=== PATIENT | male | born 1945 | race Asian ===

== ENCOUNTER 2017-09-30 20:46 | Inpatient (IN) | payer MEDICARE, MEDICAID ==
[~2017-09-30] VITALS: Ht 177.8 cm; Wt 86.2 kg
[2017-09-30] MEDS ORDERED: FISH OIL CAP1000 MG ORAL (20:59)
[2017-09-30] MEDS ORDERED: ASPIRIN EC81 MG ORAL (20:59)
[2017-09-30] MEDS ORDERED: DOCUSATE SODIU250 MG ORAL (20:59)
[2017-09-30] MEDS ORDERED: DULCOLAX10 MG RC (20:59)
[2017-09-30] MEDS ORDERED: FLEET ENEMA133 ML RECTAL (20:59)
[2017-09-30 21:03] VITALS: BP 150/94
--- NOTE | 2017-09-30 21:08 | Emergency Room Report ---
History of Present Illness General Chief Complaint: Head, Face, Neck Trauma Source: Patient, EMS Present Illness HPI The patient sustained a fall earlier this afternoon. He says he felt that he was about to pass out when he was starting to stand up. He hit his knee is and also his head. He remembers hitting his head then the pain was severe at that time also in his neck. He complains about headache, knee and neck pain at this time. He took aspirin [place] prior to coming. The pain in his neck is "heavy". There is no weakness. He does have swelling in his ankles. He reports the pain as 10/10, aching, not radiating. The patient has history of UTIs. He is uncertain when his last tetanus shot was. Allergies: Coded Allergies: No Known Allergies (Unverified , 09/30/17) Patient History Past Medical History: see triage record, old chart reviewed Past Surgical History: pacemaker Social History: Denies: smoking, alcohol use, drug use Social History [facility] Review[facility] Nursing Documentation: PMH: Agreed; PSxH: Agreed Nursing Documentation-PMH Hx Hypertension: Yes - atherosclerotic heart disease Hx Pacemaker: Yes Hx Diabetes: Yes Review of Systems All Other Systems: negative except mentioned in HPI Physical Exam Vital Signs Date Time Temp Pulse Resp B/P (MAP) Pulse Ox O2 Delivery O2 Flow Rate FiO2 09/30/17 20:36 97.8 96 18 150/94 98 Room Air 97.9 Sp02 EP Interpretation: reviewed, normal General Appearance: well appearing, no apparent distress, GCS 15 Head: other - Abrasion forehe Eyes: bilateral eye normal inspection, bilateral eye PERRL ENT: moist mucus membranes Neck: full range of motion, supple, no bony tend, tender - bilaterally more at base and into shoulders Respiratory: chest non-tender, lungs clear, normal breath sounds, other - pacemaker Cardiovascular #1: regular rate, rhythm, edema - bilat Cardiovascular #2: 2+ radial (R) Gastrointestinal: normal inspection, normal bowel sounds, non tender, no mass, non-distended Musculoskeletal: back normal, normal range of motion, no calf tenderness, pelvis stable, Aston's Sign negative, swelling - R knee with min effusion, TTP, ligaments stable, tender - knees and R shoulder (PROM of shoulder with minimal tenderness) Neurologic: alert, inspector structural bonding III-XII nml as tested, motor strength/tone normal, DTRs symmetric, sensory intact, cerebellar normal, speech normal, oriented - X2 Psychiatric: mood/affect normal Skin: warm/dry, abrasions - forehead and R knee Medical Decision Making Diagnostic Impression: Primary Impression: Syncope Qualified Codes: R55 - Syncope and collapse Additional Impressions: Blunt head trauma Qualified Codes: S09.8XXA - Other specified injuries of head, initial encounter Fall Qualified Codes: W19.XXXA - Unspecified fall, initial encounter Knee contusion Qualified Codes: S80.01XA - Contusion of right knee, initial encounter Abrasions of multiple sites Pleural effusion Whiplash Qualified Codes: S13.4XXA - Sprain of ligaments of cervical spine, initial encounter Contusion of right shoulder Qualified Codes: S40.011A - Contusion of right shoulder, initial encounter ER Course The patient presents after a fall associated with dizziness with head trauma and knee trauma. Differential includes acute myocardial infarction, arrhythmia , electrolyte imbalance, dehydration amongst others. We need to exclude head bleed and neck fracture although clinically the neck is low suspicion for fracture at this time. We will evaluate with EKG, chest x-ray and labs including urinalysis as he has a history of UTIs. He'll be treated with analgesia. Patient given tetanus. EKG without injury. CXR with L effusion. Labs with normal CBC, slight hyperkalemia, renal insufficiency. Xrays, CTs without fx, bleed. Vasyl applied by tech and good tension and position. Neurovasc checked by me and normal. Improved pain control. Patient admitted telemetry due to syncope. Laboratory Tests Test 09/30/17 21:14 09/30/17 22:00 10/01/17 06:15 White Blood Count 5.5 K/UL (4.8-10.8) 6.6 K/UL (4.8-10.8) Red Blood Count 4.51 M/UL (4.70-6.10) L 4.35 M/UL (4.70-6.10) L Hemoglobin 12.3 G/DL (14.2-18.0) L 12.1 G/DL (14.2-18.0) L Hematocrit 38.4 % (42.0-52.0) L 37.8 % (42.0-52.0) L Mean Corpuscular Volume 85 FL (80-99) 87 FL (80-99) Mean Corpuscular Hemoglobin 27.2 PG (27.0-31.0) 27.8 PG (27.0-31.0) Mean Corpuscular Hemoglobin Concent 32.0 G/DL (32.0-36.0) 32.0 G/DL (32.0-36.0) Red Cell Distribution Width 17.3 % (11.6-14.8) H 17.4 % (11.6-14.8) H Platelet Count 151 K/UL (150-450) 152 K/UL (150-450) Mean Platelet Volume 9.2 FL (6.5-10.1) 9.3 FL (6.5-10.1) Neutrophils (%) (Auto) 55.6 % (45.0-75.0) 47.7 % (45.0-75.0) Lymphocytes (%) (Auto) 31.6 % (20.0-45.0) 38.2 % (20.0-45.0) Monocytes (%) (Auto) 8.8 % (1.0-10.0) 9.9 % (1.0-10.0) Eosinophils (%) (Auto) 3.2 % (0.0-3.0) H 3.5 % (0.0-3.0) H Basophils (%) (Auto) 0.8 % (0.0-2.0) 0.7 % (0.0-2.0) Prothrombin Time 9.5 SEC (9.30-11.50) Prothrombin Time INR 0.9 (0.9-1.1) PTT 26 SEC (23-33) Sodium Level 142 MMOL/L (136-145) 145 MMOL/L (136-145) Potassium Level 5.8 MMOL/L (3.5-5.1) H 5.1 MMOL/L (3.5-5.1) Chloride Level 108 MMOL/L (98-107) H 109 MMOL/L (98-107) H Carbon Dioxide Level 34 MMOL/L (21-32) H 28 MMOL/L (21-32) Anion Gap 0 mmol/L (5-15) L 8 mmol/L (5-15) Blood Urea Nitrogen 28 mg/dL (7-18) H 25 mg/dL (7-18) H Creatinine 2.1 MG/DL (0.55-1.30) H 1.9 MG/DL (0.55-1.30) H Estimate Glomerular Filtration Rate mL/min (>60) mL/min (>60) Glucose Level 148 MG/DL (74-106) H 83 MG/DL (74-106) Calcium Level 8.8 MG/DL (8.5-10.1) 8.5 MG/DL (8.5-10.1) Total Bilirubin 0.4 MG/DL (0.2-1.0) 0.3 MG/DL (0.2-1.0) Aspartate Amino Transferase (AST) 42 U/L (15-37) H 27 U/L (15-37) Alanine Aminotransferase (ALT) 27 U/L (12-78) 23 U/L (12-78) Alkaline Phosphatase 118 U/L (46-116) H 111 U/L (46-116) Troponin I 0.038 ng/mL (0.000-0.056) Total Protein 7.2 G/DL (6.4-8.2) 6.7 G/DL (6.4-8.2) Albumin 2.5 G/DL (3.4-5.0) L 2.4 G/DL (3.4-5.0) L Globulin 4.7 g/dL 4.3 g/dL Albumin/Globulin Ratio 0.5 (1.0-2.7) L 0.6 (1.0-2.7) L Urine Color Pale yellow Urine Appearance Clear Urine pH 5 (4.5-8.0) Urine Specific [place] 1.015 (1.005-1.035) Urine Protein 4+ (NEGATIVE) H Urine Glucose (UA) Negative (NEGATIVE) Urine Ketones Negative (NEGATIVE) Urine Occult Blood 1+ (NEGATIVE) H Urine Nitrite Negative (NEGATIVE) Urine Bilirubin Negative (NEGATIVE) Urine Urobilinogen Normal MG/DL (0.0-1.0) Urine Leukocyte Esterase Negative (NEGATIVE) Urine RBC 2-4 /HPF (0 - 0) H Urine WBC 0-2 /HPF (0 - 0) Urine Squamous Epithelial Cells None /LPF (NONE/OCC) Urine Bacteria Few /HPF (NONE) C-Reactive Protein, Quantitative 2.0 mg/dL (0.00-0.90) H EKG Diagnostic Results Rate: normal Rhythm: other ST Segments: no acute changes Rhythm Strip Diag. Results EP Interpretation: yes Rhythm: no PVC's, no ectopy, other - rate 96 Chest X-Ray Diagnostic Results Chest X-Ray Diagnostic Results : Chest X-Ray Ordered: Yes # of Views/Limited/Complete: 1 View Indication: Other EP Interpretation: Yes Interpretation: no consolidation, other - L pleural effusion Other X-Ray Diagnostic Results Other X-Ray Diagnostic Results #1: X-Ray ordered: R shoulder # of Views/Limited Vs Complete: 3 View Indication: Pain EP Interpretation: Yes Interpretation: no dislocation, no soft tissue swelling, no fractures Impression: Other Electronically Signed by: Anant Rodriguez MD Other X-Ray Diagnostic Results #2: X-Ray ordered: R knee # of Views/Limited Vs Complete: 3 View Indication: Pain EP Interpretation: Yes Interpretation: no dislocation, no soft tissue swelling, no fractures, other - calcified vessels and DJD Impression: Other Electronically Signed by: Anant Rodriguez MD CT/MRI/US Diagnostic Results CT/MRI/US Diagnostic Results #1: Imaging Test Ordered: head Impression no mass, bleed or fx CT/MRI/US Diagnostic Results #2: Imaging Test Ordered: c spine Impression djd no fx, vasc calcifications Status: improved Disposition: ADMITTED INPATIENT Condition: Serious Anant Rodriguez M.D. Sep 30, 2017 21:08
[2017-09-30] MEDS ORDERED: GUAIFENESIN-CO118 M1 ORAL (21:11)
[2017-09-30] MEDS ORDERED: METOPROLOL TART50 MG ORAL (21:11)
[2017-09-30] MEDS ORDERED: PRO-STAT LIQUID30 ML ORAL (21:11)
[2017-09-30] MEDS ORDERED: LIPITOR40 MG ORAL (21:11)
[2017-09-30] MEDS ORDERED: POTASSIUM CHLO20 ME1 ORAL (21:11)
[2017-09-30] MEDS ORDERED: OMEPRAZOLE20 M2 ORAL (21:11)
[2017-09-30] MEDS ORDERED: NORCO 5-325 TA1 EAC1 ORAL (21:11)
[2017-09-30] MEDS ORDERED: LANTUS SOL100 UNIT/1 SUBQ (21:11)
[2017-09-30] MEDS ORDERED: MILK OF MA400 MG/51 ORAL (21:11)
[2017-09-30] MEDS ORDERED: LYRICA75 M1 ORAL (21:11)
[2017-09-30] MEDS ORDERED: ACETAMINOPHEN325 M1 ORAL (21:11)
[2017-09-30] MEDS ORDERED: TYLENOL EXTRA500 MG ORAL (21:11)
[2017-09-30] MEDS ORDERED: MECLIZINE HCL25 MG ORAL (21:11)
[2017-09-30] MEDS ORDERED: Tetanus/Diptheria/Pertussis Vaccine 0.5ml Syr IM ONE (21:15)
[2017-09-30] MEDS ORDERED: Morphine Sulfate 4mg/ml Inj IVP ONE (21:15)
[2017-09-30] MEDS ORDERED: Acetaminophen 500mg (ES) tab PO ONE (21:15)
[2017-09-30] MEDS ORDERED: Neosporin Oint Ud Pkt TOP ONE (21:15)
[2017-09-30 21:31] LABS: BASOPHILS % (AUTO) 0.8 % (0.0-2.0); EOSINOPHILS % (AUTO) 3.2 % (0.0-3.0); HEMATOCRIT 38.4 % (42.0-52.0); HEMOGLOBIN 12.3 G/DL (14.2-18.0); LYMPHOCYTES % (AUTO) 31.6 % (20.0-45.0); MEAN CORPUSCULAR VOLUME 85 FL (80-99); MONOCYTES % (AUTO) 8.8 % (1.0-10.0); NEUTROPHILS % (AUTO) 55.6 % (45.0-75.0); PLATELET COUNT 151 K/UL (150-450); RED BLOOD COUNT 4.51 M/UL (4.70-6.10); RED CELL DISTRIBUTION WIDTH 17.3 % (11.6-14.8); WHITE BLOOD COUNT 5.5 K/UL (4.8-10.8)
[2017-09-30 21:37] LABS: ANION GAP 0 mmol/L (5-15); BLOOD UREA NITROGEN 28 mg/dL (7-18); CALCIUM 8.8 MG/DL (8.5-10.1); CARBON DIOXIDE 34 MMOL/L (21-32); CHLORIDE 108 MMOL/L (98-107); CREATININE 2.1 MG/DL (0.55-1.30); POTASSIUM 5.8 MMOL/L (3.5-5.1); SODIUM 142 MMOL/L (136-145)
[2017-09-30 21:41] LABS: INR 0.9 (0.9-1.1)
[2017-09-30 21:43] LABS: ALANINE AMINOTRANSFERASE 27 U/L (12-78); ALBUMIN 2.5 G/DL (3.4-5.0); ALBUMIN/GLOBULIN RATIO 0.5 (1.0-2.7); ALKALINE PHOSPHATASE 118 U/L (46-116); ASPARTATE AMINO TRANSFERASE 42 U/L (15-37); BILIRUBIN,TOTAL 0.4 MG/DL (0.2-1.0)
[2017-09-30 22:21] LABS: APPEARANCE,URINE CLEAR; BILIRUBIN, URINE NEGATIVE (NEGATIVE); COLOR,URINE PALE YELLOW; GLUCOSE, URINE (UA) NEGATIVE (NEGATIVE); KETONES,URINE NEGATIVE (NEGATIVE); LEUKOCYTE ESTERASE ,URINE NEGATIVE (NEGATIVE); NITRITE,URINE NEGATIVE (NEGATIVE); PH,URINE 5 (4.5-8.0); PROTEIN,URINE 4+ (NEGATIVE); UROBILINOGEN,URINE NORMAL MG/DL (0.0-1.0)
[2017-10-01 00:01] VITALS: BP 127/73
[2017-10-01] MEDS ORDERED: Fleet's Enema 133ml RECTAL PRN (01:30)
[2017-10-01] MEDS ORDERED: guaiFENesin w/Codeine 5ml Liq ud ORAL PRN (01:30)
[2017-10-01] MEDS ORDERED: Acetaminophen 500mg (ES) tab ORAL PRN (01:30)
[2017-10-01] MEDS ORDERED: Milk of Magnesia 30ml Ud ORAL PRN (01:30)
[2017-10-01] MEDS ORDERED: Meclizine 25mg tab ORAL PRN (01:30)
[2017-10-01] MEDS ORDERED: Norco 5mg/325mg tab ORAL PRN ×2 (01:30→08:00)
[2017-10-01 04:00] VITALS: BP 117/90
[2017-10-01] MEDS: NovoLOG Insulin Flexpen SUBQ SCH ×4 (06:30→21:00)
[2017-10-01 08:00] VITALS: BP 116/69
[2017-10-01 08:41] LABS: BASOPHILS % (AUTO) 0.7 % (0.0-2.0); EOSINOPHILS % (AUTO) 3.5 % (0.0-3.0); HEMATOCRIT 37.8 % (42.0-52.0); HEMOGLOBIN 12.1 G/DL (14.2-18.0); LYMPHOCYTES % (AUTO) 38.2 % (20.0-45.0); MEAN CORPUSCULAR VOLUME 87 FL (80-99); MONOCYTES % (AUTO) 9.9 % (1.0-10.0); NEUTROPHILS % (AUTO) 47.7 % (45.0-75.0); PLATELET COUNT 152 K/UL (150-450); RED BLOOD COUNT 4.35 M/UL (4.70-6.10); RED CELL DISTRIBUTION WIDTH 17.4 % (11.6-14.8); WHITE BLOOD COUNT 6.6 K/UL (4.8-10.8)
[2017-10-01] MEDS ORDERED: Meclizine 25mg tab ORAL SCH (09:00)
[2017-10-01] MEDS ORDERED: Levemir Flexpen SUBQ SCH (09:00)
[2017-10-01 09:17] LABS: ALANINE AMINOTRANSFERASE 23 U/L (12-78); ALBUMIN 2.4 G/DL (3.4-5.0); ALBUMIN/GLOBULIN RATIO 0.6 (1.0-2.7); ALKALINE PHOSPHATASE 111 U/L (46-116); ANION GAP 8 mmol/L (5-15); ASPARTATE AMINO TRANSFERASE 27 U/L (15-37); BILIRUBIN,TOTAL 0.3 MG/DL (0.2-1.0); BLOOD UREA NITROGEN 25 mg/dL (7-18); CALCIUM 8.5 MG/DL (8.5-10.1); CARBON DIOXIDE 28 MMOL/L (21-32); CHLORIDE 109 MMOL/L (98-107); CREATININE 1.9 MG/DL (0.55-1.30); POTASSIUM 5.1 MMOL/L (3.5-5.1); SODIUM 145 MMOL/L (136-145)
[2017-10-01] MEDS: Lyrica 50mg cap ORAL SCH ×2 (09:18→17:25)
--- NOTE | 2017-10-01 09:18 | Diagnostic Imaging Report ---
Indications: Trauma Technique: Three views of the right knee Comparison: None Findings: No acute fractures. No dislocations. Joint spaces are preserved. No radiopaque foreign body. Normal mineralization. There are vascular calcifications. There is a small superior pole patellar traction osteophyte Impression: No acute process This agrees with the preliminary interpretation provided by the emergency room physician
[2017-10-01] MEDS: Metoprolol Tartrate 50mg tab ORAL SCH (09:19)
[2017-10-01] MEDS: Docusate 250mg cap ORAL SCH (09:20)
--- NOTE | 2017-10-01 09:31 | Diagnostic Imaging Report ---
Indications: From Technique: Spiral acquisitions obtained through the brain. Angled axial and coronal 5 x 5 mm slices were reconstructed. Total dose length product 1404.24 mGycm. CTDI vol(s) 70.38 mGy. Dose reduction achieved using automated exposure control Comparison: None. Findings: No acute hemorrhage or edema. No mass effect or midline shift. There is age-related enlargement of the ventricles and extra axial CSF spaces. Normal ruiz-white differentiation. There is sphenoid and ethmoid sinus disease as well as minimal medial maxillary mucosal thickening. There is a mild amount of disease in the bilateral mastoids. Small contusions are seen in the supraorbital scalp Impression: Age-related changes Negative for acute intracranial bleed or mass effect Evidence of extracranial scalp soft tissue injury. Sinus disease Mastoid disease This agrees with the preliminary interpretation provided overnight by [facility] service. The CT scanner at [facility] is accredited by the [employer] and the scans are performed using protocols designed to limit radiation exposure to as low as reasonably achievable to attain images of sufficient resolution adequate for diagnostic evaluation.
--- NOTE | 2017-10-01 09:37 | Diagnostic Imaging Report ---
Indication: Trauma, pain Technique: Spiral acquisitions obtained through the cervical spine. No IV contrast utilized. Multiplanar reconstructions were generated. Total dose length product 402.55 mGycm. CTDIvol(s) 17.41 mGy. Dose reduction achieved using automated exposure control. Comparison: none Findings: No acute fractures. No dislocations. Vertebral body heights are observed. There is degenerative narrowing of the anterior axial joint. At C3-4, there is minimal bilateral neural foraminal stenosis. No significant disc bulge or protrusion or spinal stenosis At C4-5, there are multiple osteophytes at the disc level. The disc space is preserved. There is severe right and moderate left neural foraminal stenosis. There is mild broad-based posterior disc protrusion which results in minimal spinal stenosis. There is bilateral facet arthrosis. At C5-6, there is moderate degenerative disc narrowing. Posterior osteophytes result in moderate narrowing of the spinal canal as well as likely impingement on the bilateral lateral recesses. There is severe bilateral neural foraminal stenosis due to uncinate hypertrophy and facet arthrosis. At C6-7, there is severe degenerative disc narrowing. Posterior osteophytes result in mild to moderate spinal stenosis as well as likely impingement on the lateral recesses. There is severe bilateral neural foraminal stenosis. At C7-T1, no significant disc bulge or protrusion, spinal stenosis, or neural foraminal stenosis. There is bilateral facet arthrosis. The included extra spinal soft tissues are unremarkable except for sinus disease. There is asymmetry of the piriform sinuses this appears to be due to asymmetric development of the thyroid cartilage. No mass is visualized. Impression: No acute bony trauma Degenerative changes, as described This agrees with the preliminary interpretation provided overnight by [facility]. The CT scanner at [facility] is accredited by the [employer] and the scans are performed using protocols designed to limit radiation exposure to as low as reasonably achievable to attain images of sufficient resolution adequate for diagnostic evaluation.
--- NOTE | 2017-10-01 09:38 | Diagnostic Imaging Report ---
Indication: Trauma Technique: 3 views of the right shoulder Comparison: none Findings: No acute fractures or dislocations. The joint spaces are preserved. The bones are osteoporotic Impression: No acute process
--- NOTE | 2017-10-01 09:40 | Diagnostic Imaging Report ---
Indication: Trauma Technique: One view of the chest Comparison: none Findings: Left lateral basilar opacity could represent pleural fluid. However, the left hemidiaphragm remains visible so it probably just represents a prominent pericardial fat pad. The remainder the lungs and pleural spaces are clear. There is a left chest bifocal pacemaker. Normal heart size Impression: Left pleural effusion versus prominent pericardial fat pad, favor the latter Pacemaker. This agrees with the preliminary interpretation provided by the emergency room physician
--- NOTE | 2017-10-01 11:07 | Neurology Progress Note ---
Objective Physical Exam Last Vital Signs Date Time Temp Pulse Resp B/P (MAP) Pulse Ox O2 Delivery O2 Flow Rate FiO2 10/01/17 09:19 76 116/69 10/01/17 08:00 97.3 20 96 Nasal Cannula 2.0 97.3 Laboratory Tests Test 09/30/17 21:14 09/30/17 22:00 10/01/17 06:15 White Blood Count 5.5 K/UL (4.8-10.8) 6.6 K/UL (4.8-10.8) Red Blood Count 4.51 M/UL (4.70-6.10) L 4.35 M/UL (4.70-6.10) L Hemoglobin 12.3 G/DL (14.2-18.0) L 12.1 G/DL (14.2-18.0) L Hematocrit 38.4 % (42.0-52.0) L 37.8 % (42.0-52.0) L Mean Corpuscular Volume 85 FL (80-99) 87 FL (80-99) Mean Corpuscular Hemoglobin 27.2 PG (27.0-31.0) 27.8 PG (27.0-31.0) Mean Corpuscular Hemoglobin Concent 32.0 G/DL (32.0-36.0) 32.0 G/DL (32.0-36.0) Red Cell Distribution Width 17.3 % (11.6-14.8) H 17.4 % (11.6-14.8) H Platelet Count 151 K/UL (150-450) 152 K/UL (150-450) Mean Platelet Volume 9.2 FL (6.5-10.1) 9.3 FL (6.5-10.1) Neutrophils (%) (Auto) 55.6 % (45.0-75.0) 47.7 % (45.0-75.0) Lymphocytes (%) (Auto) 31.6 % (20.0-45.0) 38.2 % (20.0-45.0) Monocytes (%) (Auto) 8.8 % (1.0-10.0) 9.9 % (1.0-10.0) Eosinophils (%) (Auto) 3.2 % (0.0-3.0) H 3.5 % (0.0-3.0) H Basophils (%) (Auto) 0.8 % (0.0-2.0) 0.7 % (0.0-2.0) Prothrombin Time 9.5 SEC (9.30-11.50) Prothromb Time International Ratio 0.9 (0.9-1.1) Activated Partial Thromboplast Time 26 SEC (23-33) Sodium Level 142 MMOL/L (136-145) 145 MMOL/L (136-145) Potassium Level 5.8 MMOL/L (3.5-5.1) H 5.1 MMOL/L (3.5-5.1) Chloride Level 108 MMOL/L (98-107) H 109 MMOL/L (98-107) H Carbon Dioxide Level 34 MMOL/L (21-32) H 28 MMOL/L (21-32) Anion Gap 0 mmol/L (5-15) L 8 mmol/L (5-15) Blood Urea Nitrogen 28 mg/dL (7-18) H 25 mg/dL (7-18) H Creatinine 2.1 MG/DL (0.55-1.30) H 1.9 MG/DL (0.55-1.30) H Estimat Glomerular Filtration Rate mL/min (>60) mL/min (>60) Glucose Level 148 MG/DL (74-106) H 83 MG/DL (74-106) Calcium Level 8.8 MG/DL (8.5-10.1) 8.5 MG/DL (8.5-10.1) Total Bilirubin 0.4 MG/DL (0.2-1.0) 0.3 MG/DL (0.2-1.0) Aspartate Amino Transf (AST/SGOT) 42 U/L (15-37) H 27 U/L (15-37) Alanine Aminotransferase (ALT/SGPT) 27 U/L (12-78) 23 U/L (12-78) Alkaline Phosphatase 118 U/L (46-116) H 111 U/L (46-116) Troponin I 0.038 ng/mL (0.000-0.056) Total Protein 7.2 G/DL (6.4-8.2) 6.7 G/DL (6.4-8.2) Albumin 2.5 G/DL (3.4-5.0) L 2.4 G/DL (3.4-5.0) L Globulin 4.7 g/dL 4.3 g/dL Albumin/Globulin Ratio 0.5 (1.0-2.7) L 0.6 (1.0-2.7) L Urine Color Pale yellow Urine Appearance Clear Urine pH 5 (4.5-8.0) Urine Specific [place] 1.015 (1.005-1.035) Urine Protein 4+ (NEGATIVE) H Urine Glucose (UA) Negative (NEGATIVE) Urine Ketones Negative (NEGATIVE) Urine Occult Blood 1+ (NEGATIVE) H Urine Nitrite Negative (NEGATIVE) Urine Bilirubin Negative (NEGATIVE) Urine Urobilinogen Normal MG/DL (0.0-1.0) Urine Leukocyte Esterase Negative (NEGATIVE) Urine RBC 2-4 /HPF (0 - 0) H Urine WBC 0-2 /HPF (0 - 0) Urine Squamous Epithelial Cells None /LPF (NONE/OCC) Urine Bacteria Few /HPF (NONE) Impression/Recommendations Problems: (1) Syncope due to autonomic failure (2) Blunt head trauma (3) Gait apraxia of elderly (4) Cognitive deficit as late effect of cerebrovascular accident (CVA) Recommendations #[id number] SILVIANO NIETO Oct 01, 2017 11:07
[2017-10-01 12:00] VITALS: BP 130/74
--- NOTE | 2017-10-01 15:40 | Consultation ---
Consult Note Consult Note asked to eval for renal failure- The patient sustained a fall earlier this afternoon. He says he felt that he was about to pass out when he was starting to stand up. He hit his knee is and also his head. He remembers hitting his head then the pain was severe at that time also in his neck. He complains about headache and neck pain at this time. He took aspirin [place] prior to coming. The pain in his neck is "heavy". There is no weakness. He does have swelling in his ankles. The patient has history of UTIs. He is uncertain when his last tetanus shot was. Hx Hypertension: Yes - atherosclerotic heart disease Hx Pacemaker: Yes Hx Diabetes: Yes interviewed examined data reviewed Assessment/Plan Renal failure- likely acute on chronic DM + Proteinuria pacer HTN Slow hydrate- avoid nephrotoxics BP and BS in check Monitor renal parameters per orders TALITA DIETZ Oct 01, 2017 15:40
[2017-10-01 16:00] VITALS: BP 144/75
[2017-10-01 20:00] VITALS: BP 157/53
--- NOTE | 2017-10-01 21:01 | Consultation ---
DATE OF CONSULTATION: 10/01/2017 NEUROLOGICAL CONSULTATION CONSULTING PHYSICIAN: Lizandro Aguirre M.D. REQUESTING PHYSICIAN: Laurie Mcmullen M.D. HISTORY OF PRESENT ILLNESS: This is a 72-year-old resident of nursing facility, who was observed falling injuring his head, shoulders, and knees. Paramedics were called to the scene. His vital signs were stable, blood pressure 130/78 but pain level was 10. He was also complaining of generalized weakness. The patient was brought to emergency room where he informed that at noon time, as he was getting up, he felt that he is passing out, he fell down, hit his knees and head, and reported that the pain was quite severe. This included his head and neck. In the field, he was given aspirin and [place] for pain management. His vital signs on admission remained stable. He was afebrile. There is an abrasion on his forehead noted. He was also complaining of dizziness. The patient had multiple imaging including x-ray of the knees and shoulders, no fractures noted. Cervical spine CT scan revealed multilevel degenerative joint disease. No fracture or dislocation. CT scan of the brain without contrast revealed no acute abnormalities. No hemorrhage. No midline shift. There was significant ischemic cerebrovascular disease. No evidence of acute stroke. There was evidence of mastoid disease. Lab work included mild anemia, hemoglobin 12.2, hematocrit 38.4. Normal coagulation panel. Unremarkable urinalysis except 4+ protein. Chemistry panel abnormal with potassium 5.8, chloride 108, carbon dioxide 34, elevated BUN of 28 and creatinine 2.1, blood sugar 148. Albumin down to 2.5. Since admission, the patient remained drowsy and he was confused. PAST MEDICAL HISTORY: History of coronary artery disease, status post coronary artery bypass graft. He has a pacemaker in place, hyperlipidemia, and hypertension. MEDICATIONS: Treatment prior to admission included Lipitor, Dulcolax, [place] p.r.n., , meclizine p.r.n., metoprolol, , pantoprazole, and Lyrica 200 mg b.i.d. ALLERGIES: None reported. SOCIAL HISTORY: The patient is of descent, now resident of nursing facility. Denies alcohol or drug abuse. FAMILY HISTORY: Noncontributory. REVIEW OF SYMPTOMS: Generalized aches and pains. Denies headaches. No chest pain. No palpitations. No respiratory problems. Recalls having small stroke, unable to identify what side. PHYSICAL EXAMINATION: GENERAL: A well-developed, somewhat ill-appearing, but well-nourished man, not in acute distress, found to be asleep, but easily arousable. VITAL SIGNS: Stable. Blood pressure 116/69 and temperature 97.3. HEENT: Head normocephalic. There is a bruise in the right forehead. No otorrhea. No rhinorrhea. NECK: Rigid in all directions. Tender on palpation. EXTREMITIES: Upper and lower extremities, 1+ pitting edema in both ankles. There is arthritic changes in both knees, ankles, and hands. Peripheral pulses 1+ symmetric. MENTAL STATUS: The patient is arousable. He appears somewhat confused. Speech at times difficult to understand, probably due to accent. He was able to follow simple commands. Poor historian. CRANIAL NERVE II: Pupils both responding to light and accommodation. Extraocular movements intact. No nystagmus. CRANIAL NERVE V: Normal corneal responses. CRANIAL NERVE VII: Slight facial droop. CRANIAL NERVE VIII: Slight decrease in hearing. CRANIAL NERVES IX THROUGH XII: Tongue is in midline. MOTOR EXAMINATION: Able to lift arms against the gravity. Slight tremor of left hand: Able to lift both lower extremity, but with poor efforts of strength 5-/5 in both legs. Deep tendon reflexes depressed bilaterally. Plantar responses flexor on the right and mute on the left. SENSORY EXAMINATION: Inconsistent response to pin stimulation GAIT: The patient was able to slowly get up but was quite unstable and was eased back to his bed. IMPRESSION: 1. History of transient loss of consciousness with fall most likely represent a syncopal episode. 2. Syncopal episode, vasovagal in origin. 3. Ischemic cerebrovascular disease, mild vascular dementia. 4. Coronary artery disease, status post coronary artery bypass graft, pacemaker in place. 5. Hypertension. 6. Hyperlipidemia. 7. Degenerative joint disease. 8. Abnormal gait, high risk of fall. 9. Polypharmacy. RECOMMENDATION: The patient received multiple treatments for arthritic pain. This include opiates, which may contribute to his gait abnormality. The patient has multiple stroke risk factors and should continue on statins and Ecotrin. Continue pain management with Lyrica. Recheck orthostatic blood pressure. Get PT and OT mobility protocol, cardiac reassessment to rule out a pacemaker function. Thank you for allowing me to see this interesting patient in neurological consultation. Ilzandro Madhavi Aguirre DR: IVAN JOB#: [id number] CC:
[2017-10-01] MEDS: Atorvastatin 80mg tab ORAL SCH (21:34)
--- NOTE | 2017-10-01 22:01 | Consultation ---
DATE OF CONSULTATION: 10/01/2017 INFECTIOUS DISEASE CONSULTATION CONSULTING PHYSICIAN: Raz Paulson M.D. PRIMARY ATTENDING PHYSICIAN: Laurie Mcmullen M.D. REASON FOR CONSULTATION: UTI. HISTORY OF PRESENT ILLNESS: This is a 72-year-old male admitted [facility] after a syncopal episode. The patient was trying to stand up and fell down and had laceration in forehead and knee. He is very poor historian, seems sedated, and fell asleep frequently. PAST MEDICAL HISTORY: Significant for diabetes mellitus. The patient is status post pacemaker, has history of pneumonia, past history of chronic kidney disease, and has leg edema. MEDICATIONS: Getting atorvastatin, Colace, meclizine, metoprolol, pregabalin, K-Dur, Protonix, Levemir insulin, fish oil, [place], Tylenol, Robitussin With Codeine, milk of magnesia, and sodium phosphate. SOCIAL HISTORY: Yarsani, long term resident. No other history obtainable. PHYSICAL EXAMINATION: VITAL SIGNS: Temperature 97.3 degrees, pulse 76, and blood pressure is 116/69. GENERAL APPEARANCE: No acute distress, seems to be well developed . HEAD AND NECK: A small area of skin laceration in forehead midline. HEART: Regular, has pacemaker, has normal rate. LUNGS: Clear. ABDOMEN: Soft and nontender. EXTREMITIES: He has bilateral leg edema. He has a skin laceration in right knee. LABORATORY AND DIAGNOSTIC DATA: UA showed wbc of 0-2, rbc 2-4, and 4+ protein. Sodium 145, potassium 5.1, potassium was 5.8 at the time of admission, chloride 109, bicarbonate 28, BUN 25, and creatinine 1.9. WBC 6.6, hemoglobin 12.1, hematocrit 37.8, and platelets 152,000. CT scan of the cervical spine showed degenerative change. Right knee x-ray showed no acute process. CT scan of the head showed sinus disease, mostly in sphenoid and ethmoid disease, bilateral disease in mastoid area. Shoulder x-ray was negative. IMPRESSION: Sinus disease and mastoid disease. It is not clear that is old or new. The patient currently has no fever or leukocytosis. He has syncope, diabetes mellitus, status post pacemaker, has acute renal failure with hyperkalemia, and has chronic kidney disease. RECOMMENDATION: We will observe off antibiotic. We will follow up the patient's cultures and clinical course. At the end of my exam, I thank Dr. Mcmullen for involving me in the care of this patient. Raz Paulson M.D. DR: CLEMENTINA JOB#: [id number] CC: MAGED
[2017-10-02] VITALS: BP 147/78
[2017-10-02 04:00] VITALS: BP 141/81
--- NOTE | 2017-10-02 05:16 | History and Physical Report ---
DATE OF ADMISSION: 09/30/2017 HISTORY OF PRESENT ILLNESS: The patient has advanced dementia and poor historian, who is here because of syncopal episode, who was found on the floor. The patient is a poor historian and the patient also complained of headaches and neck pain. The patient also bumped his head when he fell. He is also admitted to basically monitor the patient and make sure that he has not had any intracranial hemorrhage. At this point, it is negative per ER doctor and also per the imaging study is negative for bleed and the patient does not remember the details, but did have some dizziness. PAST MEDICAL HISTORY: Significant for dementia, hyperlipidemia, constipation, NIDDM, history of vertigo, hypertension, GERD, and history of neuropathy. PAST SURGICAL HISTORY: Denies. MEDICATIONS: Lipitor, bisacodyl, Colace, fish oil, insulin, metoprolol, omeprazole, calcium, and Lyrica. ALLERGIES: No known allergies. SOCIAL HISTORY: Denies smoking, alcohol, or drugs. FAMILY HISTORY: Noncontributory. REVIEW OF SYSTEMS: HEENT: Does have headache and dizziness. CHEST: Denies shortness of breath. Denies cough. CARDIOVASCULAR: Denies chest pain. GASTROINTESTINAL: Denies nausea, vomiting, or diarrhea. EXTREMITIES: He does have chronic also complaining of hand pain. CENTRAL NERVOUS SYSTEM: No change in vision or speech pattern. PHYSICAL EXAMINATION: VITAL SIGNS: Temperature 97.9 degrees, pulse is 75, blood pressure . HEENT: PERRLA. NECK: Supple. No lymphadenopathy. CHEST: Clear to auscultation. GASTROINTESTINAL: Soft, nontender, and nondistended. EXTREMITIES: 1+ edema. Reflexes equal on both sides. NEUROLOGIC: Oriented to name. LABORATORY AND DIAGNOSTIC DATA: Head CT does not show any acute events. Laboratory arauz, WBC of 5.5, hemoglobin 12.3, and platelets 151. Sodium 140, potassium 5.8, chloride 108, BUN of 28, creatinine 2.2, and glucose of 148. ASSESSMENT AND PLAN: 1. Hyperkalemia. 2. Acute renal failure. 3. Status post fall, rule out syncope as well as blunt head injury and rule out any infectious etiology. I have asked Dr. Paige to check the patient for any urinary tract infection and infectious disease process as well as Dr. Aguirre and Dr. Ackerman were consulted for possible syncope as well as for treatment of hyperkalemia. Laurie Mcmullen M.D. DR: Trinidad JOB#: [id number] CC:
[2017-10-02] MEDS: NovoLOG Insulin Flexpen SUBQ SCH ×4 (06:17→21:00)
[2017-10-02 08:00] VITALS: BP 127/77
--- NOTE | 2017-10-02 08:38 | Diagnostic Imaging Report ---
Indication: Left hand injury Technique: 3 views left hand Comparison: None Findings: Positioning is somewhat suboptimal. Per technologist, patient had altered mental status and was difficult to position properly. No acute fractures demonstrated. No dislocations. There is degenerative joint space narrowing of the second through fifth distal interphalangeal joints, first interphalangeal joint, and to a lesser extent the second through fifth proximal interphalangeal joints. Bones are osteoporotic. No acute fractures. No dislocations. Impression: Degenerative changes, as described No acute bony trauma
[2017-10-02] MEDS: Docusate 250mg cap ORAL SCH (08:50)
[2017-10-02] MEDS: Metoprolol Tartrate 50mg tab ORAL SCH (08:51)
[2017-10-02] MEDS: Lyrica 50mg cap ORAL SCH ×2 (08:52→17:29)
[2017-10-02 09:53] LABS: BASOPHILS % (AUTO) 0.3 % (0.0-2.0); EOSINOPHILS % (AUTO) 0.9 % (0.0-3.0); HEMATOCRIT 34.5 % (42.0-52.0); LYMPHOCYTES % (AUTO) 21.3 % (20.0-45.0); MEAN CORPUSCULAR VOLUME 87 FL (80-99); MONOCYTES % (AUTO) 6.6 % (1.0-10.0); NEUTROPHILS % (AUTO) 70.8 % (45.0-75.0); PLATELET COUNT 136 K/UL (150-450); RED BLOOD COUNT 3.95 M/UL (4.70-6.10); RED CELL DISTRIBUTION WIDTH 17.5 % (11.6-14.8); WHITE BLOOD COUNT 6.8 K/UL (4.8-10.8)
[2017-10-02 10:55] LABS: ALANINE AMINOTRANSFERASE 22 U/L (12-78); ALBUMIN 2.7 G/DL (3.4-5.0); ALBUMIN/GLOBULIN RATIO 0.7 (1.0-2.7); ALKALINE PHOSPHATASE 95 U/L (46-116); ANION GAP 7 mmol/L (5-15); ASPARTATE AMINO TRANSFERASE 21 U/L (15-37); BILIRUBIN,TOTAL 0.4 MG/DL (0.2-1.0); BLOOD UREA NITROGEN 23 mg/dL (7-18); CALCIUM 8.3 MG/DL (8.5-10.1); CARBON DIOXIDE 32 MMOL/L (21-32); CHLORIDE 105 MMOL/L (98-107); CHOLESTEROL 131 MG/DL (< 200); CREATININE 1.9 MG/DL (0.55-1.30); FERRITIN 34 NG/ML (8-388); GAMMA GLUTAMYL TRANSPEPTIDASE 48 U/L (5-85); HDL CHOLESTEROL 37 MG/DL (40-60); PHOSPHORUS 3.8 MG/DL (2.5-4.9); POTASSIUM 4.3 MMOL/L (3.5-5.1); SODIUM 144 MMOL/L (136-145); TRIGLYCERIDES 124 MG/DL (30-150)
[2017-10-02 11:09] LABS: % IRON SATURATION 16 % (15-50); IRON 41 ug/dL (50-175); TOTAL IRON BINDING CAPACITY 263 ug/dL (250-450)
[2017-10-02 12:00] VITALS: BP 125/60
--- NOTE | 2017-10-02 14:17 | Infectious Diseases Prog Note ---
Assessment/Plan Assessment/Plan A; Sinus & mastoid disease chronic Syncope Acute renal failure Hyperkalemia corrected DM P: observe off antibiotic Subjective ROS Limited/Unobtainable: No Respiratory: Reports: no symptoms Cardiovascular: Reports: no symptoms Gastrointestinal/Abdominal: Reports: no symptoms Genitourinary: Reports: no symptoms Allergies: Coded Allergies: No Known Allergies (Unverified , 09/30/17) Objective Vital Signs Last 24 Hour Vital Signs Date Time Temp Pulse Resp B/P (MAP) Pulse Ox O2 Delivery O2 Flow Rate FiO2 10/02/17 12:00 97.7 18 125/60 97 Nasal Cannula 2.0 28 97.7 10/02/17 12:00 75 10/02/17 08:51 127 77/76 10/02/17 08:00 75 10/02/17 08:00 97.7 76 18 127/77 97 Nasal Cannula 2.0 28 97.7 10/02/17 04:00 95.5 81 19 141/81 97 Nasal Cannula 2.0 95.5 10/02/17 04:00 75 10/02/17 00:57 97 Nasal Cannula 2.0 28 10/02/17 00:57 Nasal Cannula 2.0 28 10/02/17 00:00 98.0 77 20 147/78 97 Nasal Cannula 2.0 98.0 10/02/17 00:00 75 10/01/17 20:00 99.0 84 19 157/53 98 Nasal Cannula 2.0 99.0 10/01/17 20:00 63 10/01/17 16:00 97.9 75 20 144/75 96 Nasal Cannula 2.0 97.9 10/01/17 16:00 75 Height (Feet): 5 Height (Inches): 10.00 Weight (Pounds): 190 General Appearance: no acute distress HEENT: mucous membranes moist Respiratory/Chest: lungs clear Cardiovascular: normal rate Abdomen: soft, non tender Extremities: other - localized edema of left hand previous IV site Laboratory Tests Test 10/02/17 05:00 10/02/17 07:00 Urine Random Sodium 64 mmol/L (20-110) White Blood Count 6.8 K/UL (4.8-10.8) Red Blood Count 3.95 M/UL (4.70-6.10) L Hemoglobin 11.0 G/DL (14.2-18.0) L Hematocrit 34.5 % (42.0-52.0) L Mean Corpuscular Volume 87 FL (80-99) Mean Corpuscular Hemoglobin 27.8 PG (27.0-31.0) Mean Corpuscular Hemoglobin Concent 31.9 G/DL (32.0-36.0) L Red Cell Distribution Width 17.5 % (11.6-14.8) H Platelet Count 136 K/UL (150-450) L Mean Platelet Volume 9.2 FL (6.5-10.1) Neutrophils (%) (Auto) 70.8 % (45.0-75.0) Lymphocytes (%) (Auto) 21.3 % (20.0-45.0) Monocytes (%) (Auto) 6.6 % (1.0-10.0) Eosinophils (%) (Auto) 0.9 % (0.0-3.0) Basophils (%) (Auto) 0.3 % (0.0-2.0) Sodium Level 144 MMOL/L (136-145) Potassium Level 4.3 MMOL/L (3.5-5.1) Chloride Level 105 MMOL/L (98-107) Carbon Dioxide Level 32 MMOL/L (21-32) Anion Gap 7 mmol/L (5-15) Blood Urea Nitrogen 23 mg/dL (7-18) H Creatinine 1.9 MG/DL (0.55-1.30) H Estimat Glomerular Filtration Rate mL/min (>60) Glucose Level 129 MG/DL (74-106) H Hemoglobin A1c 9.4 % (4.3-6.0) H Uric Acid 7.5 MG/DL (2.6-7.2) H Calcium Level 8.3 MG/DL (8.5-10.1) L Phosphorus Level 3.8 MG/DL (2.5-4.9) Magnesium Level 1.6 MG/DL (1.8-2.4) L Iron Level 41 ug/dL (50-175) L Total Iron Binding Capacity 263 ug/dL (250-450) Percent Iron Saturation 16 % (15-50) Unsaturated Iron Binding 222 ug/dL (112-346) Ferritin 34 NG/ML (8-388) Total Bilirubin 0.4 MG/DL (0.2-1.0) Gamma Glutamyl Transpeptidase 48 U/L (5-85) Aspartate Amino Transf (AST/SGOT) 21 U/L (15-37) Alanine Aminotransferase (ALT/SGPT) 22 U/L (12-78) Alkaline Phosphatase 95 U/L (46-116) Troponin I 0.038 ng/mL (0.000-0.056) Pro-B-Type Natriuretic Peptide 3612 pg/mL (0-125) H Total Protein 6.7 G/DL (6.4-8.2) Albumin 2.7 G/DL (3.4-5.0) L Globulin 4.0 g/dL Albumin/Globulin Ratio 0.7 (1.0-2.7) L Triglycerides Level 124 MG/DL (30-150) Cholesterol Level 131 MG/DL (< 200) LDL Cholesterol 83 mg/dL (<100) HDL Cholesterol 37 MG/DL (40-60) L Cholesterol/HDL Ratio 3.5 (3.3-4.4) Vitamin B12 Level 717 PG/ML (193-986) Folate 17.0 NG/ML (8.6-58.9) Thyroid Stimulating Hormone (TSH) 1.987 uiU/mL (0.358-3.740) Current Medications Medications (Trade) Dose Ordered Sig/Olga Lidia Route PRN Reason Start Time Stop Time Status Last Admin Dose Admin Acetaminophen (Tylenol) 650 mg Q4H PRN ORAL Fever/Headache/Mild Pain 10/01/17 01:30 10/31/17 01:29 Acetaminophen (Tylenol) 650 mg Q4H PRN ORAL Pain Scale (6-10) 10/01/17 01:30 10/31/17 01:29 Acetaminophen/ Hydrocodone Bitart ([place] 5/325) 1 tab Q4H PRN ORAL Severe Pain (Pain Scale 7-10) 10/01/17 08:00 10/08/17 07:59 Atorvastatin Calcium (Lipitor) 40 mg BEDTIME ORAL 10/01/17 21:00 10/31/17 20:59 10/01/17 21:34 Bisacodyl (Dulcolax) 10 mg NEEDED PRN RECTAL Constipation 10/01/17 01:30 10/31/17 01:29 Dextrose (Dextrose 50%) STAT PRN IV Hypoglycemia 10/01/17 01:15 10/31/17 01:14 10/02/17 06:26 Docusate Sodium (Colace) 250 mg DAILY ORAL 10/01/17 09:00 10/31/17 08:59 10/02/17 08:50 Fish Oil (Fish Oil) 1,000 mg DAILY ORAL 10/01/17 09:00 10/31/17 08:59 10/02/17 08:51 Guaifenesin/ Codeine Phosphate (Robitussin with codeine) 5 ml Q4H PRN ORAL For Cough 10/01/17 01:30 10/31/17 01:29 Insulin Aspart (NovoLOG) BEFORE MEALS AND HS SUBQ 10/01/17 06:30 10/31/17 06:29 10/01/17 12:03 Insulin Detemir (Levemir) 30 units QHS SUBQ 10/02/17 21:00 11/01/17 20:59 Magnesium Hydroxide (Mom) 30 ml DAILY PRN ORAL Constipation 10/01/17 01:30 10/31/17 01:29 Meclizine HCl (Antivert) 25 mg DAILY PRN ORAL for dizziness 10/01/17 01:30 10/31/17 01:29 Metoprolol Tartrate (Lopressor) 50 mg DAILY ORAL 10/01/17 09:00 10/31/17 08:59 10/02/17 08:51 Pantoprazole (Protonix) 40 mg DAILY ORAL 10/01/17 09:00 10/31/17 08:59 10/02/17 08:50 Pregabalin (Lyrica) 200 mg BID ORAL 10/01/17 09:00 10/31/17 08:59 10/02/17 08:52 Sodium Phosphate (Fleet's Sodium Phosl Enema) 133 ml DAILY PRN RECTAL Constipation 10/01/17 01:30 10/31/17 01:29 MICKEY BIANCHI Oct 02, 2017 14:17
--- NOTE | 2017-10-02 14:43 | Nephrology Progress Note ---
Assessment/Plan Problem List: (1) CKD (chronic kidney disease) (2) Diabetic nephropathy Assessment Renal failure- likely acute on chronic DM + Proteinuria pacer HTN Plan Slow hydrate- avoid nephrotoxics BP and BS in check Monitor renal parameters per orders Subjective ROS Limited/Unobtainable: No Constitutional: Reports: malaise Objective Objective Last 24 Hour Vital Signs Date Time Temp Pulse Resp B/P (MAP) Pulse Ox O2 Delivery O2 Flow Rate FiO2 10/02/17 12:00 97.7 18 125/60 97 Nasal Cannula 2.0 28 97.7 10/02/17 12:00 75 10/02/17 08:51 127 77/76 10/02/17 08:00 75 10/02/17 08:00 97.7 76 18 127/77 97 Nasal Cannula 2.0 28 97.7 10/02/17 04:00 95.5 81 19 141/81 97 Nasal Cannula 2.0 95.5 10/02/17 04:00 75 10/02/17 00:57 97 Nasal Cannula 2.0 28 10/02/17 00:57 Nasal Cannula 2.0 28 10/02/17 00:00 98.0 77 20 147/78 97 Nasal Cannula 2.0 98.0 10/02/17 00:00 75 10/01/17 20:00 99.0 84 19 157/53 98 Nasal Cannula 2.0 99.0 10/01/17 20:00 63 10/01/17 16:00 97.9 75 20 144/75 96 Nasal Cannula 2.0 97.9 10/01/17 16:00 75 Intake and Output 10/01/17 10/02/17 19:00 07:00 Intake Total 120 ml Output Total 845 ml Balance 120 ml -845 ml Intake Oral 120 ml Output Urine Total 845 ml # Voids 6 Laboratory Tests 10/02/17 05:00: Urine Random Sodium 64 10/02/17 07:00: White Blood Count 6.8, Red Blood Count 3.95L, Hemoglobin 11.0L, Hematocrit 34.5L , Mean Corpuscular Volume 87, Mean Corpuscular Hemoglobin 27.8, Mean Corpuscular Hemoglobin Concent 31.9L, Red Cell Distribution Width 17.5H, Platelet Count 136L, Mean Platelet Volume 9.2, Neutrophils (%) (Auto) 70.8, Lymphocytes (%) (Auto) 21.3, Monocytes (%) (Auto) 6.6, Eosinophils (%) (Auto) 0.9, Basophils (%) (Auto) 0.3, Sodium Level 144, Potassium Level 4.3, Chloride Level 105, Carbon Dioxide Level 32, Anion Gap 7, Blood Urea Nitrogen 23H, Creatinine 1.9H, Estimat Glomerular Filtration Rate , Glucose Level 129H, Hemoglobin A1c 9.4H, Uric Acid 7.5H, Calcium Level 8.3L, Phosphorus Level 3.8, Magnesium Level 1.6L, Iron Level 41L, Total Iron Binding Capacity 263, Percent Iron Saturation 16, Unsaturated Iron Binding 222, Ferritin 34, Total Bilirubin 0.4, Gamma Glutamyl Transpeptidase 48, Aspartate Amino Transf (AST/SGOT) 21, Alanine Aminotransferase (ALT/SGPT) 22, Alkaline Phosphatase 95, Troponin I 0.038, Pro-B-Type Natriuretic Peptide 3612H, Total Protein 6.7, Albumin 2.7L, Globulin 4.0, Albumin/Globulin Ratio 0.7L, Triglycerides Level 124, Cholesterol Level 131, LDL Cholesterol 83, HDL Cholesterol 37L, Cholesterol/HDL Ratio 3.5, Vitamin B12 Level 717, Folate 17.0, Thyroid Stimulating Hormone (TSH) 1.987 Height (Feet): 5 Height (Inches): 10.00 Weight (Pounds): 190 General Appearance: no apparent distress Objective no change TALITA DIETZ Oct 02, 2017 14:43
[2017-10-02 16:00] VITALS: BP 144/72
--- NOTE | 2017-10-02 18:20 | General Progress Note ---
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 SNOMED: 66415703 (2) Abrasions of multiple sites ICD Codes: T07.XXXA - Unspecified multiple injuries, initial encounter SNOMED: 502125963, 280302445 (3) Knee contusion ICD Codes: S80.00XA - Contusion of unspecified knee, initial encounter SNOMED: 36401282, 586589526 Qualifiers: Qualified Codes: S80.01XA - Contusion of right knee, initial encounter (4) Fall ICD Codes: W19.XXXA - Unspecified fall, initial encounter SNOMED: 0782159, 573670116 Qualifiers: Qualified Codes: W19.XXXA - Unspecified fall, initial encounter (5) Blunt head trauma ICD Codes: S09.8XXA - Other specified injuries of head, initial encounter SNOMED: 29025668, 669555512 Qualifiers: Qualified Codes: S09.8XXA - Other specified injuries of head, initial encounter (6) CKD (chronic kidney disease) ICD Codes: N18.9 - Chronic kidney disease, unspecified SNOMED: 902963562 (7) Diabetic nephropathy ICD Codes: E11.21 - Type 2 diabetes mellitus with diabetic nephropathy SNOMED: 22345582, 028485541 Status: progressing Assessment/Plan sp fall neurology consulted to r/o acute intracranial pathology s/p blunt head injury after fall dm azotmia Subjective ROS Limited/Unobtainable: Yes Allergies: Coded Allergies: No Known Allergies (Unverified , 09/30/17) Objective Last 24 Hour Vital Signs Date Time Temp Pulse Resp B/P (MAP) Pulse Ox O2 Delivery O2 Flow Rate FiO2 10/02/17 16:00 75 10/02/17 16:00 97.7 60 18 144/72 97 Nasal Cannula 2.0 28 97.7 10/02/17 12:00 97.7 18 125/60 97 Nasal Cannula 2.0 28 97.7 10/02/17 12:00 75 10/02/17 08:51 127 77/76 10/02/17 08:00 75 10/02/17 08:00 97.7 76 18 127/77 97 Nasal Cannula 2.0 28 97.7 10/02/17 04:00 95.5 81 19 141/81 97 Nasal Cannula 2.0 95.5 10/02/17 04:00 75 10/02/17 00:57 97 Nasal Cannula 2.0 28 10/02/17 00:57 Nasal Cannula 2.0 28 10/02/17 00:00 98.0 77 20 147/78 97 Nasal Cannula 2.0 98.0 10/02/17 00:00 75 10/01/17 20:00 99.0 84 19 157/53 98 Nasal Cannula 2.0 99.0 10/01/17 20:00 63 Intake and Output 10/01/17 10/02/17 19:00 07:00 Intake Total 120 ml Output Total 845 ml Balance 120 ml -845 ml Intake Oral 120 ml Output Urine Total 845 ml # Voids 6 Laboratory Tests 10/02/17 05:00: Urine Random Sodium 64 10/02/17 07:00: White Blood Count 6.8, Red Blood Count 3.95L, Hemoglobin 11.0L, Hematocrit 34.5L , Mean Corpuscular Volume 87, Mean Corpuscular Hemoglobin 27.8, Mean Corpuscular Hemoglobin Concent 31.9L, Red Cell Distribution Width 17.5H, Platelet Count 136L, Mean Platelet Volume 9.2, Neutrophils (%) (Auto) 70.8, Lymphocytes (%) (Auto) 21.3, Monocytes (%) (Auto) 6.6, Eosinophils (%) (Auto) 0.9, Basophils (%) (Auto) 0.3, Sodium Level 144, Potassium Level 4.3, Chloride Level 105, Carbon Dioxide Level 32, Anion Gap 7, Blood Urea Nitrogen 23H, Creatinine 1.9H, Estimat Glomerular Filtration Rate , Glucose Level 129H, Hemoglobin A1c 9.4H, Uric Acid 7.5H, Calcium Level 8.3L, Phosphorus Level 3.8, Magnesium Level 1.6L, Iron Level 41L, Total Iron Binding Capacity 263, Percent Iron Saturation 16, Unsaturated Iron Binding 222, Ferritin 34, Total Bilirubin 0.4, Gamma Glutamyl Transpeptidase 48, Aspartate Amino Transf (AST/SGOT) 21, Alanine Aminotransferase (ALT/SGPT) 22, Alkaline Phosphatase 95, Troponin I 0.038, Pro-B-Type Natriuretic Peptide 3612H, Total Protein 6.7, Albumin 2.7L, Globulin 4.0, Albumin/Globulin Ratio 0.7L, Triglycerides Level 124, Cholesterol Level 131, LDL Cholesterol 83, HDL Cholesterol 37L, Cholesterol/HDL Ratio 3.5, Vitamin B12 Level 717, Folate 17.0, Thyroid Stimulating Hormone (TSH) 1.987 Height (Feet): 5 Height (Inches): 10.00 Weight (Pounds): 190 General Appearance: confused Cardiovascular: normal rate Respiratory/Chest: lungs clear Abdomen: soft Laurie Mcmullen MD Oct 02, 2017 18:20
[2017-10-02 20:00] VITALS: BP 133/67
[2017-10-02] MEDS ORDERED: Levemir Flexpen SUBQ SCH ×2 (21:00)
[2017-10-02] MEDS: Atorvastatin 80mg tab ORAL SCH (21:28)
[2017-10-03] VITALS: BP 149/82
[2017-10-03 04:00] VITALS: BP 135/78
[2017-10-03] MEDS: NovoLOG Insulin Flexpen SUBQ SCH ×4 (06:30→20:57)
[2017-10-03 08:00] VITALS: BP 153/77
[2017-10-03] MEDS: Metoprolol Tartrate 50mg tab ORAL SCH (09:00)
[2017-10-03] MEDS: Docusate 250mg cap ORAL SCH (09:00)
[2017-10-03] MEDS: Lyrica 50mg cap ORAL SCH ×2 (10:28→16:37)
[2017-10-03 12:00] VITALS: BP 148/75
--- NOTE | 2017-10-03 12:02 | General Progress Note ---
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 SNOMED: 98679478 (2) Abrasions of multiple sites ICD Codes: T07.XXXA - Unspecified multiple injuries, initial encounter SNOMED: 420888933, 407380996 (3) Knee contusion ICD Codes: S80.00XA - Contusion of unspecified knee, initial encounter SNOMED: 65345787, 460236565 Qualifiers: Qualified Codes: S80.01XA - Contusion of right knee, initial encounter (4) Fall ICD Codes: W19.XXXA - Unspecified fall, initial encounter SNOMED: 0827141, 120629371 Qualifiers: Qualified Codes: W19.XXXA - Unspecified fall, initial encounter (5) Blunt head trauma ICD Codes: S09.8XXA - Other specified injuries of head, initial encounter SNOMED: 44899547, 948946954 Qualifiers: Qualified Codes: S09.8XXA - Other specified injuries of head, initial encounter (6) CKD (chronic kidney disease) ICD Codes: N18.9 - Chronic kidney disease, unspecified SNOMED: 372817421 (7) Diabetic nephropathy ICD Codes: E11.21 - Type 2 diabetes mellitus with diabetic nephropathy SNOMED: 34683254, 717861827 Assessment/Plan confused afebrile no acute events moniter neurological status r/o acute intracranial pathology s/p blunt head injury after fall dm Subjective ROS Limited/Unobtainable: Yes Allergies: Coded Allergies: No Known Allergies (Unverified , 09/30/17) Objective Last 24 Hour Vital Signs Date Time Temp Pulse Resp B/P (MAP) Pulse Ox O2 Delivery O2 Flow Rate FiO2 10/03/17 09:00 75 135/78 10/03/17 08:00 75 10/03/17 08:00 97.7 75 20 153/77 93 Nasal Cannula 2.0 97.7 10/03/17 04:00 75 10/03/17 04:00 97.9 75 18 135/78 97 Room Air 97.9 10/03/17 00:00 98.6 77 19 149/82 97 Nasal Cannula 2.0 98.6 10/03/17 00:00 75 10/02/17 20:00 98.1 85 20 133/67 94 Nasal Cannula 2.0 98.1 10/02/17 20:00 75 10/02/17 19:30 Nasal Cannula 2.0 28 10/02/17 19:30 95 Nasal Cannula 2.0 28 10/02/17 16:00 75 10/02/17 16:00 97.7 60 18 144/72 97 Nasal Cannula 2.0 28 97.7 Intake and Output 10/02/17 10/03/17 19:00 07:00 Intake Total 100 ml Output Total 1050 ml 950 ml Balance -950 ml -950 ml Intake Oral 100 ml Output Urine Total 1050 ml 950 ml Height (Feet): 5 Height (Inches): 10.00 Weight (Pounds): 190 General Appearance: confused Cardiovascular: normal rate Respiratory/Chest: lungs clear Laurie Mcmullen MD Oct 03, 2017 12:02
--- NOTE | 2017-10-03 13:45 | Nephrology Progress Note ---
Assessment/Plan Problem List: (1) CKD (chronic kidney disease) (2) Diabetic nephropathy Assessment Renal failure- likely acute on chronic DM + Proteinuria pacer HTN Plan no labs today- Slow hydrate- avoid nephrotoxics BP and BS in check Monitor renal parameters per orders Subjective ROS Limited/Unobtainable: No Constitutional: Reports: malaise Objective Objective Last 24 Hour Vital Signs Date Time Temp Pulse Resp B/P (MAP) Pulse Ox O2 Delivery O2 Flow Rate FiO2 10/03/17 12:00 97.7 75 18 148/75 95 Nasal Cannula 2.0 97.7 10/03/17 09:00 75 135/78 10/03/17 08:00 75 10/03/17 08:00 97.7 75 20 153/77 93 Nasal Cannula 2.0 97.7 10/03/17 04:00 75 10/03/17 04:00 97.9 75 18 135/78 97 Room Air 97.9 10/03/17 00:00 98.6 77 19 149/82 97 Nasal Cannula 2.0 98.6 10/03/17 00:00 75 10/02/17 20:00 98.1 85 20 133/67 94 Nasal Cannula 2.0 98.1 10/02/17 20:00 75 10/02/17 19:30 Nasal Cannula 2.0 28 10/02/17 19:30 95 Nasal Cannula 2.0 28 10/02/17 16:00 75 10/02/17 16:00 97.7 60 18 144/72 97 Nasal Cannula 2.0 28 97.7 Intake and Output 10/02/17 10/03/17 19:00 07:00 Intake Total 100 ml Output Total 1050 ml 950 ml Balance -950 ml -950 ml Intake Oral 100 ml Output Urine Total 1050 ml 950 ml Height (Feet): 5 Height (Inches): 10.00 Weight (Pounds): 190 General Appearance: no apparent distress Objective no change TALITA DIETZ 24, 2018 13:45
[2017-10-03 16:00] VITALS: BP 133/69
[2017-10-03 20:00] VITALS: BP 172/81
[2017-10-03] MEDS: Atorvastatin 80mg tab ORAL SCH ×2 (20:54→21:00)
[2017-10-03] MEDS ORDERED: Levemir Flexpen SUBQ SCH (21:00)
--- NOTE | 2017-10-04 00:15 | Consultation ---
DATE OF CONSULTATION: 10/03/2017 ENDOCRINOLOGY CONSULTATION CONSULTING PHYSICIAN: Niko Amaya M.D. REFERRING PHYSICIAN: Laurie Mcmullen M.D. REASON FOR CONSULTATION: Diabetes management. HISTORY OF PRESENT ILLNESS: The patient is a 72-year-old male. It is important to note that history is mostly obtained from the review of the chart and medical records. The patient has underlying dementia and he is not a good historian. The patient is admitted to the hospital after a syncopal episode and fall. I was called to manage diabetes. On presentation, he had an abrasion of the forehead. In the emergency room, he had x-rays of the shoulder and knee without any fracture. Cervical spine CT scan revealed DJD. No fracture or dislocation. CT of the brain, no acute abnormalities. No hemorrhage. Admitted to the floor. PAST MEDICAL HISTORY: 1. Diabetes. 2. Pacemaker placement. 3. Pneumonia. 4. Chronic kidney disease. 5. Leg edema. MEDICATIONS: As an outpatient reviewed and reconciled. For diabetes, on insulin. SOCIAL HISTORY: The patient is not . long term resident. No smoking, alcohol, or drug use. REVIEW OF SYSTEMS: Difficult to obtain due to the patient's orientation. PHYSICAL EXAMINATION: VITAL SIGNS: Blood pressure is 135/78, heart rate of 75, temperature of 97.9, and respiratory rate of 18. HEENT: Pupils are equal and reactive to light. Sclerae are anicteric. NECK: No JVD. HEART: Regular. LUNGS: Clear. ABDOMEN: Positive bowel sounds. Soft. EXTREMITIES: Positive for edema. LABORATORY DATA: WBC 6, hemoglobin 11, hematocrit 34, and platelet count of 136. Sodium 144, potassium 4.3, chloride 105, bicarb 32, BUN 23, creatinine 1.9, and glucose of 129. Hemoglobin A1c of 9.4. TSH is 1.9. DIAGNOSES: 1. Syncopal episode. 2. Diabetes, out of control. 3. CKD. PLAN: Reduce Levemir dose to 16 units at bedtime. Continue NovoLog sliding scale. Further adjustments will be done according to blood glucose values. Thank you, Dr. Mcmullen, for the courtesy of this consultation. Niko Nazemi, M.D. DR: KATHY JOB#: [id number] CC: MAGED
[2017-10-04 04:00] VITALS: BP 115/64
[2017-10-04] MEDS: NovoLOG Insulin Flexpen SUBQ SCH ×4 (06:30→21:37)
--- NOTE | 2017-10-04 07:09 | General Progress Note ---
Assessment/Plan Problem List: (1) Diabetes mellitus ICD Codes: E11.9 - Type 2 diabetes mellitus without complications SNOMED: 48976065 (2) Syncope ICD Codes: R55 - Syncope and collapse SNOMED: 968635449 Qualifiers: Qualified Codes: R55 - Syncope and collapse (3) Blunt head trauma ICD Codes: S09.8XXA - Other specified injuries of head, initial encounter SNOMED: 10821416, 531510466 Qualifiers: Qualified Codes: S09.8XXA - Other specified injuries of head, initial encounter (4) CKD (chronic kidney disease) ICD Codes: N18.9 - Chronic kidney disease, unspecified SNOMED: 813713214 (5) Diabetic nephropathy ICD Codes: E11.21 - Type 2 diabetes mellitus with diabetic nephropathy SNOMED: 30040278, 847855334 (6) Fall ICD Codes: W19.XXXA - Unspecified fall, initial encounter SNOMED: 4581695, 397789539 Qualifiers: Qualified Codes: W19.XXXA - Unspecified fall, initial encounter Assessment/Plan continue Levemir 16 units qhs continue NISS Subjective ROS Limited/Unobtainable: Yes Allergies: Coded Allergies: No Known Allergies (Unverified , 09/30/17) Subjective events noted interval notes reviewed Objective Last 24 Hour Vital Signs Date Time Temp Pulse Resp B/P (MAP) Pulse Ox O2 Delivery O2 Flow Rate FiO2 10/04/17 04:00 77 10/04/17 04:00 97.5 79 20 115/64 95 Room Air 97.5 10/04/17 00:00 76 10/03/17 20:00 97.2 75 20 172/81 92 Room Air 97.2 10/03/17 20:00 81 10/03/17 19:30 92 Nasal Cannula 2.0 28 10/03/17 19:30 Nasal Cannula 2.0 28 10/03/17 16:00 97.9 75 16 133/69 97 Nasal Cannula 2.0 97.9 10/03/17 16:00 59 10/03/17 12:00 97.7 75 18 148/75 95 Nasal Cannula 2.0 97.7 10/03/17 12:00 72 10/03/17 09:00 75 135/78 10/03/17 08:00 75 10/03/17 08:00 97.7 75 20 153/77 93 Nasal Cannula 2.0 97.7 Intake and Output 10/03/17 10/04/17 19:00 07:00 Intake Total 800 ml 120 ml Output Total 600 ml Balance 200 ml 120 ml Intake Oral 800 ml 120 ml Output Urine Total 600 ml # Voids 1 1 Laboratory Tests 10/03/17 15:42: C-Reactive Protein, Quantitative 3.8H Height (Feet): 5 Height (Inches): 10.00 Weight (Pounds): 190 General Appearance: no apparent distress Neck: normal alignment Cardiovascular: regular rhythm Respiratory/Chest: lungs clear Abdomen: normal bowel sounds Pelvis: normal external exam Edema: no edema noted Arm (L), no edema noted Arm (R), no edema noted Leg (L), no edema noted Leg (R), no edema noted Pedal (L), no edema noted Pedal (R), no edema noted Generalized Objective Current Medications Medications (Trade) Dose Ordered Sig/Olga Lidia Route PRN Reason Start Time Stop Time Status Last Admin Dose Admin Acetaminophen (Tylenol) 650 mg Q4H PRN ORAL Fever/Headache/Mild Pain 10/01/17 01:30 10/31/17 01:29 Acetaminophen (Tylenol) 650 mg Q4H PRN ORAL Pain Scale (6-10) 10/01/17 01:30 10/31/17 01:29 Acetaminophen/ Hydrocodone Bitart ([place] 5/325) 1 tab Q4H PRN ORAL Severe Pain (Pain Scale 7-10) 10/01/17 08:00 10/08/17 07:59 Atorvastatin Calcium (Lipitor) 40 mg BEDTIME ORAL 10/01/17 21:00 10/31/17 20:59 10/02/17 21:28 Bisacodyl (Dulcolax) 10 mg NEEDED PRN RECTAL Constipation 10/01/17 01:30 10/31/17 01:29 Dextrose (Dextrose 50%) STAT PRN IV Hypoglycemia 10/01/17 01:15 10/31/17 01:14 10/02/17 06:26 Docusate Sodium (Colace) 250 mg DAILY ORAL 10/01/17 09:00 10/31/17 08:59 10/03/17 09:00 Fish Oil (Fish Oil) 1,000 mg DAILY ORAL 10/01/17 09:00 10/31/17 08:59 10/03/17 10:28 Guaifenesin/ Codeine Phosphate (Robitussin with codeine) 5 ml Q4H PRN ORAL For Cough 10/01/17 01:30 10/31/17 01:29 Insulin Aspart (NovoLOG) BEFORE MEALS AND HS SUBQ 10/01/17 06:30 10/31/17 06:29 10/03/17 20:57 Insulin Detemir (Levemir) 16 units QHS SUBQ 10/03/17 21:00 11/01/17 20:59 10/03/17 20:55 Magnesium Hydroxide (Mom) 30 ml DAILY PRN ORAL Constipation 10/01/17 01:30 10/31/17 01:29 Meclizine HCl (Antivert) 25 mg DAILY PRN ORAL for dizziness 10/01/17 01:30 10/31/17 01:29 Metoprolol Tartrate (Lopressor) 50 mg DAILY ORAL 10/01/17 09:00 10/31/17 08:59 10/03/17 09:00 Pantoprazole (Protonix) 40 mg DAILY ORAL 10/01/17 09:00 10/31/17 08:59 10/03/17 10:25 Pregabalin (Lyrica) 200 mg BID ORAL 10/01/17 09:00 10/31/17 08:59 10/03/17 16:37 Sodium Phosphate (Fleet's Sodium Phosl Enema) 133 ml DAILY PRN RECTAL Constipation 10/01/17 01:30 10/31/17 01:29 Item Value Date Time Bedside Blood Glucose 106 mg/dl 10/04/17 0631 Bedside Blood Glucose 224 mg/dl H 10/03/172056 Bedside Blood Glucose 154 mg/dl H 10/03/17 1639 Bedside Blood Glucose 136 mg/dl H 10/03/17 1159 MIKEY SMITH 25, 2018 07:09
[2017-10-04 08:00] VITALS: BP 153/76
--- NOTE | 2017-10-04 08:44 | Infectious Diseases Prog Note ---
Assessment/Plan Assessment/Plan A; Sinus & mastoid disease chronic Syncope Acute renal failure Hyperkalemia corrected DM P: observe off antibiotic Agree with discharge plan Subjective ROS Limited/Unobtainable: Yes Respiratory: Reports: no symptoms Genitourinary: Reports: no symptoms Musculoskeletal: Reports: no symptoms Allergies: Coded Allergies: No Known Allergies (Unverified , 09/30/17) Objective Vital Signs Last 24 Hour Vital Signs Date Time Temp Pulse Resp B/P (MAP) Pulse Ox O2 Delivery O2 Flow Rate FiO2 10/04/17 04:00 77 10/04/17 04:00 97.5 79 20 115/64 95 Room Air 97.5 10/04/17 00:00 76 10/03/17 20:00 97.2 75 20 172/81 92 Room Air 97.2 10/03/17 20:00 81 10/03/17 19:30 92 Nasal Cannula 2.0 28 10/03/17 19:30 Nasal Cannula 2.0 28 10/03/17 16:00 97.9 75 16 133/69 97 Nasal Cannula 2.0 97.9 10/03/17 16:00 59 10/03/17 12:00 97.7 75 18 148/75 95 Nasal Cannula 2.0 97.7 10/03/17 12:00 72 10/03/17 09:00 75 135/78 Height (Feet): 5 Height (Inches): 10.00 Weight (Pounds): 190 General Appearance: no acute distress HEENT: mucous membranes moist Respiratory/Chest: lungs clear Cardiovascular: normal rate Abdomen: soft, non tender Extremities: other - IV site edema of left hand Neurologic/Psychiatric: alert, responsive Laboratory Tests Test 10/03/17 15:42 C-Reactive Protein, Quantitative 3.8 mg/dL (0.00-0.90) H Current Medications Medications (Trade) Dose Ordered Sig/Olga Lidia Route PRN Reason Start Time Stop Time Status Last Admin Dose Admin Acetaminophen (Tylenol) 650 mg Q4H PRN ORAL Fever/Headache/Mild Pain 10/01/17 01:30 10/31/17 01:29 Acetaminophen (Tylenol) 650 mg Q4H PRN ORAL Pain Scale (6-10) 10/01/17 01:30 10/31/17 01:29 Acetaminophen/ Hydrocodone Bitart ([place] 5/325) 1 tab Q4H PRN ORAL Severe Pain (Pain Scale 7-10) 10/01/17 08:00 10/08/17 07:59 Atorvastatin Calcium (Lipitor) 40 mg BEDTIME ORAL 10/01/17 21:00 10/31/17 20:59 10/02/17 21:28 Bisacodyl (Dulcolax) 10 mg NEEDED PRN RECTAL Constipation 10/01/17 01:30 10/31/17 01:29 Dextrose (Dextrose 50%) STAT PRN IV Hypoglycemia 10/01/17 01:15 10/31/17 01:14 10/02/17 06:26 Docusate Sodium (Colace) 250 mg DAILY ORAL 10/01/17 09:00 10/31/17 08:59 10/03/17 09:00 Fish Oil (Fish Oil) 1,000 mg DAILY ORAL 10/01/17 09:00 10/31/17 08:59 10/03/17 10:28 Guaifenesin/ Codeine Phosphate (Robitussin with codeine) 5 ml Q4H PRN ORAL For Cough 10/01/17 01:30 10/31/17 01:29 Insulin Aspart (NovoLOG) BEFORE MEALS AND HS SUBQ 10/01/17 06:30 10/31/17 06:29 10/03/17 20:57 Insulin Detemir (Levemir) 16 units QHS SUBQ 10/03/17 21:00 11/01/17 20:59 10/03/17 20:55 Magnesium Hydroxide (Mom) 30 ml DAILY PRN ORAL Constipation 10/01/17 01:30 10/31/17 01:29 Meclizine HCl (Antivert) 25 mg DAILY PRN ORAL for dizziness 10/01/17 01:30 10/31/17 01:29 Metoprolol Tartrate (Lopressor) 50 mg DAILY ORAL 10/01/17 09:00 10/31/17 08:59 10/03/17 09:00 Pantoprazole (Protonix) 40 mg DAILY ORAL 10/01/17 09:00 10/31/17 08:59 10/03/17 10:25 Pregabalin (Lyrica) 200 mg BID ORAL 10/01/17 09:00 10/31/17 08:59 10/03/17 16:37 Sodium Phosphate (Fleet's Sodium Phosl Enema) 133 ml DAILY PRN RECTAL Constipation 10/01/17 01:30 10/31/17 01:29 MICKEY BIANCHI Oct 04, 2017 08:44
[2017-10-04] MEDS: Metoprolol Tartrate 50mg tab ORAL SCH (08:46)
[2017-10-04] MEDS: Docusate 250mg cap ORAL SCH (08:46)
[2017-10-04] MEDS: Lyrica 50mg cap ORAL SCH ×2 (08:47→18:27)
--- NOTE | 2017-10-04 09:02 | Nephrology Progress Note ---
Assessment/Plan Problem List: (1) CKD (chronic kidney disease) (2) Diabetic nephropathy (3) Pacemaker Assessment Renal failure- likely acute on chronic DM + Proteinuria pacer HTN Plan no labs today- Slow hydrate- avoid nephrotoxics BP and BS in check Monitor renal parameters per orders Subjective ROS Limited/Unobtainable: No Objective Objective Last 24 Hour Vital Signs Date Time Temp Pulse Resp B/P (MAP) Pulse Ox O2 Delivery O2 Flow Rate FiO2 10/04/17 08:46 77 115/64 10/04/17 04:00 77 10/04/17 04:00 97.5 79 20 115/64 95 Room Air 97.5 10/04/17 00:00 76 10/03/17 20:00 97.2 75 20 172/81 92 Room Air 97.2 10/03/17 20:00 81 10/03/17 19:30 92 Nasal Cannula 2.0 28 10/03/17 19:30 Nasal Cannula 2.0 28 10/03/17 16:00 97.9 75 16 133/69 97 Nasal Cannula 2.0 97.9 10/03/17 16:00 59 10/03/17 12:00 97.7 75 18 148/75 95 Nasal Cannula 2.0 97.7 10/03/17 12:00 72 Intake and Output 10/03/17 10/04/17 19:00 07:00 Intake Total 800 ml 120 ml Output Total 600 ml Balance 200 ml 120 ml Intake Oral 800 ml 120 ml Output Urine Total 600 ml # Voids 1 1 Laboratory Tests 10/03/17 15:42: C-Reactive Protein, Quantitative 3.8H Height (Feet): 5 Height (Inches): 10.00 Weight (Pounds): 190 General Appearance: no apparent distress Cardiovascular: regular rhythm Respiratory/Chest: decreased breath sounds Abdomen: soft Objective no change TALITA DIETZ Oct 04, 2017 09:02
[2017-10-04 12:00] VITALS: BP 151/88
[2017-10-04] MEDS ORDERED: Fleet's Enema 133ml RECTAL PRN ×2 (14:00→14:15)
[2017-10-04] MEDS ORDERED: Norco 5mg/325mg tab ORAL PRN (14:00)
[2017-10-04] MEDS ORDERED: Milk of Magnesia 30ml Ud ORAL PRN (14:30)
[2017-10-04] MEDS ORDERED: guaiFENesin w/Codeine 5ml Liq ud ORAL PRN (14:30)
[2017-10-04] MEDS ORDERED: Meclizine 25mg tab ORAL PRN (14:30)
[2017-10-04 16:00] VITALS: BP 143/95
[2017-10-04 20:00] VITALS: BP_SYST 146; BP_SYST 91; BP_DIAS 56; BP_DIAS 78
--- NOTE | 2017-10-04 20:40 | General Progress Note ---
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 SNOMED: 35625056 (2) Abrasions of multiple sites ICD Codes: T07.XXXA - Unspecified multiple injuries, initial encounter SNOMED: 694602994, 856481758 (3) Knee contusion ICD Codes: S80.00XA - Contusion of unspecified knee, initial encounter SNOMED: 19891978, 593331414 Qualifiers: Qualified Codes: S80.01XA - Contusion of right knee, initial encounter (4) Fall ICD Codes: W19.XXXA - Unspecified fall, initial encounter SNOMED: 8238678, 627207932 Qualifiers: Qualified Codes: W19.XXXA - Unspecified fall, initial encounter (5) Blunt head trauma ICD Codes: S09.8XXA - Other specified injuries of head, initial encounter SNOMED: 08168097, 815708664 Qualifiers: Qualified Codes: S09.8XXA - Other specified injuries of head, initial encounter (6) CKD (chronic kidney disease) ICD Codes: N18.9 - Chronic kidney disease, unspecified SNOMED: 921342810 (7) Diabetic nephropathy ICD Codes: E11.21 - Type 2 diabetes mellitus with diabetic nephropathy SNOMED: 10161952, 990280700 Status: progressing Assessment/Plan confused sugar improving no acute events moniter neurological status r/o acute intracranial pathology s/p blunt head injury after fall no bleed dc to snf in am vitals stable Subjective ROS Limited/Unobtainable: Yes Constitutional: Reports: no symptoms Allergies: Coded Allergies: No Known Allergies (Unverified , 09/30/17) Objective Last 24 Hour Vital Signs Date Time Temp Pulse Resp B/P (MAP) Pulse Ox O2 Delivery O2 Flow Rate FiO2 10/04/17 16:00 97.5 77 18 143/95 96 Room Air 97.5 10/04/17 12:00 80 10/04/17 12:00 97.0 81 18 151/88 96 Room Air 97.0 10/04/17 08:46 77 115/64 10/04/17 08:00 96.8 78 20 153/76 92 Room Air 96.8 10/04/17 08:00 75 10/04/17 04:00 77 10/04/17 04:00 97.5 79 20 115/64 95 Room Air 97.5 10/04/17 00:00 76 Intake and Output 10/03/17 10/04/17 19:00 07:00 Intake Total 800 ml 120 ml Output Total 600 ml Balance 200 ml 120 ml Intake Oral 800 ml 120 ml Output Urine Total 600 ml # Voids 1 1 Height (Feet): 5 Height (Inches): 10.00 Weight (Pounds): 190 EENT: PERRL/EOMI Neck: supple Cardiovascular: normal rate Respiratory/Chest: lungs clear Laurie Mcmullen MD Oct 04, 2017 20:40
[2017-10-04] MEDS ORDERED: Atorvastatin 20mg tab ORAL SCH (21:00)
[2017-10-04] MEDS ORDERED: Levemir Flexpen SUBQ SCH (21:00)
[2017-10-05] VITALS: BP 150/86
[2017-10-05 04:00] VITALS: BP 154/94
[2017-10-05] MEDS ORDERED: PRO-STAT AWC LI30 ML PO (05:50)
[2017-10-05] MEDS ORDERED: POTASSIUM CHLO10 ME3 ORAL (06:10)
[2017-10-05] MEDS ORDERED: LYRICA200 MG ORAL (06:13)
[2017-10-05] MEDS: NovoLOG Insulin Flexpen SUBQ SCH ×2 (06:26→12:12)
[2017-10-05 07:12] LABS: BASOPHILS % (AUTO) 0.9 % (0.0-2.0); EOSINOPHILS % (AUTO) 3.4 % (0.0-3.0); HEMATOCRIT 40.6 % (42.0-52.0); HEMOGLOBIN 13.4 G/DL (14.2-18.0); LYMPHOCYTES % (AUTO) 33.6 % (20.0-45.0); MEAN CORPUSCULAR VOLUME 84 FL (80-99); MONOCYTES % (AUTO) 10.5 % (1.0-10.0); NEUTROPHILS % (AUTO) 51.7 % (45.0-75.0); PLATELET COUNT 156 K/UL (150-450); RED BLOOD COUNT 4.82 M/UL (4.70-6.10); RED CELL DISTRIBUTION WIDTH 16.3 % (11.6-14.8); WHITE BLOOD COUNT 5.9 K/UL (4.8-10.8)
[2017-10-05 07:13] LABS: ALANINE AMINOTRANSFERASE 19 U/L (12-78); ALBUMIN 2.7 G/DL (3.4-5.0); ALBUMIN/GLOBULIN RATIO 0.6 (1.0-2.7); ALKALINE PHOSPHATASE 119 U/L (46-116); ANION GAP 3 mmol/L (5-15); ASPARTATE AMINO TRANSFERASE 22 U/L (15-37); BILIRUBIN,TOTAL 0.6 MG/DL (0.2-1.0); BLOOD UREA NITROGEN 28 mg/dL (7-18); CALCIUM 9.3 MG/DL (8.5-10.1); CARBON DIOXIDE 36 MMOL/L (21-32); CHLORIDE 102 MMOL/L (98-107); CREATININE 1.7 MG/DL (0.55-1.30); PHOSPHORUS 3.2 MG/DL (2.5-4.9); POTASSIUM 4.6 MMOL/L (3.5-5.1); SODIUM 141 MMOL/L (136-145)
[2017-10-05 08:00] VITALS: BP_SYST 115; BP_SYST 137; BP_DIAS 54; BP_DIAS 88
[2017-10-05] MEDS ORDERED: Metoprolol 25mg tab ORAL SCH (09:00)
[2017-10-05] MEDS ORDERED: Docusate 250mg cap ORAL SCH (09:00)
[2017-10-05] MEDS: Lyrica 50mg cap ORAL SCH (09:09)
[2017-10-05 12:01] VITALS: BP 126/71
--- NOTE | 2017-10-05 13:09 | Infectious Diseases Prog Note ---
Assessment/Plan Assessment/Plan A; Sinus & mastoid disease chronic Syncope Acute renal failure Hyperkalemia corrected DM P: observe off antibiotic Agree with discharge plan Subjective ROS Limited/Unobtainable: Yes Allergies: Coded Allergies: No Known Allergies (Unverified , 09/30/17) Objective Vital Signs Last 24 Hour Vital Signs Date Time Temp Pulse Resp B/P (MAP) Pulse Ox O2 Delivery O2 Flow Rate FiO2 10/05/17 12:01 97.8 74 18 126/71 96 Room Air 97.8 10/05/17 09:08 77 140/72 10/05/17 08:00 97.7 75 18 115/54 95 Room Air 97.7 10/05/17 04:00 Room Air 10/05/17 04:00 97.5 76 20 154/94 94 Room Air 97.5 10/05/17 00:00 Room Air 10/05/17 00:00 97.9 84 20 150/86 94 Room Air 97.9 10/04/17 20:10 Room Air 10/04/17 20:00 97.7 80 19 146/78 95 Room Air 97.7 10/04/17 16:00 97.5 77 18 143/95 96 Room Air 97.5 Height (Feet): 5 Height (Inches): 10.00 Weight (Pounds): 190 HEENT: mucous membranes moist Respiratory/Chest: lungs clear Cardiovascular: normal rate Abdomen: soft, non tender Extremities: no edema Neurologic/Psychiatric: other - sleeping Laboratory Tests Test 10/05/17 05:10 White Blood Count 5.9 K/UL (4.8-10.8) Red Blood Count 4.82 M/UL (4.70-6.10) Hemoglobin 13.4 G/DL (14.2-18.0) L Hematocrit 40.6 % (42.0-52.0) L Mean Corpuscular Volume 84 FL (80-99) Mean Corpuscular Hemoglobin 27.7 PG (27.0-31.0) Mean Corpuscular Hemoglobin Concent 32.9 G/DL (32.0-36.0) Red Cell Distribution Width 16.3 % (11.6-14.8) H Platelet Count 156 K/UL (150-450) Mean Platelet Volume 10.1 FL (6.5-10.1) Neutrophils (%) (Auto) 51.7 % (45.0-75.0) Lymphocytes (%) (Auto) 33.6 % (20.0-45.0) Monocytes (%) (Auto) 10.5 % (1.0-10.0) H Eosinophils (%) (Auto) 3.4 % (0.0-3.0) H Basophils (%) (Auto) 0.9 % (0.0-2.0) Sodium Level 141 MMOL/L (136-145) Potassium Level 4.6 MMOL/L (3.5-5.1) Chloride Level 102 MMOL/L (98-107) Carbon Dioxide Level 36 MMOL/L (21-32) H Anion Gap 3 mmol/L (5-15) L Blood Urea Nitrogen 28 mg/dL (7-18) H Creatinine 1.7 MG/DL (0.55-1.30) H Estimat Glomerular Filtration Rate mL/min (>60) Glucose Level 219 MG/DL (74-106) H Uric Acid 6.6 MG/DL (2.6-7.2) Calcium Level 9.3 MG/DL (8.5-10.1) Phosphorus Level 3.2 MG/DL (2.5-4.9) Magnesium Level 1.8 MG/DL (1.8-2.4) Total Bilirubin 0.6 MG/DL (0.2-1.0) Aspartate Amino Transf (AST/SGOT) 22 U/L (15-37) Alanine Aminotransferase (ALT/SGPT) 19 U/L (12-78) Alkaline Phosphatase 119 U/L (46-116) H Total Protein 7.4 G/DL (6.4-8.2) Albumin 2.7 G/DL (3.4-5.0) L Globulin 4.7 g/dL Albumin/Globulin Ratio 0.6 (1.0-2.7) L Current Medications Medications (Trade) Dose Ordered Sig/Olga Lidia Route PRN Reason Start Time Stop Time Status Last Admin Dose Admin Acetaminophen (Tylenol) 650 mg Q4H PRN ORAL Moderate Pain (Pain Scale 4-6) 10/04/17 14:30 10/31/17 14:29 Acetaminophen (Tylenol) 650 mg Q4H PRN ORAL T>100.5/Headache/Mild Pain 10/04/17 14:30 10/31/17 14:29 Acetaminophen/ Hydrocodone Bitart ([place] 5/325) 1 tab Q4H PRN ORAL Severe Pain (Pain Scale 7-10) 10/04/17 14:00 10/08/17 13:59 Atorvastatin Calcium (Lipitor) 40 mg BEDTIME ORAL 10/04/17 21:00 10/31/17 20:59 10/04/17 21:02 Bisacodyl (Dulcolax) 10 mg DAILYPRN PRN RECTAL Constipation 10/04/17 14:15 11/03/17 13:59 Dextrose (Dextrose 50%) STAT PRN IV Hypoglycemia 10/04/17 14:00 11/03/17 13:59 Docusate Sodium (Colace) 250 mg DAILY ORAL 10/05/17 09:00 10/31/17 08:59 10/05/17 09:07 Fish Oil (Fish Oil) 1,000 mg DAILY ORAL 10/05/17 09:00 10/31/17 08:59 10/05/17 09:07 Guaifenesin/ Codeine Phosphate (Robitussin with codeine) 5 ml Q4H PRN ORAL For Cough 10/04/17 14:30 10/31/17 14:29 Insulin Aspart (NovoLOG) BEFORE MEALS AND HS SUBQ 10/04/17 16:30 10/31/17 06:29 10/05/17 12:12 Insulin Detemir (Levemir) 16 units QHS SUBQ 10/04/17 21:00 11/01/17 20:59 10/04/17 21:36 Magnesium Hydroxide (Mom) 30 ml DAILYPRN PRN ORAL Constipation 10/04/17 14:30 11/03/17 14:29 Meclizine HCl (Antivert) 25 mg DAILYPRN PRN ORAL for dizziness 10/04/17 14:30 11/03/17 14:29 Metoprolol Tartrate (Lopressor) 25 mg Q12HR ORAL 10/05/17 09:00 11/04/17 08:59 10/05/17 09:08 Pantoprazole (Protonix) 40 mg DAILY ORAL 10/05/17 09:00 10/31/17 08:59 10/05/17 09:07 Pregabalin (Lyrica) 200 mg BID ORAL 10/04/17 18:00 10/31/17 08:59 10/05/17 09:09 Sodium Phosphate (Fleet's Sodium Phosl Enema) 133 ml DAILYPRN PRN RECTAL Constipation 10/04/17 14:15 11/03/17 13:59 MICKEY BIANCHI Oct 05, 2017 13:09
--- NOTE | 2017-10-05 13:17 | General Progress Note ---
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 SNOMED: 48147463 (2) Abrasions of multiple sites ICD Codes: T07.XXXA - Unspecified multiple injuries, initial encounter SNOMED: 955163148, 264561665 (3) Knee contusion ICD Codes: S80.00XA - Contusion of unspecified knee, initial encounter SNOMED: 07878329, 401446005 Qualifiers: Qualified Codes: S80.01XA - Contusion of right knee, initial encounter (4) Fall ICD Codes: W19.XXXA - Unspecified fall, initial encounter SNOMED: 0025238, 261003567 Qualifiers: Qualified Codes: W19.XXXA - Unspecified fall, initial encounter (5) Blunt head trauma ICD Codes: S09.8XXA - Other specified injuries of head, initial encounter SNOMED: 82628584, 940249051 Qualifiers: Qualified Codes: S09.8XXA - Other specified injuries of head, initial encounter (6) CKD (chronic kidney disease) ICD Codes: N18.9 - Chronic kidney disease, unspecified SNOMED: 517958770 (7) Diabetic nephropathy ICD Codes: E11.21 - Type 2 diabetes mellitus with diabetic nephropathy SNOMED: 00670444, 396162057 Status: stable Assessment/Plan back to baseline mentation sugar is improved cleared by apprenticeship consultant for dc dc back to snf Subjective ROS Limited/Unobtainable: Yes Constitutional: Reports: no symptoms Allergies: Coded Allergies: No Known Allergies (Unverified , 09/30/17) Objective Last 24 Hour Vital Signs Date Time Temp Pulse Resp B/P (MAP) Pulse Ox O2 Delivery O2 Flow Rate FiO2 10/05/17 12:01 97.8 74 18 126/71 96 Room Air 97.8 10/05/17 09:08 77 140/72 10/05/17 08:00 97.7 75 18 115/54 95 Room Air 97.7 10/05/17 04:00 Room Air 10/05/17 04:00 97.5 76 20 154/94 94 Room Air 97.5 10/05/17 00:00 Room Air 10/05/17 00:00 97.9 84 20 150/86 94 Room Air 97.9 10/04/17 20:10 Room Air 10/04/17 20:00 97.7 80 19 146/78 95 Room Air 97.7 10/04/17 16:00 97.5 77 18 143/95 96 Room Air 97.5 Intake and Output 10/04/17 10/05/17 19:00 07:00 Intake Total 60 ml Balance 60 ml Intake Oral 60 ml # Voids 1 3 Laboratory Tests 10/05/17 05:10: White Blood Count 5.9, Red Blood Count 4.82, Hemoglobin 13.4L, Hematocrit 40.6L , Mean Corpuscular Volume 84, Mean Corpuscular Hemoglobin 27.7, Mean Corpuscular Hemoglobin Concent 32.9, Red Cell Distribution Width 16.3H, Platelet Count 156, Mean Platelet Volume 10.1, Neutrophils (%) (Auto) 51.7, Lymphocytes (%) (Auto) 33.6, Monocytes (%) (Auto) 10.5H, Eosinophils (%) (Auto) 3.4H, Basophils (%) (Auto) 0.9, Sodium Level 141, Potassium Level 4.6, Chloride Level 102, Carbon Dioxide Level 36H, Anion Gap 3L, Blood Urea Nitrogen 28H, Creatinine 1.7H, Estimat Glomerular Filtration Rate , Glucose Level 219H, Uric Acid 6.6, Calcium Level 9.3, Phosphorus Level 3.2, Magnesium Level 1.8, Total Bilirubin 0.6, Aspartate Amino Transf (AST/SGOT) 22, Alanine Aminotransferase ( ALT/SGPT) 19, Alkaline Phosphatase 119H, Total Protein 7.4, Albumin 2.7L, Globulin 4.7, Albumin/Globulin Ratio 0.6L Height (Feet): 5 Height (Inches): 10.00 Weight (Pounds): 190 Cardiovascular: normal rate Respiratory/Chest: lungs clear Abdomen: soft Laurie Mcmullen MD Oct 05, 2017 13:17
--- NOTE | 2017-10-05 13:29 | General Progress Note ---
Assessment/Plan Problem List: (1) Diabetes mellitus ICD Codes: E11.9 - Type 2 diabetes mellitus without complications SNOMED: 01248187 (2) Syncope ICD Codes: R55 - Syncope and collapse SNOMED: 412963320 Qualifiers: Qualified Codes: R55 - Syncope and collapse (3) Blunt head trauma ICD Codes: S09.8XXA - Other specified injuries of head, initial encounter SNOMED: 68567092, 201659033 Qualifiers: Qualified Codes: S09.8XXA - Other specified injuries of head, initial encounter (4) CKD (chronic kidney disease) ICD Codes: N18.9 - Chronic kidney disease, unspecified SNOMED: 746864543 (5) Diabetic nephropathy ICD Codes: E11.21 - Type 2 diabetes mellitus with diabetic nephropathy SNOMED: 35929074, 281309045 (6) Fall ICD Codes: W19.XXXA - Unspecified fall, initial encounter SNOMED: 5281363, 365980808 Qualifiers: Qualified Codes: W19.XXXA - Unspecified fall, initial encounter Assessment/Plan increase Levemir to 20 units qhs continue NISS Subjective ROS Limited/Unobtainable: Yes Allergies: Coded Allergies: No Known Allergies (Unverified , 09/30/17) Subjective events noted interval notes reviewed Objective Last 24 Hour Vital Signs Date Time Temp Pulse Resp B/P (MAP) Pulse Ox O2 Delivery O2 Flow Rate FiO2 10/05/17 12:01 97.8 74 18 126/71 96 Room Air 97.8 10/05/17 09:08 77 140/72 10/05/17 08:00 97.7 75 18 115/54 95 Room Air 97.7 10/05/17 04:00 Room Air 10/05/17 04:00 97.5 76 20 154/94 94 Room Air 97.5 10/05/17 00:00 Room Air 10/05/17 00:00 97.9 84 20 150/86 94 Room Air 97.9 10/04/17 20:10 Room Air 10/04/17 20:00 97.7 80 19 146/78 95 Room Air 97.7 10/04/17 16:00 97.5 77 18 143/95 96 Room Air 97.5 Intake and Output 10/04/17 10/05/17 19:00 07:00 Intake Total 60 ml Balance 60 ml Intake Oral 60 ml # Voids 1 3 Laboratory Tests 10/05/17 05:10: White Blood Count 5.9, Red Blood Count 4.82, Hemoglobin 13.4L, Hematocrit 40.6L , Mean Corpuscular Volume 84, Mean Corpuscular Hemoglobin 27.7, Mean Corpuscular Hemoglobin Concent 32.9, Red Cell Distribution Width 16.3H, Platelet Count 156, Mean Platelet Volume 10.1, Neutrophils (%) (Auto) 51.7, Lymphocytes (%) (Auto) 33.6, Monocytes (%) (Auto) 10.5H, Eosinophils (%) (Auto) 3.4H, Basophils (%) (Auto) 0.9, Sodium Level 141, Potassium Level 4.6, Chloride Level 102, Carbon Dioxide Level 36H, Anion Gap 3L, Blood Urea Nitrogen 28H, Creatinine 1.7H, Estimat Glomerular Filtration Rate , Glucose Level 219H, Uric Acid 6.6, Calcium Level 9.3, Phosphorus Level 3.2, Magnesium Level 1.8, Total Bilirubin 0.6, Aspartate Amino Transf (AST/SGOT) 22, Alanine Aminotransferase ( ALT/SGPT) 19, Alkaline Phosphatase 119H, Total Protein 7.4, Albumin 2.7L, Globulin 4.7, Albumin/Globulin Ratio 0.6L Height (Feet): 5 Height (Inches): 10.00 Weight (Pounds): 190 General Appearance: no apparent distress Neck: normal alignment Cardiovascular: normal rate Respiratory/Chest: lungs clear Abdomen: normal bowel sounds Pelvis: normal external exam Objective Current Medications Medications (Trade) Dose Ordered Sig/Olga Lidia Route PRN Reason Start Time Stop Time Status Last Admin Dose Admin Acetaminophen (Tylenol) 650 mg Q4H PRN ORAL Moderate Pain (Pain Scale 4-6) 10/04/17 14:30 10/31/17 14:29 Acetaminophen (Tylenol) 650 mg Q4H PRN ORAL T>100.5/Headache/Mild Pain 10/04/17 14:30 10/31/17 14:29 Acetaminophen/ Hydrocodone Bitart ([place] 5/325) 1 tab Q4H PRN ORAL Severe Pain (Pain Scale 7-10) 10/04/17 14:00 10/08/17 13:59 Atorvastatin Calcium (Lipitor) 40 mg BEDTIME ORAL 10/04/17 21:00 10/31/17 20:59 10/04/17 21:02 Bisacodyl (Dulcolax) 10 mg DAILYPRN PRN RECTAL Constipation 10/04/17 14:15 11/03/17 13:59 Dextrose (Dextrose 50%) STAT PRN IV Hypoglycemia 10/04/17 14:00 11/03/17 13:59 Docusate Sodium (Colace) 250 mg DAILY ORAL 10/05/17 09:00 10/31/17 08:59 10/05/17 09:07 Fish Oil (Fish Oil) 1,000 mg DAILY ORAL 10/05/17 09:00 10/31/17 08:59 10/05/17 09:07 Guaifenesin/ Codeine Phosphate (Robitussin with codeine) 5 ml Q4H PRN ORAL For Cough 10/04/17 14:30 10/31/17 14:29 Insulin Aspart (NovoLOG) BEFORE MEALS AND HS SUBQ 10/04/17 16:30 10/31/17 06:29 10/05/17 12:12 Insulin Detemir (Levemir) 16 units QHS SUBQ 10/04/17 21:00 11/01/17 20:59 10/04/17 21:36 Magnesium Hydroxide (Mom) 30 ml DAILYPRN PRN ORAL Constipation 10/04/17 14:30 11/03/17 14:29 Meclizine HCl (Antivert) 25 mg DAILYPRN PRN ORAL for dizziness 10/04/17 14:30 11/03/17 14:29 Metoprolol Tartrate (Lopressor) 25 mg Q12HR ORAL 10/05/17 09:00 11/04/17 08:59 10/05/17 09:08 Pantoprazole (Protonix) 40 mg DAILY ORAL 10/05/17 09:00 10/31/17 08:59 10/05/17 09:07 Pregabalin (Lyrica) 200 mg BID ORAL 10/04/17 18:00 10/31/17 08:59 10/05/17 09:09 Sodium Phosphate (Fleet's Sodium Phosl Enema) 133 ml DAILYPRN PRN RECTAL Constipation 10/04/17 14:15 11/03/17 13:59 Item Value Date Time Bedside Blood Glucose 228 mg/dl H 10/05/17 1212 Bedside Blood Glucose 190 mg/dl H 10/05/17 0626 Bedside Blood Glucose 284 mg/dl H 10/04/17 2137 Bedside Blood Glucose 269 mg/dl H 10/04/17 1714 Bedside Blood Glucose 246 mg/dl H 10/04/17 1141 MIKEY SMITH 26, 2018 13:29
[2017-10-05 16:03] VITALS: BP 140/88
[2017-10-05] MEDS ORDERED: Sterile Water Irrig 1000ml IRRIG ONE (16:04)
--- NOTE | 2017-10-05 16:44 | Nephrology Progress Note ---
Assessment/Plan Problem List: (1) CKD (chronic kidney disease) (2) Diabetic nephropathy (3) Pacemaker Assessment Renal failure- likely acute on chronic DM + Proteinuria pacer HTN Plan Slow hydrate- avoid nephrotoxics BP and BS in check Monitor renal parameters per orders Subjective ROS Limited/Unobtainable: No Objective Objective Last 24 Hour Vital Signs Date Time Temp Pulse Resp B/P (MAP) Pulse Ox O2 Delivery O2 Flow Rate FiO2 10/05/17 16:03 96.4 77 20 140/88 95 Room Air 96.4 10/05/17 12:01 97.8 74 18 126/71 96 Room Air 97.8 10/05/17 09:08 77 140/72 10/05/17 08:00 97.7 75 18 115/54 95 Room Air 97.7 10/05/17 04:00 Room Air 10/05/17 04:00 97.5 76 20 154/94 94 Room Air 97.5 10/05/17 00:00 Room Air 10/05/17 00:00 97.9 84 20 150/86 94 Room Air 97.9 10/04/17 20:10 Room Air 10/04/17 20:00 97.7 80 19 146/78 95 Room Air 97.7 Intake and Output 10/04/17 10/05/17 19:00 07:00 Intake Total 60 ml Balance 60 ml Intake Oral 60 ml # Voids 1 3 Laboratory Tests 10/05/17 05:10: White Blood Count 5.9, Red Blood Count 4.82, Hemoglobin 13.4L, Hematocrit 40.6L , Mean Corpuscular Volume 84, Mean Corpuscular Hemoglobin 27.7, Mean Corpuscular Hemoglobin Concent 32.9, Red Cell Distribution Width 16.3H, Platelet Count 156, Mean Platelet Volume 10.1, Neutrophils (%) (Auto) 51.7, Lymphocytes (%) (Auto) 33.6, Monocytes (%) (Auto) 10.5H, Eosinophils (%) (Auto) 3.4H, Basophils (%) (Auto) 0.9, Sodium Level 141, Potassium Level 4.6, Chloride Level 102, Carbon Dioxide Level 36H, Anion Gap 3L, Blood Urea Nitrogen 28H, Creatinine 1.7H, Estimat Glomerular Filtration Rate , Glucose Level 219H, Uric Acid 6.6, Calcium Level 9.3, Phosphorus Level 3.2, Magnesium Level 1.8, Total Bilirubin 0.6, Aspartate Amino Transf (AST/SGOT) 22, Alanine Aminotransferase ( ALT/SGPT) 19, Alkaline Phosphatase 119H, Total Protein 7.4, Albumin 2.7L, Globulin 4.7, Albumin/Globulin Ratio 0.6L Height (Feet): 5 Height (Inches): 10.00 Weight (Pounds): 190 General Appearance: no apparent distress Respiratory/Chest: decreased breath sounds Abdomen: soft Objective no change TALITA DIETZ 26, 2018 16:44
[2017-10-05] MEDS ORDERED: Levemir Flexpen SUBQ SCH (21:00)
--- NOTE | 2017-10-08 08:29 | Discharge Summary ---
Discharge Summary Hospital Course Date of Admission Sep 30, 2017 at 23:09 Date of Discharge Oct 05, 2017 at 16:05 Admitting Diagnosis syncope DAVION Grant is a 72 year old male who was admitted on Sep 30, 2017 at 23:09 for Syncope Hospital Course dc summary #[id number] Discharge Medications Changed Medications: Acetaminophen* (Tylenol Extra Strength*) 500 Mg Tablet 1000 MG ORAL Q4HR PRN for Mild Pain/Temp > 100.5, TAB 0 Refills (Medication details modified) MODERATE PAIN NTE 3GMS/24 Amino Acids/Protein Hydrolys (Pro-Stat Liquid) 30 Ml Liquid.pkt 30 ML ORAL DAILY, ML (Changed from: TWICE A DAY) SUGAR FREE LIQUID Docusate Sodium* (Docusate Sodium*) 250 Mg Capsule 250 MG ORAL DAILY, CAP (Medication details modified) HOLD FOR LOOSE STOOLS Hydrocodone Bit/Acetaminophen 5-325* (Freedom 5-325 Tablet*) 1 Each Tablet 1 TAB ORAL Q4H PRN for SEVERE PAIN (7-10), TAB (Medication details modified) NTE 3GMS/24 HOURS Insulin Glargine (Lantus) 100 Unit/1 Ml Insuln.pen 56 UNITS SUBQ BEDTIME, EA 0 Refills (Changed from: 0 ; Removed Quantity) Magnesium Hydroxide* (Milk Of Magnesia*) 400 Mg/5 Ml Oral.susp 30 ML ORAL HS PRN for Constipation, ML (Changed from: DAILY) IF ORDERED STOOL SOFTENERS ARE INEFFECTIVE Metoprolol Tartrate* (Metoprolol Tartrate*) 50 Mg Tablet 50 MG ORAL DAILY for HTN WITH MEAL, TAB 0 Refills (Medication details modified) HOLD FOR SBP BELOW 110 OR HR 60 Omeprazole (Omeprazole) 20 Mg Capsule.dr 20 MG ORAL DAILY for GERD, CAP (Medication details modified) BEFORE BREAKFAST Potassium Chloride (Potassium Chloride) 10 Meq Tablet.er 10 MEQ ORAL DAILY, #30 TAB 0 Refills (Medication details modified) POTASSIUM CHLORIDE ER TABLE EXTENDED RELEASE ADMINISTER WITH ONE FULL CUP OF WATER Continued Medications: Acetaminophen* (Acetaminophen 325MG Tablet*) 325 Mg Tablet 650 MG ORAL Q4H PRN for Fever/Headache/Mild Pain, TAB (This prescription has been renewed) Aspirin Ec* (Aspirin Ec*) 81 Mg Tablet.dr 81 MG ORAL DAILY, TAB (This prescription has been renewed) Atorvastatin Calcium* (Lipitor*) 40 Mg Tablet 40 MG ORAL BEDTIME, TAB 0 Refills Bisacodyl (Dulcolax) 10 Mg Supp.rect 10 MG RC PRN for Constipation, SUPP (This prescription has been renewed) Fish Oil (Fish Oil 1,000 mg Capsule) 1 Each Capsule 500 MG ORAL DAILY, CAP (This prescription has been renewed) Guaifenesin/Codeine Phos* (Robitussin Ac*) 118 Ml Liquid 1 TSP ORAL Q4H PRN for For Cough, ML 0 Refills Meclizine Hcl* (Meclizine*) 25 Mg Tablet 25 MG ORAL DAILY for VERTIGO, TAB Na Phos,M-B/Na Phos,Di-Ba* (Fleet Enema*) 133 Ml Enema 133 ML RECTAL DAILY PRN for Constipation, ML 0 Refills (This prescription has been renewed) Pregabalin (Lyrica) 200 Mg Capsule 200 MG ORAL TWICE A DAY for NEUROPATHY, CAP 0 Refills Discontinued Medications: Acetaminophen* (Acetaminophen 325MG Tablet*) 325 Mg Tablet 650 MG ORAL Q4H PRN for Pain Scale (6-10), TAB Potassium Chloride* (K-Dur*) 20 Meq Tab.er.prt 10 MEQ ORAL DAILY, #7 TAB 0 Refills Pregabalin* (Lyrica*) 75 Mg Capsule 200 MG ORAL BID, CAP Discharge Discharge Disposition Patient was discharged to SNF/Subacute Facility(03) Discharge Instructions Discharge Instructions Special Instructions I have been assigned to complete a D/C Summary on this account. I was not involved in the patient management Steff Beavers NP ([place]) Oct 08, 2017 08:29
--- NOTE | 2017-10-08 20:45 | Discharge Summary 2 SIG ---
DATE OF ADMISSION: 09/30/2017 DATE OF DISCHARGE: 10/05/2017 REASON FOR ADMISSION: 72-year-old male with past medical history of coronary artery disease, hyperlipidemia, hypertension, pacemaker, and BPH, presented to emergency department after a fall. The patient was sent from [facility] for evaluation. Fall was associated with dizziness, and right knee and right shoulder pain. Upon evaluation in the emergency department, pulse oximetry was stable on room air. No fever. CT of the head revealed no acute intracranial pathology. Laboratory workup revealed hyperkalemia with potassium 5.8 and renal failure with BUN of 28 and creatinine 2.1. The patient also reported neck pain. CT of the C-spine revealed degenerative joint disease, but no acute pathology. X-ray of both right shoulder and right knee revealed no acute process. The patient was admitted with diagnoses of status post fall, syncopal episode, acute renal failure, and hyperkalemia. CONSULTANTS: 1. Niko Amaya M.D., Salon Shampoo Assistant. 2. Lizandro Aguirre M.D., Neurologist. 3. Bonifacio Ackerman M.D., Bogger Operator. 4. Raz Paulson M.D., Infectious Disease Specialist. HOSPITAL COURSE: The patient was admitted. The patient was slowly hydrated. Renal parameters and electrolytes were closely monitored. Hyperkalemia was treated. Patient was slowly hydrated. Potassium down to 4.6 prior to discharge and creatinine down to 1.7. According to chair mechanic, the patient had renal failure, likely acute on chronic, possibly precipitated by dehydration. The patient had proteinuria. Salon Shampoo Assistant followed. Blood sugar was managed with Levemir and sliding scale of insulin. Hemoglobin A1c -9.4, not at goal. The patient needs further optimization of anti-glycemic regimen as outpatient. The patient had a recent history of urinary tract infection. Urinalysis at the emergency room did not show any evidence of urinary tract infection. Nevertheless, ID doctor was contacted since the CT of the head revealed evidence of sinus disease and mastoid disease. Per ID evaluation, it was not clear if the sinus disease and mastoid disease old or new. However, the patient clinically had no fever and no leukocytosis. ID recommended to keep the patient off antibiotics. The patient was afebrile and showed no leukocytosis during the stay in the hospital. Neurologist closely followed the patient. Neurologist personally reviewed all the imaging, including CT of the head and CT of the C-spine and stated that the patient had an ischemic cerebrovascular disease with mild vascular dementia. He stated that the patient had multiple stroke risks factors and should be continued on statin and aspirin. Pain management was provided with Lyrica. The patient had abnormal gait with high risk for falls. The patient was working with physical and occupational therapist. Neurologist also recommended outpatient pacemaker interrogation. DVT and GI prophylaxis provided. According to neurologist, the patient likely had syncope of vasovagal origin. Blood pressure was stable throughout the stay in the hospital from admission. The patient was continued on home antihypertensive regimen including beta-cinthia. Statin, and fish oil were continued. Bowel regimen was instituted. The patient was stable for discharge back to [facility]. FINAL DIAGNOSES: 1. Status post fall. 2. Syncopal episode, probably vasovagal. 3. Renal failure, likely acute on chronic 4. Diabetic nephropathy 5. Hyperkalemia. 6. Diabetes mellitus, out of control. 7. Hypertension status post pacemaker. 8. Ischemic cardiovascular disease. 9. Mild vascular dementia. 10. Coronary artery disease with history of coronary artery bypass graft. 11. Hypertension. 12. Hyperlipidemia. 13. Degenerative joint disease. 14. Abnormal gait with high risk for falls. DISCHARGE MEDICATIONS: See medication reconciliation list. DISCHARGE INSTRUCTIONS: The patient was discharged to [facility]. FOLLOWUP: Follow up with medical doctor at the facility. Laurie Mcmullen M.D. I have been assigned to dictate discharge summary on this account and I was not involved in the patient's management. Steff Coronelcary N.P. DR: KATHIA JOB#: [id number] CC: MAGED
--- NOTE | 2017-10-10 18:20 | Cardiology Report ---
APPROVED REPORT EKG Measurement Heart [id number] OH [id number] AV sequential pacemaker Abnormal ECG
== END 2017-10-05 16:05 | DRG 683 ==
LOC: EDBD 20:46 → EMR 23:03 → 2E 23:09 → EDBEDREQ 23:32 → 2E 10-03 20:42 → 4W 10-04 13:30
DX: N17.9 Acute kidney failure, unspecified (principal); N39.0 Urinary tract infection, site not specified; S09.8XXA Other specified injuries of head, initial encounter; E11.21 Type 2 diabetes mellitus with diabetic nephropathy; E11.65 Type 2 diabetes mellitus with hyperglycemia; I12.9 Hypertensive chronic kidney disease with stage 1 through stage 4 chronic kidney disease, or unspecified chronic kidney disease; S00.83XA Contusion of other part of head, initial encounter; E87.5 Hyperkalemia; R55 Syncope and collapse; N18.9 Chronic kidney disease, unspecified; Z95.0 Presence of cardiac pacemaker; S80.01XA Contusion of right knee, initial encounter; S40.011A Contusion of right shoulder, initial encounter; T14.8XXA Other injury of unspecified body region, initial encounter; W18.30XA Fall on same level, unspecified, initial encounter; E78.5 Hyperlipidemia, unspecified; R42 Dizziness and giddiness; I25.10 Atherosclerotic heart disease of native coronary artery without angina pectoris; M47.892 Other spondylosis, cervical region; Z95.1 Presence of aortocoronary bypass graft; W19.XXXA Unspecified fall, initial encounter; F01.50 Vascular dementia, unspecified severity, without behavioral disturbance, psychotic disturbance, mood disturbance, and anxiety; R26.9 Unspecified abnormalities of gait and mobility; J32.9 Chronic sinusitis, unspecified; H74.90 Unspecified disorder of middle ear and mastoid, unspecified ear; Z79.4 Long term (current) use of insulin
CPT/HCPCS: 36415; 70450; 71045; 72125; 80053; 80061; 81001; 82607; 82728; 82746; 82962; 82977; 83036; 83540; 83550; 83735; 83880; 84100; 84300; 84443; 84484; 84550; 85025; 85610; 85730; 86140; 90471; 90715; 93005; 94760; 99285; J1815; J2405; S5561

== ENCOUNTER 2018-01-07 10:34 | Inpatient (IN) | payer MEDICARE, MEDICAID ==
[~2018-01-07] VITALS: Ht 177.8 cm; Wt 88.5 kg
[~2018-01-07 10:34] MED LIST: ACETAMINOPHEN325 M1 ORAL; ASPIRIN EC81 MG ORAL; DOCUSATE SODIU250 MG ORAL; DULCOLAX10 MG RC; FISH OIL CAP1000 MG ORAL; FLEET ENEMA133 ML RECTAL; GUAIFENESIN-CO118 M1 ORAL; LANTUS SOL100 UNIT/1 SUBQ; LIPITOR40 MG ORAL; LYRICA200 MG ORAL; LYRICA75 M1 ORAL; MECLIZINE HCL25 MG ORAL; METOPROLOL TART50 MG ORAL; MILK OF MA400 MG/51 ORAL; NORCO 5-325 TA1 EAC1 ORAL; OMEPRAZOLE20 M2 ORAL; POTASSIUM CHLO10 ME3 ORAL; POTASSIUM CHLO20 ME1 ORAL; PRO-STAT AWC LI30 ML PO; PRO-STAT LIQUID30 ML ORAL; TYLENOL EXTRA500 MG ORAL
[2018-01-07 10:59] LABS: BASOPHILS % (AUTO) 0.4 % (0.0-2.0); EOSINOPHILS % (AUTO) 0.1 % (0.0-3.0); HEMATOCRIT 39.1 % (42.0-52.0); HEMOGLOBIN 12.5 G/DL (14.2-18.0); LYMPHOCYTES % (AUTO) 14.2 % (20.0-45.0); MEAN CORPUSCULAR VOLUME 86 FL (80-99); NEUTROPHILS % (AUTO) 78.2 % (45.0-75.0); PLATELET COUNT 140 K/UL (150-450); RED BLOOD COUNT 4.55 M/UL (4.70-6.10); RED CELL DISTRIBUTION WIDTH 13.9 % (11.6-14.8); WHITE BLOOD COUNT 10.4 K/UL (4.8-10.8)
[2018-01-07] MEDS ORDERED: PRO-STAT LIQUID30 ML ORAL (11:49)
[2018-01-07 11:53] LABS: ALANINE AMINOTRANSFERASE 19 U/L (12-78); ALBUMIN 2.3 G/DL (3.4-5.0); ALBUMIN/GLOBULIN RATIO 0.5 (1.0-2.7); ALKALINE PHOSPHATASE 113 U/L (46-116); ASPARTATE AMINO TRANSFERASE 19 U/L (15-37); BILIRUBIN,TOTAL 0.4 MG/DL (0.2-1.0); BLOOD UREA NITROGEN 34 mg/dL (7-18); CALCIUM 8.4 MG/DL (8.5-10.1); CARBON DIOXIDE 29 MMOL/L (21-32); CKMB 1.7 NG/ML (0.0-3.6); CREATINE KINASE 164 U/L (26-308); CREATININE 2.7 MG/DL (0.55-1.30)
[2018-01-07 11:57] LABS: POTASSIUM 4.6 MMOL/L (3.5-5.1); SODIUM 137 MMOL/L (136-145)
[2018-01-07 11:58] LABS: CHLORIDE 101 MMOL/L (98-107)
[2018-01-07 12:03] LABS: ANION GAP 9 mmol/L (5-15)
--- NOTE | 2018-01-07 12:24 | Diagnostic Imaging Report ---
Indication: Dyspnea Comparison: 320 one A single view chest radiograph was obtained. Findings: Pacemaker and sternotomy again noted. Left basilar density may be a pleural thickening. This is unchanged. No compelling evidence for pneumonia or other acute process. IMPRESSION: No acute disease
[2018-01-07 12:29] LABS: APPEARANCE,URINE TURBID; BILIRUBIN, URINE NEGATIVE (NEGATIVE); COLOR,URINE PALE YELLOW; GLUCOSE, URINE (UA) 3+ (NEGATIVE); KETONES,URINE NEGATIVE (NEGATIVE); LEUKOCYTE ESTERASE ,URINE NEGATIVE (NEGATIVE); NITRITE,URINE NEGATIVE (NEGATIVE); PH,URINE 6 (4.5-8.0); PROTEIN,URINE 4+ (NEGATIVE); UROBILINOGEN,URINE NORMAL MG/DL (0.0-1.0)
[2018-01-07 12:43] VITALS: BP 151/64
--- NOTE | 2018-01-07 14:23 | Emergency Room Report ---
History of Present Illness General Chief Complaint: Fever Source: Medical Record, EMS Present Illness HPI 72-year-old male presents ED for evaluation. [facility]. Patient has history of CVA and is nonverbal at baseline. Afebrile in triage. On arrival patient showing no signs of distress. Not able to provide any additional history at this time. No other aggravating relieving factors. No other associated symptoms Allergies: Coded Allergies: No Known Allergies (Unverified , 09/30/17) Patient History Past Medical History: DM, CVA/TIA Past Surgical History: pacemaker Pertinent Family History: none Social History: Denies: smoking, alcohol use, drug use Immunizations: UTD Reviewed Nursing Documentation: PMH: Agreed; PSxH: Agreed Nursing Documentation-PMH Hx Hypertension: Yes Hx Pacemaker: Yes Hx Diabetes: Yes Hx Cerebrovascular Accident: Yes - Dysphagia Review of Systems All Other Systems: limited Physical Exam Vital Signs Date Time Temp Pulse Resp B/P (MAP) Pulse Ox O2 Delivery O2 Flow Rate FiO2 01/07/18 10:18 98.2 96 18 118/66 92 Room Air 98.2 Sp02 EP Interpretation: reviewed, normal General Appearance: no apparent distress, other - nonverbal Head: normocephalic Eyes: bilateral eye normal inspection, bilateral eye PERRL ENT: normal ENT inspection Neck: normal inspection Respiratory: chest non-tender, lungs clear, normal breath sounds, speaking full sentences Cardiovascular #1: regular rate, rhythm, no edema Gastrointestinal: normal bowel sounds, non tender, soft, non-distended, no guarding, no rebound Rectal: deferred Genitourinary: no CVA tenderness Musculoskeletal: normal inspection Neurologic: other - nonverbal Psychiatric: other - nonverbal Skin: normal inspection Lymphatic: normal inspection Medical Decision Making Diagnostic Impression: Primary Impression: CKD (chronic kidney disease) Qualified Codes: N18.9 - Chronic kidney disease, unspecified Additional Impressions: Elevated troponin CHF (congestive heart failure) Qualified Codes: I50.9 - Heart failure, unspecified ER Course Hospital Course 72-year-old female [facility] Differential diagnoses include: Pneumonia, UTI, sepsis, dehydration, MA/ unstable angina Clinical course Patient placed on stretcher. On chemical reclamation equipment operator with stable vitals are ED course. After initial history and physical, I ordered labs, IV fluids, EKG, chest x-ray, blood cultures, UA. Labs - BUN/Cr elevated, no leukocytosis, troponins 0.204, BNP > 3000, UA negative EKG - NSR, repolarization abnormality CXR - no acute process, pacemaker, sternotomy wires Patient is nonverbal but no evidence of dyspnea or diaphoresis suggesting chest pain Abx given. ASA given Case discussed with Dr Mcmullen and they agreed to admit patient to their service for further care and support I feel this is a highly complex case requiring extensive working including EKG/ Rhythm strip, Xray/CT/US, Blood/urine lab work, repeat exams while in ED, and administration of strong opiates/narcotics for pain control, admission to hospital or close patient follow up. Diagnosis - CKD, elevated troponin, CHF Patient admitted to telemetry in serious condition Labs Test 01/07/18 10:42 01/07/18 12:16 White Blood Count 10.4 K/UL (4.8-10.8) Red Blood Count 4.55 M/UL (4.70-6.10) Hemoglobin 12.5 G/DL (14.2-18.0) Hematocrit 39.1 % (42.0-52.0) Mean Corpuscular Volume 86 FL (80-99) Mean Corpuscular Hemoglobin 27.6 PG (27.0-31.0) Mean Corpuscular Hemoglobin Concent 32.1 G/DL (32.0-36.0) Red Cell Distribution Width 13.9 % (11.6-14.8) Platelet Count 140 K/UL (150-450) Mean Platelet Volume 9.1 FL (6.5-10.1) Neutrophils (%) (Auto) 78.2 % (45.0-75.0) Lymphocytes (%) (Auto) 14.2 % (20.0-45.0) Monocytes (%) (Auto) 7.0 % (1.0-10.0) Eosinophils (%) (Auto) 0.1 % (0.0-3.0) Basophils (%) (Auto) 0.4 % (0.0-2.0) Sodium Level 137 MMOL/L (136-145) Potassium Level 4.6 MMOL/L (3.5-5.1) Chloride Level 101 MMOL/L (98-107) Carbon Dioxide Level 29 MMOL/L (21-32) Anion Gap 9 mmol/L (5-15) Blood Urea Nitrogen 34 mg/dL (7-18) Creatinine 2.7 MG/DL (0.55-1.30) Estimat Glomerular Filtration Rate mL/min (>60) Glucose Level 374 MG/DL (74-106) Lactic Acid Level 1.50 mmol/L (0.4-2.0) Calcium Level 8.4 MG/DL (8.5-10.1) Total Bilirubin 0.4 MG/DL (0.2-1.0) Aspartate Amino Transf (AST/SGOT) 19 U/L (15-37) Alanine Aminotransferase (ALT/SGPT) 19 U/L (12-78) Alkaline Phosphatase 113 U/L (46-116) Total Creatine Kinase 164 U/L (26-308) Creatine Kinase MB 1.7 NG/ML (0.0-3.6) Creatine Kinase MB Relative Index 1.0 Troponin I 0.204 ng/mL (0.000-0.056) Pro-B-Type Natriuretic Peptide 3552 pg/mL (0-125) Total Protein 6.8 G/DL (6.4-8.2) Albumin 2.3 G/DL (3.4-5.0) Globulin 4.5 g/dL Albumin/Globulin Ratio 0.5 (1.0-2.7) Urine Color Pale yellow Urine Appearance Turbid Urine pH 6 (4.5-8.0) Urine Specific [place] 1.010 (1.005-1.035) Urine Protein 4+ (NEGATIVE) Urine Glucose (UA) 3+ (NEGATIVE) Urine Ketones Negative (NEGATIVE) Urine Occult Blood 2+ (NEGATIVE) Urine Nitrite Negative (NEGATIVE) Urine Bilirubin Negative (NEGATIVE) Urine Urobilinogen Normal MG/DL (0.0-1.0) Urine Leukocyte Esterase Negative (NEGATIVE) Urine RBC 2-4 /HPF (0 - 0) Urine WBC 2-4 /HPF (0 - 0) Urine Squamous Epithelial Cells Occasional /LPF Urine Amorphous Sediment Many /LPF (NONE) Urine Bacteria Few /HPF (NONE) EKG Diagnostic Results Rate: normal Rhythm: NSR ST Segments: other - repolarization abnormality ASA given to the pt in ED: Yes Rhythm Strip Diag. Results EP Interpretation: yes Rhythm: NSR, no PVC's, no ectopy Chest X-Ray Diagnostic Results Chest X-Ray Diagnostic Results : Chest X-Ray Ordered: Yes # of Views/Limited/Complete: 1 View Indication: Chest Pain EP Interpretation: Yes Interpretation: no consolidation, no effusion, no pneumothorax, no acute cardiopulmonary disease, other - pacemaker, sternotomy wires Impression: No acute disease Electronically Signed by: Electronically signed by Omer Butts MD Last Vital Signs Date Time Temp Pulse Resp B/P (MAP) Pulse Ox O2 Delivery O2 Flow Rate FiO2 01/07/18 12:43 99.2 75 15 151/64 99 Room Air 99.2 Status: improved Disposition: ADMITTED INPATIENT Condition: Serious Referrals: Laurie Mcmullen MD (PCP) Omer Butts MD Jan 07, 2018 14:23
[2018-01-07 14:39] VITALS: BP 154/82
--- NOTE | 2018-01-07 15:50 | Consultation ---
Consult Note Consult Note asked to eval for renal failure- 72-year-old male presents ED for evaluation. Patient presenting from [facility] with fever times one day. Patient has history of CVA and is nonverbal at baseline. Afebrile in triage. On arrival patient showing no signs of distress. Not able to provide any additional history at this time. No other aggravating relieving factors. No other associated symptoms Allergies: Past Medical History: DM, CVA/TIA Past Surgical History: pacemaker Hx Hypertension: Yes Hx Pacemaker: Yes Hx Diabetes: Yes Hx Cerebrovascular Accident: Yes - Dysphagia interviewed- examined- data reviewed discussed with firearms model maker/Plan Renal failure likely chronic due to diabetic nephropathy HTN elevated troponin Pacer Proteinuria, Hypoalbuminemia rule out NS Plan: Beta blockers ASA Nitrate BS and BP control 2D echo Kidney MARY Flomax per orders TALITA DIETZ Jan 07, 2018 15:50
[2018-01-07 16:00] VITALS: BP 127/88
--- NOTE | 2018-01-07 16:45 | Diagnostic Imaging Report ---
Indication:Elevated Bun and Creatinine. Technique: Grayscale and duplex Doppler imaging of the kidneys performed. Comparison: None Findings: The size, contour, and echogenicity of both kidneys are within normal limits. Right kidney is 10.4 cm. Left kidney is 10.8 cm in length. There is a prominent right parapelvic cyst measuring 4.5 x 2.7 cm. There is a small cortical cyst in the left kidney measuring 1.3 cm. There is no hydronephrosis. The IVC and urinary bladder are unremarkable. IMPRESSION: Bilateral renal cysts. No evidence of obstructive nephropathy.
--- NOTE | 2018-01-07 16:56 | Cardiac Electrophysiology PN ---
Subjective Subjective [id number] Objective Last 24 Hour Vital Signs Date Time Temp Pulse Resp B/P (MAP) Pulse Ox O2 Delivery O2 Flow Rate FiO2 01/07/18 14:50 98.4 75 15 154/82 100 Room Air 98.4 01/07/18 14:39 98.4 75 15 154/82 100 Room Air 98.4 01/07/18 12:43 99.2 75 15 151/64 99 Room Air 99.2 01/07/18 10:18 98.2 96 18 118/66 92 Room Air 98.2 Laboratory Tests Test 01/07/18 10:42 01/07/18 12:16 White Blood Count 10.4 K/UL (4.8-10.8) Red Blood Count 4.55 M/UL (4.70-6.10) L Hemoglobin 12.5 G/DL (14.2-18.0) L Hematocrit 39.1 % (42.0-52.0) L Mean Corpuscular Volume 86 FL (80-99) Mean Corpuscular Hemoglobin 27.6 PG (27.0-31.0) Mean Corpuscular Hemoglobin Concent 32.1 G/DL (32.0-36.0) Red Cell Distribution Width 13.9 % (11.6-14.8) Platelet Count 140 K/UL (150-450) L Mean Platelet Volume 9.1 FL (6.5-10.1) Neutrophils (%) (Auto) 78.2 % (45.0-75.0) H Lymphocytes (%) (Auto) 14.2 % (20.0-45.0) L Monocytes (%) (Auto) 7.0 % (1.0-10.0) Eosinophils (%) (Auto) 0.1 % (0.0-3.0) Basophils (%) (Auto) 0.4 % (0.0-2.0) Sodium Level 137 MMOL/L (136-145) Potassium Level 4.6 MMOL/L (3.5-5.1) Chloride Level 101 MMOL/L (98-107) Carbon Dioxide Level 29 MMOL/L (21-32) Anion Gap 9 mmol/L (5-15) Blood Urea Nitrogen 34 mg/dL (7-18) H Creatinine 2.7 MG/DL (0.55-1.30) H Estimat Glomerular Filtration Rate mL/min (>60) Glucose Level 374 MG/DL (74-106) H Lactic Acid Level 1.50 mmol/L (0.4-2.0) Calcium Level 8.4 MG/DL (8.5-10.1) L Total Bilirubin 0.4 MG/DL (0.2-1.0) Aspartate Amino Transf (AST/SGOT) 19 U/L (15-37) Alanine Aminotransferase (ALT/SGPT) 19 U/L (12-78) Alkaline Phosphatase 113 U/L (46-116) Total Creatine Kinase 164 U/L (26-308) Creatine Kinase MB 1.7 NG/ML (0.0-3.6) Creatine Kinase MB Relative Index 1.0 Troponin I 0.204 ng/mL (0.000-0.056) C-Reactive Protein, Quantitative 7.5 mg/dL (0.00-0.90) H Pro-B-Type Natriuretic Peptide 3552 pg/mL (0-125) H Total Protein 6.8 G/DL (6.4-8.2) Albumin 2.3 G/DL (3.4-5.0) L Globulin 4.5 g/dL Albumin/Globulin Ratio 0.5 (1.0-2.7) L Urine Color Pale yellow Urine Appearance Turbid Urine pH 6 (4.5-8.0) Urine Specific [place] 1.010 (1.005-1.035) Urine Protein 4+ (NEGATIVE) H Urine Glucose (UA) 3+ (NEGATIVE) H Urine Ketones Negative (NEGATIVE) Urine Occult Blood 2+ (NEGATIVE) H Urine Nitrite Negative (NEGATIVE) Urine Bilirubin Negative (NEGATIVE) Urine Urobilinogen Normal MG/DL (0.0-1.0) Urine Leukocyte Esterase Negative (NEGATIVE) Urine RBC 2-4 /HPF (0 - 0) H Urine WBC 2-4 /HPF (0 - 0) Urine Squamous Epithelial Cells Occasional /LPF Urine Amorphous Sediment Many /LPF (NONE) H Urine Bacteria Few /HPF (NONE) Eric Dee MD Jan 07, 2018 16:56
[2018-01-07] MEDS: Tamsulosin 0.4mg cap ORAL SCH (17:58)
[2018-01-07] MEDS: Nitroglycerin Patch 0.4mg TDERMAL SCH (17:58)
[2018-01-07] MEDS: Docusate 100mg cap ORAL SCH (17:58)
[2018-01-07 20:00] VITALS: BP 138/74
[2018-01-07] MEDS ORDERED: Heparin 5000 units/ml inj SUBQ SCH (21:00)
[2018-01-07] MEDS: Metoprolol 25mg tab ORAL SCH (22:22)
[2018-01-07] MEDS: NovoLOG Insulin Flexpen SUBQ SCH (22:23)
[2018-01-08] VITALS (7 sets, daily range): BP systolic 108–146; BP diastolic 58–75
--- NOTE | 2018-01-08 00:46 | Consultation ---
DATE OF CONSULTATION: 01/07/2018 CARDIOLOGY CONSULTATION CONSULTING PHYSICIAN: Eric Dee M.D. REFERRING PHYSICIAN: Laurie Mcmullen M.D. REASON FOR CONSULTATION: Management of hypertension and evaluation of the patient's pacemaker. HISTORY OF PRESENT ILLNESS: The patient is a 72-year-old gentleman with history of hypertension, diabetes, pacemaker, history of CVA, and dysphagia, who was brought from residential for fever of one day duration. The patient was afebrile in the triage, distress. The patient was noted to also have elevated troponin and a Cardiology consultation was obtained for further evaluation and management. FAMILY HISTORY: Noncontributory. SOCIAL HISTORY: He lives in residential. Does not smoke or drink alcohol. REVIEW OF SYSTEMS: Review of systems was negative other than what was mentioned in the history of present illness, even though the patient is not communicating very well. PHYSICAL EXAMINATION: VITAL SIGNS: Blood pressure is 154/82, pulse 75, respirations 18, and temperature 98.4 degrees. HEAD AND NECK: No JVD. LUNGS: Clear. CARDIOVASCULAR: Regular S1 and S2 with no gallop or murmur. ABDOMEN: Soft. EXTREMITIES: A 1+ pitting edema. in the left subclavian. LABORATORY AND DIAGNOSTIC DATA: His EKG showed atrially paced rhythm in the range of 75. His labs show white count of 10.4, hemoglobin 12.5, hematocrit 39.1, and platelet count of 140. Sodium 137, potassium 4.6, BUN of 34, creatinine 2.7, and glucose of 374. Troponin is elevated at 0.204. ASSESSMENT AND PLAN: 1. Troponin elevation. The patient does not have any chest pain, however, it could be due to renal failure. The EKG shows atrially paced and nonspecific T-wave abnormalities. It could be secondary to intermittent ventricular pacing due to repolarization. We will completely rule out myocardial infarction protocol. We will get an echocardiogram to evaluate for ejection fraction and wall motion abnormality. In the meantime, continue the patient on aspirin and metoprolol. 2. Status post pacemaker. We will try to interrogate after we find the brand of the pacemaker. 3. Hypertension. Continue metoprolol 25 mg b.i.d. 4. Diabetes. 5. Renal failure, creatinine of 2.7. Further evaluation by Dr. Ackerman. Thank you very much, Dr. Mcmullen, for allowing me to participate in the care of this patient. Please do not hesitate to contact me for any questions regarding my evaluation. Eric Dee M.D. DR: JUNIOR JOB#: [id number] CC:
--- NOTE | 2018-01-08 03:01 | History and Physical Report ---
DATE OF ADMISSION: 01/07/2018 NOTE: POOR AUDIO HISTORY OF PRESENT ILLNESS: The patient is admitted for fever and sepsis. The patient had fever of 102 degrees at the [facility] and got Tylenol. He is also admitted for renal insufficiency, elevated troponin. He has history of elevated blood sugar, diabetes, and admitted for fever and sepsis. The patient is a poor historian. Cannot get reliable history from the patient. PAST MEDICAL HISTORY: Significant for , constipation, NIDDM, history of vertigo, hypertension, electrolyte imbalance, hyperlipidemia, history of head trauma, diabetic neuropathy, CHF and arrhythmia, and chronic renal insufficiency. PAST SURGICAL HISTORY: Pacemaker. ALLERGIES: No known allergies. MEDICATIONS: Basically aspirin, Lipitor, bisacodyl, Colace, insulin, Lantus, metoprolol, and Lyrica. FAMILY HISTORY: Unable to obtain. SOCIAL HISTORY: Unable to obtain. Poor historian. REVIEW OF SYSTEMS: Unable to obtain. Very poor historian. PHYSICAL EXAMINATION: VITAL SIGNS: Temperature 98.2 degrees, pulse is 92, blood pressure . NECK: Supple. No lymphadenopathy. CHEST: Clear to auscultation. CARDIOVASCULAR: Irregularly irregular. ABDOMEN: Soft. No organomegaly. EXTREMITIES: A 1+ edema. NEUROLOGIC: Reflexes equal on both sides. Oriented to name only. Poor historian. LABORATORY AND DIAGNOSTIC DATA: WBC of 10.4, hemoglobin 12.5, and platelets 140,000. Sodium 137, potassium 4.6, BUN of 34, creatinine 2.7, and glucose of 374. Troponin of . ASSESSMENT AND PLAN: 1. . 2. The patient has fever and sepsis. Dr. Raz Paulson is consulted for that. 3. Elevated blood sugar, Dr. Amaya has been consulted. 4. Acute renal failure, Dr. Ackerman has been consulted. Elevated troponin Dr. Dee, who has been consulted for Cardiology. Laurie Mcmullen M.D. DR: RADHA JOB#: [id number] CC:
[2018-01-08] MEDS: NovoLOG Insulin Flexpen SUBQ SCH ×5 (07:13→22:06)
--- NOTE | 2018-01-08 07:22 | General Progress Note ---
Assessment/Plan Problem List: (1) Diabetic nephropathy ICD Codes: E11.21 - Type 2 diabetes mellitus with diabetic nephropathy SNOMED: 52095741, 261532400 (2) Diabetes mellitus ICD Codes: E11.9 - Type 2 diabetes mellitus without complications SNOMED: 48386183 (3) Fever ICD Codes: R50.9 - Fever, unspecified SNOMED: 594665380 (4) Sepsis ICD Codes: A41.9 - Sepsis, unspecified organism SNOMED: 53590814 (5) CHF (congestive heart failure) ICD Codes: I50.9 - Heart failure, unspecified SNOMED: 26501075 Qualifiers: Qualified Codes: I50.9 - Heart failure, unspecified (6) CKD (chronic kidney disease) ICD Codes: N18.9 - Chronic kidney disease, unspecified SNOMED: 035256480 Qualifiers: Qualified Codes: N18.9 - Chronic kidney disease, unspecified Status: progressing Assessment/Plan fever at snf sepsis abx per id elevated/labile sugar diabetes obs reviewed chart and labs Subjective ROS Limited/Unobtainable: Yes Allergies: Coded Allergies: No Known Allergies (Unverified , 09/30/17) Objective Last 24 Hour Vital Signs Date Time Temp Pulse Resp B/P (MAP) Pulse Ox O2 Delivery O2 Flow Rate FiO2 01/08/18 04:00 75 01/08/18 04:00 98.2 75 18 118/58 97 Nasal Cannula 2.0 98.2 01/08/18 01:04 97.7 76 18 131/64 97 Nasal Cannula 2.0 97.7 01/08/18 00:00 97.7 76 18 131/64 97 Nasal Cannula 2.0 97.7 01/08/18 00:00 75 01/08/18 00:00 75 01/07/18 22:22 75 138/74 01/07/18 20:00 75 01/07/18 20:00 75 138/74 97 Nasal Cannula 2.0 01/07/18 20:00 75 01/07/18 17:58 127/88 01/07/18 16:00 78 01/07/18 16:00 97.4 76 18 127/88 100 Nasal Cannula 2.0 97.4 01/07/18 14:50 98.4 75 15 154/82 100 Room Air 98.4 01/07/18 14:39 98.4 75 15 154/82 100 Room Air 98.4 01/07/18 12:43 99.2 75 15 151/64 99 Room Air 99.2 01/07/18 10:18 98.2 96 18 118/66 92 Room Air 98.2 Intake and Output 01/07/18 01/08/18 19:00 07:00 Intake Total 450 ml 0 ml Output Total 550 ml 0 ml Balance -100 ml 0 ml Intake Oral 0 ml 0 ml Other 450 ml Output Urine Total 550 ml 0 ml Laboratory Tests 01/07/18 10:42: White Blood Count 10.4, Red Blood Count 4.55L, Hemoglobin 12.5L, Hematocrit 39.1L, Mean Corpuscular Volume 86, Mean Corpuscular Hemoglobin 27.6, Mean Corpuscular Hemoglobin Concent 32.1, Red Cell Distribution Width 13.9, Platelet Count 140L, Mean Platelet Volume 9.1, Neutrophils (%) (Auto) 78.2H, Lymphocytes (%) (Auto) 14.2L, Monocytes (%) (Auto) 7.0, Eosinophils (%) (Auto) 0.1, Basophils (%) (Auto) 0.4, Sodium Level 137, Potassium Level 4.6, Chloride Level 101, Carbon Dioxide Level 29, Anion Gap 9, Blood Urea Nitrogen 34H, Creatinine 2.7H, Estimat Glomerular Filtration Rate , Glucose Level 374H, Lactic Acid Level 1.50, Calcium Level 8.4L, Total Bilirubin 0.4, Aspartate Amino Transf (AST /SGOT) 19, Alanine Aminotransferase (ALT/SGPT) 19, Alkaline Phosphatase 113, Total Creatine Kinase 164, Creatine Kinase MB 1.7, Creatine Kinase MB Relative Index 1.0, Troponin I 0.204H, C-Reactive Protein, Quantitative 7.5H, Pro-B-Type Natriuretic Peptide 3552H, Total Protein 6.8, Albumin 2.3L, Globulin 4.5, Albumin/Globulin Ratio 0.5L 01/07/18 12:16: Urine Color Pale yellow, Urine Appearance Turbid, Urine pH 6, Urine Specific [place] 1.010, Urine Protein 4+H, Urine Glucose (UA) 3+H, Urine Ketones Negative , Urine Occult Blood 2+H, Urine Nitrite Negative, Urine Bilirubin Negative, Urine Urobilinogen Normal, Urine Leukocyte Esterase Negative, Urine RBC 2-4H, Urine WBC 2-4, Urine Squamous Epithelial Cells Occasional, Urine Amorphous Sediment ManyH, Urine Bacteria Few 01/08/18 06:20: White Blood Count [Pending], Red Blood Count [Pending], Hemoglobin [Pending], Hematocrit [Pending], Mean Corpuscular Volume [Pending], Mean Corpuscular Hemoglobin [Pending], Mean Corpuscular Hemoglobin Concent [Pending], Red Cell Distribution Width [Pending], Platelet Count [Pending], Mean Platelet Volume [ Pending], Neutrophils (%) (Auto) [Pending], Lymphocytes (%) (Auto) [Pending], Monocytes (%) (Auto) [Pending], Eosinophils (%) (Auto) [Pending], Basophils (%) (Auto) [Pending], Sodium Level [Pending], Potassium Level [Pending], Chloride Level [Pending], Carbon Dioxide Level [Pending], Blood Urea Nitrogen [Pending], Creatinine [Pending], Estimat Glomerular Filtration Rate [Pending], Glucose Level [Pending], Calcium Level [Pending], Total Bilirubin [Pending], Aspartate Amino Transf (AST/SGOT) [Pending], Alanine Aminotransferase (ALT/SGPT) [Pending] , Alkaline Phosphatase [Pending], Troponin I [Pending], Pro-B-Type Natriuretic Peptide [Pending], Total Protein [Pending], Albumin [Pending], Globulin [Pending ], Hemoglobin A1c [Pending], Uric Acid [Pending], Phosphorus Level [Pending], Magnesium Level [Pending], Iron Level [Pending], Unsaturated Iron Binding [ Pending], Ferritin [Pending], Gamma Glutamyl Transpeptidase [Pending], Triglycerides Level [Pending], Cholesterol Level [Pending], LDL Cholesterol [ Pending], HDL Cholesterol [Pending], Cholesterol/HDL Ratio [Pending], Vitamin B12 Level [Pending], Thyroid Stimulating Hormone (TSH) [Pending] Height (Feet): 5 Height (Inches): 10.00 Weight (Pounds): 88 General Appearance: confused Cardiovascular: normal rate Respiratory/Chest: lungs clear Abdomen: soft Laurie Mcmullen MD Jan 08, 2018 07:22
[2018-01-08 07:42] LABS: BASOPHILS % (AUTO) 0.4 % (0.0-2.0); EOSINOPHILS % (AUTO) 1.4 % (0.0-3.0); HEMATOCRIT 34.5 % (42.0-52.0); HEMOGLOBIN 11.1 G/DL (14.2-18.0); LYMPHOCYTES % (AUTO) 29.4 % (20.0-45.0); MEAN CORPUSCULAR VOLUME 86 FL (80-99); NEUTROPHILS % (AUTO) 60.9 % (45.0-75.0); PLATELET COUNT 117 K/UL (150-450); RED BLOOD COUNT 4.01 M/UL (4.70-6.10); RED CELL DISTRIBUTION WIDTH 13.7 % (11.6-14.8); WHITE BLOOD COUNT 6.8 K/UL (4.8-10.8)
[2018-01-08] MEDS: Aspirin EC 325mg tab ORAL SCH (08:12)
[2018-01-08] MEDS: Docusate 100mg cap ORAL SCH ×3 (08:12→17:04)
[2018-01-08] MEDS: Tamsulosin 0.4mg cap ORAL SCH (08:13)
[2018-01-08] MEDS: Metoprolol 25mg tab ORAL SCH ×2 (08:13→22:04)
[2018-01-08 08:20] LABS: % IRON SATURATION 12 % (15-50); IRON 24 ug/dL (50-175); TOTAL IRON BINDING CAPACITY 203 ug/dL (250-450)
[2018-01-08] MEDS ORDERED: Aspirin EC 81mg tab ORAL SCH (09:00)
[2018-01-08] MEDS: Heparin 5000 units/ml inj SUBQ SCH ×2 (09:05→21:00)
[2018-01-08 09:11] LABS: ANION GAP 11 mmol/L (5-15); BLOOD UREA NITROGEN 37 mg/dL (7-18); CARBON DIOXIDE 29 MMOL/L (21-32); CHLORIDE 106 MMOL/L (98-107); POTASSIUM 4.5 MMOL/L (3.5-5.1); SODIUM 143 MMOL/L (136-145)
[2018-01-08 09:12] LABS: CREATININE 2.7 MG/DL (0.55-1.30); GAMMA GLUTAMYL TRANSPEPTIDASE 60 U/L (5-85)
[2018-01-08 09:27] LABS: ALANINE AMINOTRANSFERASE 19 U/L (12-78); ASPARTATE AMINO TRANSFERASE 22 U/L (15-37); BILIRUBIN,TOTAL 0.3 MG/DL (0.2-1.0); CALCIUM 8.3 MG/DL (8.5-10.1); FERRITIN 90 NG/ML (8-388); PHOSPHORUS 4.1 MG/DL (2.5-4.9); TRIGLYCERIDES 160 MG/DL (30-150)
[2018-01-08 09:28] LABS: ALKALINE PHOSPHATASE 94 U/L (46-116); CHOLESTEROL 169 MG/DL (< 200); HDL CHOLESTEROL 47 MG/DL (40-60)
[2018-01-08 09:29] LABS: ALBUMIN/GLOBULIN RATIO 0.6 (1.0-2.7)
[2018-01-08] MEDS: cefTRIAXone 1 GM in D5W 110 ML IVPB SCH (12:14)
--- NOTE | 2018-01-08 13:12 | Cardiology Report ---
APPROVED REPORT EKG Measurement Heart [id number] AR 320P80 [id number] Atrial pacing Inferior infarct, age undetermined Cannot rule out Anteroseptal infarct, age undetermined Abnormal ECG
--- NOTE | 2018-01-08 13:25 | Nephrology Progress Note ---
Assessment/Plan Problem List: (1) Diabetic nephropathy (2) CKD (chronic kidney disease) (3) Pacemaker (4) Hypertension (5) Hypoalbuminemia Assessment: r/o NS Assessment Renal failure likely chronic due to diabetic nephropathy HTN elevated troponin Pacer Proteinuria, Hypoalbuminemia rule out NS Plan Beta blockers ASA Nitrate BS and BP control 2D echo pending Kidney MARY Bilateral renal cysts. No evidence of obstructive nephropathy. Flomax one dose venofer per orders Subjective ROS Limited/Unobtainable: No Constitutional: Reports: malaise Objective Objective Last 24 Hour Vital Signs Date Time Temp Pulse Resp B/P (MAP) Pulse Ox O2 Delivery O2 Flow Rate FiO2 01/08/18 11:40 97.8 77 18 131/70 97 Nasal Cannula 2.0 97.8 01/08/18 09:13 97 Nasal Cannula 2.0 28 01/08/18 09:13 Nasal Cannula 2.0 28 01/08/18 08:13 80 109/64 01/08/18 07:53 75 01/08/18 07:52 98.2 80 18 109/64 97 Nasal Cannula 2.0 98.2 01/08/18 04:00 75 01/08/18 04:00 98.2 75 18 118/58 97 Nasal Cannula 2.0 98.2 01/08/18 01:04 97.7 76 18 131/64 97 Nasal Cannula 2.0 97.7 01/08/18 00:00 97.7 76 18 131/64 97 Nasal Cannula 2.0 97.7 01/08/18 00:00 75 01/08/18 00:00 75 01/07/18 22:22 75 138/74 01/07/18 20:00 75 01/07/18 20:00 75 138/74 97 Nasal Cannula 2.0 01/07/18 20:00 75 01/07/18 17:58 127/88 01/07/18 16:00 78 01/07/18 16:00 97.4 76 18 127/88 100 Nasal Cannula 2.0 97.4 01/07/18 14:50 98.4 75 15 154/82 100 Room Air 98.4 01/07/18 14:39 98.4 75 15 154/82 100 Room Air 98.4 Intake and Output 01/07/18 01/08/18 19:00 07:00 Intake Total 450 ml 0 ml Output Total 550 ml 0 ml Balance -100 ml 0 ml Intake Oral 0 ml 0 ml Other 450 ml Output Urine Total 550 ml 0 ml Laboratory Tests 01/08/18 06:20: White Blood Count 6.8, Red Blood Count 4.01L, Hemoglobin 11.1L, Hematocrit 34.5L , Mean Corpuscular Volume 86, Mean Corpuscular Hemoglobin 27.6, Mean Corpuscular Hemoglobin Concent 32.0, Red Cell Distribution Width 13.7, Platelet Count 117L, Mean Platelet Volume 9.6, Neutrophils (%) (Auto) 60.9, Lymphocytes ( %) (Auto) 29.4, Monocytes (%) (Auto) 8.0, Eosinophils (%) (Auto) 1.4, Basophils (%) (Auto) 0.4, Sodium Level 143, Potassium Level 4.5, Chloride Level 106, Carbon Dioxide Level 29, Anion Gap 11, Blood Urea Nitrogen 37H, Creatinine 2.7H , Estimat Glomerular Filtration Rate , Glucose Level 185#H, Hemoglobin A1c 9.4H , Uric Acid 7.8H, Calcium Level 8.3L, Phosphorus Level 4.1, Magnesium Level 1.9 , Iron Level 24L, Total Iron Binding Capacity 203L, Percent Iron Saturation 12L , Unsaturated Iron Binding 179, Ferritin 90, Total Bilirubin 0.3, Gamma Glutamyl Transpeptidase 60, Aspartate Amino Transf (AST/SGOT) 22, Alanine Aminotransferase (ALT/SGPT) 19, Alkaline Phosphatase 94, Troponin I 0.085H, Pro- B-Type Natriuretic Peptide 3119H, Total Protein 6.2L, Albumin 2.0L, Globulin 4.2 , Albumin/Globulin Ratio 0.6L, Triglycerides Level 160H, Cholesterol Level 169, LDL Cholesterol 101H, HDL Cholesterol 47, Cholesterol/HDL Ratio 3.6, Vitamin B12 Level 465, Thyroid Stimulating Hormone (TSH) 0.881 Height (Feet): 5 Height (Inches): 10.00 Weight (Pounds): 88 General Appearance: no apparent distress Cardiovascular: normal rate, pacemaker/AICD Respiratory/Chest: decreased breath sounds Abdomen: distended Objective no other changes TALITA DIETZ Jan 08, 2018 13:25
--- NOTE | 2018-01-08 15:08 | Cardiac Electrophysiology PN ---
Assessment/Plan Assessment/Plan 1. Troponin elevation.Levels are flat and going down. 0.2 to 0.08 The patient does not have any chest pain and it could be due to renal failure. The EKG shows atrially paced and nonspecific T-wave abnormalities. It could be secondary to intermittent ventricular pacing due to repolarization. EchocardiogramEF 55%. Continue aspirin and metoprolol. 2. Status post pacemaker. We will try to interrogate after we find the brand of the pacemaker. 3. Hypertension. Continue metoprolol 25 mg b.i.d. 4. Diabetes. 5. Renal failure, creatinine of 2.7. Further evaluation by Dr. Ackerman. TORI RN Subjective Subjective Comfortable in NAD. Still awaiting pacer brand from [facility] to interrogated. A pacing Objective Last 24 Hour Vital Signs Date Time Temp Pulse Resp B/P (MAP) Pulse Ox O2 Delivery O2 Flow Rate FiO2 01/08/18 11:55 75 01/08/18 11:40 97.8 77 18 131/70 97 Nasal Cannula 2.0 97.8 01/08/18 09:13 97 Nasal Cannula 2.0 28 01/08/18 09:13 Nasal Cannula 2.0 28 01/08/18 08:13 80 109/64 01/08/18 07:53 75 01/08/18 07:52 98.2 80 18 109/64 97 Nasal Cannula 2.0 98.2 01/08/18 04:00 75 01/08/18 04:00 98.2 75 18 118/58 97 Nasal Cannula 2.0 98.2 01/08/18 01:04 97.7 76 18 131/64 97 Nasal Cannula 2.0 97.7 01/08/18 00:00 97.7 76 18 131/64 97 Nasal Cannula 2.0 97.7 01/08/18 00:00 75 01/08/18 00:00 75 01/07/18 22:22 75 138/74 01/07/18 20:00 75 01/07/18 20:00 75 138/74 97 Nasal Cannula 2.0 01/07/18 20:00 75 01/07/18 17:58 127/88 01/07/18 16:00 78 01/07/18 16:00 97.4 76 18 127/88 100 Nasal Cannula 2.0 97.4 Intake and Output 01/07/18 01/08/18 19:00 07:00 Intake Total 450 ml 0 ml Output Total 550 ml 0 ml Balance -100 ml 0 ml Intake Oral 0 ml 0 ml Other 450 ml Output Urine Total 550 ml 0 ml Laboratory Tests Test 01/08/18 06:20 White Blood Count 6.8 K/UL (4.8-10.8) Red Blood Count 4.01 M/UL (4.70-6.10) L Hemoglobin 11.1 G/DL (14.2-18.0) L Hematocrit 34.5 % (42.0-52.0) L Mean Corpuscular Volume 86 FL (80-99) Mean Corpuscular Hemoglobin 27.6 PG (27.0-31.0) Mean Corpuscular Hemoglobin Concent 32.0 G/DL (32.0-36.0) Red Cell Distribution Width 13.7 % (11.6-14.8) Platelet Count 117 K/UL (150-450) L Mean Platelet Volume 9.6 FL (6.5-10.1) Neutrophils (%) (Auto) 60.9 % (45.0-75.0) Lymphocytes (%) (Auto) 29.4 % (20.0-45.0) Monocytes (%) (Auto) 8.0 % (1.0-10.0) Eosinophils (%) (Auto) 1.4 % (0.0-3.0) Basophils (%) (Auto) 0.4 % (0.0-2.0) Sodium Level 143 MMOL/L (136-145) Potassium Level 4.5 MMOL/L (3.5-5.1) Chloride Level 106 MMOL/L (98-107) Carbon Dioxide Level 29 MMOL/L (21-32) Anion Gap 11 mmol/L (5-15) Blood Urea Nitrogen 37 mg/dL (7-18) H Creatinine 2.7 MG/DL (0.55-1.30) H Estimat Glomerular Filtration Rate mL/min (>60) Glucose Level 185 MG/DL (74-106) #H Hemoglobin A1c 9.4 % (4.3-6.0) H Uric Acid 7.8 MG/DL (2.6-7.2) H Calcium Level 8.3 MG/DL (8.5-10.1) L Phosphorus Level 4.1 MG/DL (2.5-4.9) Magnesium Level 1.9 MG/DL (1.5-2.4) Iron Level 24 ug/dL (50-175) L Total Iron Binding Capacity 203 ug/dL (250-450) L Percent Iron Saturation 12 % (15-50) L Unsaturated Iron Binding 179 ug/dL (112-346) Ferritin 90 NG/ML (8-388) Total Bilirubin 0.3 MG/DL (0.2-1.0) Gamma Glutamyl Transpeptidase 60 U/L (5-85) Aspartate Amino Transf (AST/SGOT) 22 U/L (15-37) Alanine Aminotransferase (ALT/SGPT) 19 U/L (12-78) Alkaline Phosphatase 94 U/L (46-116) Troponin I 0.085 ng/mL (0.000-0.056) Pro-B-Type Natriuretic Peptide 3119 pg/mL (0-125) H Total Protein 6.2 G/DL (6.4-8.2) L Albumin 2.0 G/DL (3.4-5.0) L Globulin 4.2 g/dL Albumin/Globulin Ratio 0.6 (1.0-2.7) L Triglycerides Level 160 MG/DL (30-150) H Cholesterol Level 169 MG/DL (< 200) LDL Cholesterol 101 mg/dL (<100) H HDL Cholesterol 47 MG/DL (40-60) Cholesterol/HDL Ratio 3.6 (3.3-4.4) Vitamin B12 Level 465 PG/ML (193-986) Thyroid Stimulating Hormone (TSH) 0.881 uiU/mL (0.358-3.740) Objective HEAD AND NECK: No JVD. LUNGS: Clear. CARDIOVASCULAR: Regular S1 and S2 with no gallop or murmur. ABDOMEN: Soft. EXTREMITIES: A 1+ pitting edema. Pace in the left subclavian. rEic Dee MD Jan 08, 2018 15:08
[2018-01-08] MEDS: Nitroglycerin Patch 0.4mg TDERMAL SCH (16:07)
--- NOTE | 2018-01-08 17:28 | General Progress Note ---
Assessment/Plan Problem List: (1) Diabetic nephropathy ICD Codes: E11.21 - Type 2 diabetes mellitus with diabetic nephropathy SNOMED: 53317958, 944108821 (2) Hypertension ICD Codes: I10 - Essential (primary) hypertension SNOMED: 42028051 (3) Pacemaker ICD Codes: Z95.0 - Presence of cardiac pacemaker SNOMED: 188063657 (4) Diabetes mellitus ICD Codes: E11.9 - Type 2 diabetes mellitus without complications SNOMED: 25490561 Assessment/Plan add Levemir 12 units qhs add Novolog 8 units ac tid + NISS Subjective Allergies: Coded Allergies: No Known Allergies (Unverified , 09/30/17) All Systems: reviewed and negative except above Subjective events noted - BG values are elevated Objective Last 24 Hour Vital Signs Date Time Temp Pulse Resp B/P (MAP) Pulse Ox O2 Delivery O2 Flow Rate FiO2 01/08/18 16:07 108/64 01/08/18 16:03 97.5 84 18 108/64 97 Nasal Cannula 2.0 97.5 01/08/18 15:26 81 01/08/18 11:55 75 01/08/18 11:40 97.8 77 18 131/70 97 Nasal Cannula 2.0 97.8 01/08/18 09:13 97 Nasal Cannula 2.0 28 01/08/18 09:13 Nasal Cannula 2.0 28 01/08/18 08:13 80 109/64 01/08/18 07:53 75 01/08/18 07:52 98.2 80 18 109/64 97 Nasal Cannula 2.0 98.2 01/08/18 04:00 75 01/08/18 04:00 98.2 75 18 118/58 97 Nasal Cannula 2.0 98.2 01/08/18 01:04 97.7 76 18 131/64 97 Nasal Cannula 2.0 97.7 01/08/18 00:00 97.7 76 18 131/64 97 Nasal Cannula 2.0 97.7 01/08/18 00:00 75 01/08/18 00:00 75 01/07/18 22:22 75 138/74 01/07/18 20:00 75 01/07/18 20:00 75 138/74 97 Nasal Cannula 2.0 01/07/18 20:00 75 01/07/18 17:58 127/88 Intake and Output 01/07/18 01/08/18 19:00 07:00 Intake Total 450 ml 0 ml Output Total 550 ml 0 ml Balance -100 ml 0 ml Intake Oral 0 ml 0 ml Other 450 ml Output Urine Total 550 ml 0 ml Laboratory Tests 01/08/18 06:20: White Blood Count 6.8, Red Blood Count 4.01L, Hemoglobin 11.1L, Hematocrit 34.5L , Mean Corpuscular Volume 86, Mean Corpuscular Hemoglobin 27.6, Mean Corpuscular Hemoglobin Concent 32.0, Red Cell Distribution Width 13.7, Platelet Count 117L, Mean Platelet Volume 9.6, Neutrophils (%) (Auto) 60.9, Lymphocytes ( %) (Auto) 29.4, Monocytes (%) (Auto) 8.0, Eosinophils (%) (Auto) 1.4, Basophils (%) (Auto) 0.4, Sodium Level 143, Potassium Level 4.5, Chloride Level 106, Carbon Dioxide Level 29, Anion Gap 11, Blood Urea Nitrogen 37H, Creatinine 2.7H , Estimat Glomerular Filtration Rate , Glucose Level 185#H, Hemoglobin A1c 9.4H , Uric Acid 7.8H, Calcium Level 8.3L, Phosphorus Level 4.1, Magnesium Level 1.9 , Iron Level 24L, Total Iron Binding Capacity 203L, Percent Iron Saturation 12L , Unsaturated Iron Binding 179, Ferritin 90, Total Bilirubin 0.3, Gamma Glutamyl Transpeptidase 60, Aspartate Amino Transf (AST/SGOT) 22, Alanine Aminotransferase (ALT/SGPT) 19, Alkaline Phosphatase 94, Troponin I 0.085H, Pro- B-Type Natriuretic Peptide 3119H, Total Protein 6.2L, Albumin 2.0L, Globulin 4.2 , Albumin/Globulin Ratio 0.6L, Triglycerides Level 160H, Cholesterol Level 169, LDL Cholesterol 101H, HDL Cholesterol 47, Cholesterol/HDL Ratio 3.6, Vitamin B12 Level 465, Thyroid Stimulating Hormone (TSH) 0.881 Height (Feet): 5 Height (Inches): 10.00 Weight (Pounds): 88 General Appearance: no apparent distress Neck: normal alignment Cardiovascular: normal rate Respiratory/Chest: lungs clear Abdomen: normal bowel sounds Pelvis: normal external exam Edema: no edema noted Arm (L), no edema noted Arm (R), no edema noted Leg (L), no edema noted Leg (R), no edema noted Pedal (L), no edema noted Pedal (R), no edema noted Generalized Objective Current Medications Medications (Trade) Dose Ordered Sig/Olga Lidia Route PRN Reason Start Time Stop Time Status Last Admin Dose Admin Acetaminophen (Tylenol) 650 mg Q4H PRN ORAL Fever/Headache/Mild Pain 01/07/18 15:45 02/06/18 15:44 Aspirin (Ecotrin) 325 mg DAILY ORAL 01/08/18 09:00 02/07/18 08:59 01/08/18 08:12 Bisacodyl (Dulcolax) 10 mg HSPRN PRN RECTAL Constipation 01/07/18 15:45 02/06/18 15:44 Ceftriaxone Sodium 1 gm/ Dextrose 110 ml @ 220 mls/hr Q24H IVPB 01/08/18 12:30 01/15/18 12:29 01/08/18 12:14 Dextrose (Dextrose 50%) 25 ml STAT PRN IV Hypoglycemia 01/07/18 18:00 02/06/18 17:59 Dextrose (Dextrose 50%) 50 ml STAT PRN IV Hypoglycemia 01/07/18 18:00 02/06/18 17:59 Docusate Sodium (Colace) 100 mg THREE TIMES A DAY ORAL 01/07/18 18:00 02/06/18 17:59 01/08/18 17:04 Fish Oil (Fish Oil) 1,000 mg BID ORAL 01/07/18 18:00 02/06/18 17:59 01/08/18 17:04 Heparin Sodium (Porcine) (Heparin 5000 units/ml) 5,000 units EVERY 12 HOURS SUBQ 01/08/18 09:00 02/06/18 20:59 01/08/18 09:05 Insulin Aspart (NovoLOG) BEFORE MEALS AND HS SUBQ 01/07/18 21:00 02/06/18 20:59 01/08/18 16:09 Iron Sucrose 200 mg/Sodium Chloride 120 ml @ 240 mls/hr ONCE IV 01/08/18 21:00 02/07/18 22:00 Lansoprazole (Prevacid) 30 mg DAILY ORAL 01/08/18 09:00 02/07/18 08:59 01/08/18 08:12 Metoprolol Tartrate (Lopressor) 25 mg Q12HR ORAL 01/07/18 21:00 02/06/18 20:59 01/07/18 22:22 Nitroglycerin (Ntg) 1 patch Q24H TDERMAL 01/07/18 16:00 02/06/18 15:59 01/08/18 16:07 Tamsulosin HCl (Flomax) 0.4 mg QHS ORAL 01/09/18 21:00 02/06/18 17:59 Item Value Date Time Bedside Blood Glucose 271 mg/dl H 01/08/18 1609 Bedside Blood Glucose 256 mg/dl H 01/08/18 1137 Bedside Blood Glucose 198 mg/dl H 01/08/18 0713 Bedside Blood Glucose 198 mg/dl H 01/08/18 0630 Niko Amaya MD Jan 08, 2018 17:28
--- NOTE | 2018-01-08 20:16 | Consultation ---
DATE OF CONSULTATION: 01/08/2018 INFECTIOUS DISEASE CONSULTATION CONSULTING PHYSICIAN: Raz Paulson M.D. PRIMARY ATTENDING PHYSICIAN: Laurie Mcmullen M.D. REASON FOR CONSULT: Fever. HISTORY OF PRESENT ILLNESS: This is a 72-year-old male admitted yesterday from nursing facility because of fever, had temperature of 102 degrees. He has some difficulty in urination. PAST MEDICAL HISTORY: Significant for history of CVA, some weakness in the left arm, diabetes mellitus, status post pacemaker, hypertension, chronic kidney disease, and old [place]. ALLERGIES: No known drug allergy. MEDICATIONS: Iron, Prevacid, heparin, metoprolol, got a dose of Levaquin in the ER, insulin, Colace, Flomax, fish oil, nitroglycerin, Tylenol, and bisacodyl. SOCIAL HISTORY: Originally from [place], skilled nursing resident. No history of alcohol, drug abuse, or smoking. 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 . 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 REVIEW OF SYSTEMS: No sore throat. No runny nose. No coughing. No nausea. No vomiting. No diarrhea. He has to press hard to pass urine. PHYSICAL EXAMINATION: VITAL SIGNS: Temperature 98.2 degrees, he was afebrile in this hospitalization, pulse 80, and blood pressure 109/64. GENERAL APPEARANCE: No acute distress. HEAD AND NECK: [place] conjunctivae. HEART: Regular. LUNGS: Clear. ABDOMEN: Soft and nontender. Bowel sounds present. EXTREMITIES: Mild edema of the legs. LABORATORY AND DIAGNOSTIC DATA: WBC 6.8, hemoglobin 12.1, hematocrit 34.5, and platelets 117,000. Sodium 143, potassium 4.5, chloride 106, bicarbonate 29, BUN 37, creatinine 2.7, and glucose 185. BNP was elevated at 3119. Troponin is elevated at 0.085. IMPRESSION: Fever. The patient does not look septic, has no leukocytosis, with problem passing likely secondary to prostatic enlargement, diabetes mellitus, chronic kidney disease, hypertension, and has history of CVA. RECOMMENDATION: We will start the patient on ceftriaxone. We will check for abdominal and renal ultrasound if it is not done in the recent past. At the end of my exam, I thank Dr. Mcmullen for involving me in the care of this patient. Raz Paulson M.D. DR: CLEMENTINA JOB#: [id number] CC: MAGED
[2018-01-08] MEDS: Levemir Flexpen SUBQ SCH (22:06)
[2018-01-08] MEDS: Iron Sucrose 200 MG in NS 110 ML IV SCH (22:13)
[2018-01-09] VITALS: BP 149/84
[2018-01-09 04:00] VITALS: BP 147/71
[2018-01-09 05:49] LABS: BASOPHILS % (AUTO) 0.7 % (0.0-2.0); EOSINOPHILS % (AUTO) 2.9 % (0.0-3.0); HEMATOCRIT 36.7 % (42.0-52.0); HEMOGLOBIN 12.2 G/DL (14.2-18.0); LYMPHOCYTES % (AUTO) 33.1 % (20.0-45.0); MEAN CORPUSCULAR VOLUME 86 FL (80-99); MONOCYTES % (AUTO) 8.5 % (1.0-10.0); NEUTROPHILS % (AUTO) 54.8 % (45.0-75.0); PLATELET COUNT 130 K/UL (150-450); RED BLOOD COUNT 4.28 M/UL (4.70-6.10); RED CELL DISTRIBUTION WIDTH 13.6 % (11.6-14.8); WHITE BLOOD COUNT 6.5 K/UL (4.8-10.8)
[2018-01-09 06:13] LABS: ALANINE AMINOTRANSFERASE 20 U/L (12-78); ALBUMIN 2.3 G/DL (3.4-5.0); ALBUMIN/GLOBULIN RATIO 0.6 (1.0-2.7); ALKALINE PHOSPHATASE 104 U/L (46-116); ANION GAP 3 mmol/L (5-15); ASPARTATE AMINO TRANSFERASE 21 U/L (15-37); BILIRUBIN,TOTAL 0.3 MG/DL (0.2-1.0); BLOOD UREA NITROGEN 39 mg/dL (7-18); CALCIUM 8.6 MG/DL (8.5-10.1); CARBON DIOXIDE 29 MMOL/L (21-32); CHLORIDE 106 MMOL/L (98-107); CREATININE 2.6 MG/DL (0.55-1.30); PHOSPHORUS 4.2 MG/DL (2.5-4.9); POTASSIUM 4.5 MMOL/L (3.5-5.1); SODIUM 138 MMOL/L (136-145)
[2018-01-09] MEDS: NovoLOG Insulin Flexpen SUBQ SCH ×7 (06:14→20:57)
[2018-01-09 08:00] VITALS: BP 118/76
[2018-01-09] MEDS: Heparin 5000 units/ml inj SUBQ SCH ×2 (09:00→20:58)
[2018-01-09] MEDS: Docusate 100mg cap ORAL SCH ×3 (09:06→17:29)
[2018-01-09] MEDS: Aspirin EC 325mg tab ORAL SCH (09:06)
[2018-01-09] MEDS: Metoprolol 25mg tab ORAL SCH ×2 (09:07→21:00)
--- NOTE | 2018-01-09 09:36 | Physician Query ---
--------- THIS DOCUMENT IS A PERMANENT PART OF THE MEDICAL RECORD --------- PLEASE COMPLETE DOCUMENT BEFORE SIGNING Dear Dr. Ackerman Date: 01/09/2018 Instructor Product Inspection/CDS Name: Jolene Beltran Instructor Product Inspection/CDS Phone No.: [phone] Exercise your independent professional judgment when responding to the query. Questions asked do not imply a particular answer is desired or expected. We greatly appreciate your clarification on this issue. CLINICAL DOCUMENTATION STATES: Patient comes from intermediate admitted with sepsis. CLINICAL FINDINGS SHOW: BMI: 12.6, Albumin: 2.0-2.3 Please select the most appropriate option: [] Mild [] Moderate [] Protein/Calorie Malnutrition [] Protein Malnutrition >Serum albumin 2.8 to 3.4 g/dL or Pre-albumin 5 to 7 mg/dl (3) >Inadequate nutritional intake (1, 2, 3, 4) >NPO > 5 days >Weight loss: 5% in 1 month or 7.5% in 3 months or 10% in 6 months (1,3,4) >BMI 16 to 18.4 or Weight <90 of ideal body weight (1,2,3,4) [] Severe Malnutrition (Protein/Calorie) [] Severe Protein Malnutrition >Serum Albumin < 2.8 g/dL (1,2) >Lymphocytes < 1500/uL (2) >Inadequate nutritional intake3 , high stress e.g. major trauma, sepsis, pancreatitis, rao etc. >Decubitus ulcers (1,2) , skin breakdown(2), easy hair pluckability >Weight <80% standard for height (2) >Triceps skin fold <3 mm2 >Mid-arm muscle circumference <25 cm2 >Creatinine-height index <60% standard (2) _ [] Hypoalbuminemia [] Emancipated w/ Malnutrition [] [place] (rare in [place]) [] [place]asm[place] [] Other [] Unable to determine [] Not Applicable Condition Present on Admission: [] Yes [] No [ ] Unable to determine Please also document in your Progress Notes and/or Discharge Summary and indicate if the condition was present on admission. Madhavi LYNNE
--- NOTE | 2018-01-09 10:52 | Nephrology Progress Note ---
Assessment/Plan Problem List: (1) Diabetic nephropathy Assessment: Nephrotic range proteinuria of 4.8 gr/ in 24 h (2) CKD (chronic kidney disease) (3) Pacemaker (4) Hypertension (5) Hypoalbuminemia Assessment: r/o NS Assessment Renal failure likely chronic due to diabetic nephropathy HTN elevated troponin Pacer Proteinuria, Hypoalbuminemia Nephrotic range proteinuria NS Plan Beta blockers- ASA- Nitrate- BS and BP control- 2D echo 55% EjFx Kidney MARY Bilateral renal cysts. No evidence of obstructive nephropathy. Flomax one dose venofer per orders Subjective ROS Limited/Unobtainable: No Constitutional: Reports: malaise Objective Objective Last 24 Hour Vital Signs Date Time Temp Pulse Resp B/P (MAP) Pulse Ox O2 Delivery O2 Flow Rate FiO2 01/09/18 09:07 75 118/76 01/09/18 08:00 97.6 75 21 118/76 99 Nasal Cannula 2.0 97.6 01/09/18 04:00 97.2 61 20 147/71 96 Nasal Cannula 2.0 97.2 01/09/18 04:00 75 01/09/18 00:00 97.9 89 16 149/84 98 Nasal Cannula 2.0 97.9 01/09/18 00:00 75 01/08/18 22:04 76 146/75 01/08/18 20:00 97.7 76 16 146/75 98 Nasal Cannula 2.0 97.7 01/08/18 20:00 76 01/08/18 20:00 94 Nasal Cannula 2.0 28 01/08/18 20:00 Nasal Cannula 2.0 28 01/08/18 16:07 108/64 01/08/18 16:03 97.5 84 18 108/64 97 Nasal Cannula 2.0 97.5 01/08/18 15:26 81 01/08/18 11:55 75 01/08/18 11:40 97.8 77 18 131/70 97 Nasal Cannula 2.0 97.8 Intake and Output 01/08/18 01/09/18 19:00 07:00 Intake Total 840 ml 340 ml Output Total 850 ml 450 ml Balance -10 ml -110 ml Intake Oral 840 ml 100 ml IV Total 240 ml Output Urine Total 850 ml 450 ml # Voids 3 Laboratory Tests 01/08/18 23:32: Urine Collection Time 24, Urine Total Volume 1250, Urine Total Protein mg/dL 390 , Urine Total Protein 24 Hour 4875.0H 01/09/18 05:30: White Blood Count 6.5, Red Blood Count 4.28L, Hemoglobin 12.2L, Hematocrit 36.7L , Mean Corpuscular Volume 86, Mean Corpuscular Hemoglobin 28.4, Mean Corpuscular Hemoglobin Concent 33.1, Red Cell Distribution Width 13.6, Platelet Count 130L, Mean Platelet Volume 9.1, Neutrophils (%) (Auto) 54.8, Lymphocytes ( %) (Auto) 33.1, Monocytes (%) (Auto) 8.5, Eosinophils (%) (Auto) 2.9, Basophils (%) (Auto) 0.7, Sodium Level 138, Potassium Level 4.5, Chloride Level 106, Carbon Dioxide Level 29, Anion Gap 3L, Blood Urea Nitrogen 39H, Creatinine 2.6H , Estimat Glomerular Filtration Rate , Glucose Level 151H, Calcium Level 8.6, Phosphorus Level 4.2, Magnesium Level 2.0, Total Bilirubin 0.3, Aspartate Amino Transf (AST/SGOT) 21, Alanine Aminotransferase (ALT/SGPT) 20, Alkaline Phosphatase 104, Troponin I 0.049, C-Reactive Protein, Quantitative 11.8H, Pro-B -Type Natriuretic Peptide 1526H, Total Protein 6.2L, Albumin 2.3L, Globulin 3.9 , Albumin/Globulin Ratio 0.6L Height (Feet): 5 Height (Inches): 10.00 Weight (Pounds): 88 General Appearance: no apparent distress Objective no other changes TALITA DIETZ Jan 09, 2018 10:52
--- NOTE | 2018-01-09 11:20 | Infectious Diseases Prog Note ---
Assessment/Plan Assessment/Plan antibiotics : ceftriaxone A 1. ? UTI 2. fever improving 3. diabetes mellitus 4. hypertension 5. CVA P 1. continue ceftriaxone 2. will follow up cultures Subjective ROS Limited/Unobtainable: Yes Allergies: Coded Allergies: No Known Allergies (Unverified , 09/30/17) Objective Vital Signs Last 24 Hour Vital Signs Date Time Temp Pulse Resp B/P (MAP) Pulse Ox O2 Delivery O2 Flow Rate FiO2 01/09/18 09:07 75 118/76 01/09/18 08:00 97.6 75 21 118/76 99 Nasal Cannula 2.0 97.6 01/09/18 04:00 97.2 61 20 147/71 96 Nasal Cannula 2.0 97.2 01/09/18 04:00 75 01/09/18 00:00 97.9 89 16 149/84 98 Nasal Cannula 2.0 97.9 01/09/18 00:00 75 01/08/18 22:04 76 146/75 01/08/18 20:00 97.7 76 16 146/75 98 Nasal Cannula 2.0 97.7 01/08/18 20:00 76 01/08/18 20:00 94 Nasal Cannula 2.0 28 01/08/18 20:00 Nasal Cannula 2.0 28 01/08/18 16:07 108/64 01/08/18 16:03 97.5 84 18 108/64 97 Nasal Cannula 2.0 97.5 01/08/18 15:26 81 01/08/18 11:55 75 01/08/18 11:40 97.8 77 18 131/70 97 Nasal Cannula 2.0 97.8 Height (Feet): 5 Height (Inches): 10.00 Weight (Pounds): 88 Respiratory/Chest: lungs clear Cardiovascular: normal rate, regular rhythm, no gallop/murmur Abdomen: soft, non tender Extremities: other - + edema Microbiology Date/Time Source Procedure Growth Status 01/07/18 10:50 Blood Blood Culture - Preliminary NO GROWTH AFTER 24 HOURS Resulted 01/07/18 10:35 Blood Blood Culture - Preliminary NO GROWTH AFTER 24 HOURS Resulted 01/07/18 14:35 Nasal Nares MRSA Culture - Final Staphylococcus Aureus - Mrsa Complete 01/07/18 14:35 Rectum - Final NO CARBAPENEM-RESISTANT ENTEROBACTERI... Complete 01/07/18 14:35 Rectum VRE Culture - Final NO VANCOMYCIN RESISTANT ENTEROCOCCUS ... Complete Laboratory Tests Test 01/08/18 23:32 01/09/18 05:30 Urine Collection Time 24 HRS Urine Total Volume 1250 ML Urine Total Protein mg/dL 390 mg/dL Urine Total Protein 24 Hour 4875.0 mg/24hr (< 150) H White Blood Count 6.5 K/UL (4.8-10.8) Red Blood Count 4.28 M/UL (4.70-6.10) L Hemoglobin 12.2 G/DL (14.2-18.0) L Hematocrit 36.7 % (42.0-52.0) L Mean Corpuscular Volume 86 FL (80-99) Mean Corpuscular Hemoglobin 28.4 PG (27.0-31.0) Mean Corpuscular Hemoglobin Concent 33.1 G/DL (32.0-36.0) Red Cell Distribution Width 13.6 % (11.6-14.8) Platelet Count 130 K/UL (150-450) L Mean Platelet Volume 9.1 FL (6.5-10.1) Neutrophils (%) (Auto) 54.8 % (45.0-75.0) Lymphocytes (%) (Auto) 33.1 % (20.0-45.0) Monocytes (%) (Auto) 8.5 % (1.0-10.0) Eosinophils (%) (Auto) 2.9 % (0.0-3.0) Basophils (%) (Auto) 0.7 % (0.0-2.0) Sodium Level 138 MMOL/L (136-145) Potassium Level 4.5 MMOL/L (3.5-5.1) Chloride Level 106 MMOL/L (98-107) Carbon Dioxide Level 29 MMOL/L (21-32) Anion Gap 3 mmol/L (5-15) L Blood Urea Nitrogen 39 mg/dL (7-18) H Creatinine 2.6 MG/DL (0.55-1.30) H Estimat Glomerular Filtration Rate mL/min (>60) Glucose Level 151 MG/DL (74-106) H Calcium Level 8.6 MG/DL (8.5-10.1) Phosphorus Level 4.2 MG/DL (2.5-4.9) Magnesium Level 2.0 MG/DL (1.8-2.4) Total Bilirubin 0.3 MG/DL (0.2-1.0) Aspartate Amino Transf (AST/SGOT) 21 U/L (15-37) Alanine Aminotransferase (ALT/SGPT) 20 U/L (12-78) Alkaline Phosphatase 104 U/L (46-116) Troponin I 0.049 ng/mL (0.000-0.056) C-Reactive Protein, Quantitative 11.8 mg/dL (0.00-0.90) H Pro-B-Type Natriuretic Peptide 1526 pg/mL (0-125) H Total Protein 6.2 G/DL (6.4-8.2) L Albumin 2.3 G/DL (3.4-5.0) L Globulin 3.9 g/dL Albumin/Globulin Ratio 0.6 (1.0-2.7) L Current Medications Medications (Trade) Dose Ordered Sig/Olga Lidia Route PRN Reason Start Time Stop Time Status Last Admin Dose Admin Acetaminophen (Tylenol) 650 mg Q4H PRN ORAL Fever/Headache/Mild Pain 01/07/18 15:45 02/06/18 15:44 Aspirin (Ecotrin) 325 mg DAILY ORAL 01/08/18 09:00 02/07/18 08:59 01/09/18 09:06 Bisacodyl (Dulcolax) 10 mg HSPRN PRN RECTAL Constipation 01/07/18 15:45 02/06/18 15:44 01/08/18 22:04 Ceftriaxone Sodium 1 gm/ Dextrose 110 ml @ 220 mls/hr Q24H IVPB 01/08/18 12:30 01/15/18 12:29 01/08/18 12:14 Dextrose (Dextrose 50%) 25 ml STAT PRN IV Hypoglycemia 01/07/18 18:00 02/06/18 17:59 Dextrose (Dextrose 50%) 25 ml STAT PRN IV Hypoglycemia 01/08/18 17:30 02/07/18 17:29 Docusate Sodium (Colace) 100 mg THREE TIMES A DAY ORAL 01/07/18 18:00 02/06/18 17:59 01/09/18 09:06 Fish Oil (Fish Oil) 1,000 mg BID ORAL 01/07/18 18:00 02/06/18 17:59 01/09/18 09:06 Heparin Sodium (Porcine) (Heparin 5000 units/ml) 5,000 units EVERY 12 HOURS SUBQ 01/08/18 09:00 02/06/18 20:59 01/08/18 09:05 Insulin Aspart (NovoLOG) BEFORE MEALS AND HS SUBQ 01/07/18 21:00 02/06/18 20:59 01/09/18 11:11 Insulin Aspart (NovoLOG) 8 units NOVOTIAC SUBQ 01/08/18 17:30 02/07/18 17:29 01/08/18 17:40 Insulin Detemir (Levemir) 12 units BEDTIME SUBQ 01/08/18 21:00 02/07/18 20:59 01/08/18 22:06 Iron Sucrose 200 mg/Sodium Chloride 120 ml @ 240 mls/hr ONCE IV 01/08/18 21:00 02/07/18 22:00 01/08/18 22:13 Lansoprazole (Prevacid) 30 mg DAILY ORAL 01/08/18 09:00 02/07/18 08:59 01/09/18 09:06 Metoprolol Tartrate (Lopressor) 25 mg Q12HR ORAL 01/07/18 21:00 02/06/18 20:59 01/09/18 09:07 Nitroglycerin (Ntg) 1 patch Q24H TDERMAL 01/07/18 16:00 02/06/18 15:59 01/08/18 16:07 Tamsulosin HCl (Flomax) 0.4 mg QHS ORAL 01/09/18 21:00 02/06/18 17:59 MIGUEL KEMP Jan 09, 2018 11:20
[2018-01-09 12:00] VITALS: BP 130/79
[2018-01-09] MEDS: cefTRIAXone 1 GM in D5W 110 ML IVPB SCH (12:04)
--- NOTE | 2018-01-09 13:25 | General Progress Note ---
Assessment/Plan Problem List: (1) Diabetic nephropathy ICD Codes: E11.21 - Type 2 diabetes mellitus with diabetic nephropathy SNOMED: 33312778, 332561981 (2) Hypertension ICD Codes: I10 - Essential (primary) hypertension SNOMED: 03879714 (3) Pacemaker ICD Codes: Z95.0 - Presence of cardiac pacemaker SNOMED: 872006031 (4) Diabetes mellitus ICD Codes: E11.9 - Type 2 diabetes mellitus without complications SNOMED: 50123170 Assessment/Plan increase Levemir to 14 units qhs continue Novolog 8 units ac tid - hold for NPO status continue NISS Subjective Allergies: Coded Allergies: No Known Allergies (Unverified , 09/30/17) All Systems: reviewed and negative except above Subjective events noted Objective Last 24 Hour Vital Signs Date Time Temp Pulse Resp B/P (MAP) Pulse Ox O2 Delivery O2 Flow Rate FiO2 01/09/18 12:00 97.2 79 21 130/79 99 Nasal Cannula 2.0 97.2 01/09/18 09:07 75 118/76 01/09/18 08:00 97.6 75 21 118/76 99 Nasal Cannula 2.0 97.6 01/09/18 08:00 79 01/09/18 04:00 97.2 61 20 147/71 96 Nasal Cannula 2.0 97.2 01/09/18 04:00 75 01/09/18 00:00 97.9 89 16 149/84 98 Nasal Cannula 2.0 97.9 01/09/18 00:00 75 01/08/18 22:04 76 146/75 01/08/18 20:00 97.7 76 16 146/75 98 Nasal Cannula 2.0 97.7 01/08/18 20:00 76 01/08/18 20:00 94 Nasal Cannula 2.0 28 01/08/18 20:00 Nasal Cannula 2.0 28 01/08/18 16:07 108/64 01/08/18 16:03 97.5 84 18 108/64 97 Nasal Cannula 2.0 97.5 01/08/18 15:26 81 Intake and Output 01/08/18 01/09/18 19:00 07:00 Intake Total 840 ml 340 ml Output Total 850 ml 450 ml Balance -10 ml -110 ml Intake Oral 840 ml 100 ml IV Total 240 ml Output Urine Total 850 ml 450 ml # Voids 3 Laboratory Tests 01/08/18 23:32: Urine Collection Time 24, Urine Total Volume 1250, Urine Total Protein mg/dL 390 , Urine Total Protein 24 Hour 4875.0H 01/09/18 05:30: White Blood Count 6.5, Red Blood Count 4.28L, Hemoglobin 12.2L, Hematocrit 36.7L , Mean Corpuscular Volume 86, Mean Corpuscular Hemoglobin 28.4, Mean Corpuscular Hemoglobin Concent 33.1, Red Cell Distribution Width 13.6, Platelet Count 130L, Mean Platelet Volume 9.1, Neutrophils (%) (Auto) 54.8, Lymphocytes ( %) (Auto) 33.1, Monocytes (%) (Auto) 8.5, Eosinophils (%) (Auto) 2.9, Basophils (%) (Auto) 0.7, Sodium Level 138, Potassium Level 4.5, Chloride Level 106, Carbon Dioxide Level 29, Anion Gap 3L, Blood Urea Nitrogen 39H, Creatinine 2.6H , Estimat Glomerular Filtration Rate , Glucose Level 151H, Calcium Level 8.6, Phosphorus Level 4.2, Magnesium Level 2.0, Total Bilirubin 0.3, Aspartate Amino Transf (AST/SGOT) 21, Alanine Aminotransferase (ALT/SGPT) 20, Alkaline Phosphatase 104, Troponin I 0.049, C-Reactive Protein, Quantitative 11.8H, Pro-B -Type Natriuretic Peptide 1526H, Total Protein 6.2L, Albumin 2.3L, Globulin 3.9 , Albumin/Globulin Ratio 0.6L Height (Feet): 5 Height (Inches): 10.00 Weight (Pounds): 88 General Appearance: no apparent distress Neck: normal alignment Cardiovascular: normal rate Respiratory/Chest: lungs clear Abdomen: normal bowel sounds Objective Current Medications Medications (Trade) Dose Ordered Sig/Olga Lidia Route PRN Reason Start Time Stop Time Status Last Admin Dose Admin Acetaminophen (Tylenol) 650 mg Q4H PRN ORAL Fever/Headache/Mild Pain 01/07/18 15:45 02/06/18 15:44 Aspirin (Ecotrin) 325 mg DAILY ORAL 01/08/18 09:00 02/07/18 08:59 01/09/18 09:06 Bisacodyl (Dulcolax) 10 mg HSPRN PRN RECTAL Constipation 01/07/18 15:45 02/06/18 15:44 01/08/18 22:04 Ceftriaxone Sodium 1 gm/ Dextrose 110 ml @ 220 mls/hr Q24H IVPB 01/08/18 12:30 01/15/18 12:29 01/09/18 12:04 Dextrose (Dextrose 50%) 25 ml STAT PRN IV Hypoglycemia 01/07/18 18:00 02/06/18 17:59 Dextrose (Dextrose 50%) 25 ml STAT PRN IV Hypoglycemia 01/08/18 17:30 02/07/18 17:29 Docusate Sodium (Colace) 100 mg THREE TIMES A DAY ORAL 01/07/18 18:00 02/06/18 17:59 01/09/18 12:04 Fish Oil (Fish Oil) 1,000 mg BID ORAL 01/07/18 18:00 02/06/18 17:59 01/09/18 09:06 Heparin Sodium (Porcine) (Heparin 5000 units/ml) 5,000 units EVERY 12 HOURS SUBQ 01/08/18 09:00 02/06/18 20:59 01/08/18 09:05 Insulin Aspart (NovoLOG) BEFORE MEALS AND HS SUBQ 01/07/18 21:00 02/06/18 20:59 01/09/18 11:11 Insulin Aspart (NovoLOG) 8 units NOVOTIAC SUBQ 01/08/18 17:30 02/07/18 17:29 01/08/18 17:40 Insulin Detemir (Levemir) 12 units BEDTIME SUBQ 01/08/18 21:00 02/07/18 20:59 01/08/18 22:06 Iron Sucrose 200 mg/Sodium Chloride 120 ml @ 240 mls/hr ONCE IV 01/08/18 21:00 02/07/18 22:00 01/08/18 22:13 Lansoprazole (Prevacid) 30 mg DAILY ORAL 01/08/18 09:00 02/07/18 08:59 01/09/18 09:06 Metoprolol Tartrate (Lopressor) 25 mg Q12HR ORAL 01/07/18 21:00 02/06/18 20:59 01/09/18 09:07 Nitroglycerin (Ntg) 1 patch Q24H TDERMAL 01/07/18 16:00 02/06/18 15:59 01/08/18 16:07 Tamsulosin HCl (Flomax) 0.4 mg QHS ORAL 01/09/18 21:00 02/06/18 17:59 Item Value Date Time Bedside Blood Glucose 222 mg/dl H 01/09/18 1130 Bedside Blood Glucose 151 mg/dl H 01/09/18 0615 Bedside Blood Glucose 284 mg/dl H 01/08/18 2206 Bedside Blood Glucose 271 mg/dl H 01/08/18 1740 Niko Amaya MD Jan 09, 2018 13:25
[2018-01-09] MEDS: Nitroglycerin Patch 0.4mg TDERMAL SCH (15:48)
[2018-01-09 16:00] VITALS: BP 138/79
--- NOTE | 2018-01-09 16:23 | Diagnostic Imaging Report ---
EXAM: US Abdomen Complete CLINICAL HISTORY: RENAL-C TECHNIQUE: Real-time ultrasound of the abdomen (complete) with image documentation. COMPARISON: No relevant prior studies available. FINDINGS: Liver: Echogenic liver suggesting fatty infiltration or hepatocellular disease. Gallbladder: Cholelithiasis without inflammatory or obstructive changes. Negative sonographic Castillo's sign Common bile duct: Unremarkable as visualized. Pancreas: Limited visualization of pancreas. Kidneys: Right renal cyst measuring 2.8 x 4.4 cm. Hypoechoic foci in the left kidney. No hydronephrosis. Spleen: No splenomegaly. Aorta: Aorta is obscured. Inferior vena cava: Not visualized IMPRESSION: Cholelithiasis without inflammatory or obstructive changes.
[2018-01-09] MEDS ORDERED: Tubing IV Secondary IV ONE (17:31)
[2018-01-09] MEDS ORDERED: NS 500ML ONE (17:31)
--- NOTE | 2018-01-09 19:20 | Cardiac Electrophysiology PN ---
Assessment/Plan Assessment/Plan 1. Troponin elevation.Levels are flat and low at 0.2 to 0.08 Denies any chest pain and it could be due to renal failure. The EKG shows atrially paced and nonspecific T-wave abnormalities. It could be secondary to intermittent ventricular pacing due to repolarization. EchocardiogramEF 55%. Continue aspirin and metoprolol. 2. Status post [employer] pacemaker. We will interrogate 3. Hypertension. Continue metoprolol 25 mg b.i.d. 4. Diabetes. 5. Renal failure, creatinine of 2.7. Further evaluation by Dr. Ackerman. TORI RN Subjective Subjective Comfortable in NAD. A pacing Objective Last 24 Hour Vital Signs Date Time Temp Pulse Resp B/P (MAP) Pulse Ox O2 Delivery O2 Flow Rate FiO2 01/09/18 16:00 97.9 79 22 138/79 97 Room Air 97.9 01/09/18 16:00 75 01/09/18 15:48 130/79 01/09/18 12:00 97.2 79 21 130/79 99 Nasal Cannula 2.0 97.2 01/09/18 12:00 82 01/09/18 09:07 75 118/76 01/09/18 08:00 97.6 75 21 118/76 99 Nasal Cannula 2.0 97.6 01/09/18 08:00 79 01/09/18 04:00 97.2 61 20 147/71 96 Nasal Cannula 2.0 97.2 01/09/18 04:00 75 01/09/18 00:00 97.9 89 16 149/84 98 Nasal Cannula 2.0 97.9 01/09/18 00:00 75 01/08/18 22:04 76 146/75 01/08/18 20:00 97.7 76 16 146/75 98 Nasal Cannula 2.0 97.7 01/08/18 20:00 76 01/08/18 20:00 94 Nasal Cannula 2.0 28 01/08/18 20:00 Nasal Cannula 2.0 28 Intake and Output 01/08/18 01/09/18 19:00 07:00 Intake Total 840 ml 340 ml Output Total 850 ml 450 ml Balance -10 ml -110 ml Intake Oral 840 ml 100 ml IV Total 240 ml Output Urine Total 850 ml 450 ml # Voids 3 Laboratory Tests Test 01/08/18 23:32 01/09/18 05:30 Urine Collection Time 24 HRS Urine Total Volume 1250 ML Urine Total Protein mg/dL 390 mg/dL Urine Total Protein 24 Hour 4875.0 mg/24hr (< 150) H White Blood Count 6.5 K/UL (4.8-10.8) Red Blood Count 4.28 M/UL (4.70-6.10) L Hemoglobin 12.2 G/DL (14.2-18.0) L Hematocrit 36.7 % (42.0-52.0) L Mean Corpuscular Volume 86 FL (80-99) Mean Corpuscular Hemoglobin 28.4 PG (27.0-31.0) Mean Corpuscular Hemoglobin Concent 33.1 G/DL (32.0-36.0) Red Cell Distribution Width 13.6 % (11.6-14.8) Platelet Count 130 K/UL (150-450) L Mean Platelet Volume 9.1 FL (6.5-10.1) Neutrophils (%) (Auto) 54.8 % (45.0-75.0) Lymphocytes (%) (Auto) 33.1 % (20.0-45.0) Monocytes (%) (Auto) 8.5 % (1.0-10.0) Eosinophils (%) (Auto) 2.9 % (0.0-3.0) Basophils (%) (Auto) 0.7 % (0.0-2.0) Sodium Level 138 MMOL/L (136-145) Potassium Level 4.5 MMOL/L (3.5-5.1) Chloride Level 106 MMOL/L (98-107) Carbon Dioxide Level 29 MMOL/L (21-32) Anion Gap 3 mmol/L (5-15) L Blood Urea Nitrogen 39 mg/dL (7-18) H Creatinine 2.6 MG/DL (0.55-1.30) H Estimat Glomerular Filtration Rate mL/min (>60) Glucose Level 151 MG/DL (74-106) H Calcium Level 8.6 MG/DL (8.5-10.1) Phosphorus Level 4.2 MG/DL (2.5-4.9) Magnesium Level 2.0 MG/DL (1.8-2.4) Total Bilirubin 0.3 MG/DL (0.2-1.0) Aspartate Amino Transf (AST/SGOT) 21 U/L (15-37) Alanine Aminotransferase (ALT/SGPT) 20 U/L (12-78) Alkaline Phosphatase 104 U/L (46-116) Troponin I 0.049 ng/mL (0.000-0.056) C-Reactive Protein, Quantitative 11.8 mg/dL (0.00-0.90) H Pro-B-Type Natriuretic Peptide 1526 pg/mL (0-125) H Total Protein 6.2 G/DL (6.4-8.2) L Albumin 2.3 G/DL (3.4-5.0) L Globulin 3.9 g/dL Albumin/Globulin Ratio 0.6 (1.0-2.7) L Microbiology Date/Time Source Procedure Growth Status 01/07/18 10:50 Blood Blood Culture - Preliminary NO GROWTH AFTER 24 HOURS Resulted 01/07/18 10:35 Blood Blood Culture - Preliminary NO GROWTH AFTER 24 HOURS Resulted 01/07/18 14:35 Nasal Nares MRSA Culture - Final Staphylococcus Aureus - Mrsa Complete 01/07/18 14:35 Rectum - Final NO CARBAPENEM-RESISTANT ENTEROBACTERI... Complete 01/07/18 14:35 Rectum VRE Culture - Final NO VANCOMYCIN RESISTANT ENTEROCOCCUS ... Complete Objective HEAD AND NECK: No JVD. LUNGS: Clear. CARDIOVASCULAR: Regular S1 and S2 with no gallop or murmur. ABDOMEN: Soft. EXTREMITIES: 1+ pitting edema. Pace in the left subclavian. Eric Dee MD Jan 09, 2018 19:20
[2018-01-09 20:00] VITALS: BP 127/63
[2018-01-09] MEDS: Iron Sucrose 200 MG in NS 110 ML IV SCH (20:55)
[2018-01-09] MEDS: Tamsulosin 0.4mg cap ORAL SCH (20:55)
[2018-01-09] MEDS: Levemir Flexpen SUBQ SCH (20:56)
--- NOTE | 2018-01-09 21:01 | General Progress Note ---
Assessment/Plan Problem List: (1) Diabetic nephropathy ICD Codes: E11.21 - Type 2 diabetes mellitus with diabetic nephropathy SNOMED: 28639825, 436987994 (2) Diabetes mellitus ICD Codes: E11.9 - Type 2 diabetes mellitus without complications SNOMED: 08118049 (3) Fever ICD Codes: R50.9 - Fever, unspecified SNOMED: 574562665 (4) Sepsis ICD Codes: A41.9 - Sepsis, unspecified organism SNOMED: 82138909 (5) CHF (congestive heart failure) ICD Codes: I50.9 - Heart failure, unspecified SNOMED: 06841706 Qualifiers: Qualified Codes: I50.9 - Heart failure, unspecified (6) CKD (chronic kidney disease) ICD Codes: N18.9 - Chronic kidney disease, unspecified SNOMED: 157044023 Qualifiers: Qualified Codes: N18.9 - Chronic kidney disease, unspecified Status: progressing Assessment/Plan afebrile no acute events sepsis abx per id elevated/labile sugar diabetes is improving Subjective ROS Limited/Unobtainable: Yes Constitutional: Reports: no symptoms Allergies: Coded Allergies: No Known Allergies (Unverified , 09/30/17) Objective Last 24 Hour Vital Signs Date Time Temp Pulse Resp B/P (MAP) Pulse Ox O2 Delivery O2 Flow Rate FiO2 01/09/18 20:32 96 Nasal Cannula 2.0 28 01/09/18 20:32 Nasal Cannula 2.0 28 01/09/18 16:00 97.9 79 22 138/79 97 Room Air 97.9 01/09/18 16:00 75 01/09/18 15:48 130/79 01/09/18 12:00 97.2 79 21 130/79 99 Nasal Cannula 2.0 97.2 01/09/18 12:00 82 01/09/18 09:07 75 118/76 01/09/18 08:00 97.6 75 21 118/76 99 Nasal Cannula 2.0 97.6 01/09/18 08:00 79 01/09/18 04:00 97.2 61 20 147/71 96 Nasal Cannula 2.0 97.2 01/09/18 04:00 75 01/09/18 00:00 97.9 89 16 149/84 98 Nasal Cannula 2.0 97.9 6/30/18 00:00 75 01/08/18 22:04 76 146/75 Intake and Output 01/08/18 01/09/18 19:00 07:00 Intake Total 840 ml 340 ml Output Total 850 ml 450 ml Balance -10 ml -110 ml Intake Oral 840 ml 100 ml IV Total 240 ml Output Urine Total 850 ml 450 ml # Voids 3 Laboratory Tests 01/08/18 23:32: Urine Collection Time 24, Urine Total Volume 1250, Urine Total Protein mg/dL 390 , Urine Total Protein 24 Hour 4875.0H 01/09/18 05:30: White Blood Count 6.5, Red Blood Count 4.28L, Hemoglobin 12.2L, Hematocrit 36.7L , Mean Corpuscular Volume 86, Mean Corpuscular Hemoglobin 28.4, Mean Corpuscular Hemoglobin Concent 33.1, Red Cell Distribution Width 13.6, Platelet Count 130L, Mean Platelet Volume 9.1, Neutrophils (%) (Auto) 54.8, Lymphocytes ( %) (Auto) 33.1, Monocytes (%) (Auto) 8.5, Eosinophils (%) (Auto) 2.9, Basophils (%) (Auto) 0.7, Sodium Level 138, Potassium Level 4.5, Chloride Level 106, Carbon Dioxide Level 29, Anion Gap 3L, Blood Urea Nitrogen 39H, Creatinine 2.6H , Estimat Glomerular Filtration Rate , Glucose Level 151H, Calcium Level 8.6, Phosphorus Level 4.2, Magnesium Level 2.0, Total Bilirubin 0.3, Aspartate Amino Transf (AST/SGOT) 21, Alanine Aminotransferase (ALT/SGPT) 20, Alkaline Phosphatase 104, Troponin I 0.049, C-Reactive Protein, Quantitative 11.8H, Pro-B -Type Natriuretic Peptide 1526H, Total Protein 6.2L, Albumin 2.3L, Globulin 3.9 , Albumin/Globulin Ratio 0.6L Height (Feet): 5 Height (Inches): 10.00 Weight (Pounds): 195 Cardiovascular: normal rate Respiratory/Chest: chest wall non-tender, lungs clear Abdomen: non tender Laurie Mcmullen MD Jan 09, 2018 21:01
[2018-01-10] VITALS: BP 153/87
[2018-01-10 04:00] VITALS: BP 147/79
[2018-01-10] MEDS: NovoLOG Insulin Flexpen SUBQ SCH ×7 (06:17→20:53)
[2018-01-10 08:00] VITALS: BP 136/78
[2018-01-10] MEDS: Metoprolol 25mg tab ORAL SCH ×2 (08:39→20:45)
[2018-01-10] MEDS: Aspirin EC 325mg tab ORAL SCH (08:39)
[2018-01-10] MEDS: Heparin 5000 units/ml inj SUBQ SCH ×2 (08:39→20:50)
[2018-01-10] MEDS: Docusate 100mg cap ORAL SCH ×3 (08:39→17:09)
--- NOTE | 2018-01-10 10:49 | General Progress Note ---
Assessment/Plan Problem List: (1) Diabetic nephropathy ICD Codes: E11.21 - Type 2 diabetes mellitus with diabetic nephropathy SNOMED: 72744266, 928438511 (2) Hypertension ICD Codes: I10 - Essential (primary) hypertension SNOMED: 57660365 (3) Pacemaker ICD Codes: Z95.0 - Presence of cardiac pacemaker SNOMED: 175326219 (4) Diabetes mellitus ICD Codes: E11.9 - Type 2 diabetes mellitus without complications SNOMED: 91357940 Assessment/Plan increase Levemir to 14 units qhs continue increase Novolog to 10 units ac tid continue NISS Subjective Allergies: Coded Allergies: No Known Allergies (Unverified , 09/30/17) All Systems: reviewed and negative except above Subjective events noted Objective Last 24 Hour Vital Signs Date Time Temp Pulse Resp B/P (MAP) Pulse Ox O2 Delivery O2 Flow Rate FiO2 01/10/18 08:39 84 136/78 01/10/18 08:00 97.3 84 18 136/78 96 Room Air 97.3 01/10/18 04:00 98.1 80 20 147/79 94 Room Air 98.1 01/10/18 03:47 75 01/10/18 00:00 97.8 81 20 153/87 95 Room Air 97.8 01/09/18 23:39 75 01/09/18 21:00 75 127/63 01/09/18 20:32 96 Nasal Cannula 2.0 28 01/09/18 20:32 Nasal Cannula 2.0 28 01/09/18 20:00 97.5 75 20 127/63 95 Room Air 97.5 01/09/18 19:50 79 01/09/18 16:00 97.9 79 22 138/79 97 Room Air 97.9 01/09/18 16:00 75 01/09/18 15:48 130/79 01/09/18 12:00 97.2 79 21 130/79 99 Nasal Cannula 2.0 97.2 01/09/18 12:00 82 Intake and Output 01/09/18 01/10/18 19:00 07:00 Intake Total 240 ml 200 ml Balance 240 ml 200 ml Intake Oral 240 ml 200 ml Height (Feet): 5 Height (Inches): 10.00 Weight (Pounds): 195 General Appearance: no apparent distress Neck: normal alignment Cardiovascular: normal peripheral pulses Respiratory/Chest: lungs clear Abdomen: normal bowel sounds Edema: 1+ Arm (L), 1+ Arm (R), 1+ Leg (L), 1+ Leg (R), 1+ Pedal (L), 1+ Pedal ( R), 1+ Generalized Objective Current Medications Medications (Trade) Dose Ordered Sig/Olga Lidia Route PRN Reason Start Time Stop Time Status Last Admin Dose Admin Acetaminophen (Tylenol) 650 mg Q4H PRN ORAL Fever/Headache/Mild Pain 01/07/18 15:45 02/06/18 15:44 Aspirin (Ecotrin) 325 mg DAILY ORAL 01/08/18 09:00 02/07/18 08:59 01/10/18 08:39 Bisacodyl (Dulcolax) 10 mg HSPRN PRN RECTAL Constipation 01/07/18 15:45 02/06/18 15:44 01/08/18 22:04 Ceftriaxone Sodium 1 gm/ Dextrose 110 ml @ 220 mls/hr Q24H IVPB 01/08/18 12:30 01/15/18 12:29 01/09/18 12:04 Dextrose (Dextrose 50%) 25 ml STAT PRN IV Hypoglycemia 01/07/18 18:00 02/06/18 17:59 Dextrose (Dextrose 50%) 25 ml STAT PRN IV Hypoglycemia 01/08/18 17:30 02/07/18 17:29 Docusate Sodium (Colace) 100 mg THREE TIMES A DAY ORAL 01/07/18 18:00 02/06/18 17:59 01/10/18 08:39 Fish Oil (Fish Oil) 1,000 mg BID ORAL 01/07/18 18:00 02/06/18 17:59 01/10/18 08:39 Heparin Sodium (Porcine) (Heparin 5000 units/ml) 5,000 units EVERY 12 HOURS SUBQ 01/08/18 09:00 02/06/18 20:59 01/08/18 09:05 Insulin Aspart (NovoLOG) BEFORE MEALS AND HS SUBQ 01/07/18 21:00 02/06/18 20:59 01/10/18 06:17 Insulin Aspart (NovoLOG) 8 units NOVOTIAC SUBQ 01/08/18 17:30 02/07/18 17:29 01/10/18 06:17 Insulin Detemir (Levemir) 12 units BEDTIME SUBQ 01/08/18 21:00 02/07/18 20:59 01/09/18 20:56 Iron Sucrose 200 mg/Sodium Chloride 120 ml @ 240 mls/hr ONCE IV 01/08/18 21:00 02/07/18 22:00 01/09/18 20:55 Lansoprazole (Prevacid) 30 mg DAILY ORAL 01/08/18 09:00 02/07/18 08:59 01/10/18 08:39 Metoprolol Tartrate (Lopressor) 25 mg Q12HR ORAL 01/07/18 21:00 02/06/18 20:59 01/10/18 08:39 Nitroglycerin (Ntg) 1 patch Q24H TDERMAL 01/07/18 16:00 02/06/18 15:59 01/09/18 15:48 Tamsulosin HCl (Flomax) 0.4 mg QHS ORAL 01/09/18 21:00 02/06/18 17:59 01/09/18 20:55 Item Value Date Time Bedside Blood Glucose 150 mg/dl H 01/10/18 0630 Bedside Blood Glucose 254 mg/dl H 01/09/18 2100 Bedside Blood Glucose 237 mg/dl H 01/09/18 1630 Bedside Blood Glucose 222 mg/dl H 01/09/18 1130 Niko Amaya MD Jan 10, 2018 10:49
--- NOTE | 2018-01-10 10:58 | Infectious Diseases Prog Note ---
Assessment/Plan Assessment/Plan A 1. Cholelithiasis 2. fever resolved 3. diabetes mellitus 4. hypertension 5. CVA 6. MRSA colonization P 1. discontinue ceftriaxone 2. will follow up culture Subjective ROS Limited/Unobtainable: No Constitutional: Reports: no symptoms Respiratory: Reports: no symptoms Cardiovascular: Reports: no symptoms Gastrointestinal/Abdominal: Reports: no symptoms Genitourinary: Reports: no symptoms Allergies: Coded Allergies: No Known Allergies (Unverified , 09/30/17) Objective Vital Signs Last 24 Hour Vital Signs Date Time Temp Pulse Resp B/P (MAP) Pulse Ox O2 Delivery O2 Flow Rate FiO2 01/10/18 08:39 84 136/78 01/10/18 08:00 97.3 84 18 136/78 96 Room Air 97.3 01/10/18 04:00 98.1 80 20 147/79 94 Room Air 98.1 01/10/18 03:47 75 01/10/18 00:00 97.8 81 20 153/87 95 Room Air 97.8 01/09/18 23:39 75 01/09/18 21:00 75 127/63 01/09/18 20:32 96 Nasal Cannula 2.0 28 01/09/18 20:32 Nasal Cannula 2.0 28 01/09/18 20:00 97.5 75 20 127/63 95 Room Air 97.5 01/09/18 19:50 79 01/09/18 16:00 97.9 79 22 138/79 97 Room Air 97.9 01/09/18 16:00 75 01/09/18 15:48 130/79 01/09/18 12:00 97.2 79 21 130/79 99 Nasal Cannula 2.0 97.2 01/09/18 12:00 82 Height (Feet): 5 Height (Inches): 10.00 Weight (Pounds): 195 General Appearance: no acute distress HEENT: mucous membranes moist Respiratory/Chest: lungs clear Cardiovascular: normal rate Abdomen: soft, non tender Extremities: no edema Neurologic/Psychiatric: alert, oriented x 3, responsive Microbiology Date/Time Source Procedure Growth Status 01/07/18 14:35 Nasal Nares MRSA Culture - Final Staphylococcus Aureus - Mrsa Complete 01/07/18 14:35 Rectum - Final NO CARBAPENEM-RESISTANT ENTEROBACTERI... Complete 01/07/18 14:35 Rectum VRE Culture - Final NO VANCOMYCIN RESISTANT ENTEROCOCCUS ... Complete Current Medications Medications (Trade) Dose Ordered Sig/Olga Lidia Route PRN Reason Start Time Stop Time Status Last Admin Dose Admin Acetaminophen (Tylenol) 650 mg Q4H PRN ORAL Fever/Headache/Mild Pain 01/07/18 15:45 02/06/18 15:44 Aspirin (Ecotrin) 325 mg DAILY ORAL 01/08/18 09:00 02/07/18 08:59 01/10/18 08:39 Bisacodyl (Dulcolax) 10 mg HSPRN PRN RECTAL Constipation 01/07/18 15:45 02/06/18 15:44 01/08/18 22:04 Ceftriaxone Sodium 1 gm/ Dextrose 110 ml @ 220 mls/hr Q24H IVPB 01/08/18 12:30 01/15/18 12:29 01/09/18 12:04 Dextrose (Dextrose 50%) 25 ml STAT PRN IV Hypoglycemia 01/07/18 18:00 02/06/18 17:59 Dextrose (Dextrose 50%) 25 ml STAT PRN IV Hypoglycemia 01/08/18 17:30 02/07/18 17:29 Docusate Sodium (Colace) 100 mg THREE TIMES A DAY ORAL 01/07/18 18:00 02/06/18 17:59 01/10/18 08:39 Fish Oil (Fish Oil) 1,000 mg BID ORAL 01/07/18 18:00 02/06/18 17:59 01/10/18 08:39 Heparin Sodium (Porcine) (Heparin 5000 units/ml) 5,000 units EVERY 12 HOURS SUBQ 01/08/18 09:00 02/06/18 20:59 01/08/18 09:05 Insulin Aspart (NovoLOG) BEFORE MEALS AND HS SUBQ 01/07/18 21:00 02/06/18 20:59 01/10/18 06:17 Insulin Aspart (NovoLOG) 10 units NOVOTIAC SUBQ 01/10/18 11:50 02/07/18 17:29 UNV Insulin Detemir (Levemir) 14 units BEDTIME SUBQ 01/10/18 21:00 02/07/18 20:59 UNV Iron Sucrose 200 mg/Sodium Chloride 120 ml @ 240 mls/hr ONCE IV 01/08/18 21:00 02/07/18 22:00 01/09/18 20:55 Lansoprazole (Prevacid) 30 mg DAILY ORAL 01/08/18 09:00 02/07/18 08:59 01/10/18 08:39 Metoprolol Tartrate (Lopressor) 25 mg Q12HR ORAL 01/07/18 21:00 02/06/18 20:59 01/10/18 08:39 Nitroglycerin (Ntg) 1 patch Q24H TDERMAL 01/07/18 16:00 02/06/18 15:59 01/09/18 15:48 Tamsulosin HCl (Flomax) 0.4 mg QHS ORAL 01/09/18 21:00 02/06/18 17:59 01/09/18 20:55 Raz Paulson MD Jan 10, 2018 10:58
--- NOTE | 2018-01-10 11:58 | Nephrology Progress Note ---
Assessment/Plan Problem List: (1) Diabetic nephropathy Assessment: Nephrotic range proteinuria of 4.8 gr/ in 24 h (2) CKD (chronic kidney disease) (3) Pacemaker (4) Hypertension (5) Hypoalbuminemia Assessment: NS Assessment Renal failure likely chronic due to diabetic nephropathy HTN elevated troponin Pacer Proteinuria, Hypoalbuminemia Nephrotic range proteinuria NS Plan Beta blockers- ASA- Nitrate- BS and BP control- 2D echo 55% EjFx Kidney MARY Bilateral renal cysts. No evidence of obstructive nephropathy. Flomax one dose venofer per orders Subjective ROS Limited/Unobtainable: No Constitutional: Reports: malaise Objective Objective Last 24 Hour Vital Signs Date Time Temp Pulse Resp B/P (MAP) Pulse Ox O2 Delivery O2 Flow Rate FiO2 01/10/18 08:39 84 136/78 01/10/18 08:00 97.3 84 18 136/78 96 Room Air 97.3 01/10/18 04:00 98.1 80 20 147/79 94 Room Air 98.1 01/10/18 03:47 75 01/10/18 00:00 97.8 81 20 153/87 95 Room Air 97.8 01/09/18 23:39 75 01/09/18 21:00 75 127/63 01/09/18 20:32 96 Nasal Cannula 2.0 28 01/09/18 20:32 Nasal Cannula 2.0 28 01/09/18 20:00 97.5 75 20 127/63 95 Room Air 97.5 01/09/18 19:50 79 01/09/18 16:00 97.9 79 22 138/79 97 Room Air 97.9 01/09/18 16:00 75 01/09/18 15:48 130/79 01/09/18 12:00 97.2 79 21 130/79 99 Nasal Cannula 2.0 97.2 01/09/18 12:00 82 Intake and Output 01/09/18 01/10/18 19:00 07:00 Intake Total 350 ml 200 ml Balance 350 ml 200 ml Intake Oral 240 ml 200 ml IV Total 110 ml Height (Feet): 5 Height (Inches): 10.00 Weight (Pounds): 195 General Appearance: no apparent distress Objective no other changes TALITA DIETZ Jan 10, 2018 11:58
[2018-01-10 12:00] VITALS: BP 149/87
--- NOTE | 2018-01-10 14:21 | Cardiac Electrophysiology PN ---
Assessment/Plan Assessment/Plan 1. Troponin elevation.Levels are flat and low at 0.2 to 0.08 Denies any chest pain and it could be due to renal failure. The EKG shows atrially paced and nonspecific T-wave abnormalities. Due to intermittent ventricular pacing due to repolarization. Echocardiogram EF 55%. Continue aspirin and metoprolol. 2. Status post Medtronic pacemaker. We will interrogate 3. Hypertension. Continue metoprolol 25 mg b.i.d. 4. Diabetes. 5. Renal failure, creatinine of 2.7. FU by Dr. Ackerman. TORI RN Subjective Subjective Comfortable in NAD. Still pacing Objective Last 24 Hour Vital Signs Date Time Temp Pulse Resp B/P (MAP) Pulse Ox O2 Delivery O2 Flow Rate FiO2 01/10/18 12:00 75 01/10/18 12:00 97.3 83 20 149/87 98 Room Air 97.3 01/10/18 08:39 84 136/78 01/10/18 08:00 97.3 84 18 136/78 96 Room Air 97.3 01/10/18 08:00 76 01/10/18 04:00 98.1 80 20 147/79 94 Room Air 98.1 01/10/18 03:47 75 01/10/18 00:00 97.8 81 20 153/87 95 Room Air 97.8 01/09/18 23:39 75 01/09/18 21:00 75 127/63 01/09/18 20:32 96 Nasal Cannula 2.0 28 01/09/18 20:32 Nasal Cannula 2.0 28 01/09/18 20:00 97.5 75 20 127/63 95 Room Air 97.5 01/09/18 19:50 79 01/09/18 16:00 97.9 79 22 138/79 97 Room Air 97.9 01/09/18 16:00 75 01/09/18 15:48 130/79 Intake and Output 01/09/18 01/10/18 19:00 07:00 Intake Total 350 ml 200 ml Balance 350 ml 200 ml Intake Oral 240 ml 200 ml IV Total 110 ml Microbiology Date/Time Source Procedure Growth Status 01/07/18 14:35 Nasal Nares MRSA Culture - Final Staphylococcus Aureus - Mrsa Complete 01/07/18 14:35 Rectum - Final NO CARBAPENEM-RESISTANT ENTEROBACTERI... Complete 01/07/18 14:35 Rectum VRE Culture - Final NO VANCOMYCIN RESISTANT ENTEROCOCCUS ... Complete Objective HEAD AND NECK: No JVD. LUNGS: Clear. CARDIOVASCULAR: Regular S1 and S2 with no gallop or murmur. ABDOMEN: Soft. EXTREMITIES: 1+ pitting edema. Pace in the left subclavian. Eric Dee MD Jan 10, 2018 14:21
[2018-01-10] MEDS: Nitroglycerin Patch 0.4mg TDERMAL SCH (15:18)
[2018-01-10 16:00] VITALS: BP 151/76
[2018-01-10 20:00] VITALS: BP 141/68
[2018-01-10] MEDS: Tamsulosin 0.4mg cap ORAL SCH (20:44)
[2018-01-10] MEDS: Iron Sucrose 200 MG in NS 110 ML IV SCH (20:45)
[2018-01-10] MEDS: Levemir Flexpen SUBQ SCH (20:52)
[2018-01-11] VITALS: BP 141/77
[2018-01-11 04:00] VITALS: BP 140/77
[2018-01-11] MEDS: NovoLOG Insulin Flexpen SUBQ SCH ×7 (06:20→21:13)
[2018-01-11 08:00] VITALS: BP 140/73
[2018-01-11] MEDS: Aspirin EC 325mg tab ORAL SCH (08:46)
[2018-01-11] MEDS: Docusate 100mg cap ORAL SCH ×3 (08:46→17:48)
[2018-01-11] MEDS: Metoprolol 25mg tab ORAL SCH ×2 (08:47→21:10)
[2018-01-11] MEDS: Heparin 5000 units/ml inj SUBQ SCH ×2 (08:49→21:11)
[2018-01-11 12:00] VITALS: BP 148/82
--- NOTE | 2018-01-11 13:07 | Cardiology Report ---
APPROVED REPORT EXAM: Two-dimensional and M-mode echocardiogram with Doppler and color Doppler. INDICATION TACHYCARDIA M-Mode DIMENSIONS IVSd1.4 (0.7-1.1cm)Left Atrium (MM)4.0 (1.6-4.0cm) LVDd6.2 (3.5-5.6cm)Aortic Root3.8 (2.0-3.7cm) PWd1.5 (0.7-1.1cm)Aortic Cusp Exc.1.6 (1.5-2.0cm) IVSs1.6 cm LVDs4.2 (2.5-4.0cm) PWs1.8 cm Normal left ventricular chamber size, systolic function and wall motion as well visualized Left ventricular ejection fraction estimated to be 55-60 %. No evidence of left ventricular hypertrophy . Trace posterior pericardial effusion. Mild left atrial enlargements . Right cardiac chamber sizes are within normal limits. Focal aortic valve sclerosis with adequate cusp excursion. Thickened mitral valve leaflets with normal excursion. Mitral annulus and aortic root calcification. pulmonic valve not well visualized . Normal tricuspid valve structure. IVC at normal size with physiologic collapse, A color flow and spectral Doppler study was performed and revealed: No aortic regurgitation.. Mild mitral regurgitation. Mitral diastolic velocities suggest reduced left ventricular relaxation c/w mild LV diastolic dysfunction (Grade I ). Mild tricuspid regurgitation. Tricuspid systolic velocities suggests peak right ventricular systolic pressure of 21 mmHg, No Pulmonic regurgitation present.
--- NOTE | 2018-01-11 13:22 | Nephrology Progress Note ---
Assessment/Plan Problem List: (1) Diabetic nephropathy Assessment: Nephrotic range proteinuria of 4.8 gr/ in 24 h (2) CKD (chronic kidney disease) (3) Pacemaker (4) Hypertension (5) Hypoalbuminemia Assessment: NS Assessment Renal failure likely chronic due to diabetic nephropathy HTN elevated troponin Pacer Proteinuria, Hypoalbuminemia Nephrotic range proteinuria NS Plan no labs today Beta blockers- ASA- Nitrate- BS and BP control- 2D echo 55% EjFx Kidney MARY Bilateral renal cysts. No evidence of obstructive nephropathy. Flomax one dose venofer per orders Subjective ROS Limited/Unobtainable: No Constitutional: Reports: malaise Objective Objective Last 24 Hour Vital Signs Date Time Temp Pulse Resp B/P (MAP) Pulse Ox O2 Delivery O2 Flow Rate FiO2 01/11/18 08:47 75 140/73 01/11/18 08:00 98.1 75 18 140/73 96 Room Air 98.1 01/11/18 04:00 65 01/11/18 04:00 97.9 75 20 140/77 99 Room Air 97.9 01/11/18 00:00 75 01/11/18 00:00 98.1 61 18 141/77 97 Room Air 98.1 01/10/18 20:45 75 137/84 01/10/18 20:00 98.1 59 18 141/68 94 Room Air 98.1 01/10/18 20:00 76 01/10/18 16:00 97.9 75 18 151/76 98 Room Air 97.9 01/10/18 16:00 75 01/10/18 15:18 149/87 Intake and Output 01/10/18 01/11/18 19:00 07:00 Intake Total 360 ml 420 ml Output Total 700 ml 675 ml Balance -340 ml -255 ml Intake Oral 360 ml 300 ml IV Total 120 ml Output Urine Total 700 ml 675 ml Current Medications Medications (Trade) Dose Ordered Sig/Olga Lidia Route PRN Reason Start Time Stop Time Status Last Admin Dose Admin Acetaminophen (Tylenol) 650 mg Q4H PRN ORAL Fever/Headache/Mild Pain 01/07/18 15:45 02/06/18 15:44 Aspirin (Ecotrin) 325 mg DAILY ORAL 01/08/18 09:00 02/07/18 08:59 01/11/18 08:46 Bisacodyl (Dulcolax) 10 mg HSPRN PRN RECTAL Constipation 01/07/18 15:45 02/06/18 15:44 01/08/18 22:04 Dextrose (Dextrose 50%) 25 ml STAT PRN IV Hypoglycemia 01/07/18 18:00 02/06/18 17:59 Dextrose (Dextrose 50%) 25 ml STAT PRN IV Hypoglycemia 01/08/18 17:30 02/07/18 17:29 Docusate Sodium (Colace) 100 mg THREE TIMES A DAY ORAL 01/07/18 18:00 02/06/18 17:59 01/11/18 12:04 Fish Oil (Fish Oil) 1,000 mg BID ORAL 01/07/18 18:00 02/06/18 17:59 01/11/18 08:47 Heparin Sodium (Porcine) (Heparin 5000 units/ml) 5,000 units EVERY 12 HOURS SUBQ 01/08/18 09:00 02/06/18 20:59 01/11/18 08:49 Insulin Aspart (NovoLOG) BEFORE MEALS AND HS SUBQ 01/07/18 21:00 02/06/18 20:59 01/11/18 11:14 Insulin Aspart (NovoLOG) 10 units NOVOTIAC SUBQ 01/10/18 11:50 02/07/18 17:29 01/10/18 16:44 Insulin Detemir (Levemir) 14 units BEDTIME SUBQ 01/10/18 21:00 02/07/18 20:59 01/10/18 20:52 Lansoprazole (Prevacid) 30 mg DAILY ORAL 01/08/18 09:00 02/07/18 08:59 01/11/18 08:47 Metoprolol Tartrate (Lopressor) 25 mg Q12HR ORAL 01/07/18 21:00 02/06/18 20:59 01/11/18 08:47 Nitroglycerin (Ntg) 1 patch Q24H TDERMAL 01/07/18 16:00 02/06/18 15:59 01/10/18 15:18 Tamsulosin HCl (Flomax) 0.4 mg QHS ORAL 01/09/18 21:00 02/06/18 17:59 01/10/18 20:44 Height (Feet): 5 Height (Inches): 10.00 Weight (Pounds): 195 General Appearance: no apparent distress Respiratory/Chest: decreased breath sounds Abdomen: soft Objective no other changes TALITA DIETZ Jan 11, 2018 13:22
--- NOTE | 2018-01-11 14:03 | General Progress Note ---
Assessment/Plan Problem List: (1) Diabetic nephropathy ICD Codes: E11.21 - Type 2 diabetes mellitus with diabetic nephropathy SNOMED: 99283152, 970748310 (2) Diabetes mellitus ICD Codes: E11.9 - Type 2 diabetes mellitus without complications SNOMED: 48690596 (3) Fever ICD Codes: R50.9 - Fever, unspecified SNOMED: 868613205 (4) Sepsis ICD Codes: A41.9 - Sepsis, unspecified organism SNOMED: 18744299 (5) CHF (congestive heart failure) ICD Codes: I50.9 - Heart failure, unspecified SNOMED: 71615437 Qualifiers: Qualified Codes: I50.9 - Heart failure, unspecified (6) CKD (chronic kidney disease) ICD Codes: N18.9 - Chronic kidney disease, unspecified SNOMED: 363081098 Qualifiers: Qualified Codes: N18.9 - Chronic kidney disease, unspecified Status: progressing Assessment/Plan still confused at times will discuss w id re dc back to snf reviewed chart an d labs dc tomorrow not ready for dc today sepsis abx per id elevated/labile sugar diabetes is improving Subjective ROS Limited/Unobtainable: Yes Allergies: Coded Allergies: No Known Allergies (Unverified , 09/30/17) Objective Last 24 Hour Vital Signs Date Time Temp Pulse Resp B/P (MAP) Pulse Ox O2 Delivery O2 Flow Rate FiO2 01/11/18 12:00 75 01/11/18 08:47 75 140/73 01/11/18 08:00 98.1 75 18 140/73 96 Room Air 98.1 01/11/18 08:00 77 01/11/18 04:00 65 01/11/18 04:00 97.9 75 20 140/77 99 Room Air 97.9 01/11/18 00:00 75 01/11/18 00:00 98.1 61 18 141/77 97 Room Air 98.1 01/10/18 20:45 75 137/84 01/10/18 20:00 98.1 59 18 141/68 94 Room Air 98.1 01/10/18 20:00 76 01/10/18 16:00 97.9 75 18 151/76 98 Room Air 97.9 01/10/18 16:00 75 01/10/18 15:18 149/87 Intake and Output 01/10/18 01/11/18 19:00 07:00 Intake Total 360 ml 420 ml Output Total 700 ml 675 ml Balance -340 ml -255 ml Intake Oral 360 ml 300 ml IV Total 120 ml Output Urine Total 700 ml 675 ml Height (Feet): 5 Height (Inches): 10.00 Weight (Pounds): 195 Neck: supple Cardiovascular: normal rate Respiratory/Chest: lungs clear Abdomen: soft Laurie Mcmullen MD Jan 11, 2018 14:03
--- NOTE | 2018-01-11 14:05 | Infectious Diseases Prog Note ---
Assessment/Plan Assessment/Plan A 1. Cholelithiasis 2. fever resolved 3. diabetes mellitus 4. hypertension 5. CVA 6. MRSA colonization P 1. observe off antibiotic 2. will follow up culture Subjective ROS Limited/Unobtainable: No Constitutional: Reports: other - feels cold Respiratory: Reports: no symptoms Gastrointestinal/Abdominal: Reports: no symptoms Genitourinary: Reports: no symptoms Allergies: Coded Allergies: No Known Allergies (Unverified , 09/30/17) Objective Vital Signs Last 24 Hour Vital Signs Date Time Temp Pulse Resp B/P (MAP) Pulse Ox O2 Delivery O2 Flow Rate FiO2 01/11/18 12:00 75 01/11/18 08:47 75 140/73 01/11/18 08:00 98.1 75 18 140/73 96 Room Air 98.1 01/11/18 08:00 77 01/11/18 04:00 65 01/11/18 04:00 97.9 75 20 140/77 99 Room Air 97.9 01/11/18 00:00 75 01/11/18 00:00 98.1 61 18 141/77 97 Room Air 98.1 01/10/18 20:45 75 137/84 01/10/18 20:00 98.1 59 18 141/68 94 Room Air 98.1 01/10/18 20:00 76 01/10/18 16:00 97.9 75 18 151/76 98 Room Air 97.9 01/10/18 16:00 75 01/10/18 15:18 149/87 Height (Feet): 5 Height (Inches): 10.00 Weight (Pounds): 195 General Appearance: no acute distress HEENT: mucous membranes moist Respiratory/Chest: lungs clear Cardiovascular: normal rate Abdomen: soft, non tender Extremities: no edema Neurologic/Psychiatric: alert, responsive Current Medications Medications (Trade) Dose Ordered Sig/Olga Lidia Route PRN Reason Start Time Stop Time Status Last Admin Dose Admin Acetaminophen (Tylenol) 650 mg Q4H PRN ORAL Fever/Headache/Mild Pain 01/07/18 15:45 02/06/18 15:44 Aspirin (Ecotrin) 325 mg DAILY ORAL 01/08/18 09:00 02/07/18 08:59 01/11/18 08:46 Bisacodyl (Dulcolax) 10 mg HSPRN PRN RECTAL Constipation 01/07/18 15:45 02/06/18 15:44 01/08/18 22:04 Dextrose (Dextrose 50%) 25 ml STAT PRN IV Hypoglycemia 01/07/18 18:00 02/06/18 17:59 Dextrose (Dextrose 50%) 25 ml STAT PRN IV Hypoglycemia 01/08/18 17:30 02/07/18 17:29 Docusate Sodium (Colace) 100 mg THREE TIMES A DAY ORAL 01/07/18 18:00 02/06/18 17:59 01/11/18 12:04 Fish Oil (Fish Oil) 1,000 mg BID ORAL 01/07/18 18:00 02/06/18 17:59 01/11/18 08:47 Heparin Sodium (Porcine) (Heparin 5000 units/ml) 5,000 units EVERY 12 HOURS SUBQ 01/08/18 09:00 02/06/18 20:59 01/11/18 08:49 Insulin Aspart (NovoLOG) BEFORE MEALS AND HS SUBQ 01/07/18 21:00 02/06/18 20:59 01/11/18 11:14 Insulin Aspart (NovoLOG) 10 units NOVOTIAC SUBQ 01/10/18 11:50 02/07/18 17:29 01/10/18 16:44 Insulin Detemir (Levemir) 14 units BEDTIME SUBQ 01/10/18 21:00 02/07/18 20:59 01/10/18 20:52 Lansoprazole (Prevacid) 30 mg DAILY ORAL 01/08/18 09:00 02/07/18 08:59 01/11/18 08:47 Metoprolol Tartrate (Lopressor) 25 mg Q12HR ORAL 01/07/18 21:00 02/06/18 20:59 01/11/18 08:47 Nitroglycerin (Ntg) 1 patch Q24H TDERMAL 01/07/18 16:00 02/06/18 15:59 01/10/18 15:18 Tamsulosin HCl (Flomax) 0.4 mg QHS ORAL 01/09/18 21:00 02/06/18 17:59 01/10/18 20:44 Raz Paulson MD Jan 11, 2018 14:05
--- NOTE | 2018-01-11 15:18 | Cardiac Electrophysiology PN ---
Assessment/Plan Assessment/Plan 1. Troponin elevation.Levels are flat and low at 0.2 to 0.08 Denies any chest pain and it could be due to renal failure. The EKG shows atrially paced and nonspecific T-wave abnormalities. Due to intermittent ventricular pacing due to repolarization. Echocardiogram EF 55%. Continue aspirin and metoprolol. 2. Status post Medtronic pacemaker with Nl Fx by tele 3. Hypertension. Continue metoprolol 25 mg b.i.d. 4. Diabetes. 5. Renal failure, creatinine of 2.7. FU by Dr. Ackerman. TORI RN Subjective Subjective Comfortable in NAD. Still pacing. DC planning tomorrow to SNIF Objective Last 24 Hour Vital Signs Date Time Temp Pulse Resp B/P (MAP) Pulse Ox O2 Delivery O2 Flow Rate FiO2 01/11/18 12:00 75 01/11/18 08:47 75 140/73 01/11/18 08:00 98.1 75 18 140/73 96 Room Air 98.1 01/11/18 08:00 77 01/11/18 04:00 65 01/11/18 04:00 97.9 75 20 140/77 99 Room Air 97.9 01/11/18 00:00 75 01/11/18 00:00 98.1 61 18 141/77 97 Room Air 98.1 01/10/18 20:45 75 137/84 01/10/18 20:00 98.1 59 18 141/68 94 Room Air 98.1 01/10/18 20:00 76 01/10/18 16:00 97.9 75 18 151/76 98 Room Air 97.9 01/10/18 16:00 75 01/10/18 15:18 149/87 Intake and Output 01/10/18 01/11/18 19:00 07:00 Intake Total 360 ml 420 ml Output Total 700 ml 675 ml Balance -340 ml -255 ml Intake Oral 360 ml 300 ml IV Total 120 ml Output Urine Total 700 ml 675 ml Objective HEAD AND NECK: No JVD. LUNGS: Clear. CARDIOVASCULAR: Regular S1 and S2 with no gallop or murmur. ABDOMEN: Soft. EXTREMITIES: 1+ pitting edema. Pace in the left subclavian. Eric Dee MD Jan 11, 2018 15:18
[2018-01-11] MEDS: Nitroglycerin Patch 0.4mg TDERMAL SCH (15:57)
[2018-01-11 16:00] VITALS: BP 152/91
--- NOTE | 2018-01-11 17:51 | Consultation ---
History of Present Illness General Chief Complaint: Fever Present Illness Allergies: Coded Allergies: No Known Allergies (Unverified , 09/30/17) Medication History Scheduled Amino Acids/Protein Hydrolys (Pro-Stat Liquid), 30 ML ORAL DAILY, (Reported) Amino Acids/Protein Hydrolys (Pro-Stat Liquid), 30 ML ORAL TWICE A DAY, ( Reported) Aspirin Ec* (Aspirin Ec*), 81 MG ORAL DAILY, (Reported) Atorvastatin Calcium* (Lipitor*), 40 MG ORAL BEDTIME, (Reported) Docusate Sodium* (Docusate Sodium*), 100 MG ORAL DAILY, (Reported) Fish Oil (Fish Oil 1,000 mg Capsule), 1,000 MG ORAL DAILY, (Reported) Insulin Glargine (Lantus), 56 UNITS SUBQ BEDTIME, (Reported) Meclizine Hcl* (Meclizine*), 25 MG ORAL DAILY, (Reported) Metoprolol Tartrate* (Metoprolol Tartrate*), 50 MG ORAL DAILY, (Reported) Omeprazole (Omeprazole), 20 MG ORAL DAILY, (Reported) Potassium Chloride (Potassium Chloride), 10 MEQ ORAL DAILY, (Reported) Pregabalin (Lyrica), 200 MG ORAL TWICE A DAY, (Reported) Scheduled PRN Acetaminophen* (Tylenol Extra Strength*), 1,000 MG ORAL Q4HR PRN for Mild Pain/ Temp > 100.5, (Reported) Acetaminophen* (Acetaminophen 325MG Tablet*), 650 MG ORAL Q4H PRN for Fever/ Headache/Mild Pain, (Reported) Bisacodyl (Dulcolax), 10 MG RC for Constipation, (Reported) Guaifenesin/Codeine Phos* (Robitussin Ac*), 1 TSP ORAL Q4H PRN for For Cough, ( Reported) Hydrocodone Bit/Acetaminophen 5-325* ([place] 5-325 Tablet*), 1 TAB ORAL Q4H PRN for SEVERE PAIN (7-10), (Reported) Magnesium Hydroxide* (Milk Of Magnesia*), 30 ML ORAL HS PRN for Constipation, ( Reported) Na Phos,M-B/Na Phos,Di-Ba* (Fleet Enema*), 133 ML RECTAL DAILY PRN for Constipation, (Reported) Patient History Healthcare decision maker Resuscitation status Full Code Advanced Directive on File No Physical Exam Last 24 Hour Vital Signs Date Time Temp Pulse Resp B/P (MAP) Pulse Ox O2 Delivery O2 Flow Rate FiO2 01/11/18 16:00 97.7 75 20 152/91 97 Room Air 97.7 01/11/18 15:57 140/73 01/11/18 12:00 75 01/11/18 12:00 97.3 81 20 148/82 95 Room Air 97.3 01/11/18 08:47 75 140/73 01/11/18 08:00 98.1 75 18 140/73 96 Room Air 98.1 01/11/18 08:00 77 01/11/18 04:00 65 01/11/18 04:00 97.9 75 20 140/77 99 Room Air 97.9 01/11/18 00:00 75 01/11/18 00:00 98.1 61 18 141/77 97 Room Air 98.1 01/10/18 20:45 75 137/84 01/10/18 20:00 98.1 59 18 141/68 94 Room Air 98.1 01/10/18 20:00 76 Intake and Output 01/10/18 01/11/18 19:00 07:00 Intake Total 360 ml 420 ml Output Total 700 ml 675 ml Balance -340 ml -255 ml Intake Oral 360 ml 300 ml IV Total 120 ml Output Urine Total 700 ml 675 ml Height (Feet): 5 Height (Inches): 10.00 Weight (Pounds): 195 Medications Current Medications Medications (Trade) Dose Ordered Sig/Olga Lidia Route PRN Reason Start Time Stop Time Status Last Admin Dose Admin Acetaminophen (Tylenol) 650 mg Q4H PRN ORAL Fever/Headache/Mild Pain 01/07/18 15:45 02/06/18 15:44 Aspirin (Ecotrin) 325 mg DAILY ORAL 01/08/18 09:00 02/07/18 08:59 01/11/18 08:46 Bisacodyl (Dulcolax) 10 mg HSPRN PRN RECTAL Constipation 01/07/18 15:45 02/06/18 15:44 01/08/18 22:04 Dextrose (Dextrose 50%) 25 ml STAT PRN IV Hypoglycemia 01/07/18 18:00 02/06/18 17:59 Dextrose (Dextrose 50%) 25 ml STAT PRN IV Hypoglycemia 01/08/18 17:30 02/07/18 17:29 Docusate Sodium (Colace) 100 mg THREE TIMES A DAY ORAL 01/07/18 18:00 02/06/18 17:59 01/11/18 17:48 Fish Oil (Fish Oil) 1,000 mg BID ORAL 01/07/18 18:00 02/06/18 17:59 01/11/18 17:48 Heparin Sodium (Porcine) (Heparin 5000 units/ml) 5,000 units EVERY 12 HOURS SUBQ 01/08/18 09:00 02/06/18 20:59 01/11/18 08:49 Insulin Aspart (NovoLOG) BEFORE MEALS AND HS SUBQ 01/07/18 21:00 02/06/18 20:59 01/11/18 16:48 Insulin Aspart (NovoLOG) 10 units NOVOTIAC SUBQ 01/10/18 11:50 02/07/18 17:29 01/11/18 16:49 Insulin Detemir (Levemir) 14 units BEDTIME SUBQ 01/10/18 21:00 02/07/18 20:59 01/10/18 20:52 Lansoprazole (Prevacid) 30 mg DAILY ORAL 01/08/18 09:00 02/07/18 08:59 01/11/18 08:47 Metoprolol Tartrate (Lopressor) 25 mg Q12HR ORAL 01/07/18 21:00 02/06/18 20:59 01/11/18 08:47 Nitroglycerin (Ntg) 1 patch Q24H TDERMAL 01/07/18 16:00 02/06/18 15:59 01/11/18 15:57 Tamsulosin HCl (Flomax) 0.4 mg QHS ORAL 01/09/18 21:00 02/06/18 17:59 01/10/18 20:44 Diana Manzo MD Jan 11, 2018 17:51
--- NOTE | 2018-01-11 18:09 | General Progress Note ---
Assessment/Plan Problem List: (1) Diabetic nephropathy ICD Codes: E11.21 - Type 2 diabetes mellitus with diabetic nephropathy SNOMED: 74008403, 430067971 (2) Hypertension ICD Codes: I10 - Essential (primary) hypertension SNOMED: 95621834 (3) Pacemaker ICD Codes: Z95.0 - Presence of cardiac pacemaker SNOMED: 709425421 (4) Diabetes mellitus ICD Codes: E11.9 - Type 2 diabetes mellitus without complications SNOMED: 69869445 Assessment/Plan continue Levemir 14 units qhs continue reduce Novolog to 7 units ac tid continue NISS Subjective Allergies: Coded Allergies: No Known Allergies (Unverified , 09/30/17) All Systems: reviewed and negative except above Subjective events noted Objective Last 24 Hour Vital Signs Date Time Temp Pulse Resp B/P (MAP) Pulse Ox O2 Delivery O2 Flow Rate FiO2 01/11/18 16:00 97.7 75 20 152/91 97 Room Air 97.7 01/11/18 15:57 140/73 01/11/18 12:00 75 01/11/18 12:00 97.3 81 20 148/82 95 Room Air 97.3 01/11/18 08:47 75 140/73 01/11/18 08:00 98.1 75 18 140/73 96 Room Air 98.1 01/11/18 08:00 77 01/11/18 04:00 65 01/11/18 04:00 97.9 75 20 140/77 99 Room Air 97.9 01/11/18 00:00 75 01/11/18 00:00 98.1 61 18 141/77 97 Room Air 98.1 01/10/18 20:45 75 137/84 01/10/18 20:00 98.1 59 18 141/68 94 Room Air 98.1 01/10/18 20:00 76 Intake and Output 01/10/18 01/11/18 19:00 07:00 Intake Total 360 ml 420 ml Output Total 700 ml 675 ml Balance -340 ml -255 ml Intake Oral 360 ml 300 ml IV Total 120 ml Output Urine Total 700 ml 675 ml Height (Feet): 5 Height (Inches): 10.00 Weight (Pounds): 195 General Appearance: no apparent distress Neck: normal alignment Cardiovascular: normal rate Respiratory/Chest: lungs clear Abdomen: normal bowel sounds Objective Current Medications Medications (Trade) Dose Ordered Sig/Olga Lidia Route PRN Reason Start Time Stop Time Status Last Admin Dose Admin Acetaminophen (Tylenol) 650 mg Q4H PRN ORAL Fever/Headache/Mild Pain 01/07/18 15:45 02/06/18 15:44 Aspirin (Ecotrin) 325 mg DAILY ORAL 01/08/18 09:00 02/07/18 08:59 01/11/18 08:46 Bisacodyl (Dulcolax) 10 mg HSPRN PRN RECTAL Constipation 01/07/18 15:45 02/06/18 15:44 01/08/18 22:04 Dextrose (Dextrose 50%) 25 ml STAT PRN IV Hypoglycemia 01/07/18 18:00 02/06/18 17:59 Dextrose (Dextrose 50%) 25 ml STAT PRN IV Hypoglycemia 01/08/18 17:30 02/07/18 17:29 Docusate Sodium (Colace) 100 mg THREE TIMES A DAY ORAL 01/07/18 18:00 02/06/18 17:59 01/11/18 17:48 Fish Oil (Fish Oil) 1,000 mg BID ORAL 01/07/18 18:00 02/06/18 17:59 01/11/18 17:48 Heparin Sodium (Porcine) (Heparin 5000 units/ml) 5,000 units EVERY 12 HOURS SUBQ 01/08/18 09:00 02/06/18 20:59 01/11/18 08:49 Insulin Aspart (NovoLOG) BEFORE MEALS AND HS SUBQ 01/07/18 21:00 02/06/18 20:59 01/11/18 16:48 Insulin Aspart (NovoLOG) 10 units NOVOTIAC SUBQ 01/10/18 11:50 02/07/18 17:29 01/11/18 16:49 Insulin Detemir (Levemir) 14 units BEDTIME SUBQ 01/10/18 21:00 02/07/18 20:59 01/10/18 20:52 Lansoprazole (Prevacid) 30 mg DAILY ORAL 01/08/18 09:00 02/07/18 08:59 01/11/18 08:47 Metoprolol Tartrate (Lopressor) 25 mg Q12HR ORAL 01/07/18 21:00 02/06/18 20:59 01/11/18 08:47 Nitroglycerin (Ntg) 1 patch Q24H TDERMAL 01/07/18 16:00 02/06/18 15:59 01/11/18 15:57 Tamsulosin HCl (Flomax) 0.4 mg QHS ORAL 01/09/18 21:00 02/06/18 17:59 01/10/18 20:44 Item Value Date Time Bedside Blood Glucose 230 mg/dl H 01/11/18 1649 Bedside Blood Glucose 94 mg/dl 01/11/18 0620 Bedside Blood Glucose 150 mg/dl H 01/10/18 2100 Bedside Blood Glucose 170 mg/dl H 01/10/18 1644 Bedside Blood Glucose 104 mg/dl 01/10/18 1130 Niko Amaya MD Jan 11, 2018 18:09
[2018-01-11 20:00] VITALS: BP 138/74
[2018-01-11] MEDS: Tamsulosin 0.4mg cap ORAL SCH (21:09)
[2018-01-11] MEDS: Levemir Flexpen SUBQ SCH (21:12)
[2018-01-12] VITALS: BP 137/80
[2018-01-12 04:00] VITALS: BP 156/89
[2018-01-12] MEDS: NovoLOG Insulin Flexpen SUBQ SCH ×4 (06:11→12:14)
--- NOTE | 2018-01-12 07:01 | General Progress Note ---
Assessment/Plan Problem List: (1) Diabetic nephropathy ICD Codes: E11.21 - Type 2 diabetes mellitus with diabetic nephropathy SNOMED: 40195253, 312583667 (2) Hypertension ICD Codes: I10 - Essential (primary) hypertension SNOMED: 06552432 (3) Pacemaker ICD Codes: Z95.0 - Presence of cardiac pacemaker SNOMED: 716506141 (4) Diabetes mellitus ICD Codes: E11.9 - Type 2 diabetes mellitus without complications SNOMED: 94829445 Assessment/Plan continue Levemir 14 units qhs continue continue Novolog 7 units ac tid continue NISS Subjective Allergies: Coded Allergies: No Known Allergies (Unverified , 09/30/17) All Systems: reviewed and negative except above Subjective events noted Objective Last 24 Hour Vital Signs Date Time Temp Pulse Resp B/P (MAP) Pulse Ox O2 Delivery O2 Flow Rate FiO2 01/12/18 04:00 71 01/12/18 04:00 97.5 82 20 156/89 97 Room Air 97.5 01/12/18 00:00 75 01/12/18 00:00 97.4 78 20 137/80 94 Room Air 97.4 01/11/18 21:10 80 152/78 01/11/18 20:00 97.7 73 20 138/74 94 Room Air 97.7 01/11/18 20:00 77 01/11/18 16:00 97.7 75 20 152/91 97 Room Air 97.7 01/11/18 16:00 75 01/11/18 15:57 140/73 01/11/18 12:00 75 01/11/18 12:00 97.3 81 20 148/82 95 Room Air 97.3 01/11/18 08:47 75 140/73 01/11/18 08:00 98.1 75 18 140/73 96 Room Air 98.1 01/11/18 08:00 77 Intake and Output 01/11/18 01/12/18 19:00 07:00 Intake Total 620 ml 100 ml Output Total 900 ml Balance -280 ml 100 ml Intake Oral 620 ml 100 ml Output Urine Total 900 ml Height (Feet): 5 Height (Inches): 10.00 Weight (Pounds): 195 General Appearance: no apparent distress Neck: normal alignment Cardiovascular: normal rate Respiratory/Chest: lungs clear Abdomen: normal bowel sounds Objective Current Medications Medications (Trade) Dose Ordered Sig/Olga Lidia Route PRN Reason Start Time Stop Time Status Last Admin Dose Admin Acetaminophen (Tylenol) 650 mg Q4H PRN ORAL Fever/Headache/Mild Pain 01/07/18 15:45 02/06/18 15:44 Aspirin (Ecotrin) 325 mg DAILY ORAL 01/08/18 09:00 02/07/18 08:59 01/11/18 08:46 Bisacodyl (Dulcolax) 10 mg HSPRN PRN RECTAL Constipation 01/07/18 15:45 02/06/18 15:44 01/08/18 22:04 Dextrose (Dextrose 50%) 25 ml STAT PRN IV Hypoglycemia 01/07/18 18:00 02/06/18 17:59 Dextrose (Dextrose 50%) 25 ml STAT PRN IV Hypoglycemia 01/08/18 17:30 02/07/18 17:29 Docusate Sodium (Colace) 100 mg THREE TIMES A DAY ORAL 01/07/18 18:00 02/06/18 17:59 01/11/18 17:48 Fish Oil (Fish Oil) 1,000 mg BID ORAL 01/07/18 18:00 02/06/18 17:59 01/11/18 17:48 Heparin Sodium (Porcine) (Heparin 5000 units/ml) 5,000 units EVERY 12 HOURS SUBQ 01/08/18 09:00 02/06/18 20:59 01/11/18 21:11 Insulin Aspart (NovoLOG) BEFORE MEALS AND HS SUBQ 01/07/18 21:00 02/06/18 20:59 01/11/18 21:13 Insulin Aspart (NovoLOG) 7 units NOVOTIAC SUBQ 01/12/18 06:30 02/07/18 17:29 Insulin Detemir (Levemir) 14 units BEDTIME SUBQ 01/10/18 21:00 02/07/18 20:59 01/11/18 21:12 Lansoprazole (Prevacid) 30 mg DAILY ORAL 01/08/18 09:00 02/07/18 08:59 01/11/18 08:47 Metoprolol Tartrate (Lopressor) 25 mg Q12HR ORAL 01/07/18 21:00 02/06/18 20:59 01/11/18 21:10 Nitroglycerin (Ntg) 1 patch Q24H TDERMAL 01/07/18 16:00 02/06/18 15:59 01/11/18 15:57 Tamsulosin HCl (Flomax) 0.4 mg QHS ORAL 01/09/18 21:00 02/06/18 17:59 01/11/18 21:09 Item Value Date Time Bedside Blood Glucose 102 mg/dl 01/12/18 0611 Bedside Blood Glucose 215 mg/dl H 01/11/18 2113 Bedside Blood Glucose 230 mg/dl H 01/11/18 1649 Bedside Blood Glucose 180 mg/dl H 01/11/18 1130 Niko Amaya MD Jan 12, 2018 07:01
[2018-01-12 08:00] VITALS: BP 121/68
[2018-01-12] MEDS: Metoprolol 25mg tab ORAL SCH (08:30)
[2018-01-12] MEDS: Docusate 100mg cap ORAL SCH ×2 (08:30→12:14)
[2018-01-12] MEDS: Aspirin EC 325mg tab ORAL SCH (08:30)
[2018-01-12] MEDS: Heparin 5000 units/ml inj SUBQ SCH (08:31)
[2018-01-12 08:33] LABS: BASOPHILS % (AUTO) 0.6 % (0.0-2.0); EOSINOPHILS % (AUTO) 2.2 % (0.0-3.0); HEMATOCRIT 38.2 % (42.0-52.0); HEMOGLOBIN 12.6 G/DL (14.2-18.0); LYMPHOCYTES % (AUTO) 33.3 % (20.0-45.0); MEAN CORPUSCULAR VOLUME 85 FL (80-99); MONOCYTES % (AUTO) 6.7 % (1.0-10.0); NEUTROPHILS % (AUTO) 57.1 % (45.0-75.0); PLATELET COUNT 164 K/UL (150-450); RED BLOOD COUNT 4.48 M/UL (4.70-6.10); RED CELL DISTRIBUTION WIDTH 13.5 % (11.6-14.8)
[2018-01-12 08:51] LABS: ANION GAP 5 mmol/L (5-15); BLOOD UREA NITROGEN 34 mg/dL (7-18); CALCIUM 9.1 MG/DL (8.5-10.1); CARBON DIOXIDE 31 MMOL/L (21-32); CHLORIDE 104 MMOL/L (98-107); CREATININE 2.5 MG/DL (0.55-1.30); POTASSIUM 4.1 MMOL/L (3.5-5.1); SODIUM 140 MMOL/L (136-145)
[2018-01-12 08:55] LABS: ALANINE AMINOTRANSFERASE 24 U/L (12-78); ALBUMIN 2.4 G/DL (3.4-5.0); ALBUMIN/GLOBULIN RATIO 0.5 (1.0-2.7); ALKALINE PHOSPHATASE 110 U/L (46-116); ASPARTATE AMINO TRANSFERASE 25 U/L (15-37); BILIRUBIN,TOTAL 0.4 MG/DL (0.2-1.0)
--- NOTE | 2018-01-12 10:52 | Nephrology Progress Note ---
Assessment/Plan Problem List: (1) Diabetic nephropathy Assessment: Nephrotic range proteinuria of 4.8 gr/ in 24 h (2) CKD (chronic kidney disease) (3) Pacemaker (4) Hypertension (5) Hypoalbuminemia Assessment: NS Assessment Renal failure likely chronic due to diabetic nephropathy Cr stable HTN elevated troponin Pacer Proteinuria, Hypoalbuminemia Nephrotic range proteinuria NS Plan Beta blockers- ASA- Nitrate- BS and BP control- 2D echo 55% EjFx Kidney MARY Bilateral renal cysts. No evidence of obstructive nephropathy. Flomax one dose venofer per orders ? DC Subjective ROS Limited/Unobtainable: No Constitutional: Reports: malaise Objective Objective Last 24 Hour Vital Signs Date Time Temp Pulse Resp B/P (MAP) Pulse Ox O2 Delivery O2 Flow Rate FiO2 01/12/18 08:30 76 121/68 01/12/18 08:00 96.6 76 21 121/68 95 Room Air 96.6 01/12/18 08:00 79 01/12/18 04:00 71 01/12/18 04:00 97.5 82 20 156/89 97 Room Air 97.5 01/12/18 00:00 75 01/12/18 00:00 97.4 78 20 137/80 94 Room Air 97.4 01/11/18 21:10 80 152/78 01/11/18 20:00 97.7 73 20 138/74 94 Room Air 97.7 01/11/18 20:00 77 01/11/18 16:00 97.7 75 20 152/91 97 Room Air 97.7 01/11/18 16:00 75 01/11/18 15:57 140/73 01/11/18 12:00 75 01/11/18 12:00 97.3 81 20 148/82 95 Room Air 97.3 Intake and Output 01/11/18 01/12/18 19:00 07:00 Intake Total 620 ml 100 ml Output Total 900 ml Balance -280 ml 100 ml Intake Oral 620 ml 100 ml Output Urine Total 900 ml Laboratory Tests 01/12/18 08:25: White Blood Count 7.0, Red Blood Count 4.48L, Hemoglobin 12.6L, Hematocrit 38.2L , Mean Corpuscular Volume 85, Mean Corpuscular Hemoglobin 28.0, Mean Corpuscular Hemoglobin Concent 32.9, Red Cell Distribution Width 13.5, Platelet Count 164, Mean Platelet Volume 8.6, Neutrophils (%) (Auto) 57.1, Lymphocytes (% ) (Auto) 33.3, Monocytes (%) (Auto) 6.7, Eosinophils (%) (Auto) 2.2, Basophils ( %) (Auto) 0.6, Sodium Level 140, Potassium Level 4.1, Chloride Level 104, Carbon Dioxide Level 31, Anion Gap 5, Blood Urea Nitrogen 34H, Creatinine 2.5H, Estimat Glomerular Filtration Rate , Glucose Level 106, Calcium Level 9.1, Total Bilirubin 0.4, Aspartate Amino Transf (AST/SGOT) 25, Alanine Aminotransferase (ALT/SGPT) 24, Alkaline Phosphatase 110, Total Protein 7.0, Albumin 2.4L, Globulin 4.6, Albumin/Globulin Ratio 0.5L Height (Feet): 5 Height (Inches): 10.00 Weight (Pounds): 195 General Appearance: no apparent distress Objective no other changes TALITA DIETZ Jan 12, 2018 10:52
--- NOTE | 2018-01-12 11:43 | Infectious Diseases Prog Note ---
Assessment/Plan Assessment/Plan A 1. Cholelithiasis 2. fever resolved 3. diabetes mellitus 4. hypertension 5. CVA 6. MRSA colonization P 1. observe off antibiotic 2. will follow up culture Subjective ROS Limited/Unobtainable: No Respiratory: Reports: no symptoms Cardiovascular: Reports: no symptoms Gastrointestinal/Abdominal: Reports: no symptoms Genitourinary: Reports: no symptoms Allergies: Coded Allergies: No Known Allergies (Unverified , 09/30/17) Objective Vital Signs Last 24 Hour Vital Signs Date Time Temp Pulse Resp B/P (MAP) Pulse Ox O2 Delivery O2 Flow Rate FiO2 01/12/18 08:30 76 121/68 01/12/18 08:00 96.6 76 21 121/68 95 Room Air 96.6 01/12/18 08:00 79 01/12/18 04:00 71 01/12/18 04:00 97.5 82 20 156/89 97 Room Air 97.5 01/12/18 00:00 75 01/12/18 00:00 97.4 78 20 137/80 94 Room Air 97.4 01/11/18 21:10 80 152/78 01/11/18 20:00 97.7 73 20 138/74 94 Room Air 97.7 01/11/18 20:00 77 01/11/18 16:00 97.7 75 20 152/91 97 Room Air 97.7 01/11/18 16:00 75 01/11/18 15:57 140/73 01/11/18 12:00 75 01/11/18 12:00 97.3 81 20 148/82 95 Room Air 97.3 Height (Feet): 5 Height (Inches): 10.00 Weight (Pounds): 195 General Appearance: no acute distress HEENT: mucous membranes moist Respiratory/Chest: chest wall non-tender Cardiovascular: normal rate Abdomen: soft, non tender Extremities: no edema Neurologic/Psychiatric: alert, responsive Laboratory Tests Test 01/12/18 08:25 White Blood Count 7.0 K/UL (4.8-10.8) Red Blood Count 4.48 M/UL (4.70-6.10) L Hemoglobin 12.6 G/DL (14.2-18.0) L Hematocrit 38.2 % (42.0-52.0) L Mean Corpuscular Volume 85 FL (80-99) Mean Corpuscular Hemoglobin 28.0 PG (27.0-31.0) Mean Corpuscular Hemoglobin Concent 32.9 G/DL (32.0-36.0) Red Cell Distribution Width 13.5 % (11.6-14.8) Platelet Count 164 K/UL (150-450) Mean Platelet Volume 8.6 FL (6.5-10.1) Neutrophils (%) (Auto) 57.1 % (45.0-75.0) Lymphocytes (%) (Auto) 33.3 % (20.0-45.0) Monocytes (%) (Auto) 6.7 % (1.0-10.0) Eosinophils (%) (Auto) 2.2 % (0.0-3.0) Basophils (%) (Auto) 0.6 % (0.0-2.0) Sodium Level 140 MMOL/L (136-145) Potassium Level 4.1 MMOL/L (3.5-5.1) Chloride Level 104 MMOL/L (98-107) Carbon Dioxide Level 31 MMOL/L (21-32) Anion Gap 5 mmol/L (5-15) Blood Urea Nitrogen 34 mg/dL (7-18) H Creatinine 2.5 MG/DL (0.55-1.30) H Estimat Glomerular Filtration Rate mL/min (>60) Glucose Level 106 MG/DL (74-106) Calcium Level 9.1 MG/DL (8.5-10.1) Total Bilirubin 0.4 MG/DL (0.2-1.0) Aspartate Amino Transf (AST/SGOT) 25 U/L (15-37) Alanine Aminotransferase (ALT/SGPT) 24 U/L (12-78) Alkaline Phosphatase 110 U/L (46-116) Total Protein 7.0 G/DL (6.4-8.2) Albumin 2.4 G/DL (3.4-5.0) L Globulin 4.6 g/dL Albumin/Globulin Ratio 0.5 (1.0-2.7) L Current Medications Medications (Trade) Dose Ordered Sig/Olga Lidia Route PRN Reason Start Time Stop Time Status Last Admin Dose Admin Acetaminophen (Tylenol) 650 mg Q4H PRN ORAL Fever/Headache/Mild Pain 01/07/18 15:45 02/06/18 15:44 Aspirin (Ecotrin) 325 mg DAILY ORAL 01/08/18 09:00 02/07/18 08:59 01/12/18 08:30 Bisacodyl (Dulcolax) 10 mg HSPRN PRN RECTAL Constipation 01/07/18 15:45 02/06/18 15:44 01/08/18 22:04 Dextrose (Dextrose 50%) 25 ml STAT PRN IV Hypoglycemia 01/07/18 18:00 02/06/18 17:59 Dextrose (Dextrose 50%) 25 ml STAT PRN IV Hypoglycemia 01/08/18 17:30 02/07/18 17:29 Docusate Sodium (Colace) 100 mg THREE TIMES A DAY ORAL 01/07/18 18:00 02/06/18 17:59 01/12/18 08:30 Fish Oil (Fish Oil) 1,000 mg BID ORAL 01/07/18 18:00 02/06/18 17:59 01/12/18 08:30 Heparin Sodium (Porcine) (Heparin 5000 units/ml) 5,000 units EVERY 12 HOURS SUBQ 01/08/18 09:00 02/06/18 20:59 01/12/18 08:31 Insulin Aspart (NovoLOG) BEFORE MEALS AND HS SUBQ 01/07/18 21:00 02/06/18 20:59 01/11/18 21:13 Insulin Aspart (NovoLOG) 7 units NOVOTIAC SUBQ 01/12/18 06:30 02/07/18 17:29 Insulin Detemir (Levemir) 14 units BEDTIME SUBQ 01/10/18 21:00 02/07/18 20:59 01/11/18 21:12 Lansoprazole (Prevacid) 30 mg DAILY ORAL 01/08/18 09:00 02/07/18 08:59 01/12/18 08:30 Metoprolol Tartrate (Lopressor) 25 mg Q12HR ORAL 01/07/18 21:00 02/06/18 20:59 01/12/18 08:30 Nitroglycerin (Ntg) 1 patch Q24H TDERMAL 01/07/18 16:00 02/06/18 15:59 01/11/18 15:57 Tamsulosin HCl (Flomax) 0.4 mg QHS ORAL 01/09/18 21:00 02/06/18 17:59 01/11/18 21:09 Raz Paulson MD Jan 12, 2018 11:43
[2018-01-12 12:00] VITALS: BP 124/87
[2018-01-12] MEDS ORDERED: Sterile Water Irrig 1000ml IRRIG ONE ×2 (13:44)
--- NOTE | 2018-01-14 13:42 | Discharge Summary ---
Discharge Summary Discharge Summary _ DATE OF ADMISSION: 01/07/2018 DATE OF DISCHARGE: 01/12/2018 REASON FOR ADMISSION: 72 years old male, resident of [facility] facility ,with past medical history of CVA, diabetes mellitus, dysphagia, hypertension, pacemaker, was sent from the [facility] facility for evaluation for fever for one day. Upon evaluation in emergency department patient was afebrile, vital signs were stable. No leukocytosis. Elevated troponin 0.204. Pro BNP 3552. Urinalysis negative for evidence of UTI. EKG revealed atrial pacing Elevated BUN 34 and creatinine 2.7. Chest x-ray revealed no acute process but showed evidence of pacemaker and sternotomy wires. Patient was admitted with diagnoses of elevated troponin, chronic kidney disease , congestive heart failure. CONSULTANTS: tunnel elastic operator lockstitch Dr. Dee ID specialist Dr. Nuñez salt machine operator Dr. Ackerman psychiatrist sand slinger operator Dr. Amaya [facility] COURSE: Patient admitted to telemetry floor. Fuel Technician closely followed. Second troponin trending down and the last troponin was negative. According to tunnel elastic operator lockstitch , levels were flat and low , probably secondary to renal failure. Echocardiogram revealed preserved ejection fraction of 55%. EKG revealed atrial pacing, and telemetry showed normal functioning of the pacemaker. Patient was on aspirin ,beta cinthia and nitrates as needed. Blood pressure was managed with beta cinthia and remained stable. Lipid panel revealed borderline LDL and triglycerides-160. Patient was on fish oil supplements. Recommended to recheck lipid panel in 3 months and consider adding statin if no improvement lieu of history fo CVA. Infectious disease specialist closely followed. Blood culture were negative, no fever , no leukocytosis . Infectious disease specialist recommended to observe patient off antibiotics. Blood sugar was managed as per sand slinger operator recommendations. Hemoglobin A1c - 9.4, clearly not to goal. Blood sugar was managed with long-acting Levemir, short-acting pre-meal NovoLog and sliding scale of insulin as needed. Patient needs further titration of anti-glycemic regimen as outpatient. Chronic kidney disease, according to on salt machine operator, was likely secondary to diabetic nephropathy. Patient noted to have + 4 protein in urinalysis. 24 hours protein in the urine revealed nephrotic range proteinuria over 4 grams. Renal parameters and electrolytes were closely monitored . Electrolytes were corrected as needed , nephrotoxins were avoided. Creatinine remained stable -2.5. Renal ultrasound revealed no evidence of obstructive nephropathy. Abdominal ultrasound revealed cholelithiasis but no evidence of inflammatory or obstructive changes. Flomax was continued. DVT and GI prophylaxis provided. Supportive care provided Bowel regimen instituted Pain management was addressed Patient clinically improved and was stable for transfer back to [facility] for continuation of care FINAL DIAGNOSES: Elevated troponin ( likely due to renal disease) Chronic kidney disease, secondary to diabetic nephropathy Diabetic nephropathy Proteinuria ( with nephrotic range) Diabetes mellitus out of control Status post [employer] pacer ( normal functioning on telemetry) Hypertension History of CVA Cholelithiasis DISCHARGE MEDICATIONS: See Medication Reconciliation list. DISCHARGE INSTRUCTIONS: Patient discharged to [facility] facility. Follow up with medical doctor at the facility I have been assigned to dictate discharge summary for this account. I was not involved in the patient's management. Steff Beavers NP Jan 14, 2018 13:42
== END 2018-01-12 13:45 | DRG 293 ==
LOC: EDBD 10:34 → EDBEDREQ 11:42 → EDBEDREQSVC 11:42 → EMR 11:55 → 2E 12:41 → EDBEDREQ 12:50
DX: I13.0 Hypertensive heart and chronic kidney disease with heart failure and stage 1 through stage 4 chronic kidney disease, or unspecified chronic kidney disease (principal); E11.21 Type 2 diabetes mellitus with diabetic nephropathy; N18.9 Chronic kidney disease, unspecified; Z95.0 Presence of cardiac pacemaker; E11.22 Type 2 diabetes mellitus with diabetic chronic kidney disease; K80.20 Calculus of gallbladder without cholecystitis without obstruction; E78.5 Hyperlipidemia, unspecified; Z79.4 Long term (current) use of insulin; I69.391 Dysphagia following cerebral infarction; R13.10 Dysphagia, unspecified; I25.2 Old myocardial infarction; E88.09 Other disorders of plasma-protein metabolism, not elsewhere classified; Z22.322 Carrier or suspected carrier of Methicillin resistant Staphylococcus aureus; R79.89 Other specified abnormal findings of blood chemistry
CPT/HCPCS: 36415; 71045; 76700; 76770; 80053; 80061; 81003; 81050; 82550; 82553; 82607; 82728; 82962; 82977; 83036; 83540; 83550; 83605; 83735; 83880; 84100; 84156; 84443; 84484; 84550; 85025; 86140; 87040; 87081; 93005; 93306; 94760; 99285; J1815

== ENCOUNTER 2018-10-27 10:17 | Inpatient (IN) | payer MEDICARE, MEDICAID ==
[~2018-10-27] VITALS: Ht 185.4 cm; Wt 77.2 kg
[2018-10-27] MEDS ORDERED: Sodium Chloride 2,200 ML IVLG ONE (10:30)
[2018-10-27 10:32] VITALS: BP 151/68
[2018-10-27] MEDS ORDERED: CRANBERRY450 M4 PO (10:33)
[2018-10-27] MEDS ORDERED: FERROUS SULFAT325 MG ORAL (10:33)
[2018-10-27] MEDS ORDERED: VITAMIN D-40400 UNIT ORAL (10:33)
[2018-10-27] MEDS ORDERED: COLACE100 MG ORAL (10:33)
[2018-10-27 10:54] LABS: APPEARANCE,URINE CLEAR; BILIRUBIN, URINE NEGATIVE (NEGATIVE); COLOR,URINE PALE YELLOW; GLUCOSE, URINE (UA) 2+ (NEGATIVE); KETONES,URINE NEGATIVE (NEGATIVE); LEUKOCYTE ESTERASE ,URINE NEGATIVE (NEGATIVE); NITRITE,URINE NEGATIVE (NEGATIVE); PH,URINE 5 (4.5-8.0); PROTEIN,URINE 3+ (NEGATIVE); UROBILINOGEN,URINE NORMAL MG/DL (0.0-1.0)
[2018-10-27 10:54] LABS: BASOPHILS % (AUTO) 0.8 % (0.0-2.0); HEMATOCRIT 30.4 % (42.0-52.0); HEMOGLOBIN 9.8 G/DL (14.2-18.0); LYMPHOCYTES % (AUTO) 25.7 % (20.0-45.0); MEAN CORPUSCULAR VOLUME 87 FL (80-99); MONOCYTES % (AUTO) 7.4 % (1.0-10.0); NEUTROPHILS % (AUTO) 64.1 % (45.0-75.0); PLATELET COUNT 149 K/UL (150-450); RED BLOOD COUNT 3.51 M/UL (4.70-6.10); RED CELL DISTRIBUTION WIDTH 16.4 % (11.6-14.8); WHITE BLOOD COUNT 8.3 K/UL (4.8-10.8)
[2018-10-27 11:13] LABS: ANION GAP 6 mmol/L (5-15); BLOOD UREA NITROGEN 27 mg/dL (7-18); CALCIUM 8.8 MG/DL (8.5-10.1); CARBON DIOXIDE 31 MMOL/L (21-32); CHLORIDE 103 MMOL/L (98-107); CREATININE 1.9 MG/DL (0.55-1.30); POTASSIUM 4.8 MMOL/L (3.5-5.1); SODIUM 140 MMOL/L (136-145)
[2018-10-27 11:16] VITALS: BP 157/66
--- NOTE | 2018-10-27 11:19 | Diagnostic Imaging Report ---
Indication: Shortness of breath Technique: XRAY Chest 1v Comparison: 01/07/2018 Findings: Heart size and mediastinal contours are stable. Again noted is evidence of prior cardiac surgery with median sternotomy. A biventricular pacer is noted. There are atherosclerotic vascular calcifications. There is mild pulmonary vascular congestion without evidence of alveolar edema. Some unchanged linear scarring is noted in the lingula. No pleural effusion or pneumothorax. No radiographic appreciable acute osseous normality. Impression: Cardiomegaly and evidence of prior cardiac surgery Prominence of the central pulmonary vasculature and very mild haziness of the pulmonary vascularity suggest mild congestive changes/CHF.
[2018-10-27 11:28] LABS: ALANINE AMINOTRANSFERASE 25 U/L (12-78); ALBUMIN 2.9 G/DL (3.4-5.0); ALBUMIN/GLOBULIN RATIO 0.6 (1.0-2.7); ALKALINE PHOSPHATASE 166 U/L (46-116); ASPARTATE AMINO TRANSFERASE 18 U/L (15-37); BILIRUBIN,TOTAL 0.5 MG/DL (0.2-1.0); CKMB 2.2 NG/ML (0.0-3.6); CREATINE KINASE 77 U/L (26-308); PHOSPHORUS 2.9 MG/DL (2.5-4.9)
--- NOTE | 2018-10-27 12:05 | Emergency Room Report ---
History of Present Illness General Chief Complaint: General Complaint Source: Medical Record Present Illness HPI This patient presents from a assisted facility. The patient is here because the staff at the assisted facility state that the blood sugar was elevated on the morning labs. The blood sugar was over 400. Patient himself has no specific complaints. Although, he states he does intermittently have chest pain. There is no recent illness. There is no report of fever or chills. There has been no nausea or vomiting. There are no other complaints. Allergies: Coded Allergies: No Known Allergies (Unverified , 09/30/17) Patient History Past Medical History: see triage record, old chart reviewed, DM, HTN, MT, CAD, CHF, CVA/TIA, dementia, psych hx, renal disease Past Surgical History: pacemaker Social History: Denies: smoking, alcohol use, drug use Reviewed Nursing Documentation: PMH: Agreed; PSxH: Agreed Nursing Documentation-PMH Hx Hypertension: Yes Hx Pacemaker: Yes Hx Diabetes: Yes Hx Cerebrovascular Accident: Yes Hx Dysphasia: Yes Review of Systems All Other Systems: negative except mentioned in HPI Physical Exam Vital Signs Date Time Temp Pulse Resp B/P (MAP) Pulse Ox O2 Delivery O2 Flow Rate FiO2 10/27/18 10:18 97.9 78 16 137/68 94 Room Air 10/27/18 10:32 21 Sp02 EP Interpretation: reviewed, normal General Appearance: no apparent distress, alert, GCS 15, non-toxic Head: normocephalic, atraumatic ENT: hearing grossly normal, normal pharynx, no angioedema, normal voice Neck: full range of motion, supple/symm/no masses Respiratory: chest non-tender, lungs clear, normal breath sounds, no respiratory distress, no retraction, no accessory muscle use, speaking full sentences Cardiovascular #1: regular rate, rhythm, no edema, systolic murmur Gastrointestinal: normal bowel sounds, non tender, soft, non-distended, no guarding, no rebound Rectal: deferred Musculoskeletal: back normal, normal range of motion, non-tender Neurologic: alert, oriented x3, responsive, sensory intact, speech normal, grossly normal Psychiatric: judgement/insight normal, mood/affect normal Skin: normal color, no rash, warm/dry, well hydrated Medical Decision Making Diagnostic Impression: Primary Impression: Uncontrolled diabetes mellitus Additional Impressions: Lactic acid acidosis Anemia ER Course This patient presents with hyperglycemia and uncontrolled diabetes. He also has a lactic acidosis which may be secondary to dehydration. He has anemia baseline but this is slightly lower than usual for him. The patient is admitted for dehydration and for better control of his diabetes and hyperglycemia. He also complains of chest pain and will need evaluation by cardiology. Initial cardiac workup was unremarkable. Laboratory Tests Test 10/27/18 10:30 10/27/18 10:40 10/27/18 11:51 White Blood Count 8.3 K/UL (4.8-10.8) Red Blood Count 3.51 M/UL (4.70-6.10) L Hemoglobin 9.8 G/DL (14.2-18.0) L Hematocrit 30.4 % (42.0-52.0) L Mean Corpuscular Volume 87 FL (80-99) Mean Corpuscular Hemoglobin 28.0 PG (27.0-31.0) Mean Corpuscular Hemoglobin Concent 32.3 G/DL (32.0-36.0) Red Cell Distribution Width 16.4 % (11.6-14.8) H Platelet Count 149 K/UL (150-450) L Mean Platelet Volume 8.8 FL (6.5-10.1) Neutrophils (%) (Auto) 64.1 % (45.0-75.0) Lymphocytes (%) (Auto) 25.7 % (20.0-45.0) Monocytes (%) (Auto) 7.4 % (1.0-10.0) Eosinophils (%) (Auto) 2.0 % (0.0-3.0) Basophils (%) (Auto) 0.8 % (0.0-2.0) Sodium Level 140 MMOL/L (136-145) Potassium Level 4.8 MMOL/L (3.5-5.1) Chloride Level 103 MMOL/L (98-107) Carbon Dioxide Level 31 MMOL/L (21-32) Anion Gap 6 mmol/L (5-15) Blood Urea Nitrogen 27 mg/dL (7-18) H Creatinine 1.9 MG/DL (0.55-1.30) H Estimate Glomerular Filtration Rate mL/min (>60) Glucose Level 315 MG/DL (74-106) H Lactic Acid Level 2.20 mmol/L (0.4-2.0) H Pending Calcium Level 8.8 MG/DL (8.5-10.1) Phosphorus Level 2.9 MG/DL (2.5-4.9) Magnesium Level 1.6 MG/DL (1.8-2.4) L Total Bilirubin 0.5 MG/DL (0.2-1.0) Aspartate Amino Transferase (AST) 18 U/L (15-37) Alanine Aminotransferase (ALT) 25 U/L (12-78) Alkaline Phosphatase 166 U/L (46-116) H Total Creatine Kinase 77 U/L (26-308) Creatine Kinase MB 2.2 NG/ML (0.0-3.6) Creatine Kinase MB Relative Index 2.8 Troponin I 0.050 ng/mL (0.000-0.056) Total Protein 7.6 G/DL (6.4-8.2) Albumin 2.9 G/DL (3.4-5.0) L Globulin 4.7 g/dL Albumin/Globulin Ratio 0.6 (1.0-2.7) L Urine Color Pale yellow Urine Appearance Clear Urine pH 5 (4.5-8.0) Urine Specific [place] 1.010 (1.005-1.035) Urine Protein 3+ (NEGATIVE) H Urine Glucose (UA) 2+ (NEGATIVE) H Urine Ketones Negative (NEGATIVE) Urine Blood 1+ (NEGATIVE) H Urine Nitrite Negative (NEGATIVE) Urine Bilirubin Negative (NEGATIVE) Urine Urobilinogen Normal MG/DL (0.0-1.0) Urine Leukocyte Esterase Negative (NEGATIVE) Urine RBC 0-2 /HPF (0 - 0) H Urine WBC 0-2 /HPF (0 - 0) Urine Squamous Epithelial Cells Occasional /LPF Urine Bacteria Occasional /HPF (NONE) EKG Diagnostic Results Rate: normal Rhythm: other - Paced ST Segments: no acute changes Rhythm Strip Diag. Results EP Interpretation: yes Rate: 70's Rhythm: no PVC's, no ectopy, other - Paced Chest X-Ray Diagnostic Results Chest X-Ray Diagnostic Results : Chest X-Ray Ordered: Yes # of Views/Limited/Complete: 1 View Indication: Chest Pain EP Interpretation: Yes Interpretation: other - cardiomegaly Impression: No acute disease Electronically Signed by: Alejandrina Taylor DO Last Vital Signs Date Time Temp Pulse Resp B/P (MAP) Pulse Ox O2 Delivery O2 Flow Rate FiO2 10/27/18 11:16 97.9 75 17 157/66 100 Room Air 21 Disposition: ADMITTED INPATIENT Condition: Serious Alejandrina Taylor DO Oct 27, 2018 12:05
[2018-10-27 12:47] VITALS: BP 151/64
[2018-10-27 13:33] VITALS: BP 151/64
[2018-10-27] MEDS ORDERED: Nitroglycerin 2% oint pkt TOPIC ONE ×2 (13:58→14:00)
[2018-10-27] MEDS ORDERED: Albuterol ud Inhalation HHN ONE (14:30)
--- NOTE | 2018-10-27 14:48 | Diagnostic Imaging Report ---
Indication: Shortness of breath Technique: XRAY Chest 1v Comparison: 10/27/2018 Findings: Heart size and mediastinal contours are stable. Again noted is evidence of prior cardiac surgery with median sternotomy. A pacer is in noted. There are atherosclerotic vascular calcifications. There is mild pulmonary vascular congestion without evidence of alveolar edema. This. Mildly increased compared to exam earlier today. Some unchanged linear scarring is noted in the lingula. No pleural effusion or pneumothorax. No radiographic appreciable acute osseous normality. Impression: Cardiomegaly and evidence of prior cardiac surgery Prominence of the central pulmonary vasculature and very mild haziness of the pulmonary vascularity suggest mild CHF. Findings may be slightly increased compared to exam 4 hours today. Correlation with clinical findings is recommended.
[2018-10-27 16:00] VITALS: BP 153/78
[2018-10-27] MEDS: NovoLOG Insulin Flexpen SUBQ SCH ×3 (17:25→21:00)
[2018-10-27 20:00] VITALS: BP 90/55
[2018-10-27] MEDS: Atorvastatin 20mg tab ORAL SCH (20:27)
[2018-10-27] MEDS: Heparin 5000 units/ml inj SUBQ SCH (20:28)
--- NOTE | 2018-10-27 20:45 | Cardiology Progress Note ---
Assessment/Plan Assessment/Plan The patient is seen and examined, full consult note is dictated. Objective Last 24 Hour Vital Signs Date Time Temp Pulse Resp B/P (MAP) Pulse Ox O2 Delivery O2 Flow Rate FiO2 10/27/18 20:00 Bi-pap 10/27/18 20:00 40 10/27/18 20:00 98.1 75 21 90/55 (67) 100 10/27/18 19:24 75 10/27/18 17:47 91 19 96 Facial 40 10/27/18 16:26 88 15 97 Facial 40 10/27/18 16:00 Bi-pap 10.0 10/27/18 16:00 97.5 75 153/78 (103) 10/27/18 16:00 40 10/27/18 16:00 Bi-pap 10.0 10/27/18 16:00 75 10/27/18 15:25 97.9 75 16 151/64 100 Bi-pap 2.0 40 10/27/18 14:52 75 100 Bi-pap 40 10/27/18 14:47 77 16 Bi-pap 40 10/27/18 14:46 79 14 100 Bi-pap 40 10/27/18 14:46 40 10/27/18 14:05 75 19 98 Facial 40 10/27/18 13:59 151/64 10/27/18 13:33 97.9 75 20 151/64 97 Nasal Cannula 2.0 10/27/18 12:47 97.9 75 17 151/64 94 Room Air 21 10/27/18 11:16 97.9 75 17 157/66 100 Room Air 21 10/27/18 10:34 77 17 Room Air 21 10/27/18 10:32 97.9 77 17 151/68 98 Room Air 21 10/27/18 10:18 97.9 78 16 137/68 94 Room Air Laboratory Tests Test 10/27/18 10:30 10/27/18 10:40 10/27/18 11:51 10/27/18 17:25 White Blood Count 8.3 K/UL (4.8-10.8) Red Blood Count 3.51 M/UL (4.70-6.10) L Hemoglobin 9.8 G/DL (14.2-18.0) L Hematocrit 30.4 % (42.0-52.0) L Mean Corpuscular Volume 87 FL (80-99) Mean Corpuscular Hemoglobin 28.0 PG (27.0-31.0) Mean Corpuscular Hemoglobin Concent 32.3 G/DL (32.0-36.0) Red Cell Distribution Width 16.4 % (11.6-14.8) H Platelet Count 149 K/UL (150-450) L Mean Platelet Volume 8.8 FL (6.5-10.1) Neutrophils (%) (Auto) 64.1 % (45.0-75.0) Lymphocytes (%) (Auto) 25.7 % (20.0-45.0) Monocytes (%) (Auto) 7.4 % (1.0-10.0) Eosinophils (%) (Auto) 2.0 % (0.0-3.0) Basophils (%) (Auto) 0.8 % (0.0-2.0) Sodium Level 140 MMOL/L (136-145) Potassium Level 4.8 MMOL/L (3.5-5.1) Chloride Level 103 MMOL/L (98-107) Carbon Dioxide Level 31 MMOL/L (21-32) Anion Gap 6 mmol/L (5-15) Blood Urea Nitrogen 27 mg/dL (7-18) H Creatinine 1.9 MG/DL (0.55-1.30) H Estimat Glomerular Filtration Rate mL/min (>60) Glucose Level 315 MG/DL (74-106) H Hemoglobin A1c 8.8 % (4.3-6.0) H Lactic Acid Level 2.20 mmol/L (0.4-2.0) H 1.60 mmol/L (0.66-2.22) Calcium Level 8.8 MG/DL (8.5-10.1) Phosphorus Level 2.9 MG/DL (2.5-4.9) Magnesium Level 1.6 MG/DL (1.8-2.4) L Total Bilirubin 0.5 MG/DL (0.2-1.0) Aspartate Amino Transf (AST/SGOT) 18 U/L (15-37) Alanine Aminotransferase (ALT/SGPT) 25 U/L (12-78) Alkaline Phosphatase 166 U/L (46-116) H Total Creatine Kinase 77 U/L (26-308) Creatine Kinase MB 2.2 NG/ML (0.0-3.6) Creatine Kinase MB Relative Index 2.8 Troponin I 0.050 ng/mL (0.000-0.056) Total Protein 7.6 G/DL (6.4-8.2) Albumin 2.9 G/DL (3.4-5.0) L Globulin 4.7 g/dL Albumin/Globulin Ratio 0.6 (1.0-2.7) L Urine Color Pale yellow Urine Appearance Clear Urine pH 5 (4.5-8.0) Urine Specific [place] 1.010 (1.005-1.035) Urine Protein 3+ (NEGATIVE) H Urine Glucose (UA) 2+ (NEGATIVE) H Urine Ketones Negative (NEGATIVE) Urine Blood 1+ (NEGATIVE) H Urine Nitrite Negative (NEGATIVE) Urine Bilirubin Negative (NEGATIVE) Urine Urobilinogen Normal MG/DL (0.0-1.0) Urine Leukocyte Esterase Negative (NEGATIVE) Urine RBC 0-2 /HPF (0 - 0) H Urine WBC 0-2 /HPF (0 - 0) Urine Squamous Epithelial Cells Occasional /LPF Urine Bacteria Occasional /HPF (NONE) Arterial Blood pH 7.311 (7.350-7.450) Arterial Blood Partial Pressure CO2 55.5 mmHg (35.0-45.0) *H Arterial Blood Partial Pressure O2 73.9 mmHg (75.0-100.0) L Arterial Blood HCO3 27.4 mmol/L (22.0-26.0) H Arterial Blood Oxygen Saturation 92.6 % (95-100) L Arterial Blood Base Excess 0.5 (-2-2) Jeancarlos Test Positive Microbiology Date/Time Source Procedure Growth Status 10/27/18 10:55 Rectum Received Eric Wilde MD Oct 27, 2018 20:45
[2018-10-27] MEDS: Albuterol/Ipratropium 3ml neb HHN SCH (20:46)
[2018-10-27] MEDS: Levemir Flexpen SUBQ SCH (21:00)
[2018-10-28] VITALS: BP 116/71
[2018-10-28] MEDS: Albuterol/Ipratropium 3ml neb HHN SCH ×4 (01:44→19:20)
[2018-10-28 04:00] VITALS: BP 130/59
--- NOTE | 2018-10-28 05:12 | Pulmonology Progress Note ---
Assessment/Plan Assessment/Plan Pulmonary Consultation Date of Consultation: 10/27/18 17:00 HPI Patient admitted from a [facility] facility with elevated blood sugar, no specific complaints. The patient was had intermittent have chest pain in the past. There is no recent illness. There is no report of fever or chills. There has been no nausea or vomiting. There are no other complaints. Allergies: No Known Allergies Past Medical History: Diabetes, Hypertension, CAD with previous IN, CHF, CVA/ TIA, Dementia, Psych hx, Renal disease Past Surgical History: Pacemaker All Other Systems: negative except mentioned in HPI Physical Exam Vital Signs Noted, on BiPAP Date Time Temp Pulse Resp B/P (MAP) Pulse Ox O2 Delivery O2 Flow Rate FiO2 10/27/18 10:18 97.9 78 16 137/68 94 Room Air 10/27/18 10:32 21 General Appearance: no apparent distress, somnolent, non-toxic Head: normocephalic, atraumatic ENT: hearing grossly normal, normal pharynx, no angioedema, normal voice Neck: full range of motion, supple/symm/no masses Respiratory: chest non-tender, lungs clear, normal breath sounds, no respiratory distress, no retraction, no accessory muscle use, speaking full sentences Cardiovascular: HS1, HS2, normal, regular rate, rhythm, no edema, systolic murmur Gastrointestinal: normal bowel sounds, non tender, soft, non-distended, no guarding, no rebound Rectal: deferred Musculoskeletal: back normal, normal range of motion, non-tender Neurologic: drowsy, responsive, sensory intact, speech normal, grossly normal Psychiatric: judgement/insight normal, mood/affect normal Skin: normal color, no rash, warm/dry, well hydrated Impression: Primary Impression: Uncontrolled diabetes mellitus: Lactic acid acidosis Anemia History of Hypertension CAD with previous IN Congestive Heart Failure Previous CVA/TIA Dementia Psych history Renal disease Pacemaker Plan Insulin SS Diuresis PRN per Cardoliogy Continue current BiPAP with repeat ABG HHN O2 PRN O2 sats 90-94% 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 DW RN at bedside Laboratory Tests Test 10/27/18 10:30 10/27/18 10:40 10/27/18 11:51 White Blood Count 8.3 K/UL (4.8-10.8) Red Blood Count 3.51 M/UL (4.70-6.10) L Hemoglobin 9.8 G/DL (14.2-18.0) L Hematocrit 30.4 % (42.0-52.0) L Mean Corpuscular Volume 87 FL (80-99) Mean Corpuscular Hemoglobin 28.0 PG (27.0-31.0) Mean Corpuscular Hemoglobin Concent 32.3 G/DL (32.0-36.0) Red Cell Distribution Width 16.4 % (11.6-14.8) H Platelet Count 149 K/UL (150-450) L Mean Platelet Volume 8.8 FL (6.5-10.1) Neutrophils (%) (Auto) 64.1 % (45.0-75.0) Lymphocytes (%) (Auto) 25.7 % (20.0-45.0) Monocytes (%) (Auto) 7.4 % (1.0-10.0) Eosinophils (%) (Auto) 2.0 % (0.0-3.0) Basophils (%) (Auto) 0.8 % (0.0-2.0) Sodium Level 140 MMOL/L (136-145) Potassium Level 4.8 MMOL/L (3.5-5.1) Chloride Level 103 MMOL/L (98-107) Carbon Dioxide Level 31 MMOL/L (21-32) Anion Gap 6 mmol/L (5-15) Blood Urea Nitrogen 27 mg/dL (7-18) H Creatinine 1.9 MG/DL (0.55-1.30) H Estimate Glomerular Filtration Rate mL/min (>60) Glucose Level 315 MG/DL (74-106) H Lactic Acid Level 2.20 mmol/L (0.4-2.0) H Pending Calcium Level 8.8 MG/DL (8.5-10.1) Phosphorus Level 2.9 MG/DL (2.5-4.9) Magnesium Level 1.6 MG/DL (1.8-2.4) L Total Bilirubin 0.5 MG/DL (0.2-1.0) Aspartate Amino Transferase (AST) 18 U/L (15-37) Alanine Aminotransferase (ALT) 25 U/L (12-78) Alkaline Phosphatase 166 U/L (46-116) H Total Creatine Kinase 77 U/L (26-308) Creatine Kinase MB 2.2 NG/ML (0.0-3.6) Creatine Kinase MB Relative Index 2.8 Troponin I 0.050 ng/mL (0.000-0.056) Total Protein 7.6 G/DL (6.4-8.2) Albumin 2.9 G/DL (3.4-5.0) L Globulin 4.7 g/dL Albumin/Globulin Ratio 0.6 (1.0-2.7) L Urine Color Pale yellow Urine Appearance Clear Urine pH 5 (4.5-8.0) Urine Specific [place] 1.010 (1.005-1.035) Urine Protein 3+ (NEGATIVE) H Urine Glucose (UA) 2+ (NEGATIVE) H Urine Ketones Negative (NEGATIVE) Urine Blood 1+ (NEGATIVE) H Urine Nitrite Negative (NEGATIVE) Urine Bilirubin Negative (NEGATIVE) Urine Urobilinogen Normal MG/DL (0.0-1.0) Urine Leukocyte Esterase Negative (NEGATIVE) Urine RBC 0-2 /HPF (0 - 0) H Urine WBC 0-2 /HPF (0 - 0) Urine Squamous Epithelial Cells Occasional /LPF Urine Bacteria Occasional /HPF (NONE) EKG: Rate: normal Rhythm: other - Paced ST Segments: no acute changes Chest X-Ray: other - cardiomegaly, congestion Subjective ROS Limited/Unobtainable: No Allergies: Coded Allergies: No Known Allergies (Unverified , 09/30/17) Objective Last 24 Hour Vital Signs Date Time Temp Pulse Resp B/P (MAP) Pulse Ox O2 Delivery O2 Flow Rate FiO2 10/28/18 04:00 Bi-pap 10/28/18 04:00 40 10/28/18 03:41 79 10/28/18 03:23 75 18 100 10/28/18 02:00 75 18 100 Venturi Mask 40 10/28/18 01:45 74 18 100 10/28/18 01:44 40 10/28/18 01:44 75 20 100 Bi-pap 40 10/28/18 00:00 Bi-pap 10/28/18 00:00 98.2 75 21 116/71 (86) 100 10/27/18 23:47 75 14 100 Facial 40 10/27/18 23:24 75 10/27/18 20:46 75 20 100 Bi-pap 40 10/27/18 20:46 40 10/27/18 20:44 75 20 100 Facial 40 10/27/18 20:00 Bi-pap 10/27/18 20:00 40 10/27/18 20:00 98.1 75 21 90/55 (67) 100 10/27/18 19:24 75 10/27/18 17:47 91 19 96 Facial 40 10/27/18 16:26 88 15 97 Facial 40 10/27/18 16:00 Bi-pap 10.0 10/27/18 16:00 97.5 75 153/78 (103) 10/27/18 16:00 40 10/27/18 16:00 Bi-pap 10.0 10/27/18 16:00 75 10/27/18 15:25 97.9 75 16 151/64 100 Bi-pap 2.0 40 10/27/18 14:52 75 100 Bi-pap 40 10/27/18 14:47 77 16 Bi-pap 40 10/27/18 14:46 79 14 100 Bi-pap 40 10/27/18 14:46 40 10/27/18 14:05 75 19 98 Facial 40 10/27/18 13:59 151/64 10/27/18 13:33 97.9 75 20 151/64 97 Nasal Cannula 2.0 10/27/18 12:47 97.9 75 17 151/64 94 Room Air 21 10/27/18 11:16 97.9 75 17 157/66 100 Room Air 21 10/27/18 10:34 77 17 Room Air 21 10/27/18 10:32 97.9 77 17 151/68 98 Room Air 21 10/27/18 10:18 97.9 78 16 137/68 94 Room Air Intake and Output 10/27/18 10/28/18 19:00 07:00 Intake Total 0 ml 250 ml Output Total 2 ml Balance -2 ml 250 ml Intake Oral 0 ml IV Total 250 ml Output Urine Total 2 ml Microbiology Date/Time Source Procedure Growth Status 10/27/18 10:55 Rectum Received Laboratory Tests 10/27/18 10:30: White Blood Count 8.3, Red Blood Count 3.51L, Hemoglobin 9.8L, Hematocrit 30.4L , Mean Corpuscular Volume 87, Mean Corpuscular Hemoglobin 28.0, Mean Corpuscular Hemoglobin Concent 32.3, Red Cell Distribution Width 16.4H, Platelet Count 149L, Mean Platelet Volume 8.8, Neutrophils (%) (Auto) 64.1, Lymphocytes (%) (Auto) 25.7, Monocytes (%) (Auto) 7.4, Eosinophils (%) (Auto) 2.0, Basophils (%) (Auto) 0.8, Sodium Level 140, Potassium Level 4.8, Chloride Level 103, Carbon Dioxide Level 31, Anion Gap 6, Blood Urea Nitrogen 27H, Creatinine 1.9H, Estimat Glomerular Filtration Rate , Glucose Level 315H, Hemoglobin A1c 8.8H, Lactic Acid Level 2.20H, Calcium Level 8.8, Phosphorus Level 2.9, Magnesium Level 1.6L, Total Bilirubin 0.5, Aspartate Amino Transf ( AST/SGOT) 18, Alanine Aminotransferase (ALT/SGPT) 25, Alkaline Phosphatase 166H , Total Creatine Kinase 77, Creatine Kinase MB 2.2, Creatine Kinase MB Relative Index 2.8, Troponin I 0.050, Total Protein 7.6, Albumin 2.9L, Globulin 4.7, Albumin/Globulin Ratio 0.6L 10/27/18 10:40: Urine Color Pale yellow, Urine Appearance Clear, Urine pH 5, Urine Specific [place] 1.010, Urine Protein 3+H, Urine Glucose (UA) 2+H, Urine Ketones Negative , Urine Blood 1+H, Urine Nitrite Negative, Urine Bilirubin Negative, Urine Urobilinogen Normal, Urine Leukocyte Esterase Negative, Urine RBC 0-2H, Urine WBC 0-2, Urine Squamous Epithelial Cells Occasional, Urine Bacteria Occasional 10/27/18 11:51: Lactic Acid Level 1.60 10/27/18 17:25: Arterial Blood pH 7.311L, Arterial Blood Partial Pressure CO2 55.5*H, Arterial Blood Partial Pressure O2 73.9L, Arterial Blood HCO3 27.4H, Arterial Blood Oxygen Saturation 92.6L, Arterial Blood Base Excess 0.5, Jeancarlos Test Positive Current Medications Medications (Trade) Dose Ordered Sig/Olga Lidia Route PRN Reason Start Time Stop Time Status Last Admin Dose Admin Albuterol/ Ipratropium (Albuterol/ Ipratropium) 3 ml Q6HRT HHN 10/27/18 19:00 11/01/18 18:59 10/28/18 01:44 Aspirin (ASA) 81 mg DAILY ORAL 10/28/18 09:00 11/27/18 08:59 Atorvastatin Calcium (Lipitor) 40 mg BEDTIME ORAL 10/27/18 21:00 11/26/18 20:59 10/27/18 20:27 Dextrose (Dextrose 50%) 25 ml Q30M PRN IV Hypoglycemia 10/27/18 15:00 11/26/18 14:59 Dextrose (Dextrose 50%) 50 ml Q30M PRN IV Hypoglycemia 10/27/18 15:00 11/26/18 14:59 Heparin Sodium (Porcine) (Heparin 5000 units/ml) 5,000 units EVERY 12 HOURS SUBQ 10/27/18 21:00 11/26/18 20:59 10/27/18 20:28 Insulin Aspart (NovoLOG) BEFORE MEALS AND HS SUBQ 10/27/18 16:30 11/26/18 16:29 10/27/18 17:26 Insulin Aspart (NovoLOG) 10 units NOVOTIAC SUBQ 10/27/18 16:50 11/26/18 16:49 10/27/18 17:25 Insulin Detemir (Levemir) 40 units BEDTIME SUBQ 10/27/18 21:00 11/26/18 20:59 Pantoprazole (Protonix) 40 mg DAILY IVP 10/28/18 09:00 11/27/18 08:59 Anant Maloney MD Oct 28, 2018 05:12
[2018-10-28] MEDS: NovoLOG Insulin Flexpen SUBQ SCH ×8 (05:48→20:37)
--- NOTE | 2018-10-28 06:30 | History and Physical Report ---
DATE OF ADMISSION: 10/27/2018 HISTORY OF PRESENT ILLNESS: The patient is a very poor historian, cannot provide any history. The patient was admitted with chest pain and uncontrolled diabetes mellitus. The patient had elevated sugars of greater than 200 at the intermediate, also complained of shortness of breath, dyspnea, and chest pain. The patient came to the ER, was put on . The patient has a history of CHF and COPD as well. The patient is a very poor historian, cannot rely on his history. PAST MEDICAL HISTORY: Significant for CHF, COPD, hyperlipidemia, constipation, iron-deficiency anemia, NIDDM, hypertension, GERD. PAST SURGICAL HISTORY: Denies. ALLERGIES: No known allergies. MEDICATIONS: Aspirin, Lipitor, bisacodyl, vitamin D, Colace, fish oil, Lantus, metoprolol, omeprazole, potassium, Lyrica. FAMILY HISTORY: Noncontributory. SOCIAL HISTORY: Unable to obtain. Comes from a intermediate. REVIEW OF SYSTEMS: Very poor historian, currently unable to obtain. PHYSICAL EXAMINATION: VITAL SIGNS: Temperature 97.1, pulse 75, blood pressure 90/55. HEENT: PERRLA. NECK: Supple. CHEST: Bibasilar wheezing. CARDIOVASCULAR: Regular rate and rhythm. ABDOMEN: Soft. Positive bowel sounds. No organomegaly. EXTREMITIES: 1+ edema. Reflexes on both sides. EXTREMITIES: Does have edema in the lower extremities. LABORATORY DATA: WBC of 8.3, hemoglobin 9.8, and platelets of 149. Sodium 140, potassium 4.8, BUN of 27, creatinine 1.9, glucose of . ASSESSMENT: 1. Uncontrolled diabetes mellitus. 2. Chest pain. 3. Acute renal failure. I have asked Dr. Wilde, Dr. Ackerman, Dr. Amaya, and Dr. Maloney to see the patient for the above-mentioned diagnoses and treatment. Laurie Mcmullen M.D. DR: Don JOB#: [id number] CC:
[2018-10-28 08:00] VITALS: BP 121/51
--- NOTE | 2018-10-28 08:30 | Consultation ---
DATE OF CONSULTATION: 10/28/2018 ENDOCRINOLOGY CONSULTATION CONSULTING PHYSICIAN: Niko Amaya M.D. REFERRING PHYSICIAN: Laurie Mcmullen M.D. REASON FOR CONSULTATION: Diabetes management. HISTORY OF PRESENT ILLNESS: The patient is a very poor historian and cannot provide any history, admitted for chest pain and uncontrolled diabetes, glucose over of 200 to 300 at long-term, on insulin. I was called to manage diabetes. PAST MEDICAL HISTORY: 1. CHF. 2. COPD. 3. Dyslipidemia. 4. Iron deficiency anemia. 5. Diabetes. 6. Hypertension. 7. GERD. PAST SURGICAL HISTORY: None. ALLERGIES TO MEDICATIONS: None. MEDICATIONS: As an outpatient, 1. Aspirin. 2. Lipitor. 3. Lantus. 4. Metoprolol. 5. Omeprazole. 6. Potassium. 7. Lyrica. FAMILY HISTORY: Noncontributory. SOCIAL HISTORY: [facility], no smoking, alcohol, or drug use. REVIEW OF SYSTEMS: Difficult to obtain. PHYSICAL EXAMINATION: VITAL SIGNS: Blood pressure is 90/55, pulse 75, temperature 97.1, and respiratory rate of 14. HEENT: Pupils are equal and reactive to light and accommodation. NECK: No JVD. HEART: Regular. LUNGS: Clear. ABDOMEN: Positive bowel sounds. EXTREMITIES: Trace edema. LABORATORY DATA: WBC 8, hemoglobin 9, hematocrit 30, and platelet count of 149,000. Sodium 140, potassium 4.8, chloride 102, bicarbonate 31, BUN 27, creatinine 1.9, and glucose 317. Hemoglobin A1c of 8.8. Lactic acid of 2.2. DIAGNOSES: 1. Lactic acidosis. 2. Acute kidney injury. PLAN: 1. Start Levemir 40 units at bedtime. 2. NovoLog 30 units before each meal with sliding scale. 3. Further adjustment according to blood glucose values. I will follow the patient during hospital stay. Thank you, Dr. Mcmullen, for the courtesy of this consultation. Niko Amaya M.D. DR: MANDI JOB#: [id number] CC: MAGED
[2018-10-28] MEDS: Pantoprazole Inj IVP SCH (08:50)
[2018-10-28] MEDS: Aspirin Baby 81mg ORAL SCH (08:50)
[2018-10-28] MEDS: Heparin 5000 units/ml inj SUBQ SCH ×2 (08:51→20:03)
[2018-10-28 12:00] VITALS: BP 135/58
[2018-10-28 16:00] VITALS: BP 135/54
[2018-10-28] MEDS ORDERED: D5 1/2NS 1,000 ML IV SCH (16:00)
--- NOTE | 2018-10-28 16:42 | Consultation ---
Consult Note Consult Note asked to eval patient for elevated Cr HPI This patient presents from a care home facility. The patient is here because the staff at the care home facility state that the blood sugar was elevated on the morning labs. The blood sugar was over 400. Patient himself has no specific complaints. Although, he states he does intermittently have chest pain. There is no recent illness. There is no report of fever or chills. There has been no nausea or vomiting. There are no other complaints. No Known Allergies (Unverified , 09/30/17) Hx Hypertension: Yes Hx Pacemaker: Yes Hx Diabetes: Yes Hx Cerebrovascular Accident: Yes Hx Dysphasia: Yes examined data reviewed on BIPAP . Assessment/Plan Renal failure ? Acute on Chronic Respiratory failure anemia DM OOC High lactic level HypoAlbuminemia and Proteinuria s/p Cardiac surgery - Pace maker optimize cardiac and pulmonary status urine studies kidney MARY 2D echo Bonifacio Ackerman MD Oct 28, 2018 16:42
--- NOTE | 2018-10-28 17:38 | Consultation ---
History of Present Illness General Chief Complaint: General Complaint Present Illness Allergies: Coded Allergies: No Known Allergies (Unverified , 09/30/17) Medication History Scheduled Amino Acids/Protein Hydrolys (Pro-Stat Liquid), 30 ML ORAL DAILY, (Reported) Amino Acids/Protein Hydrolys (Pro-Stat Liquid), 30 ML ORAL TWICE A DAY, ( Reported) Aspirin Ec* (Aspirin Ec*), 81 MG ORAL DAILY, (Reported) Atorvastatin Calcium* (Lipitor*), 40 MG ORAL BEDTIME, (Reported) Cholecalciferol (Vitamin D3) (Vitamin D-400*), 400 UNITS ORAL DAILY, (Reported) Docusate Sodium* (Docusate Sodium*), 100 MG ORAL DAILY, (Reported) Docusate Sodium* (Colace*), 100 MG ORAL DAILY, (Reported) Ferrous Sulfate* (Ferrous Sulfate*), 325 MG ORAL DAILY, (Reported) Fish Oil (Fish Oil 1,000 mg Capsule), 1,000 MG ORAL DAILY, (Reported) Insulin Glargine (Lantus), 56 UNITS SUBQ BEDTIME, (Reported) Meclizine Hcl* (Meclizine*), 25 MG ORAL DAILY, (Reported) Metoprolol Tartrate* (Metoprolol Tartrate*), 50 MG ORAL DAILY, (Reported) Omeprazole (Omeprazole), 20 MG ORAL DAILY, (Reported) Potassium Chloride (Potassium Chloride), 10 MEQ ORAL DAILY, (Reported) Pregabalin (Lyrica), 200 MG ORAL TWICE A DAY, (Reported) Scheduled PRN Acetaminophen* (Tylenol Extra Strength*), 1,000 MG ORAL Q4HR PRN for Mild Pain/ Temp > 100.5, (Reported) Acetaminophen* (Acetaminophen 325MG Tablet*), 650 MG ORAL Q4H PRN for Fever/ Headache/Mild Pain, (Reported) Bisacodyl (Dulcolax), 10 MG RC for Constipation, (Reported) Guaifenesin/Codeine Phos* (Robitussin Ac*), 1 TSP ORAL Q4H PRN for For Cough, ( Reported) Hydrocodone Bit/Acetaminophen 5-325* (Ira 5-325 Tablet*), 1 TAB ORAL Q4H PRN for SEVERE PAIN (7-10), (Reported) Magnesium Hydroxide* (Milk Of Magnesia*), 30 ML ORAL HS PRN for Constipation, ( Reported) Na Phos,M-B/Na Phos,Di-Ba* (Fleet Enema*), 133 ML RECTAL DAILY PRN for Constipation, (Reported) Miscellaneous Medications Cranberry Fruit Concentrate (Cranberry), 450 MG PO, (Reported) Patient History Healthcare decision maker uRdy Turner-son Resuscitation status Full Code Advanced Directive on File No Physical Exam Last 24 Hour Vital Signs Date Time Temp Pulse Resp B/P (MAP) Pulse Ox O2 Delivery O2 Flow Rate FiO2 10/28/18 17:28 75 16 100 Facial 28 10/28/18 16:00 28 10/28/18 16:00 Bi-pap 10/28/18 16:00 97.7 75 14 135/54 (81) 99 10/28/18 16:00 75 10/28/18 14:37 75 16 100 Facial 28 10/28/18 12:54 77 18 100 Bi-pap 28 10/28/18 12:47 75 14 100 Bi-pap 28 10/28/18 12:46 75 14 100 Facial 28 10/28/18 12:00 Bi-pap 10/28/18 12:00 78 10/28/18 12:00 98.4 77 15 135/58 (83) 100 10/28/18 12:00 40 10/28/18 11:18 75 14 100 Facial 40 10/28/18 08:35 75 18 100 Facial 40 10/28/18 08:00 98.8 75 19 121/51 (74) 100 10/28/18 08:00 79 10/28/18 08:00 Bi-pap 10/28/18 07:13 75 18 100 Venturi Mask 40 10/28/18 06:58 40 10/28/18 06:58 75 18 100 Venturi Mask 8.0 40 10/28/18 06:50 75 18 100 10/28/18 06:00 40 10/28/18 05:00 75 18 100 10/28/18 04:00 Bi-pap 10/28/18 04:00 40 10/28/18 04:00 97.8 75 24 130/59 (82) 100 10/28/18 03:41 79 10/28/18 03:23 75 18 100 10/28/18 02:00 75 18 100 Venturi Mask 40 4/18/19 01:45 74 18 100 10/28/18 01:44 40 10/28/18 01:44 75 20 100 Bi-pap 40 10/28/18 00:00 Bi-pap 10/28/18 00:00 98.2 75 21 116/71 (86) 100 10/27/18 23:47 75 14 100 Facial 40 10/27/18 23:24 75 10/27/18 20:46 75 20 100 Bi-pap 40 10/27/18 20:46 40 10/27/18 20:44 75 20 100 Facial 40 10/27/18 20:00 Bi-pap 10/27/18 20:00 40 10/27/18 20:00 98.1 75 21 90/55 (67) 100 10/27/18 19:24 75 10/27/18 17:47 91 19 96 Facial 40 Intake and Output 10/27/18 10/28/18 19:00 07:00 Intake Total 0 ml 250 ml Output Total 2 ml 1000 ml Balance -2 ml -750 ml Intake Oral 0 ml IV Total 250 ml Output Urine Total 2 ml 1000 ml Laboratory Tests Test 10/28/18 06:55 10/28/18 09:40 Arterial Blood pH 7.360 (7.350-7.450) 7.340 (7.350-7.450) Arterial Blood Partial Pressure CO2 53.3 mmHg (35.0-45.0) H 50.4 mmHg (35.0-45.0) H Arterial Blood Partial Pressure O2 143.4 mmHg (75.0-100.0) H 113.5 mmHg (75.0-100.0) H Arterial Blood HCO3 29.5 mmol/L (22.0-26.0) H 27.0 mmol/L (22.0-26.0) H Arterial Blood Oxygen Saturation 98.2 % (95-100) 97.5 % (95-100) Arterial Blood Base Excess 3.4 (-2-2) H 1.0 (-2-2) Jeancarlos Test Positive Positive Height (Feet): 6 Height (Inches): 1.00 Weight (Pounds): 170 Medications Current Medications Medications (Trade) Dose Ordered Sig/Olga Lidia Route PRN Reason Start Time Stop Time Status Last Admin Dose Admin Albuterol/ Ipratropium (Albuterol/ Ipratropium) 3 ml Q6HRT HHN 10/27/18 19:00 11/01/18 18:59 10/28/18 12:46 Aspirin (ASA) 81 mg DAILY ORAL 10/28/18 09:00 11/27/18 08:59 10/28/18 08:50 Atorvastatin Calcium (Lipitor) 40 mg BEDTIME ORAL 10/27/18 21:00 11/26/18 20:59 10/27/18 20:27 Dextrose (Dextrose 50%) 25 ml Q30M PRN IV Hypoglycemia 10/27/18 15:00 11/26/18 14:59 Dextrose (Dextrose 50%) 50 ml Q30M PRN IV Hypoglycemia 10/27/18 15:00 11/26/18 14:59 Dextrose/Sodium Chloride 1,000 ml @ 40 mls/hr Q24H IV 10/28/18 16:00 10/29/18 04:00 10/28/18 16:10 Fish Oil (Fish Oil) 1,000 mg DAILY ORAL 10/29/18 09:00 11/28/18 08:59 Heparin Sodium (Porcine) (Heparin 5000 units/ml) 5,000 units EVERY 12 HOURS SUBQ 10/27/18 21:00 11/26/18 20:59 10/28/18 08:51 Insulin Aspart (NovoLOG) BEFORE MEALS AND HS SUBQ 10/27/18 16:30 11/26/18 16:29 10/28/18 17:17 Insulin Aspart (NovoLOG) 10 units NOVOTIAC SUBQ 10/27/18 16:50 11/26/18 16:49 10/27/18 17:25 Insulin Detemir (Levemir) 40 units BEDTIME SUBQ 10/27/18 21:00 11/26/18 20:59 Pantoprazole (Protonix) 40 mg DAILY IVP 10/28/18 09:00 11/27/18 08:59 10/28/18 08:50 Assessment/Plan Assessment: Hematology Consultation Chief Complaint: General Complaint REQ : Laurie Mcmullen Source: Medical Record RFC: Anemia evaluation, thrombocytopenia DOS: 10/28/18 HPI 73y old male I have seen before on most recent admission, presents from a long term facility. The patient is here because the staff at the long term facility state that the blood sugar was elevated on the morning labs. The blood sugar was over 400. Patient himself has no specific complaints. Although, he states he does intermittently have chest pain. There is no recent illness. There is no report of fever or chills. There has been no nausea or vomiting. There are no other complaints. Heme consulted for evaluation. Allergies: No Known Allergies (Unverified , 09/30/17) Patient History Past Medical History: see triage record, old chart reviewed, DM, HTN, SC, CAD, CHF, CVA/TIA, dementia, psych hx, renal disease Past Surgical History: pacemaker Social History: Denies: smoking, alcohol use, drug use Reviewed Nursing Documentation: PMH: Agreed; PSxH: Agreed Nursing Documentation-PMH Hx Hypertension: Yes Hx Pacemaker: Yes Hx Diabetes: Yes Hx Cerebrovascular Accident: Yes Hx Dysphasia: Yes Review of systems: negative except mentioned in HPI Vital Signs Date Time Temp Pulse Resp B/P (MAP) Pulse Ox O2 Delivery O2 Flow Rate FiO2 10/27/18 10:18 97.9 78 16 137/68 94 Room Air 10/27/18 10:32 21 PE Gen: no apparent distress, alert, GCS 15, non-toxic Head: normocephalic, atraumatic ENT: hearing grossly normal, normal pharynx, no angioedema, normal voice Neck: full range of motion, supple/symm/no masses Respiratory: chest non-tender, lungs clear, normal breath sounds, no respiratory distress, no retraction, no accessory muscle use, speaking full sentences CV: rrr, no edema, systolic murmur GI: normal bowel sounds, non tender, soft, nD MSK: back normal, normal range of motion, non-tender Neurologic: alert, oriented x3, responsive, sensory intact Psych: judgement/insight normal, mood/affect normal Skin: normal color, no rash, warm/dry, well hydrated Laboratory Tests Test 10/28/18 06:55 10/28/18 09:40 Arterial Blood pH 7.360 (7.350-7.450) 7.340 (7.350-7.450) Arterial Blood Partial Pressure CO2 53.3 mmHg (35.0-45.0) H 50.4 mmHg (35.0-45.0) H Arterial Blood Partial Pressure O2 143.4 mmHg (75.0-100.0) H 113.5 mmHg (75.0-100.0) H Arterial Blood HCO3 29.5 mmol/L (22.0-26.0) H 27.0 mmol/L (22.0-26.0) H Arterial Blood Oxygen Saturation 98.2 % (95-100) 97.5 % (95-100) Arterial Blood Base Excess 3.4 (-2-2) H 1.0 (-2-2) Jeancarlos Test Positive Positive Assessment and Recs: # Anemia of chronic disease (or of iron deficiency) due to underlying chronic medical issues, multifactorial --> Anemia workup has been ordered, rule out gi bleed --> No evidence of hemolysis is noted, peripheral smear has been reviewed. --> Hgb goal >7. Transfuse prn. --> Epogen or iron at this time is not particularly indicated --> Medications have been reviewed --> evaluate with Gi team prn --> transfuse if hgb is < 7 (will trend CBC daily) --> low threshold for gi evaluation in case has occult + # Thrombocytopenia - potential causes multifactorial, evaluate liver and viral etiologies to begin, also could be related to underlying medications patient has received. --> Hep panel and HIV ordered --> US abd to evaluate for cirrhosis and hsm ordered --> Peripheral smear ordered to evaluate for blasts /schistocytes --> abx and other meds have been reviewed --> ok for ppx if plt >50k w/ either heparin or lovenox --> Transfuse if Plt < 20k and fever, or if Plt < 10k without fever # Uncontrolled diabetes mellitus --> insulin ss, and accuchecks qac and qhs # Lactic acid acidosis --> on abx, on iVF as needed # Dehydration on IVF The timing of this note does not necessarily reflect the time of the patient was seen. Greatly appreciate consultation! Tahir Tony MD Oct 28, 2018 17:38
[2018-10-28 20:00] VITALS: BP 138/82
[2018-10-28] MEDS: Atorvastatin 20mg tab ORAL SCH (20:02)
[2018-10-28] MEDS: Levemir Flexpen SUBQ SCH (20:37)
--- NOTE | 2018-10-28 21:23 | Pulmonology Progress Note ---
Assessment/Plan Assessment/Plan Pulmonary Progress Note HPI Patient admitted from a halfway facility with elevated blood sugar, no specific complaints. The patient was had intermittent have chest pain in the past. There is no recent illness. There is no report of fever or chills. There has been no nausea or vomiting. There are no other complaints. On PRN BiPAP Allergies: No Known Allergies Past Medical History: Diabetes, Hypertension, CAD with previous MT, CHF, CVA/ TIA, Dementia, Psych hx, Renal disease Past Surgical History: Pacemaker All Other Systems: negative except mentioned in HPI Physical Exam Vital Signs Noted, on BiPAP General Appearance: no apparent distress, non-toxic Head: normocephalic, atraumatic ENT: hearing grossly normal, normal pharynx, no angioedema, normal voice Neck: full range of motion, supple/symm/no masses Respiratory: chest non-tender, lungs clear, normal breath sounds, no respiratory distress, no retraction, no accessory muscle use, speaking full sentences Cardiovascular: HS1, HS2, normal, regular rate, rhythm, no edema, systolic murmur Gastrointestinal: normal bowel sounds, non tender, soft, non-distended, no guarding, no rebound Rectal: deferred Musculoskeletal: back normal, normal range of motion, non-tender Neurologic: awake, responsive, sensory intact, speech normal, grossly normal Psychiatric: judgement/insight normal, mood/affect normal Skin: normal color, no rash, warm/dry, well hydrated Impression: Primary Impression: Uncontrolled diabetes mellitus: Lactic acid acidosis Anemia History of Hypertension CAD with previous MT Congestive Heart Failure Previous CVA/TIA Dementia Psych history Renal disease Pacemaker Plan Insulin SS Diuresis PRN per Cardoliogy Continue current BiPAP with repeat ABG HHN O2 PRN O2 sats 90-94% PPX ORDER TAKER Medications DW RN at bedside Laboratory Tests Test 10/27/18 10:30 10/27/18 10:40 10/27/18 11:51 White Blood Count 8.3 K/UL (4.8-10.8) Red Blood Count 3.51 M/UL (4.70-6.10) L Hemoglobin 9.8 G/DL (14.2-18.0) L Hematocrit 30.4 % (42.0-52.0) L Mean Corpuscular Volume 87 FL (80-99) Mean Corpuscular Hemoglobin 28.0 PG (27.0-31.0) Mean Corpuscular Hemoglobin Concent 32.3 G/DL (32.0-36.0) Red Cell Distribution Width 16.4 % (11.6-14.8) H Platelet Count 149 K/UL (150-450) L Mean Platelet Volume 8.8 FL (6.5-10.1) Neutrophils (%) (Auto) 64.1 % (45.0-75.0) Lymphocytes (%) (Auto) 25.7 % (20.0-45.0) Monocytes (%) (Auto) 7.4 % (1.0-10.0) Eosinophils (%) (Auto) 2.0 % (0.0-3.0) Basophils (%) (Auto) 0.8 % (0.0-2.0) Sodium Level 140 MMOL/L (136-145) Potassium Level 4.8 MMOL/L (3.5-5.1) Chloride Level 103 MMOL/L (98-107) Carbon Dioxide Level 31 MMOL/L (21-32) Anion Gap 6 mmol/L (5-15) Blood Urea Nitrogen 27 mg/dL (7-18) H Creatinine 1.9 MG/DL (0.55-1.30) H Estimate Glomerular Filtration Rate mL/min (>60) Glucose Level 315 MG/DL (74-106) H Lactic Acid Level 2.20 mmol/L (0.4-2.0) H Pending Calcium Level 8.8 MG/DL (8.5-10.1) Phosphorus Level 2.9 MG/DL (2.5-4.9) Magnesium Level 1.6 MG/DL (1.8-2.4) L Total Bilirubin 0.5 MG/DL (0.2-1.0) Aspartate Amino Transferase (AST) 18 U/L (15-37) Alanine Aminotransferase (ALT) 25 U/L (12-78) Alkaline Phosphatase 166 U/L (46-116) H Total Creatine Kinase 77 U/L (26-308) Creatine Kinase MB 2.2 NG/ML (0.0-3.6) Creatine Kinase MB Relative Index 2.8 Troponin I 0.050 ng/mL (0.000-0.056) Total Protein 7.6 G/DL (6.4-8.2) Albumin 2.9 G/DL (3.4-5.0) L Globulin 4.7 g/dL Albumin/Globulin Ratio 0.6 (1.0-2.7) L Urine Color Pale yellow Urine Appearance Clear Urine pH 5 (4.5-8.0) Urine Specific [place] 1.010 (1.005-1.035) Urine Protein 3+ (NEGATIVE) H Urine Glucose (UA) 2+ (NEGATIVE) H Urine Ketones Negative (NEGATIVE) Urine Blood 1+ (NEGATIVE) H Urine Nitrite Negative (NEGATIVE) Urine Bilirubin Negative (NEGATIVE) Urine Urobilinogen Normal MG/DL (0.0-1.0) Urine Leukocyte Esterase Negative (NEGATIVE) Urine RBC 0-2 /HPF (0 - 0) H Urine WBC 0-2 /HPF (0 - 0) Urine Squamous Epithelial Cells Occasional /LPF Urine Bacteria Occasional /HPF (NONE) EKG: Rate: normal Rhythm: other - Paced ST Segments: no acute changes Chest X-Ray: Cardiomegaly and evidence of prior cardiac surgery Prominence of the central pulmonary vasculature and very mild haziness of the pulmonary vascularity suggest mild CHF. Findings may be slightly increased compared to exam 4 hours today. Correlation with clinical findings is recommended. Subjective ROS Limited/Unobtainable: No Allergies: Coded Allergies: No Known Allergies (Unverified , 09/30/17) Objective Last 24 Hour Vital Signs Date Time Temp Pulse Resp B/P (MAP) Pulse Ox O2 Delivery O2 Flow Rate FiO2 10/28/18 20:58 75 19 100 Facial 28 10/28/18 20:00 98.0 75 15 138/82 (100) 100 10/28/18 20:00 28 10/28/18 20:00 Bi-pap 10/28/18 19:33 76 16 100 Bi-pap 28 10/28/18 19:21 75 16 100 Bi-pap 28 10/28/18 19:20 75 16 100 Facial 28 10/28/18 19:09 75 10/28/18 17:28 75 16 100 Facial 28 10/28/18 16:00 28 10/28/18 16:00 Bi-pap 10/28/18 16:00 97.7 75 14 135/54 (81) 99 10/28/18 16:00 75 10/28/18 14:37 75 16 100 Facial 28 10/28/18 12:54 77 18 100 Bi-pap 28 10/28/18 12:47 75 14 100 Bi-pap 28 10/28/18 12:46 75 14 100 Facial 28 10/28/18 12:00 Bi-pap 10/28/18 12:00 78 10/28/18 12:00 98.4 77 15 135/58 (83) 100 10/28/18 12:00 40 10/28/18 11:18 75 14 100 Facial 40 10/28/18 08:35 75 18 100 Facial 40 10/28/18 08:00 98.8 75 19 121/51 (74) 100 10/28/18 08:00 79 10/28/18 08:00 Bi-pap 10/28/18 07:13 75 18 100 Venturi Mask 40 10/28/18 06:58 40 10/28/18 06:58 75 18 100 Venturi Mask 8.0 40 10/28/18 06:50 75 18 100 10/28/18 06:00 40 10/28/18 05:00 75 18 100 10/28/18 04:00 Bi-pap 10/28/18 04:00 40 10/28/18 04:00 97.8 75 24 130/59 (82) 100 10/28/18 03:41 79 10/28/18 03:23 75 18 100 10/28/18 02:00 75 18 100 Venturi Mask 40 10/28/18 01:45 74 18 100 10/28/18 01:44 40 10/28/18 01:44 75 20 100 Bi-pap 40 10/28/18 00:00 Bi-pap 10/28/18 00:00 98.2 75 21 116/71 (86) 100 10/27/18 23:47 75 14 100 Facial 40 10/27/18 23:24 75 Intake and Output 10/27/18 10/28/18 19:00 07:00 Intake Total 0 ml 250 ml Output Total 2 ml 1000 ml Balance -2 ml -750 ml Intake Oral 0 ml IV Total 250 ml Output Urine Total 2 ml 1000 ml Microbiology Date/Time Source Procedure Growth Status 10/27/18 10:55 Rectum Received Laboratory Tests 10/28/18 06:55: Arterial Blood pH 7.360, Arterial Blood Partial Pressure CO2 53.3H, Arterial Blood Partial Pressure O2 143.4H, Arterial Blood HCO3 29.5H, Arterial Blood Oxygen Saturation 98.2, Arterial Blood Base Excess 3.4H, Jeancarlos Test Positive 10/28/18 09:40: Arterial Blood pH 7.340L, Arterial Blood Partial Pressure CO2 50.4H, Arterial Blood Partial Pressure O2 113.5H, Arterial Blood HCO3 27.0H, Arterial Blood Oxygen Saturation 97.5, Arterial Blood Base Excess 1.0, Jeancarlos Test Positive 10/28/18 20:00: Hepatitis A IgM Antibody [Pending], Hepatitis B Surface Antigen [Pending], Hepatitis B Core IgM Antibody [Pending], Hepatitis C Antibody [Pending], HIV (1& 2) Antibody Rapid Negative Current Medications Medications (Trade) Dose Ordered Sig/Olga Lidia Route PRN Reason Start Time Stop Time Status Last Admin Dose Admin Albuterol/ Ipratropium (Albuterol/ Ipratropium) 3 ml Q6HRT HHN 10/27/18 19:00 11/01/18 18:59 10/28/18 19:20 Aspirin (ASA) 81 mg DAILY ORAL 10/28/18 09:00 11/27/18 08:59 10/28/18 08:50 Atorvastatin Calcium (Lipitor) 40 mg BEDTIME ORAL 10/27/18 21:00 11/26/18 20:59 10/28/18 20:02 Dextrose (Dextrose 50%) 25 ml Q30M PRN IV Hypoglycemia 10/27/18 15:00 11/26/18 14:59 Dextrose (Dextrose 50%) 50 ml Q30M PRN IV Hypoglycemia 10/27/18 15:00 11/26/18 14:59 Dextrose/Sodium Chloride 1,000 ml @ 40 mls/hr Q24H IV 10/28/18 16:00 10/29/18 04:00 10/28/18 16:10 Fish Oil (Fish Oil) 1,000 mg DAILY ORAL 10/29/18 09:00 11/28/18 08:59 Heparin Sodium (Porcine) (Heparin 5000 units/ml) 5,000 units EVERY 12 HOURS SUBQ 10/27/18 21:00 11/26/18 20:59 10/28/18 20:03 Insulin Aspart (NovoLOG) BEFORE MEALS AND HS SUBQ 10/27/18 16:30 11/26/18 16:29 10/28/18 17:17 Insulin Aspart (NovoLOG) 10 units NOVOTIAC SUBQ 10/27/18 16:50 11/26/18 16:49 10/27/18 17:25 Insulin Detemir (Levemir) 40 units BEDTIME SUBQ 10/27/18 21:00 11/26/18 20:59 Pantoprazole (Protonix) 40 mg DAILY IVP 10/28/18 09:00 11/27/18 08:59 10/28/18 08:50 Anant Maloney MD Oct 28, 2018 21:23
--- NOTE | 2018-10-28 21:57 | General Progress Note ---
Assessment/Plan Problem List: (1) Hyperlipidemia ICD Codes: E78.5 - Hyperlipidemia, unspecified SNOMED: 46951774 (2) Diabetes mellitus ICD Codes: E11.9 - Type 2 diabetes mellitus without complications SNOMED: 83515031 (3) Diabetic nephropathy ICD Codes: E11.21 - Type 2 diabetes mellitus with diabetic nephropathy SNOMED: 38659739, 459099942 (4) Pacemaker ICD Codes: Z95.0 - Presence of cardiac pacemaker SNOMED: 323096594 (5) Hypertension ICD Codes: I10 - Essential (primary) hypertension SNOMED: 65019093 (6) Anemia ICD Codes: D64.9 - Anemia, unspecified SNOMED: 607812983 (7) Chest pain ICD Codes: R07.9 - Chest pain, unspecified SNOMED: 57614397 (8) Uncontrolled diabetes mellitus ICD Codes: E11.65 - Type 2 diabetes mellitus with hyperglycemia SNOMED: 80539752, 447056175 Status: progressing Assessment: sugar is improving no cp afebrile nidds dementia reviwed chart and labs and meds Subjective ROS Limited/Unobtainable: Yes Allergies: Coded Allergies: No Known Allergies (Unverified , 09/30/17) Objective Last 24 Hour Vital Signs Date Time Temp Pulse Resp B/P (MAP) Pulse Ox O2 Delivery O2 Flow Rate FiO2 10/28/18 20:58 75 19 100 Facial 28 10/28/18 20:00 98.0 75 15 138/82 (100) 100 10/28/18 20:00 28 10/28/18 20:00 Bi-pap 10/28/18 19:33 76 16 100 Bi-pap 28 10/28/18 19:21 75 16 100 Bi-pap 28 10/28/18 19:20 75 16 100 Facial 28 10/28/18 19:09 75 10/28/18 17:28 75 16 100 Facial 28 10/28/18 16:00 28 10/28/18 16:00 Bi-pap 10/28/18 16:00 97.7 75 14 135/54 (81) 99 10/28/18 16:00 75 10/28/18 14:37 75 16 100 Facial 28 10/28/18 12:54 77 18 100 Bi-pap 28 10/28/18 12:47 75 14 100 Bi-pap 28 10/28/18 12:46 75 14 100 Facial 28 10/28/18 12:00 Bi-pap 10/28/18 12:00 78 10/28/18 12:00 98.4 77 15 135/58 (83) 100 10/28/18 12:00 40 10/28/18 11:18 75 14 100 Facial 40 10/28/18 08:35 75 18 100 Facial 40 10/28/18 08:00 98.8 75 19 121/51 (74) 100 10/28/18 08:00 79 10/28/18 08:00 Bi-pap 10/28/18 07:13 75 18 100 Venturi Mask 40 10/28/18 06:58 40 10/28/18 06:58 75 18 100 Venturi Mask 8.0 40 10/28/18 06:50 75 18 100 10/28/18 06:00 40 10/28/18 05:00 75 18 100 10/28/18 04:00 Bi-pap 10/28/18 04:00 40 10/28/18 04:00 97.8 75 24 130/59 (82) 100 10/28/18 03:41 79 10/28/18 03:23 75 18 100 10/28/18 02:00 75 18 100 Venturi Mask 40 10/28/18 01:45 74 18 100 10/28/18 01:44 40 10/28/18 01:44 75 20 100 Bi-pap 40 10/28/18 00:00 Bi-pap 10/28/18 00:00 98.2 75 21 116/71 (86) 100 10/27/18 23:47 75 14 100 Facial 40 10/27/18 23:24 75 Intake and Output 10/27/18 10/28/18 19:00 07:00 Intake Total 0 ml 250 ml Output Total 2 ml 1000 ml Balance -2 ml -750 ml Intake Oral 0 ml IV Total 250 ml Output Urine Total 2 ml 1000 ml Laboratory Tests 10/28/18 06:55: Arterial Blood pH 7.360, Arterial Blood Partial Pressure CO2 53.3H, Arterial Blood Partial Pressure O2 143.4H, Arterial Blood HCO3 29.5H, Arterial Blood Oxygen Saturation 98.2, Arterial Blood Base Excess 3.4H, Jeancarlos Test Positive 10/28/18 09:40: Arterial Blood pH 7.340L, Arterial Blood Partial Pressure CO2 50.4H, Arterial Blood Partial Pressure O2 113.5H, Arterial Blood HCO3 27.0H, Arterial Blood Oxygen Saturation 97.5, Arterial Blood Base Excess 1.0, Jeancarlos Test Positive 10/28/18 20:00: Hepatitis A IgM Antibody [Pending], Hepatitis B Surface Antigen [Pending], Hepatitis B Core IgM Antibody [Pending], Hepatitis C Antibody [Pending], HIV (1& 2) Antibody Rapid Negative Height (Feet): 6 Height (Inches): 1.00 Weight (Pounds): 170 General Appearance: confused Cardiovascular: normal rate Respiratory/Chest: lungs clear aLurie Mcmullen MD Oct 28, 2018 21:57
[2018-10-29] VITALS (7 sets, daily range): BP systolic 94–152; BP diastolic 53–83
[2018-10-29] MEDS: Albuterol/Ipratropium 3ml neb HHN SCH ×4 (00:49→19:09)
[2018-10-29 05:42] LABS: BASOPHILS % (AUTO) 0.4 % (0.0-2.0); EOSINOPHILS % (AUTO) 1.5 % (0.0-3.0); HEMATOCRIT 27.5 % (42.0-52.0); HEMOGLOBIN 8.7 G/DL (14.2-18.0); LYMPHOCYTES % (AUTO) 34.9 % (20.0-45.0); MEAN CORPUSCULAR VOLUME 87 FL (80-99); MONOCYTES % (AUTO) 6.6 % (1.0-10.0); NEUTROPHILS % (AUTO) 56.6 % (45.0-75.0); PLATELET COUNT 117 K/UL (150-450); RED BLOOD COUNT 3.15 M/UL (4.70-6.10); RED CELL DISTRIBUTION WIDTH 16.5 % (11.6-14.8); WHITE BLOOD COUNT 5.1 K/UL (4.8-10.8)
[2018-10-29 06:18] LABS: ALANINE AMINOTRANSFERASE 21 U/L (12-78); ALBUMIN 2.4 G/DL (3.4-5.0); ALBUMIN/GLOBULIN RATIO 0.6 (1.0-2.7); ALKALINE PHOSPHATASE 118 U/L (46-116); ANION GAP 5 mmol/L (5-15); ASPARTATE AMINO TRANSFERASE 18 U/L (15-37); BILIRUBIN,TOTAL 0.6 MG/DL (0.2-1.0); BLOOD UREA NITROGEN 20 mg/dL (7-18); CALCIUM 8.7 MG/DL (8.5-10.1); CARBON DIOXIDE 32 MMOL/L (21-32); CHLORIDE 108 MMOL/L (98-107); CHOLESTEROL 161 MG/DL (< 200); CREATININE 1.9 MG/DL (0.55-1.30); FERRITIN 119 NG/ML (8-388); GAMMA GLUTAMYL TRANSPEPTIDASE 69 U/L (5-85); HDL CHOLESTEROL 42 MG/DL (40-60); PHOSPHORUS 2.8 MG/DL (2.5-4.9); POTASSIUM 3.9 MMOL/L (3.5-5.1); SODIUM 145 MMOL/L (136-145); TRIGLYCERIDES 125 MG/DL (30-150)
[2018-10-29] MEDS: NovoLOG Insulin Flexpen SUBQ SCH ×7 (06:30→22:07)
[2018-10-29 06:52] LABS: % IRON SATURATION 15 % (15-50); IRON 30 ug/dL (50-175); TOTAL IRON BINDING CAPACITY 206 ug/dL (250-450)
[2018-10-29] MEDS ORDERED: Allopurinol 100mg Tab ORAL SCH (09:00)
[2018-10-29] MEDS: Pantoprazole Inj IVP SCH (09:29)
[2018-10-29] MEDS: Aspirin Baby 81mg ORAL SCH (09:30)
[2018-10-29] MEDS: Heparin 5000 units/ml inj SUBQ SCH ×2 (09:33→21:00)
[2018-10-29] MEDS ORDERED: Iron Sucrose 200 MG in NS 110 ML IV SCH (11:00)
--- NOTE | 2018-10-29 12:13 | Diagnostic Imaging Report ---
Indication: Abnormal renal function. Diabetes, hypertension Technique: A plantar grayscale and duplex Doppler evaluation of the kidneys Comparison: 01/07/2018 Findings: Bladder is unremarkable in appearance. Right kidney measures 10.3 cm in length. Left kidney measures 10.6 cm in length. Renal echogenicity grossly within normal limits. No definite evidence of hydronephrosis. Some parapelvic cysts are noted on the right. Largest measures approximately 3.7 cm. These are similar compared to the prior exam. A small cortical cyst is again noted on the left. Imaged portions of the liver and IVC unremarkable. Impression: * No hydronephrosis or sonographically appreciable renal stone. * Renal echogenicity appears within normal limits. * Bilateral renal cysts.
--- NOTE | 2018-10-29 13:04 | Cardiology Report ---
APPROVED REPORT EXAM: Two-dimensional and M-mode echocardiogram with Doppler and color Doppler. INDICATION Congestive Heart Failure M-Mode DIMENSIONS IVSd1.0 (0.7-1.1cm)Left Atrium (MM)4.7 (1.6-4.0cm) LVDd6.1 (3.5-5.6cm)Aortic Root3.1 (2.0-3.7cm) PWd1.0 (0.7-1.1cm)Aortic Cusp Exc.1.6 (1.5-2.0cm) IVSs1.4 cm LVDs4.3 (2.5-4.0cm) PWs1.4 cm Other Information Technically limited study due to poor acoustical windows . Global left ventricular hypokinesis with distal anterior wall and apical akinesis. Mild left ventricular enlargement . Left ventricular ejection fraction estimated to be 30-35%. No evidence of left ventricular hypertrophy . Anterior Echo-free space, may be due to pericardial fat or effusion. All other cardiac chamber sizes are within normal limits. Aortic valve calcification with normal cusp excursion . Mildly thickened mitral valve leaflets with normal excursion. Mild mitral annulus and aortic root calcification. Pulmonic valve not well visualized. IVC at normal size with physiologic collapse . A color flow and spectral Doppler study was performed and revealed: No aortic insufficiency . Mitral diastolic velocities suggest reduced left ventricular relaxation c/w mild LV diastolic dysfunction (Grade I ) Mild to moderate mitral regurgitation. Mild tricuspid regurgitation. Tricuspid systolic velocities suggests peak right ventricular systolic pressure of 43 mmHg,consistent with mild pulmonary hypertension .
--- NOTE | 2018-10-29 13:58 | Nephrology Progress Note ---
Assessment/Plan Problem List: (1) Diabetic nephropathy (2) CKD (chronic kidney disease) (3) Pacemaker (4) Hyperlipidemia (5) Cardiomyopathy Assessment Renal failure ? Acute on Chronic Respiratory failure anemia DM OOC High lactic level HypoAlbuminemia and Proteinuria s/p Cardiac surgery - Pace maker Cardiomyopathy Plan optimize cardiac and pulmonary status hydralazine- Isordil urine studies kidney MARY * No hydronephrosis or sonographically appreciable renal stone. * Renal echogenicity appears within normal limits. * Bilateral renal cysts. 2D echo Global left ventricular hypokinesis with distal anterior wall and apical akinesis. Mild left ventricular enlargement . Left ventricular ejection fraction estimated to be 30-35%. Subjective ROS Limited/Unobtainable: No Constitutional: Reports: malaise Objective Objective Last 24 Hour Vital Signs Date Time Temp Pulse Resp B/P (MAP) Pulse Ox O2 Delivery O2 Flow Rate FiO2 10/29/18 13:22 75 20 95 Room Air 21 10/29/18 13:07 75 20 92 Room Air 21 10/29/18 12:00 97.2 75 18 145/68 (93) 96 10/29/18 12:00 75 10/29/18 12:00 Venturi Mask 10/29/18 12:00 2.0 10/29/18 08:00 2.0 10/29/18 08:00 98.6 80 16 143/78 (99) 96 10/29/18 08:00 Venturi Mask 10/29/18 07:40 75 10/29/18 06:53 77 16 94 Room Air 21 10/29/18 06:42 82 17 94 Room Air 21 10/29/18 04:00 98.4 74 14 140/83 (102) 99 10/29/18 04:00 28 10/29/18 04:00 Bi-pap 10/29/18 03:47 74 10/29/18 03:30 73 14 100 Facial 28 10/29/18 00:59 75 16 100 Bi-pap 28 10/29/18 00:48 76 16 99 Facial 28 10/29/18 00:48 76 16 99 Bi-pap 28 10/29/18 00:21 98.7 76 14 152/64 (93) 100 10/29/18 00:00 28 10/29/18 00:00 Bi-pap 10/28/18 23:38 77 10/28/18 22:50 75 19 100 Facial 28 10/28/18 20:58 75 19 100 Facial 28 10/28/18 20:00 98.0 75 15 138/82 (100) 100 10/28/18 20:00 28 10/28/18 20:00 Bi-pap 10/28/18 19:33 76 16 100 Bi-pap 28 10/28/18 19:21 75 16 100 Bi-pap 28 10/28/18 19:20 75 16 100 Facial 28 10/28/18 19:09 75 10/28/18 17:28 75 16 100 Facial 28 10/28/18 16:00 28 10/28/18 16:00 Bi-pap 10/28/18 16:00 97.7 75 14 135/54 (81) 99 10/28/18 16:00 75 10/28/18 14:37 75 16 100 Facial 28 Intake and Output 10/28/18 10/29/18 19:00 07:00 Intake Total 120 ml 360 ml Output Total 450 ml 700 ml Balance -330 ml -340 ml IV Total 120 ml 360 ml Output Urine Total 450 ml 700 ml Laboratory Tests 10/28/18 20:00: Hepatitis A IgM Antibody [Pending], Hepatitis B Surface Antigen [Pending], Hepatitis B Core IgM Antibody [Pending], Hepatitis C Antibody [Pending], HIV (1& 2) Antibody Rapid Negative 10/29/18 03:20: White Blood Count 5.1, Red Blood Count 3.15L, Hemoglobin 8.7L, Hematocrit 27.5L , Mean Corpuscular Volume 87, Mean Corpuscular Hemoglobin 27.6, Mean Corpuscular Hemoglobin Concent 31.6L, Red Cell Distribution Width 16.5H, Platelet Count 117L, Mean Platelet Volume 10.1, Neutrophils (%) (Auto) 56.6, Lymphocytes (%) (Auto) 34.9, Monocytes (%) (Auto) 6.6, Eosinophils (%) (Auto) 1.5, Basophils (%) (Auto) 0.4, Sodium Level 145, Potassium Level 3.9, Chloride Level 108H, Carbon Dioxide Level 32, Anion Gap 5, Blood Urea Nitrogen 20H, Creatinine 1.9H, Estimat Glomerular Filtration Rate , Glucose Level 162H, Hemoglobin A1c 9.2H, Uric Acid 7.5H, Calcium Level 8.7, Phosphorus Level 2.8, Magnesium Level 1.5L, Iron Level 30L, Total Iron Binding Capacity 206L, Percent Iron Saturation 15, Unsaturated Iron Binding 176, Ferritin 119, Total Bilirubin 0.6, Gamma Glutamyl Transpeptidase 69, Aspartate Amino Transf (AST/SGOT) 18, Alanine Aminotransferase (ALT/SGPT) 21, Alkaline Phosphatase 118H, Troponin I 0.063H, C-Reactive Protein, Quantitative 6.0H, Pro-B-Type Natriuretic Peptide 5343H, Total Protein 6.6, Albumin 2.4L, Globulin 4.2, Albumin/Globulin Ratio 0.6L, Triglycerides Level 125, Cholesterol Level 161, LDL Cholesterol 99, HDL Cholesterol 42, Cholesterol/HDL Ratio 3.8, Vitamin B12 Level 468, Folate 14.0, Thyroid Stimulating Hormone (TSH) 2.170 Height (Feet): 6 Height (Inches): 1.00 Weight (Pounds): 170 General Appearance: no apparent distress, lethargic Cardiovascular: normal rate Respiratory/Chest: decreased breath sounds Abdomen: distended Bonifacio Ackerman MD Oct 29, 2018 13:58
[2018-10-29] MEDS ORDERED: HydrALAZINE 25mg tab ORAL SCH (14:15)
[2018-10-29] MEDS ORDERED: NS 500ML ONE (17:07)
[2018-10-29] MEDS ORDERED: D5 1/2NS 1000ml IV ONE (17:07)
[2018-10-29] MEDS ORDERED: NS 275ml ONE ×2 (17:07)
--- NOTE | 2018-10-29 17:16 | General Progress Note ---
Assessment/Plan Assessment: Assessment and Recs: # Anemia of chronic disease due to underlying chronic medical issues, multifactorial, poorly controlled medical issues, i.e DM2 --> Anemia workup has been ordered, rule out gi bleed --> No evidence of hemolysis is noted, peripheral smear has been reviewed. --> Hgb goal >7. Transfuse prn. --> Epogen or iron at this time is not particularly indicated --> Medications have been reviewed --> evaluate with Gi team prn --> transfuse if hgb is < 7 (will trend CBC daily) --> low threshold for gi evaluation in case has occult + ==> trend 9-->8.7 # Thrombocytopenia - potential causes multifactorial, evaluate liver and viral etiologies to begin, also could be related to underlying medications patient has received. --> Hep panel and HIV ordered --> US abd to evaluate for cirrhosis and hsm ordered --> Peripheral smear ordered to evaluate for blasts /schistocytes --> abx and other meds have been reviewed --> Transfuse if Plt < 20k and fever, or if Plt < 10k without fever --> plt trend 149k-->117k # Uncontrolled diabetes mellitus --> insulin ss, and accuchecks qac and qhs # Lactic acid acidosis --> on abx, on iVF as needed # Dehydration on IVF The timing of this note does not necessarily reflect the time of the patient was seen. Greatly appreciate consultation! Subjective Constitutional: Denies: no symptoms, chills, diaphoresis, fever, malaise, weakness, other HEENT: Denies: no symptoms, eye pain, blurred vision, tearing, double vision, ear pain, ear discharge, nose pain, nose congestion, throat pain, throat swelling, mouth pain, mouth swelling, other Cardiovascular: Denies: no symptoms, chest pain, edema, irregular heart rate, lightheadedness, palpitations, syncope, other Respiratory: Denies: no symptoms, cough, orthopnea, shortness of breath, SOB with excertion, SOB at rest, sputum, stridor, wheezing, other Gastrointestinal/Abdominal: Denies: no symptoms, abdomen distended, abdominal pain, black stools, tarry stools, blood in stool, constipated, diarrhea, difficulty swallowing, nausea, poor appetite, poor fluid intake, rectal bleeding , vomiting, other Genitourinary: Denies: no symptoms, burning, discharge, frequency, flank pain, hematuria, incontinence, pain, urgency, other Neurologic/Psychiatric: Denies: no symptoms, anxiety, depressed, emotional problems, headache, numbness, paresthesia, pre-existing deficit, seizure, tingling, tremors, weakness, other Endocrine: Reports: unexplained weight gain Hematologic/Lymphatic: Denies: no symptoms, anemia, easy bleeding, easy bruising, other Allergies: Coded Allergies: No Known Allergies (Unverified , 09/30/17) Subjective 10/29: hgb 8.7, labs reviewed, no complaints, was off bipap Objective Last 24 Hour Vital Signs Date Time Temp Pulse Resp B/P (MAP) Pulse Ox O2 Delivery O2 Flow Rate FiO2 10/29/18 16:00 75 10/29/18 16:00 97.9 75 19 138/58 (84) 96 10/29/18 16:00 Venturi Mask 10/29/18 16:00 2.0 10/29/18 14:56 145/68 10/29/18 14:56 145/68 10/29/18 13:22 75 20 95 Room Air 21 10/29/18 13:07 75 20 92 Room Air 21 10/29/18 12:00 97.2 75 18 145/68 (93) 96 10/29/18 12:00 75 10/29/18 12:00 Venturi Mask 10/29/18 12:00 2.0 10/29/18 08:00 2.0 10/29/18 08:00 98.6 80 16 143/78 (99) 96 10/29/18 08:00 Venturi Mask 10/29/18 07:40 75 10/29/18 06:53 77 16 94 Room Air 21 10/29/18 06:42 82 17 94 Room Air 21 10/29/18 04:00 98.4 74 14 140/83 (102) 99 10/29/18 04:00 28 10/29/18 04:00 Bi-pap 10/29/18 03:47 74 10/29/18 03:30 73 14 100 Facial 28 10/29/18 00:59 75 16 100 Bi-pap 28 10/29/18 00:48 76 16 99 Facial 28 10/29/18 00:48 76 16 99 Bi-pap 28 10/29/18 00:21 98.7 76 14 152/64 (93) 100 10/29/18 00:00 28 10/29/18 00:00 Bi-pap 10/28/18 23:38 77 10/28/18 22:50 75 19 100 Facial 28 10/28/18 20:58 75 19 100 Facial 28 10/28/18 20:00 98.0 75 15 138/82 (100) 100 10/28/18 20:00 28 10/28/18 20:00 Bi-pap 10/28/18 19:33 76 16 100 Bi-pap 28 10/28/18 19:21 75 16 100 Bi-pap 28 10/28/18 19:20 75 16 100 Facial 28 10/28/18 19:09 75 10/28/18 17:28 75 16 100 Facial 28 Intake and Output 10/28/18 10/29/18 19:00 07:00 Intake Total 120 ml 360 ml Output Total 450 ml 700 ml Balance -330 ml -340 ml IV Total 120 ml 360 ml Output Urine Total 450 ml 700 ml Laboratory Tests 10/28/18 20:00: Hepatitis A IgM Antibody [Pending], Hepatitis B Surface Antigen [Pending], Hepatitis B Core IgM Antibody [Pending], Hepatitis C Antibody [Pending], HIV (1& 2) Antibody Rapid Negative 10/29/18 03:20: White Blood Count 5.1, Red Blood Count 3.15L, Hemoglobin 8.7L, Hematocrit 27.5L , Mean Corpuscular Volume 87, Mean Corpuscular Hemoglobin 27.6, Mean Corpuscular Hemoglobin Concent 31.6L, Red Cell Distribution Width 16.5H, Platelet Count 117L, Mean Platelet Volume 10.1, Neutrophils (%) (Auto) 56.6, Lymphocytes (%) (Auto) 34.9, Monocytes (%) (Auto) 6.6, Eosinophils (%) (Auto) 1.5, Basophils (%) (Auto) 0.4, Sodium Level 145, Potassium Level 3.9, Chloride Level 108H, Carbon Dioxide Level 32, Anion Gap 5, Blood Urea Nitrogen 20H, Creatinine 1.9H, Estimat Glomerular Filtration Rate , Glucose Level 162H, Hemoglobin A1c 9.2H, Uric Acid 7.5H, Calcium Level 8.7, Phosphorus Level 2.8, Magnesium Level 1.5L, Iron Level 30L, Total Iron Binding Capacity 206L, Percent Iron Saturation 15, Unsaturated Iron Binding 176, Ferritin 119, Total Bilirubin 0.6, Gamma Glutamyl Transpeptidase 69, Aspartate Amino Transf (AST/SGOT) 18, Alanine Aminotransferase (ALT/SGPT) 21, Alkaline Phosphatase 118H, Troponin I 0.063H, C-Reactive Protein, Quantitative 6.0H, Pro-B-Type Natriuretic Peptide 5343H, Total Protein 6.6, Albumin 2.4L, Globulin 4.2, Albumin/Globulin Ratio 0.6L, Triglycerides Level 125, Cholesterol Level 161, LDL Cholesterol 99, HDL Cholesterol 42, Cholesterol/HDL Ratio 3.8, Vitamin B12 Level 468, Folate 14.0, Thyroid Stimulating Hormone (TSH) 2.170 Height (Feet): 6 Height (Inches): 1.00 Weight (Pounds): 170 General Appearance: no apparent distress Neck: supple Respiratory/Chest: normal breath sounds Abdomen: no mass Extremities: normal inspection Edema: mild edema Neurologic: alert Skin: warm/dry Tahir Tony MD Oct 29, 2018 17:16
--- NOTE | 2018-10-29 19:38 | Pulmonology Progress Note ---
Assessment/Plan Assessment/Plan Pulmonary Progress Note HPI Patient admitted from a long-term facility with elevated blood sugar, no specific complaints. The patient was had intermittent have chest pain in the past. There is no recent illness. There is no report of fever or chills. There has been no nausea or vomiting. There are no other complaints. On PRN BiPAP, much more alert Allergies: No Known Allergies Past Medical History: Diabetes, Hypertension, CAD with previous [place], CHF, CVA/ TIA, Dementia, Psych hx, Renal disease Past Surgical History: Pacemaker All Other Systems: negative except mentioned in HPI Physical Exam Vital Signs Noted, on BiPAP General Appearance: no apparent distress, non-toxic Head: normocephalic, atraumatic ENT: hearing grossly normal, normal pharynx, no angioedema, normal voice Neck: full range of motion, supple/symm/no masses Respiratory: chest non-tender, lungs clear, normal breath sounds, no respiratory distress, no retraction, no accessory muscle use, speaking full sentences Cardiovascular: HS1, HS2, normal, regular rate, rhythm, no edema, systolic murmur Gastrointestinal: normal bowel sounds, non tender, soft, non-distended, no guarding, no rebound Rectal: deferred Musculoskeletal: back normal, normal range of motion, non-tender Neurologic: awake, responsive, sensory intact, speech normal, grossly normal Psychiatric: judgement/insight normal, mood/affect normal Skin: normal color, no rash, warm/dry, well hydrated Impression: Primary Impression: Uncontrolled diabetes mellitus: Lactic acid acidosis Anemia History of Hypertension CAD with previous MN Congestive Heart Failure Previous CVA/TIA Dementia Psych history Renal disease Pacemaker Plan Insulin SS Diuresis PRN per Cardoliogy Continue current BiPAP with repeat ABG HHN O2 PRN O2 sats 90-94% PPX RRT Medications DW RN at bedside Laboratory Tests Test 10/27/18 10:30 10/27/18 10:40 10/27/18 11:51 White Blood Count 8.3 K/UL (4.8-10.8) Red Blood Count 3.51 M/UL (4.70-6.10) L Hemoglobin 9.8 G/DL (14.2-18.0) L Hematocrit 30.4 % (42.0-52.0) L Mean Corpuscular Volume 87 FL (80-99) Mean Corpuscular Hemoglobin 28.0 PG (27.0-31.0) Mean Corpuscular Hemoglobin Concent 32.3 G/DL (32.0-36.0) Red Cell Distribution Width 16.4 % (11.6-14.8) H Platelet Count 149 K/UL (150-450) L Mean Platelet Volume 8.8 FL (6.5-10.1) Neutrophils (%) (Auto) 64.1 % (45.0-75.0) Lymphocytes (%) (Auto) 25.7 % (20.0-45.0) Monocytes (%) (Auto) 7.4 % (1.0-10.0) Eosinophils (%) (Auto) 2.0 % (0.0-3.0) Basophils (%) (Auto) 0.8 % (0.0-2.0) Sodium Level 140 MMOL/L (136-145) Potassium Level 4.8 MMOL/L (3.5-5.1) Chloride Level 103 MMOL/L (98-107) Carbon Dioxide Level 31 MMOL/L (21-32) Anion Gap 6 mmol/L (5-15) Blood Urea Nitrogen 27 mg/dL (7-18) H Creatinine 1.9 MG/DL (0.55-1.30) H Estimate Glomerular Filtration Rate mL/min (>60) Glucose Level 315 MG/DL (74-106) H Lactic Acid Level 2.20 mmol/L (0.4-2.0) H Pending Calcium Level 8.8 MG/DL (8.5-10.1) Phosphorus Level 2.9 MG/DL (2.5-4.9) Magnesium Level 1.6 MG/DL (1.8-2.4) L Total Bilirubin 0.5 MG/DL (0.2-1.0) Aspartate Amino Transferase (AST) 18 U/L (15-37) Alanine Aminotransferase (ALT) 25 U/L (12-78) Alkaline Phosphatase 166 U/L (46-116) H Total Creatine Kinase 77 U/L (26-308) Creatine Kinase MB 2.2 NG/ML (0.0-3.6) Creatine Kinase MB Relative Index 2.8 Troponin I 0.050 ng/mL (0.000-0.056) Total Protein 7.6 G/DL (6.4-8.2) Albumin 2.9 G/DL (3.4-5.0) L Globulin 4.7 g/dL Albumin/Globulin Ratio 0.6 (1.0-2.7) L Urine Color Pale yellow Urine Appearance Clear Urine pH 5 (4.5-8.0) Urine Specific [place] 1.010 (1.005-1.035) Urine Protein 3+ (NEGATIVE) H Urine Glucose (UA) 2+ (NEGATIVE) H Urine Ketones Negative (NEGATIVE) Urine Blood 1+ (NEGATIVE) H Urine Nitrite Negative (NEGATIVE) Urine Bilirubin Negative (NEGATIVE) Urine Urobilinogen Normal MG/DL (0.0-1.0) Urine Leukocyte Esterase Negative (NEGATIVE) Urine RBC 0-2 /HPF (0 - 0) H Urine WBC 0-2 /HPF (0 - 0) Urine Squamous Epithelial Cells Occasional /LPF Urine Bacteria Occasional /HPF (NONE) EKG: Rate: normal Rhythm: other - Paced ST Segments: no acute changes Chest X-Ray: Cardiomegaly and evidence of prior cardiac surgery Prominence of the central pulmonary vasculature and very mild haziness of the pulmonary vascularity suggest mild CHF. Findings may be slightly increased compared to exam 4 hours today. Correlation with clinical findings is recommended. Subjective ROS Limited/Unobtainable: No Allergies: Coded Allergies: No Known Allergies (Unverified , 09/30/17) Objective Last 24 Hour Vital Signs Date Time Temp Pulse Resp B/P (MAP) Pulse Ox O2 Delivery O2 Flow Rate FiO2 10/29/18 19:10 75 16 94 Room Air 21 10/29/18 16:00 75 10/29/18 16:00 97.9 75 19 138/58 (84) 96 10/29/18 16:00 Venturi Mask 10/29/18 16:00 2.0 10/29/18 14:56 145/68 10/29/18 14:56 145/68 10/29/18 13:22 75 20 95 Room Air 21 10/29/18 13:07 75 20 92 Room Air 21 10/29/18 12:00 97.2 75 18 145/68 (93) 96 10/29/18 12:00 75 10/29/18 12:00 Venturi Mask 10/29/18 12:00 2.0 10/29/18 08:00 2.0 10/29/18 08:00 98.6 80 16 143/78 (99) 96 10/29/18 08:00 Venturi Mask 10/29/18 07:40 75 10/29/18 06:53 77 16 94 Room Air 21 10/29/18 06:42 82 17 94 Room Air 21 10/29/18 04:00 98.4 74 14 140/83 (102) 99 10/29/18 04:00 28 10/29/18 04:00 Bi-pap 10/29/18 03:47 74 10/29/18 03:30 73 14 100 Facial 28 10/29/18 00:59 75 16 100 Bi-pap 28 10/29/18 00:48 76 16 99 Facial 28 10/29/18 00:48 76 16 99 Bi-pap 28 10/29/18 00:21 98.7 76 14 152/64 (93) 100 10/29/18 00:00 28 10/29/18 00:00 Bi-pap 10/28/18 23:38 77 10/28/18 22:50 75 19 100 Facial 28 10/28/18 20:58 75 19 100 Facial 28 10/28/18 20:00 98.0 75 15 138/82 (100) 100 10/28/18 20:00 28 10/28/18 20:00 Bi-pap Intake and Output 10/28/18 10/29/18 19:00 07:00 Intake Total 120 ml 360 ml Output Total 450 ml 700 ml Balance -330 ml -340 ml IV Total 120 ml 360 ml Output Urine Total 450 ml 700 ml Microbiology Date/Time Source Procedure Growth Status 10/27/18 10:40 Blood Blood Culture - Preliminary NO GROWTH AFTER 24 HOURS Resulted 10/27/18 10:40 Blood Blood Culture - Preliminary NO GROWTH AFTER 24 HOURS Resulted 10/27/18 10:55 Nasal Nares MRSA Culture - Final NO METHICILLIN RESISTANT STAPH AUREUS... Complete 10/27/18 10:55 Rectum VRE Culture - Final NO VANCOMYCIN RESISTANT ENTEROCOCCUS ... Complete 10/27/18 10:55 Rectum - Final NO CARBAPENEM-RESISTANT ENTEROBACTERI... Complete Laboratory Tests 10/28/18 20:00: Hepatitis A IgM Antibody [Pending], Hepatitis B Surface Antigen [Pending], Hepatitis B Core IgM Antibody [Pending], Hepatitis C Antibody [Pending], HIV (1& 2) Antibody Rapid Negative 10/29/18 03:20: White Blood Count 5.1, Red Blood Count 3.15L, Hemoglobin 8.7L, Hematocrit 27.5L , Mean Corpuscular Volume 87, Mean Corpuscular Hemoglobin 27.6, Mean Corpuscular Hemoglobin Concent 31.6L, Red Cell Distribution Width 16.5H, Platelet Count 117L, Mean Platelet Volume 10.1, Neutrophils (%) (Auto) 56.6, Lymphocytes (%) (Auto) 34.9, Monocytes (%) (Auto) 6.6, Eosinophils (%) (Auto) 1.5, Basophils (%) (Auto) 0.4, Sodium Level 145, Potassium Level 3.9, Chloride Level 108H, Carbon Dioxide Level 32, Anion Gap 5, Blood Urea Nitrogen 20H, Creatinine 1.9H, Estimat Glomerular Filtration Rate , Glucose Level 162H, Hemoglobin A1c 9.2H, Uric Acid 7.5H, Calcium Level 8.7, Phosphorus Level 2.8, Magnesium Level 1.5L, Iron Level 30L, Total Iron Binding Capacity 206L, Percent Iron Saturation 15, Unsaturated Iron Binding 176, Ferritin 119, Total Bilirubin 0.6, Gamma Glutamyl Transpeptidase 69, Aspartate Amino Transf (AST/SGOT) 18, Alanine Aminotransferase (ALT/SGPT) 21, Alkaline Phosphatase 118H, Troponin I 0.063H, C-Reactive Protein, Quantitative 6.0H, Pro-B-Type Natriuretic Peptide 5343H, Total Protein 6.6, Albumin 2.4L, Globulin 4.2, Albumin/Globulin Ratio 0.6L, Triglycerides Level 125, Cholesterol Level 161, LDL Cholesterol 99, HDL Cholesterol 42, Cholesterol/HDL Ratio 3.8, Vitamin B12 Level 468, Folate 14.0, Thyroid Stimulating Hormone (TSH) 2.170 Current Medications Medications (Trade) Dose Ordered Sig/Olga Lidia Route PRN Reason Start Time Stop Time Status Last Admin Dose Admin Albuterol/ Ipratropium (Albuterol/ Ipratropium) 3 ml Q6HRT HHN 10/29/18 19:00 11/01/18 18:59 10/29/18 19:09 Allopurinol (Zyloprim) 100 mg DAILY ORAL 10/30/18 09:00 11/28/18 08:59 Aspirin (ASA) 81 mg DAILY ORAL 10/30/18 09:00 11/27/18 08:59 Atorvastatin Calcium (Lipitor) 40 mg BEDTIME ORAL 10/29/18 21:00 11/26/18 20:59 Dextrose (Dextrose 50%) 25 ml Q30M PRN IV Hypoglycemia 10/29/18 18:30 11/26/18 14:59 Dextrose (Dextrose 50%) 50 ml Q30M PRN IV Hypoglycemia 10/29/18 18:30 11/26/18 14:59 Fish Oil (Fish Oil) 1,000 mg DAILY ORAL 10/30/18 09:00 11/28/18 08:59 Heparin Sodium (Porcine) (Heparin 5000 units/ml) 5,000 units EVERY 12 HOURS SUBQ 10/29/18 21:00 11/26/18 20:59 Hydralazine HCl (Apresoline) 25 mg Q8HR ORAL 10/29/18 22:00 11/28/18 14:14 Insulin Aspart (NovoLOG) BEFORE MEALS AND HS SUBQ 10/29/18 21:00 11/26/18 16:29 Insulin Aspart (NovoLOG) 10 units NOVOTIAC SUBQ 10/30/18 06:30 11/26/18 16:49 Insulin Detemir (Levemir) 40 units BEDTIME SUBQ 10/29/18 21:00 11/26/18 20:59 Isosorbide Dinitrate (Isordil) 10 mg Q8HR ORAL 10/29/18 22:00 11/28/18 14:14 Pantoprazole (Protonix) 40 mg EVERY 12 HOURS ORAL 10/29/18 21:00 11/28/18 20:59 Anant Maloney MD Oct 29, 2018 19:38
--- NOTE | 2018-10-29 20:01 | General Progress Note ---
Assessment/Plan Problem List: (1) Hyperlipidemia ICD Codes: E78.5 - Hyperlipidemia, unspecified SNOMED: 71924345 (2) Diabetes mellitus ICD Codes: E11.9 - Type 2 diabetes mellitus without complications SNOMED: 74160618 (3) Diabetic nephropathy ICD Codes: E11.21 - Type 2 diabetes mellitus with diabetic nephropathy SNOMED: 44275300, 759309721 (4) Pacemaker ICD Codes: Z95.0 - Presence of cardiac pacemaker SNOMED: 772705073 (5) Hypertension ICD Codes: I10 - Essential (primary) hypertension SNOMED: 55379302 (6) Anemia ICD Codes: D64.9 - Anemia, unspecified SNOMED: 775357728 (7) Chest pain ICD Codes: R07.9 - Chest pain, unspecified SNOMED: 78810664 (8) Uncontrolled diabetes mellitus ICD Codes: E11.65 - Type 2 diabetes mellitus with hyperglycemia SNOMED: 51528142, 055624814 Status: progressing Assessment: sugar is improving no cp afebrile nidds dementia reviwed chart and labs and meds Plan: labile sugar afebrile dementia poor historian sugar is improving no cp Subjective ROS Limited/Unobtainable: Yes Allergies: Coded Allergies: No Known Allergies (Unverified , 09/30/17) Objective Last 24 Hour Vital Signs Date Time Temp Pulse Resp B/P (MAP) Pulse Ox O2 Delivery O2 Flow Rate FiO2 10/29/18 19:10 75 16 94 Room Air 21 10/29/18 16:00 75 10/29/18 16:00 97.9 75 19 138/58 (84) 96 10/29/18 16:00 Venturi Mask 10/29/18 16:00 2.0 10/29/18 14:56 145/68 10/29/18 14:56 145/68 10/29/18 13:22 75 20 95 Room Air 21 10/29/18 13:07 75 20 92 Room Air 21 10/29/18 12:00 97.2 75 18 145/68 (93) 96 10/29/18 12:00 75 10/29/18 12:00 Venturi Mask 10/29/18 12:00 2.0 10/29/18 08:00 2.0 10/29/18 08:00 98.6 80 16 143/78 (99) 96 10/29/18 08:00 Venturi Mask 10/29/18 07:40 75 10/29/18 06:53 77 16 94 Room Air 21 10/29/18 06:42 82 17 94 Room Air 21 10/29/18 04:00 98.4 74 14 140/83 (102) 99 10/29/18 04:00 28 10/29/18 04:00 Bi-pap 10/29/18 03:47 74 10/29/18 03:30 73 14 100 Facial 28 10/29/18 00:59 75 16 100 Bi-pap 28 10/29/18 00:48 76 16 99 Facial 28 10/29/18 00:48 76 16 99 Bi-pap 28 10/29/18 00:21 98.7 76 14 152/64 (93) 100 10/29/18 00:00 28 10/29/18 00:00 Bi-pap 10/28/18 23:38 77 10/28/18 22:50 75 19 100 Facial 28 10/28/18 20:58 75 19 100 Facial 28 10/28/18 20:00 98.0 75 15 138/82 (100) 100 10/28/18 20:00 28 10/28/18 20:00 Bi-pap Intake and Output 10/28/18 10/29/18 19:00 07:00 Intake Total 120 ml 360 ml Output Total 450 ml 700 ml Balance -330 ml -340 ml IV Total 120 ml 360 ml Output Urine Total 450 ml 700 ml Laboratory Tests 10/28/18 20:00: Hepatitis A IgM Antibody [Pending], Hepatitis B Surface Antigen [Pending], Hepatitis B Core IgM Antibody [Pending], Hepatitis C Antibody [Pending], HIV (1& 2) Antibody Rapid Negative 10/29/18 03:20: White Blood Count 5.1, Red Blood Count 3.15L, Hemoglobin 8.7L, Hematocrit 27.5L , Mean Corpuscular Volume 87, Mean Corpuscular Hemoglobin 27.6, Mean Corpuscular Hemoglobin Concent 31.6L, Red Cell Distribution Width 16.5H, Platelet Count 117L, Mean Platelet Volume 10.1, Neutrophils (%) (Auto) 56.6, Lymphocytes (%) (Auto) 34.9, Monocytes (%) (Auto) 6.6, Eosinophils (%) (Auto) 1.5, Basophils (%) (Auto) 0.4, Sodium Level 145, Potassium Level 3.9, Chloride Level 108H, Carbon Dioxide Level 32, Anion Gap 5, Blood Urea Nitrogen 20H, Creatinine 1.9H, Estimat Glomerular Filtration Rate , Glucose Level 162H, Hemoglobin A1c 9.2H, Uric Acid 7.5H, Calcium Level 8.7, Phosphorus Level 2.8, Magnesium Level 1.5L, Iron Level 30L, Total Iron Binding Capacity 206L, Percent Iron Saturation 15, Unsaturated Iron Binding 176, Ferritin 119, Total Bilirubin 0.6, Gamma Glutamyl Transpeptidase 69, Aspartate Amino Transf (AST/SGOT) 18, Alanine Aminotransferase (ALT/SGPT) 21, Alkaline Phosphatase 118H, Troponin I 0.063H, C-Reactive Protein, Quantitative 6.0H, Pro-B-Type Natriuretic Peptide 5343H, Total Protein 6.6, Albumin 2.4L, Globulin 4.2, Albumin/Globulin Ratio 0.6L, Triglycerides Level 125, Cholesterol Level 161, LDL Cholesterol 99, HDL Cholesterol 42, Cholesterol/HDL Ratio 3.8, Vitamin B12 Level 468, Folate 14.0, Thyroid Stimulating Hormone (TSH) 2.170 Height (Feet): 6 Height (Inches): 1.00 Weight (Pounds): 170 General Appearance: confused Neck: supple Cardiovascular: regular rhythm Respiratory/Chest: lungs clear Abdomen: soft Laurie Mcmullen MD Oct 29, 2018 20:01
[2018-10-29] MEDS ORDERED: Levemir Flexpen SUBQ SCH (21:00)
[2018-10-29] MEDS ORDERED: Milk of Magnesia 30ml Ud ORAL PRN (21:45)
[2018-10-29] MEDS: Atorvastatin 20mg tab ORAL SCH (22:01)
[2018-10-29] MEDS: HydrALAZINE 25mg tab ORAL SCH (22:02)
--- NOTE | 2018-10-29 23:58 | Cardiology Progress Note ---
Assessment/Plan Assessment/Plan 1. Chronic systolic CHF, continue GDMT, start low dose ACEI as his renal function is stable. 2. 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 CAD, s/p CABG, hx of KS, stable now continue ASA and statins. 4. CKD 5. Hx of CVA 6. Hx of HTN Subjective Subjective Sinus rhythm at rate of 75. Objective Last 24 Hour Vital Signs Date Time Temp Pulse Resp B/P (MAP) Pulse Ox O2 Delivery O2 Flow Rate FiO2 10/29/18 23:00 75 14 97 Facial 28 10/29/18 22:02 125/60 10/29/18 22:02 125/60 10/29/18 22:00 125/60 (81) 10/29/18 20:00 97.4 76 16 94/53 (67) 93 10/29/18 19:20 73 20 97 Room Air 21 10/29/18 19:10 75 16 94 Room Air 21 10/29/18 16:00 75 10/29/18 16:00 97.9 75 19 138/58 (84) 96 10/29/18 16:00 Venturi Mask 10/29/18 16:00 2.0 10/29/18 14:56 145/68 10/29/18 14:56 145/68 10/29/18 13:22 75 20 95 Room Air 21 10/29/18 13:07 75 20 92 Room Air 21 10/29/18 12:00 97.2 75 18 145/68 (93) 96 10/29/18 12:00 75 10/29/18 12:00 Venturi Mask 10/29/18 12:00 2.0 10/29/18 08:00 2.0 10/29/18 08:00 98.6 80 16 143/78 (99) 96 10/29/18 08:00 Venturi Mask 10/29/18 07:40 75 10/29/18 06:53 77 16 94 Room Air 21 10/29/18 06:42 82 17 94 Room Air 21 10/29/18 04:00 98.4 74 14 140/83 (102) 99 10/29/18 04:00 28 10/29/18 04:00 Bi-pap 10/29/18 03:47 74 10/29/18 03:30 73 14 100 Facial 28 10/29/18 00:59 75 16 100 Bi-pap 28 10/29/18 00:48 76 16 99 Facial 28 10/29/18 00:48 76 16 99 Bi-pap 28 10/29/18 00:21 98.7 76 14 152/64 (93) 100 10/29/18 00:00 28 10/29/18 00:00 Bi-pap Intake and Output 10/28/18 10/29/18 19:00 07:00 Intake Total 120 ml 360 ml Output Total 450 ml 700 ml Balance -330 ml -340 ml IV Total 120 ml 360 ml Output Urine Total 450 ml 700 ml 2D Echo: LVEF 35%, Global LVHK, RVSP 43 mmHg, Mild-Mod MR, Grade I LVDD Laboratory Tests Test 10/29/18 03:20 White Blood Count 5.1 K/UL (4.8-10.8) Red Blood Count 3.15 M/UL (4.70-6.10) L Hemoglobin 8.7 G/DL (14.2-18.0) L Hematocrit 27.5 % (42.0-52.0) L Mean Corpuscular Volume 87 FL (80-99) Mean Corpuscular Hemoglobin 27.6 PG (27.0-31.0) Mean Corpuscular Hemoglobin Concent 31.6 G/DL (32.0-36.0) L Red Cell Distribution Width 16.5 % (11.6-14.8) H Platelet Count 117 K/UL (150-450) L Mean Platelet Volume 10.1 FL (6.5-10.1) Neutrophils (%) (Auto) 56.6 % (45.0-75.0) Lymphocytes (%) (Auto) 34.9 % (20.0-45.0) Monocytes (%) (Auto) 6.6 % (1.0-10.0) Eosinophils (%) (Auto) 1.5 % (0.0-3.0) Basophils (%) (Auto) 0.4 % (0.0-2.0) Sodium Level 145 MMOL/L (136-145) Potassium Level 3.9 MMOL/L (3.5-5.1) Chloride Level 108 MMOL/L (98-107) H Carbon Dioxide Level 32 MMOL/L (21-32) Anion Gap 5 mmol/L (5-15) Blood Urea Nitrogen 20 mg/dL (7-18) H Creatinine 1.9 MG/DL (0.55-1.30) H Estimat Glomerular Filtration Rate mL/min (>60) Glucose Level 162 MG/DL (74-106) H Hemoglobin A1c 9.2 % (4.3-6.0) H Uric Acid 7.5 MG/DL (2.6-7.2) H Calcium Level 8.7 MG/DL (8.5-10.1) Phosphorus Level 2.8 MG/DL (2.5-4.9) Magnesium Level 1.5 MG/DL (1.8-2.4) L Iron Level 30 ug/dL (50-175) L Total Iron Binding Capacity 206 ug/dL (250-450) L Percent Iron Saturation 15 % (15-50) Unsaturated Iron Binding 176 ug/dL (112-346) Ferritin 119 NG/ML (8-388) Total Bilirubin 0.6 MG/DL (0.2-1.0) Gamma Glutamyl Transpeptidase 69 U/L (5-85) Aspartate Amino Transf (AST/SGOT) 18 U/L (15-37) Alanine Aminotransferase (ALT/SGPT) 21 U/L (12-78) Alkaline Phosphatase 118 U/L (46-116) H Troponin I 0.063 ng/mL (0.000-0.056) C-Reactive Protein, Quantitative 6.0 mg/dL (0.00-0.90) H Pro-B-Type Natriuretic Peptide 5343 pg/mL (0-125) H Total Protein 6.6 G/DL (6.4-8.2) Albumin 2.4 G/DL (3.4-5.0) L Globulin 4.2 g/dL Albumin/Globulin Ratio 0.6 (1.0-2.7) L Triglycerides Level 125 MG/DL (30-150) Cholesterol Level 161 MG/DL (< 200) LDL Cholesterol 99 mg/dL (<100) HDL Cholesterol 42 MG/DL (40-60) Cholesterol/HDL Ratio 3.8 (3.3-4.4) Vitamin B12 Level 468 PG/ML (193-986) Folate 14.0 NG/ML (8.6-58.9) Thyroid Stimulating Hormone (TSH) 2.170 uiU/mL (0.358-3.740) Microbiology Date/Time Source Procedure Growth Status 4/17/19 10:40 Blood Blood Culture - Preliminary NO GROWTH AFTER 24 HOURS Resulted 10/27/18 10:40 Blood Blood Culture - Preliminary NO GROWTH AFTER 24 HOURS Resulted 10/27/18 10:55 Nasal Nares MRSA Culture - Final NO METHICILLIN RESISTANT STAPH AUREUS... Complete 10/27/18 10:55 Rectum VRE Culture - Final NO VANCOMYCIN RESISTANT ENTEROCOCCUS ... Complete 10/27/18 10:55 Rectum - Final NO CARBAPENEM-RESISTANT ENTEROBACTERI... Complete Objective HEENT: normocephalic, atraumatic, PERRLA, EOMI. Neck: No JVD, no carotid bruit. Respiratory: chest non-tender, lungs clear Cardiovascular: regular rate, rhythm, normal S1S2, 2/6 MSM at LSB. Gastrointestinal: normal bowel sounds, non tender, soft, non-distended, no guarding, no rebound Musculoskeletal: No edema, clubbing or cyanosis. Neurologic: alert, oriented x3, responsive, sensory intact, speech normal, grossly normal Eric Wilde MD Oct 29, 2018 23:58
[2018-10-30] VITALS (9 sets, daily range): BP systolic 120–161; BP diastolic 59–101
[2018-10-30] MEDS: Albuterol/Ipratropium 3ml neb HHN SCH ×4 (00:50→18:40)
[2018-10-30] MEDS: HydrALAZINE 25mg tab ORAL SCH (05:59)
[2018-10-30] MEDS ORDERED: Vancomycin 1gm/D5W 275ml IVPB SCH ×2 (06:00)
[2018-10-30] MEDS: NovoLOG Insulin Flexpen SUBQ SCH ×7 (06:03→21:29)
[2018-10-30] MEDS: Allopurinol 100mg Tab ORAL SCH (08:30)
[2018-10-30] MEDS: Sennosides 8.6mg tab ORAL SCH (08:30)
[2018-10-30] MEDS: Bisacodyl EC 5mg tab ORAL SCH (08:30)
[2018-10-30] MEDS: Docusate 100mg/10ml Liq ORAL SCH ×3 (08:31→17:53)
[2018-10-30] MEDS: Aspirin Baby 81mg ORAL SCH (08:31)
[2018-10-30] MEDS: Heparin 5000 units/ml inj SUBQ SCH ×2 (08:31→21:00)
[2018-10-30] MEDS: Vancomycin 1gm/D5W 275ml IVPB SCH ×2 (09:48)
--- NOTE | 2018-10-30 09:54 | General Progress Note ---
Assessment/Plan Problem List: (1) Diabetes mellitus ICD Codes: E11.9 - Type 2 diabetes mellitus without complications SNOMED: 90849060 (2) Hyperglycemia ICD Codes: R73.9 - Hyperglycemia, unspecified SNOMED: 66662847 (3) CKD (chronic kidney disease) ICD Codes: N18.9 - Chronic kidney disease, unspecified SNOMED: 234918813 (4) Cardiomyopathy ICD Codes: I42.9 - Cardiomyopathy, unspecified SNOMED: 75332724 Assessment: reduce Levemir to 30 units qhs continue Novolog 10 units ac tid continue NISS Subjective ROS Limited/Unobtainable: Yes Allergies: Coded Allergies: No Known Allergies (Unverified , 09/30/17) Subjective events noted Item Value Date Time Bedside Blood Glucose 75 mg/dl 10/30/18 0630 Bedside Blood Glucose 130 mg/dl H 10/29/18 2209 Bedside Blood Glucose 232 mg/dl H 10/29/18 1743 Objective Last 24 Hour Vital Signs Date Time Temp Pulse Resp B/P (MAP) Pulse Ox O2 Delivery O2 Flow Rate FiO2 10/30/18 07:59 98.1 75 18 136/59 (84) 93 10/30/18 07:01 74 18 98 Room Air 21 10/30/18 06:54 78 16 94 Room Air 21 10/30/18 06:01 135/67 (89) 10/30/18 05:59 135/67 10/30/18 05:59 135/67 10/30/18 04:00 75 10/30/18 04:00 97.6 76 18 126/60 (82) 97 10/30/18 01:00 76 18 98 Room Air 21 10/30/18 00:50 77 16 93 Room Air 21 10/30/18 00:00 98.1 77 18 133/66 (88) 95 10/29/18 23:37 75 10/29/18 23:00 28 10/29/18 23:00 75 14 97 Facial 28 10/29/18 22:02 125/60 10/29/18 22:02 125/60 10/29/18 22:00 125/60 (81) 10/29/18 20:00 Room Air 10/29/18 20:00 97.4 76 16 94/53 (67) 93 10/29/18 19:21 75 10/29/18 19:20 73 20 97 Room Air 21 10/29/18 19:10 75 16 94 Room Air 21 10/29/18 16:00 75 10/29/18 16:00 97.9 75 19 138/58 (84) 96 10/29/18 16:00 Venturi Mask 10/29/18 16:00 2.0 10/29/18 14:56 145/68 10/29/18 14:56 145/68 10/29/18 13:22 75 20 95 Room Air 21 10/29/18 13:07 75 20 92 Room Air 21 10/29/18 12:00 97.2 75 18 145/68 (93) 96 10/29/18 12:00 75 10/29/18 12:00 Venturi Mask 10/29/18 12:00 2.0 Intake and Output 10/29/18 10/30/18 19:00 07:00 Output Total 600 ml 300 ml Balance -600 ml -300 ml Output Urine Total 600 ml 300 ml Height (Feet): 6 Height (Inches): 1.00 Weight (Pounds): 170 General Appearance: no apparent distress Neck: normal alignment Cardiovascular: normal rate Respiratory/Chest: chest wall non-tender, lungs clear Abdomen: normal bowel sounds Objective Current Medications Medications (Trade) Dose Ordered Sig/Olga Lidia Route PRN Reason Start Time Stop Time Status Last Admin Dose Admin Albuterol/ Ipratropium (Albuterol/ Ipratropium) 3 ml Q6HRT HHN 10/29/18 19:00 11/01/18 18:59 10/30/18 06:54 Allopurinol (Zyloprim) 100 mg DAILY ORAL 10/30/18 09:00 11/28/18 08:59 10/30/18 08:30 Aspirin (ASA) 81 mg DAILY ORAL 10/30/18 09:00 11/27/18 08:59 10/30/18 08:31 Atorvastatin Calcium (Lipitor) 40 mg BEDTIME ORAL 10/29/18 21:00 11/26/18 20:59 10/29/18 22:01 Bisacodyl (Dulcolax) 10 mg DAILY ORAL 10/30/18 09:00 11/29/18 08:59 10/30/18 08:30 Dextrose (Dextrose 50%) 25 ml Q30M PRN IV Hypoglycemia 10/29/18 18:30 11/26/18 14:59 Dextrose (Dextrose 50%) 50 ml Q30M PRN IV Hypoglycemia 10/29/18 18:30 11/26/18 14:59 Docusate Sodium (Colace) 100 mg TWICE A DAY ORAL 10/30/18 09:00 11/29/18 08:59 10/30/18 08:31 Fish Oil (Fish Oil) 1,000 mg DAILY ORAL 10/30/18 09:00 11/28/18 08:59 10/30/18 08:30 Heparin Sodium (Porcine) (Heparin 5000 units/ml) 5,000 units EVERY 12 HOURS SUBQ 10/29/18 21:00 11/26/18 20:59 Hydralazine HCl (Apresoline) 25 mg Q8HR ORAL 10/29/18 22:00 11/28/18 14:14 10/30/18 05:59 Insulin Aspart (NovoLOG) BEFORE MEALS AND HS SUBQ 10/29/18 21:00 11/26/18 16:29 10/29/18 22:07 Insulin Aspart (NovoLOG) 10 units NOVOTIAC SUBQ 10/30/18 06:30 11/26/18 16:49 Insulin Detemir (Levemir) 40 units BEDTIME SUBQ 10/29/18 21:00 11/26/18 20:59 10/29/18 22:09 Isosorbide Dinitrate (Isordil) 10 mg Q8HR ORAL 10/29/18 22:00 11/28/18 14:14 10/30/18 05:59 Magnesium Hydroxide (Mom) 30 ml DAILYPRN PRN ORAL Constipation 10/29/18 21:45 11/28/18 21:44 Pantoprazole (Protonix) 40 mg EVERY 12 HOURS ORAL 10/29/18 21:00 11/28/18 20:59 10/30/18 08:30 Polyethylene Glycol (Miralax) 17 gm DAILY ORAL 10/30/18 09:00 11/29/18 08:59 Sennosides (Senokot) 8.6 mg DAILY ORAL 10/30/18 09:00 11/29/18 08:59 10/30/18 08:30 Vancomycin HCl (Vanco rx to dose) 1 ea DAILY PRN MISC Per rx protocol 10/30/18 08:00 11/29/18 07:59 Vancomycin HCl 1 gm/Dextrose 275 ml @ 183.708 mls/hr Q24H IVPB 10/30/18 08:00 11/04/18 07:59 10/30/18 09:48 Niko Amaya MD Oct 30, 2018 09:54
[2018-10-30] MEDS: Miralax 17gm pkt ORAL SCH (09:56)
--- NOTE | 2018-10-30 19:09 | Nephrology Progress Note ---
Assessment/Plan Problem List: (1) Diabetic nephropathy (2) CKD (chronic kidney disease) (3) Pacemaker (4) Hyperlipidemia (5) Cardiomyopathy Assessment Renal failure ? Acute on Chronic Respiratory failure anemia DM OOC High lactic level HypoAlbuminemia and Proteinuria s/p Cardiac surgery - Pace maker Cardiomyopathy Plan optimize cardiac and pulmonary status hydralazine- Isordil urine studies kidney MARY * No hydronephrosis or sonographically appreciable renal stone. * Renal echogenicity appears within normal limits. * Bilateral renal cysts. 2D echo Global left ventricular hypokinesis with distal anterior wall and apical akinesis. Mild left ventricular enlargement . Left ventricular ejection fraction estimated to be 30-35%. Subjective ROS Limited/Unobtainable: No Constitutional: Reports: malaise Objective Objective Last 24 Hour Vital Signs Date Time Temp Pulse Resp B/P (MAP) Pulse Ox O2 Delivery O2 Flow Rate FiO2 10/30/18 18:49 75 18 99 Room Air 21 10/30/18 18:40 80 18 95 Room Air 21 10/30/18 16:00 2.0 10/30/18 15:46 97.0 76 20 123/61 (81) 94 10/30/18 15:32 75 10/30/18 14:26 143/70 10/30/18 14:25 75 143/70 (94) 10/30/18 12:15 73 20 97 Room Air 21 10/30/18 12:08 75 16 94 Room Air 21 10/30/18 12:00 2.0 10/30/18 11:55 97.3 75 20 149/75 (99) 95 10/30/18 11:34 77 10/30/18 09:00 Room Air 10/30/18 08:00 2.0 10/30/18 07:59 98.1 75 18 136/59 (84) 93 10/30/18 07:40 75 10/30/18 07:01 74 18 98 Room Air 21 10/30/18 06:54 78 16 94 Room Air 21 10/30/18 06:01 135/67 (89) 10/30/18 05:59 135/67 10/30/18 05:59 135/67 10/30/18 04:00 75 10/30/18 04:00 97.6 76 18 126/60 (82) 97 10/30/18 01:00 76 18 98 Room Air 21 10/30/18 00:50 77 16 93 Room Air 21 10/30/18 00:00 98.1 77 18 133/66 (88) 95 10/29/18 23:37 75 10/29/18 23:00 28 10/29/18 23:00 75 14 97 Facial 28 10/29/18 22:02 125/60 10/29/18 22:02 125/60 10/29/18 22:00 125/60 (81) 10/29/18 20:00 Room Air 10/29/18 20:00 97.4 76 16 94/53 (67) 93 10/29/18 19:21 75 10/29/18 19:20 73 20 97 Room Air 21 10/29/18 19:10 75 16 94 Room Air 21 Intake and Output 10/29/18 10/30/18 19:00 07:00 Output Total 600 ml 300 ml Balance -600 ml -300 ml Output Urine Total 600 ml 300 ml Height (Feet): 6 Height (Inches): 1.00 Weight (Pounds): 170 Objective PE no change Bonifacio Ackerman MD Oct 30, 2018 19:09
--- NOTE | 2018-10-30 19:45 | Consultation ---
DATE OF CONSULTATION: 10/27/2018 CARDIOLOGY CONSULTATION CONSULTING PHYSICIAN: Eric Wilde M.D. REFERRING PHYSICIAN: Laurie Mcmullen M.D. REASON FOR CONSULTATION: Management of elevated troponin I level. HISTORY OF PRESENT ILLNESS: The patient is a very unfortunate 73-year-old gentleman, resident of a retirement facility, who was brought in to [facility] due to severe hyperglycemia over 400 as well as complaints of chest pain. At the time of arrival to the hospital, blood pressure was 137/68 mmHg, heart rate was 78. The patient was afebrile. His cardiovascular history is significant for history of coronary artery disease, history of myocardial infarction, history of congestive heart failure, history of CVA/TIA, history of hypertension, and diabetes mellitus. He also had presence of biventricular pacemaker with a shocking lead in the RV chamber. Cardiology consultation was made to evaluate and manage the patient's cardiomyopathy as well as assessment of chest pain. Apparently, the patient's troponin I level was slightly elevated as well. PAST MEDICAL HISTORY: Diabetes mellitus, hypertension, CAD, status post NE, history of CHF, cardiomyopathy, status post cardiac resynchronization therapy/AICD placement, history of dementia, history of psychiatric disorder, history of renal disease. PAST SURGICAL HISTORY: Biventricular pacemaker, AICD implantation. MEDICATIONS: List of medications at [facility] includes acetaminophen 1000 mg q.4 hours p.r.n. pain or temperature above 100.5 degrees Fahrenheit, ProStat liquid 30 mL daily, aspirin 81 mg daily, Lipitor 40 mg nightly, Dulcolax 10 mg p.r.n. constipation, vitamin D 400 units one tablet daily, cranberry 450 mg daily, Colace 100 mg daily, ferrous sulfate 325 mg p.o. daily, fish oil 1000 mg p.o. daily, Robitussin syrup for cough, [place] 5/325 one tablet q.4 hours p.r.n. severe pain, insulin glargine 56 units subcutaneous daily, milk of magnesia 30 mL p.o. daily p.r.n. constipation, meclizine 25 mg daily, metoprolol 50 mg daily, Fleet Enema 133 mL rectal daily p.r.n. constipation, omeprazole 20 mg p.o. daily, pregabalin or Lyrica 200 mg twice daily, potassium chloride 10 mEq daily. ALLERGIES: No known drug allergies. SOCIAL HISTORY: No history of tobacco, alcohol, or illicit drug use. FAMILY HISTORY: No premature coronary artery disease in first-degree relatives. REVIEW OF SYSTEMS: HEENT: Denies any headache, diplopia, or blurred vision. CONSTITUTIONAL: Denies any fever, chills, night sweats, or weight loss. CARDIOVASCULAR: He had chest pain, but no shortness of breath, PND, orthopnea, leg swelling. PULMONARY: Denies any shortness of breath, hemoptysis, or cough. GASTROINTESTINAL: Denies any nausea, vomiting, diarrhea, constipation, abdominal pain, or GI bleed. GENITOURINARY: Denies any hematuria, dysuria, or incontinence. NEUROLOGIC: Denies any motor dysfunction or sensory deficit. Positive for altered speech due to prior stroke. PHYSICAL EXAMINATION: VITAL SIGNS: Blood pressure was 137/68, respirations of 16, pulse of 78, temperature 97.9 degrees Fahrenheit, and O2 saturation 94% on room air. GENERAL: The patient is a very unfortunate 73-year-old gentleman, in no apparent respiratory distress. Alert and oriented x4. HEENT: Atraumatic and normocephalic. Anicteric. Pupils are equal, round, and reactive to light and accommodation. Extraocular muscles intact. NECK: JVP less than 5 cm. No carotid bruit. Carotid upstroke is 2+ bilaterally. CARDIOVASCULAR SYSTEM: Normal S1, S2. Regular rate and rhythm. No murmurs, gallops, or rubs. PMI is at fourth intercostal space in midclavicular line. LUNGS: Clear to auscultation bilaterally. ABDOMEN: Soft, nontender, and nondistended. No hepatosplenomegaly. Positive bowel sounds. EXTREMITIES: No evidence of edema, clubbing, or cyanosis. LABORATORY FINDINGS: WBC was 8.3, hemoglobin 9.8, hematocrit 30.4%, and platelet count is 149,000. Sodium was 140, potassium was 4.8, chloride 103, bicarbonate 31, BUN of 27, creatinine is 1.9. Troponin I was 0.05. Chest x-ray showed cardiomegaly with evidence of sternal wires, there was presence of RA lead and RV shocking lead as well as coronary sinus lead, there was haziness of the pulmonary vascularity suggesting congestive heart failure. ASSESSMENT AND PLAN: The patient is a very pleasant 73-year-old gentleman, seen in Cardiology consultation at the request of Dr. Mcmullen. 1. There is evidence of cardiomyopathy. The patient has received cardiac resynchronization therapy with AICD implantation. We will continue with the guideline-directed medical therapy. 2. Troponin I at borderline. We will continue obtaining another troponin I level. The patient does not have any symptoms of chest pain, however, he has history of CAD and possible coronary artery bypass graft surgery as there is evidence of sternal wires on the chest x-ray. Continue with the aspirin on daily basis as well as statin. The patient appears to be stable from coronary artery disease standpoint. 3. History of CVA with dysphagia. Aspirin and statin will be continued. 4. History of diabetes mellitus with hyperglycemia. Endocrine consultation and followup. 5. History of hypertension. The guideline-directed medical therapy, we will also control blood pressure. Goal would be less than 120/80 mmHg. 6. History of myocardial infarction, the detail of which is unknown, however, there is history of cardiomyopathy and we will obtain 2D echocardiography for assessment of wall motion of LV. I would like to thank, Dr. cMmullen, for the courtesy of this consultation. Eric Wilde M.D. DR: Vonda JOB#: [id number] CC:
[2018-10-30] MEDS ORDERED: Iron Sucrose 200 MG in NS 110 ML IV ONE (20:30)
[2018-10-30] MEDS ORDERED: Levemir Flexpen SUBQ SCH (21:00)
[2018-10-30] MEDS: Atorvastatin 20mg tab ORAL SCH (21:04)
[2018-10-30] MEDS: Enalapril 2.5mg tab ORAL SCH (21:05)
--- NOTE | 2018-10-30 22:11 | General Progress Note ---
Assessment/Plan Problem List: (1) Hyperlipidemia ICD Codes: E78.5 - Hyperlipidemia, unspecified SNOMED: 87728836 (2) Diabetes mellitus ICD Codes: E11.9 - Type 2 diabetes mellitus without complications SNOMED: 60366865 (3) Diabetic nephropathy ICD Codes: E11.21 - Type 2 diabetes mellitus with diabetic nephropathy SNOMED: 74013439, 659901793 (4) Pacemaker ICD Codes: Z95.0 - Presence of cardiac pacemaker SNOMED: 168373321 (5) Hypertension ICD Codes: I10 - Essential (primary) hypertension SNOMED: 40942803 (6) Anemia ICD Codes: D64.9 - Anemia, unspecified SNOMED: 586716848 (7) Chest pain ICD Codes: R07.9 - Chest pain, unspecified SNOMED: 54420181 (8) Uncontrolled diabetes mellitus ICD Codes: E11.65 - Type 2 diabetes mellitus with hyperglycemia SNOMED: 07487547, 146799521 Assessment: no cp agitated and confused ordered sitter trying t oget out of bed confused positive blood cx/consulted dr colby long Subjective ROS Limited/Unobtainable: Yes Allergies: Coded Allergies: No Known Allergies (Unverified , 09/30/17) Objective Last 24 Hour Vital Signs Date Time Temp Pulse Resp B/P (MAP) Pulse Ox O2 Delivery O2 Flow Rate FiO2 10/30/18 21:24 161/101 10/30/18 21:05 161/101 10/30/18 19:47 Room Air 10/30/18 18:49 75 18 99 Room Air 21 10/30/18 18:40 80 18 95 Room Air 21 10/30/18 16:00 2.0 10/30/18 15:46 97.0 76 20 123/61 (81) 94 10/30/18 15:32 75 10/30/18 14:26 143/70 10/30/18 14:25 75 143/70 (94) 10/30/18 12:15 73 20 97 Room Air 21 10/30/18 12:08 75 16 94 Room Air 21 10/30/18 12:00 2.0 10/30/18 11:55 97.3 75 20 149/75 (99) 95 10/30/18 11:34 77 10/30/18 09:00 Room Air 10/30/18 08:00 2.0 10/30/18 07:59 98.1 75 18 136/59 (84) 93 10/30/18 07:40 75 10/30/18 07:01 74 18 98 Room Air 21 10/30/18 06:54 78 16 94 Room Air 21 10/30/18 06:01 135/67 (89) 10/30/18 05:59 135/67 10/30/18 05:59 135/67 10/30/18 04:00 75 10/30/18 04:00 97.6 76 18 126/60 (82) 97 10/30/18 01:00 76 18 98 Room Air 21 10/30/18 00:50 77 16 93 Room Air 21 10/30/18 00:00 98.1 77 18 133/66 (88) 95 10/29/18 23:37 75 10/29/18 23:00 28 10/29/18 23:00 75 14 97 Facial 28 Intake and Output 10/29/18 10/30/18 19:00 07:00 Output Total 600 ml 300 ml Balance -600 ml -300 ml Output Urine Total 600 ml 300 ml Height (Feet): 6 Height (Inches): 1.00 Weight (Pounds): 170 General Appearance: confused Cardiovascular: normal peripheral pulses Respiratory/Chest: lungs clear Laurie Mcmullen MD Oct 30, 2018 22:11
--- NOTE | 2018-10-31 00:32 | Pulmonology Progress Note ---
Assessment/Plan Assessment/Plan Pulmonary Progress Note Patient seen 10/30/2018 HPI Patient admitted from a senior care facility with elevated blood sugar, no specific complaints. The patient was had intermittent have chest pain in the past. There is no recent illness. There is no report of fever or chills. There has been no nausea or vomiting. There are no other complaints. On PRN BiPAP, much more alert Allergies: No Known Allergies Past Medical History: Diabetes, Hypertension, CAD with previous VT, CHF, CVA/ TIA, Dementia, Psych hx, Renal disease Past Surgical History: Pacemaker All Other Systems: negative except mentioned in HPI Physical Exam Vital Signs Noted, on BiPAP General Appearance: no apparent distress, non-toxic Head: normocephalic, atraumatic ENT: hearing grossly normal, normal pharynx, no angioedema, normal voice Neck: full range of motion, supple/symm/no masses Respiratory: chest non-tender, lungs clear, normal breath sounds, no respiratory distress, no retraction, no accessory muscle use, speaking full sentences Cardiovascular: HS1, HS2, normal, regular rate, rhythm, no edema, systolic murmur Gastrointestinal: normal bowel sounds, non tender, soft, non-distended, no guarding, no rebound Rectal: deferred Musculoskeletal: back normal, normal range of motion, non-tender Neurologic: awake, responsive, sensory intact, speech normal, grossly normal Psychiatric: judgement/insight normal, mood/affect normal Skin: normal color, no rash, warm/dry, well hydrated Impression: Primary Impression: Uncontrolled diabetes mellitus: Lactic acid acidosis Anemia History of Hypertension CAD with previous VT Congestive Heart Failure Previous CVA/TIA Dementia Psych history Renal disease Pacemaker Plan Insulin SS Diuresis PRN per Cardoliogy Continue current BiPAP with repeat ABG HHN O2 PRN O2 sats 90-94% 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 RN at bedside Laboratory Tests Test 10/27/18 10:30 10/27/18 10:40 10/27/18 11:51 White Blood Count 8.3 K/UL (4.8-10.8) Red Blood Count 3.51 M/UL (4.70-6.10) L Hemoglobin 9.8 G/DL (14.2-18.0) L Hematocrit 30.4 % (42.0-52.0) L Mean Corpuscular Volume 87 FL (80-99) Mean Corpuscular Hemoglobin 28.0 PG (27.0-31.0) Mean Corpuscular Hemoglobin Concent 32.3 G/DL (32.0-36.0) Red Cell Distribution Width 16.4 % (11.6-14.8) H Platelet Count 149 K/UL (150-450) L Mean Platelet Volume 8.8 FL (6.5-10.1) Neutrophils (%) (Auto) 64.1 % (45.0-75.0) Lymphocytes (%) (Auto) 25.7 % (20.0-45.0) Monocytes (%) (Auto) 7.4 % (1.0-10.0) Eosinophils (%) (Auto) 2.0 % (0.0-3.0) Basophils (%) (Auto) 0.8 % (0.0-2.0) Sodium Level 140 MMOL/L (136-145) Potassium Level 4.8 MMOL/L (3.5-5.1) Chloride Level 103 MMOL/L (98-107) Carbon Dioxide Level 31 MMOL/L (21-32) Anion Gap 6 mmol/L (5-15) Blood Urea Nitrogen 27 mg/dL (7-18) H Creatinine 1.9 MG/DL (0.55-1.30) H Estimate Glomerular Filtration Rate mL/min (>60) Glucose Level 315 MG/DL (74-106) H Lactic Acid Level 2.20 mmol/L (0.4-2.0) H Pending Calcium Level 8.8 MG/DL (8.5-10.1) Phosphorus Level 2.9 MG/DL (2.5-4.9) Magnesium Level 1.6 MG/DL (1.8-2.4) L Total Bilirubin 0.5 MG/DL (0.2-1.0) Aspartate Amino Transferase (AST) 18 U/L (15-37) Alanine Aminotransferase (ALT) 25 U/L (12-78) Alkaline Phosphatase 166 U/L (46-116) H Total Creatine Kinase 77 U/L (26-308) Creatine Kinase MB 2.2 NG/ML (0.0-3.6) Creatine Kinase MB Relative Index 2.8 Troponin I 0.050 ng/mL (0.000-0.056) Total Protein 7.6 G/DL (6.4-8.2) Albumin 2.9 G/DL (3.4-5.0) L Globulin 4.7 g/dL Albumin/Globulin Ratio 0.6 (1.0-2.7) L Urine Color Pale yellow Urine Appearance Clear Urine pH 5 (4.5-8.0) Urine Specific [place] 1.010 (1.005-1.035) Urine Protein 3+ (NEGATIVE) H Urine Glucose (UA) 2+ (NEGATIVE) H Urine Ketones Negative (NEGATIVE) Urine Blood 1+ (NEGATIVE) H Urine Nitrite Negative (NEGATIVE) Urine Bilirubin Negative (NEGATIVE) Urine Urobilinogen Normal MG/DL (0.0-1.0) Urine Leukocyte Esterase Negative (NEGATIVE) Urine RBC 0-2 /HPF (0 - 0) H Urine WBC 0-2 /HPF (0 - 0) Urine Squamous Epithelial Cells Occasional /LPF Urine Bacteria Occasional /HPF (NONE) EKG: Rate: normal Rhythm: other - Paced ST Segments: no acute changes Chest X-Ray: Cardiomegaly and evidence of prior cardiac surgery Prominence of the central pulmonary vasculature and very mild haziness of the pulmonary vascularity suggest mild CHF. Findings may be slightly increased compared to exam 4 hours today. Correlation with clinical findings is recommended. Subjective ROS Limited/Unobtainable: No Allergies: Coded Allergies: No Known Allergies (Unverified , 09/30/17) Objective Last 24 Hour Vital Signs Date Time Temp Pulse Resp B/P (MAP) Pulse Ox O2 Delivery O2 Flow Rate FiO2 10/30/18 23:55 98.9 76 19 120/61 (80) 95 10/30/18 21:24 161/101 10/30/18 21:05 161/101 10/30/18 20:00 98.4 81 18 161/101 (121) 94 10/30/18 19:47 Room Air 10/30/18 19:20 84 10/30/18 18:49 75 18 99 Room Air 21 10/30/18 18:40 80 18 95 Room Air 21 10/30/18 16:00 2.0 10/30/18 15:46 97.0 76 20 123/61 (81) 94 10/30/18 15:32 75 10/30/18 14:26 143/70 10/30/18 14:25 75 143/70 (94) 10/30/18 12:15 73 20 97 Room Air 21 10/30/18 12:08 75 16 94 Room Air 21 10/30/18 12:00 2.0 10/30/18 11:55 97.3 75 20 149/75 (99) 95 10/30/18 11:34 77 10/30/18 09:00 Room Air 10/30/18 08:00 2.0 10/30/18 07:59 98.1 75 18 136/59 (84) 93 10/30/18 07:40 75 10/30/18 07:01 74 18 98 Room Air 21 10/30/18 06:54 78 16 94 Room Air 21 10/30/18 06:01 135/67 (89) 10/30/18 05:59 135/67 10/30/18 05:59 135/67 10/30/18 04:00 75 10/30/18 04:00 97.6 76 18 126/60 (82) 97 10/30/18 01:00 76 18 98 Room Air 21 10/30/18 00:50 77 16 93 Room Air 21 Intake and Output 10/30/18 10/31/18 19:00 07:00 Intake Total 740 ml Output Total 500 ml Balance 240 ml Intake Oral 490 ml Other 250 ml Output Urine Total 500 ml Current Medications Medications (Trade) Dose Ordered Sig/Olga Lidia Route PRN Reason Start Time Stop Time Status Last Admin Dose Admin Albuterol/ Ipratropium (Albuterol/ Ipratropium) 3 ml Q6HRT HHN 10/29/18 19:00 11/01/18 18:59 10/30/18 18:40 Allopurinol (Zyloprim) 100 mg DAILY ORAL 10/30/18 09:00 11/28/18 08:59 10/30/18 08:30 Aspirin (ASA) 81 mg DAILY ORAL 10/30/18 09:00 11/27/18 08:59 10/30/18 08:31 Atorvastatin Calcium (Lipitor) 40 mg BEDTIME ORAL 10/29/18 21:00 11/26/18 20:59 10/30/18 21:04 Bisacodyl (Dulcolax) 10 mg DAILY ORAL 10/30/18 09:00 11/29/18 08:59 10/30/18 08:30 Dextrose (Dextrose 50%) 25 ml Q30M PRN IV Hypoglycemia 10/29/18 18:30 11/26/18 14:59 Dextrose (Dextrose 50%) 50 ml Q30M PRN IV Hypoglycemia 10/29/18 18:30 11/26/18 14:59 Docusate Sodium (Colace) 100 mg TWICE A DAY ORAL 10/30/18 09:00 11/29/18 08:59 10/30/18 17:53 Enalapril Maleate (Vasotec) 2.5 mg EVERY 12 HOURS ORAL 10/30/18 21:00 11/29/18 20:59 10/30/18 21:05 Fish Oil (Fish Oil) 1,000 mg DAILY ORAL 10/30/18 09:00 11/28/18 08:59 10/30/18 08:30 Heparin Sodium (Porcine) (Heparin 5000 units/ml) 5,000 units EVERY 12 HOURS SUBQ 10/29/18 21:00 11/26/18 20:59 Insulin Aspart (NovoLOG) BEFORE MEALS AND HS SUBQ 10/29/18 21:00 11/26/18 16:29 10/30/18 21:29 Insulin Aspart (NovoLOG) 10 units NOVOTIAC SUBQ 10/30/18 06:30 11/26/18 16:49 Insulin Detemir (Levemir) 30 units BEDTIME SUBQ 10/30/18 21:00 11/26/18 20:59 10/30/18 21:29 Isosorbide Dinitrate (Isordil) 20 mg Q8HR ORAL 10/30/18 22:00 11/28/18 14:14 10/30/18 21:24 Magnesium Hydroxide (Mom) 30 ml DAILYPRN PRN ORAL Constipation 10/29/18 21:45 11/28/18 21:44 Pantoprazole (Protonix) 40 mg EVERY 12 HOURS ORAL 10/29/18 21:00 11/28/18 20:59 10/30/18 21:05 Polyethylene Glycol (Miralax) 17 gm DAILY ORAL 10/30/18 09:00 11/29/18 08:59 10/30/18 09:56 Sennosides (Senokot) 8.6 mg DAILY ORAL 10/30/18 09:00 11/29/18 08:59 10/30/18 08:30 Vancomycin HCl (Vanco rx to dose) 1 ea DAILY PRN MISC Per rx protocol 10/30/18 08:00 11/29/18 07:59 Vancomycin HCl 1 gm/Dextrose 275 ml @ 183.708 mls/hr Q24H IVPB 10/30/18 08:00 11/04/18 07:59 10/30/18 09:48 Anant Maloney MD Oct 31, 2018 00:32
[2018-10-31] MEDS: Albuterol/Ipratropium 3ml neb HHN SCH ×4 (00:53→19:24)
[2018-10-31 04:00] VITALS: BP 116/64
[2018-10-31 05:38] VITALS: BP 135/66
[2018-10-31] MEDS: NovoLOG Insulin Flexpen SUBQ SCH ×5 (06:18→21:00)
[2018-10-31 06:57] LABS: BASOPHILS % (AUTO) 0.5 % (0.0-2.0); EOSINOPHILS % (AUTO) 1.7 % (0.0-3.0); HEMATOCRIT 26.2 % (42.0-52.0); HEMOGLOBIN 8.5 G/DL (14.2-18.0); LYMPHOCYTES % (AUTO) 26.8 % (20.0-45.0); MEAN CORPUSCULAR VOLUME 86 FL (80-99); MONOCYTES % (AUTO) 7.8 % (1.0-10.0); NEUTROPHILS % (AUTO) 63.2 % (45.0-75.0); PLATELET COUNT 135 K/UL (150-450); RED BLOOD COUNT 3.05 M/UL (4.70-6.10); WHITE BLOOD COUNT 6.6 K/UL (4.8-10.8)
[2018-10-31 07:13] LABS: ALANINE AMINOTRANSFERASE 19 U/L (12-78); ALBUMIN 2.5 G/DL (3.4-5.0); ALBUMIN/GLOBULIN RATIO 0.6 (1.0-2.7); ALKALINE PHOSPHATASE 112 U/L (46-116); ANION GAP 5 mmol/L (5-15); ASPARTATE AMINO TRANSFERASE 21 U/L (15-37); BILIRUBIN,TOTAL 0.5 MG/DL (0.2-1.0); BLOOD UREA NITROGEN 14 mg/dL (7-18); CALCIUM 8.8 MG/DL (8.5-10.1); CARBON DIOXIDE 32 MMOL/L (21-32); CHLORIDE 105 MMOL/L (98-107); CREATINE KINASE 135 U/L (26-308); CREATININE 1.9 MG/DL (0.55-1.30); GAMMA GLUTAMYL TRANSPEPTIDASE 60 U/L (5-85); PHOSPHORUS 3.4 MG/DL (2.5-4.9); POTASSIUM 3.8 MMOL/L (3.5-5.1); SODIUM 142 MMOL/L (136-145)
[2018-10-31 08:00] VITALS: BP 122/61
[2018-10-31] MEDS: Vancomycin 1gm/D5W 275ml IVPB SCH ×2 (08:44)
[2018-10-31] MEDS: Heparin 5000 units/ml inj SUBQ SCH ×2 (09:00→21:00)
[2018-10-31] MEDS: Miralax 17gm pkt ORAL SCH (09:14)
[2018-10-31] MEDS: Sennosides 8.6mg tab ORAL SCH (09:14)
[2018-10-31] MEDS: Bisacodyl EC 5mg tab ORAL SCH (09:14)
[2018-10-31] MEDS: Aspirin Baby 81mg ORAL SCH (09:14)
[2018-10-31] MEDS: Enalapril 2.5mg tab ORAL SCH ×2 (09:14→21:16)
[2018-10-31] MEDS: Allopurinol 100mg Tab ORAL SCH (09:14)
[2018-10-31] MEDS: Docusate 100mg/10ml Liq ORAL SCH ×3 (09:14→17:18)
--- NOTE | 2018-10-31 09:14 | General Progress Note ---
Assessment/Plan Problem List: (1) Diabetes mellitus ICD Codes: E11.9 - Type 2 diabetes mellitus without complications SNOMED: 27965297 (2) Hyperglycemia ICD Codes: R73.9 - Hyperglycemia, unspecified SNOMED: 56526336 (3) CKD (chronic kidney disease) ICD Codes: N18.9 - Chronic kidney disease, unspecified SNOMED: 803051330 (4) Cardiomyopathy ICD Codes: I42.9 - Cardiomyopathy, unspecified SNOMED: 92270300 Assessment: reduce Levemir to 18 units qhs DC Novolog 10 units ac tid continue NISS Subjective Allergies: Coded Allergies: No Known Allergies (Unverified , 09/30/17) All Systems: reviewed and negative except above Subjective noted to have hypoglycemia this morning did not received any of the scheduled Novolog yesterday received Levemir 30 units last night Item Value Date Time Bedside Blood Glucose 118 mg/dl 10/31/18 0712 Bedside Blood Glucose 137 mg/dl H 10/31/18 0638 Bedside Blood Glucose 121 mg/dl H 10/30/18 2129 Bedside Blood Glucose 132 mg/dl H 10/30/18 1706 Objective Last 24 Hour Vital Signs Date Time Temp Pulse Resp B/P (MAP) Pulse Ox O2 Delivery O2 Flow Rate FiO2 10/31/18 08:41 75 18 99 Room Air 21 10/31/18 08:33 75 18 91 Room Air 21 10/31/18 08:00 98.1 77 18 122/61 (81) 94 10/31/18 08:00 2.0 10/31/18 05:55 135/66 10/31/18 05:38 135/66 (89) 10/31/18 04:00 98.2 79 18 116/64 (81) 91 10/31/18 03:42 75 10/31/18 01:04 74 18 99 Room Air 21 10/31/18 00:53 75 18 93 Room Air 21 10/30/18 23:55 98.9 76 19 120/61 (80) 95 10/30/18 23:32 77 10/30/18 21:24 161/101 10/30/18 21:05 161/101 10/30/18 20:00 98.4 81 18 161/101 (121) 94 10/30/18 19:47 Room Air 10/30/18 19:20 84 10/30/18 18:49 75 18 99 Room Air 21 10/30/18 18:40 80 18 95 Room Air 21 10/30/18 16:00 2.0 10/30/18 15:46 97.0 76 20 123/61 (81) 94 10/30/18 15:32 75 10/30/18 14:26 143/70 10/30/18 14:25 75 143/70 (94) 10/30/18 12:15 73 20 97 Room Air 21 10/30/18 12:08 75 16 94 Room Air 21 10/30/18 12:00 2.0 10/30/18 11:55 97.3 75 20 149/75 (99) 95 10/30/18 11:34 77 Intake and Output 10/30/18 10/31/18 18:59 06:59 Intake Total 740 ml Output Total 500 ml 700 ml Balance 240 ml -700 ml Intake Oral 490 ml Other 250 ml Output Urine Total 500 ml 700 ml Laboratory Tests 10/31/18 05:32: White Blood Count 6.6, Red Blood Count 3.05L, Hemoglobin 8.5L, Hematocrit 26.2L , Mean Corpuscular Volume 86, Mean Corpuscular Hemoglobin 28.0, Mean Corpuscular Hemoglobin Concent 32.6, Red Cell Distribution Width 16.0H, Platelet Count 135L, Mean Platelet Volume 8.8, Neutrophils (%) (Auto) 63.2, Lymphocytes (%) (Auto) 26.8, Monocytes (%) (Auto) 7.8, Eosinophils (%) (Auto) 1.7, Basophils (%) (Auto) 0.5, Sodium Level 142, Potassium Level 3.8, Chloride Level 105, Carbon Dioxide Level 32, Anion Gap 5, Blood Urea Nitrogen 14, Creatinine 1.9H, Estimat Glomerular Filtration Rate , Glucose Level 45L, Uric Acid 7.1, Calcium Level 8.8, Phosphorus Level 3.4, Magnesium Level 1.9, Total Bilirubin 0.5, Gamma Glutamyl Transpeptidase 60, Aspartate Amino Transf (AST/ SGOT) 21, Alanine Aminotransferase (ALT/SGPT) 19, Alkaline Phosphatase 112, Total Creatine Kinase 135, C-Reactive Protein, Quantitative 3.5H, Pro-B-Type Natriuretic Peptide 4720H, Total Protein 6.7, Albumin 2.5L, Globulin 4.2, Albumin/Globulin Ratio 0.6L Height (Feet): 6 Height (Inches): 1.00 Weight (Pounds): 170 General Appearance: no apparent distress Neck: normal alignment Cardiovascular: normal rate Respiratory/Chest: lungs clear Abdomen: normal bowel sounds Objective Current Medications Medications (Trade) Dose Ordered Sig/Olga Lidia Route PRN Reason Start Time Stop Time Status Last Admin Dose Admin Albuterol/ Ipratropium (Albuterol/ Ipratropium) 3 ml Q6HRT HHN 10/29/18 19:00 11/01/18 18:59 10/31/18 08:32 Allopurinol (Zyloprim) 100 mg DAILY ORAL 10/30/18 09:00 11/28/18 08:59 10/30/18 08:30 Aspirin (ASA) 81 mg DAILY ORAL 10/30/18 09:00 11/27/18 08:59 10/30/18 08:31 Atorvastatin Calcium (Lipitor) 40 mg BEDTIME ORAL 10/29/18 21:00 11/26/18 20:59 10/30/18 21:04 Bisacodyl (Dulcolax) 10 mg DAILY ORAL 10/30/18 09:00 11/29/18 08:59 10/30/18 08:30 Dextrose (Dextrose 50%) 25 ml Q30M PRN IV Hypoglycemia 10/29/18 18:30 11/26/18 14:59 Dextrose (Dextrose 50%) 50 ml Q30M PRN IV Hypoglycemia 10/29/18 18:30 11/26/18 14:59 10/31/18 06:18 Docusate Sodium (Colace) 100 mg TWICE A DAY ORAL 10/30/18 09:00 11/29/18 08:59 10/30/18 17:53 Enalapril Maleate (Vasotec) 2.5 mg EVERY 12 HOURS ORAL 10/30/18 21:00 11/29/18 20:59 10/30/18 21:05 Fish Oil (Fish Oil) 1,000 mg DAILY ORAL 10/30/18 09:00 11/28/18 08:59 10/30/18 08:30 Heparin Sodium (Porcine) (Heparin 5000 units/ml) 5,000 units EVERY 12 HOURS SUBQ 10/29/18 21:00 11/26/18 20:59 Insulin Aspart (NovoLOG) BEFORE MEALS AND HS SUBQ 10/29/18 21:00 11/26/18 16:29 10/30/18 21:29 Insulin Aspart (NovoLOG) 10 units NOVOTIAC SUBQ 10/30/18 06:30 11/26/18 16:49 Insulin Detemir (Levemir) 30 units BEDTIME SUBQ 10/30/18 21:00 11/26/18 20:59 10/30/18 21:29 Isosorbide Dinitrate (Isordil) 20 mg Q8HR ORAL 10/30/18 22:00 11/28/18 14:14 10/31/18 05:55 Magnesium Hydroxide (Mom) 30 ml DAILYPRN PRN ORAL Constipation 10/29/18 21:45 11/28/18 21:44 Pantoprazole (Protonix) 40 mg EVERY 12 HOURS ORAL 10/29/18 21:00 11/28/18 20:59 10/30/18 21:05 Polyethylene Glycol (Miralax) 17 gm DAILY ORAL 10/30/18 09:00 11/29/18 08:59 10/30/18 09:56 Sennosides (Senokot) 8.6 mg DAILY ORAL 10/30/18 09:00 11/29/18 08:59 10/30/18 08:30 Vancomycin HCl (Vanco rx to dose) 1 ea DAILY PRN MISC Per rx protocol 10/30/18 08:00 11/29/18 07:59 Vancomycin HCl 1 gm/Dextrose 275 ml @ 183.708 mls/hr Q24H IVPB 10/30/18 08:00 11/04/18 07:59 10/31/18 08:44 Niko Amaya MD Oct 31, 2018 09:14
--- NOTE | 2018-10-31 10:33 | Nephrology Progress Note ---
Assessment/Plan Problem List: (1) Diabetic nephropathy (2) CKD (chronic kidney disease) (3) Pacemaker (4) Hyperlipidemia (5) Cardiomyopathy Assessment Renal failure ? Acute on Chronic Respiratory failure anemia DM OOC High lactic level HypoAlbuminemia and Proteinuria s/p Cardiac surgery - Pace maker Cardiomyopathy Plan optimize cardiac and pulmonary status hydralazine- Isordil urine studies med surg if Ok with Cardio kidney MARY * No hydronephrosis or sonographically appreciable renal stone. * Renal echogenicity appears within normal limits. * Bilateral renal cysts. 2D echo Global left ventricular hypokinesis with distal anterior wall and apical akinesis. Mild left ventricular enlargement . Left ventricular ejection fraction estimated to be 30-35%. Subjective ROS Limited/Unobtainable: No Objective Objective Last 24 Hour Vital Signs Date Time Temp Pulse Resp B/P (MAP) Pulse Ox O2 Delivery O2 Flow Rate FiO2 10/31/18 09:14 122/61 10/31/18 08:41 75 18 99 Room Air 21 10/31/18 08:33 75 18 91 Room Air 21 10/31/18 08:00 98.1 77 18 122/61 (81) 94 10/31/18 08:00 2.0 10/31/18 05:55 135/66 10/31/18 05:38 135/66 (89) 10/31/18 04:00 98.2 79 18 116/64 (81) 91 10/31/18 03:42 75 10/31/18 01:04 74 18 99 Room Air 21 10/31/18 00:53 75 18 93 Room Air 21 10/30/18 23:55 98.9 76 19 120/61 (80) 95 10/30/18 23:32 77 10/30/18 21:24 161/101 10/30/18 21:05 161/101 10/30/18 20:00 98.4 81 18 161/101 (121) 94 10/30/18 19:47 Room Air 10/30/18 19:20 84 10/30/18 18:49 75 18 99 Room Air 21 10/30/18 18:40 80 18 95 Room Air 21 10/30/18 16:00 2.0 10/30/18 15:46 97.0 76 20 123/61 (81) 94 10/30/18 15:32 75 10/30/18 14:26 143/70 4/20/19 14:25 75 143/70 (94) 10/30/18 12:15 73 20 97 Room Air 21 10/30/18 12:08 75 16 94 Room Air 21 10/30/18 12:00 2.0 10/30/18 11:55 97.3 75 20 149/75 (99) 95 10/30/18 11:34 77 Intake and Output 10/30/18 10/31/18 18:59 06:59 Intake Total 740 ml Output Total 500 ml 700 ml Balance 240 ml -700 ml Intake Oral 490 ml Other 250 ml Output Urine Total 500 ml 700 ml Laboratory Tests 10/31/18 05:32: White Blood Count 6.6, Red Blood Count 3.05L, Hemoglobin 8.5L, Hematocrit 26.2L , Mean Corpuscular Volume 86, Mean Corpuscular Hemoglobin 28.0, Mean Corpuscular Hemoglobin Concent 32.6, Red Cell Distribution Width 16.0H, Platelet Count 135L, Mean Platelet Volume 8.8, Neutrophils (%) (Auto) 63.2, Lymphocytes (%) (Auto) 26.8, Monocytes (%) (Auto) 7.8, Eosinophils (%) (Auto) 1.7, Basophils (%) (Auto) 0.5, Sodium Level 142, Potassium Level 3.8, Chloride Level 105, Carbon Dioxide Level 32, Anion Gap 5, Blood Urea Nitrogen 14, Creatinine 1.9H, Estimat Glomerular Filtration Rate , Glucose Level 45L, Uric Acid 7.1, Calcium Level 8.8, Phosphorus Level 3.4, Magnesium Level 1.9, Total Bilirubin 0.5, Gamma Glutamyl Transpeptidase 60, Aspartate Amino Transf (AST/ SGOT) 21, Alanine Aminotransferase (ALT/SGPT) 19, Alkaline Phosphatase 112, Total Creatine Kinase 135, C-Reactive Protein, Quantitative 3.5H, Pro-B-Type Natriuretic Peptide 4720H, Total Protein 6.7, Albumin 2.5L, Globulin 4.2, Albumin/Globulin Ratio 0.6L Height (Feet): 6 Height (Inches): 1.00 Weight (Pounds): 170 General Appearance: no apparent distress Objective PE no change Bonifacio Ackerman MD Oct 31, 2018 10:33
[2018-10-31 12:00] VITALS: BP 126/61
[2018-10-31 16:00] VITALS: BP 134/74
--- NOTE | 2018-10-31 17:45 | Consultation ---
DATE OF CONSULTATION: 10/31/2018 INFECTIOUS DISEASES CONSULTATION CONSULTING PHYSICIAN: Raz Paulson M.D. PRIMARY ATTENDING PHYSICIAN: Laurie Mcmullen M.D. REASON FOR CONSULTATION: Positive blood culture. HISTORY OF PRESENT ILLNESS: This is a 73-year-old male admitted on 10/27/2018 from a nursing facility because of hyperglycemia. He has diabetes mellitus. He has history of chest pain. Blood cultures at the time of admission growing gram-positive cocci that is still not finalized. The patient has no fever and leukocytosis but had lactic acidosis. PAST MEDICAL HISTORY: History of coronary artery disease status post pacemaker, status post cardiac surgery, chronic kidney disease, anemia, previous CVA and weakness in the left arm, congestive heart failure. ALLERGIES: No known drug allergies. MEDICATIONS: Levemir insulin, enalapril, allopurinol, aspirin, fish oil, MiraLAX, Bisacodyl, Senokot, IV vancomycin since yesterday, magnesium hydroxide, atorvastatin, heparin, Protonix, albuterol ipratropium inhaler. SOCIAL HISTORY: Originally from [place]. No history of alcohol, drug abuse, or smoking. . long term resident. REVIEW OF SYSTEMS: No fever. No chills. No coughing. No chest pain. No problem passing urine. aid and needs help for getting out of the bed. PHYSICAL EXAMINATION: VITAL SIGNS: Temperature 98.5, pulse 79, blood pressure 126/61. GENERAL APPEARANCE: No acute distress. HEAD AND NECK: [place] conjunctiva. HEART: Normal rate. LUNGS: Clear. ABDOMEN: Soft and nontender. EXTREMITIES: No edema. He has some contracture in the right arm. NEUROLOGIC: Awake, alert, oriented. LABORATORY AND DIAGNOSTIC DATA: WBC 6.6, hemoglobin 8.5, hematocrit 26.2, platelets 135. Sodium 142, potassium 3.8, chloride 105, bicarbonate 32, BUN 14, creatinine 1.9. Troponin is slightly elevated at 0.075. Albumin is low 2.5. ABG at the time of admission shows hypercapnia. Chest x-ray showed cardiomegaly and evidence of previous cardiac surgery. Renal ultrasound showed no hydronephrosis, kidney echogenicity within normal limits. Echocardiogram showed ejection fraction of 30 to 35%, [id number] mitral regurgitation and also diastolic dysfunction grade 1. IMPRESSION: 1. Positive blood culture. The patient does not seem to be septic. No fever and leukocytosis. 2. Uncontrolled diabetes mellitus. 3. Anemia. 4. Coronary artery disease. 5. Combined systolic and diastolic heart failure. 6. Chronic kidney disease. RECOMMENDATION: We will continue with IV vancomycin. We will follow up the cultures. At the end of my exam, I thank Dr. Mcmullen for involving me in the care of this patient. Raz Paulson M.D. DR: Jorge L JOB#: [id number] CC:
--- NOTE | 2018-10-31 18:04 | Pulmonology Progress Note ---
Assessment/Plan Assessment/Plan Pulmonary Progress Note HPI [facility] with elevated blood sugar, no specific complaints. The patient was had intermittent have chest pain in the past. There is no recent illness. There is no report of fever or chills. There has been no nausea or vomiting. There are no other complaints. On PRN BiPAP, much more alert, less SOB Allergies: No Known Allergies Past Medical History: Diabetes, Hypertension, CAD with previous [place], CHF, CVA/ TIA, Dementia, Psych hx, Renal disease Past Surgical History: Pacemaker All Other Systems: negative except mentioned in HPI Physical Exam Vital Signs Noted, on NC General Appearance: no apparent distress, non-toxic Head: normocephalic, atraumatic ENT: hearing grossly normal, normal pharynx, no angioedema, normal voice Neck: full range of motion, supple/symm/no masses Respiratory: chest non-tender, lungs clear, normal breath sounds, no respiratory distress, no retraction, no accessory muscle use, speaking full sentences Cardiovascular: HS1, HS2, normal, regular rate, rhythm, no edema, systolic murmur Gastrointestinal: normal bowel sounds, non tender, soft, non-distended, no guarding, no rebound Rectal: deferred Musculoskeletal: back normal, normal range of motion, non-tender Neurologic: awake, responsive, sensory intact, speech normal, grossly normal Psychiatric: judgement/insight normal, mood/affect normal Skin: normal color, no rash, warm/dry, well hydrated Impression: Primary Impression: Uncontrolled diabetes mellitus: Lactic acid acidosis Anemia History of Hypertension CAD with previous [place] Congestive Heart Failure Previous CVA/TIA Dementia Psych history Renal disease Pacemaker Plan Insulin SS Diuresis PRN per Cardoliogy Continue PRN BiPAP alt [place] HHN O2 PRN O2 sats 90-94% PPX [employer] Medications DW RN at bedside Laboratory Tests Noted EKG: Rate: normal Rhythm: other - Paced ST Segments: no acute changes Chest X-Ray: Cardiomegaly and evidence of prior cardiac surgery Prominence of the central pulmonary vasculature and very mild haziness of the pulmonary vascularity suggest mild CHF. Findings may be slightly increased compared to exam 4 hours today. Correlation with clinical findings is recommended. Subjective ROS Limited/Unobtainable: No Allergies: Coded Allergies: No Known Allergies (Unverified , 09/30/17) Objective Last 24 Hour Vital Signs Date Time Temp Pulse Resp B/P (MAP) Pulse Ox O2 Delivery O2 Flow Rate FiO2 10/31/18 16:00 98.1 77 20 134/74 (94) 97 10/31/18 16:00 2.0 10/31/18 15:08 75 10/31/18 13:56 126/61 10/31/18 13:14 79 18 99 Room Air 21 10/31/18 13:05 78 16 95 Room Air 21 10/31/18 12:00 98.5 77 18 126/61 (82) 94 10/31/18 12:00 2.0 10/31/18 11:38 75 10/31/18 09:14 122/61 10/31/18 09:00 Room Air 10/31/18 08:41 75 18 99 Room Air 21 10/31/18 08:33 75 18 91 Room Air 21 10/31/18 08:00 98.1 77 18 122/61 (81) 94 10/31/18 08:00 2.0 10/31/18 07:51 75 10/31/18 05:55 135/66 10/31/18 05:38 135/66 (89) 10/31/18 04:00 98.2 79 18 116/64 (81) 91 10/31/18 03:42 75 10/31/18 01:04 74 18 99 Room Air 21 10/31/18 00:53 75 18 93 Room Air 21 10/30/18 23:55 98.9 76 19 120/61 (80) 95 10/30/18 23:32 77 10/30/18 21:24 161/101 10/30/18 21:05 161/101 10/30/18 20:00 98.4 81 18 161/101 (121) 94 10/30/18 19:47 Room Air 10/30/18 19:20 84 10/30/18 18:49 75 18 99 Room Air 21 10/30/18 18:40 80 18 95 Room Air 21 Intake and Output 10/30/18 10/31/18 19:00 07:00 Intake Total 740 ml Output Total 500 ml 700 ml Balance 240 ml -700 ml Intake Oral 490 ml Other 250 ml Output Urine Total 500 ml 700 ml Laboratory Tests 10/31/18 05:32: White Blood Count 6.6, Red Blood Count 3.05L, Hemoglobin 8.5L, Hematocrit 26.2L , Mean Corpuscular Volume 86, Mean Corpuscular Hemoglobin 28.0, Mean Corpuscular Hemoglobin Concent 32.6, Red Cell Distribution Width 16.0H, Platelet Count 135L, Mean Platelet Volume 8.8, Neutrophils (%) (Auto) 63.2, Lymphocytes (%) (Auto) 26.8, Monocytes (%) (Auto) 7.8, Eosinophils (%) (Auto) 1.7, Basophils (%) (Auto) 0.5, Sodium Level 142, Potassium Level 3.8, Chloride Level 105, Carbon Dioxide Level 32, Anion Gap 5, Blood Urea Nitrogen 14, Creatinine 1.9H, Estimat Glomerular Filtration Rate , Glucose Level 45L, Uric Acid 7.1, Calcium Level 8.8, Phosphorus Level 3.4, Magnesium Level 1.9, Total Bilirubin 0.5, Gamma Glutamyl Transpeptidase 60, Aspartate Amino Transf (AST/ SGOT) 21, Alanine Aminotransferase (ALT/SGPT) 19, Alkaline Phosphatase 112, Total Creatine Kinase 135, Troponin I 0.075H, C-Reactive Protein, Quantitative 3.5H, Pro-B-Type Natriuretic Peptide 4720H, Total Protein 6.7, Albumin 2.5L, Globulin 4.2, Albumin/Globulin Ratio 0.6L Current Medications Medications (Trade) Dose Ordered Sig/Olga Lidia Route PRN Reason Start Time Stop Time Status Last Admin Dose Admin Albuterol/ Ipratropium (Albuterol/ Ipratropium) 3 ml Q6HRT HHN 10/29/18 19:00 11/01/18 18:59 10/31/18 13:05 Allopurinol (Zyloprim) 100 mg DAILY ORAL 10/30/18 09:00 11/28/18 08:59 10/31/18 09:14 Aspirin (ASA) 81 mg DAILY ORAL 10/30/18 09:00 11/27/18 08:59 10/31/18 09:14 Atorvastatin Calcium (Lipitor) 40 mg BEDTIME ORAL 10/29/18 21:00 11/26/18 20:59 10/30/18 21:04 Bisacodyl (Dulcolax) 10 mg DAILY ORAL 10/30/18 09:00 11/29/18 08:59 10/31/18 09:14 Dextrose (Dextrose 50%) 25 ml Q30M PRN IV Hypoglycemia 10/29/18 18:30 11/26/18 14:59 Dextrose (Dextrose 50%) 50 ml Q30M PRN IV Hypoglycemia 10/29/18 18:30 11/26/18 14:59 10/31/18 06:18 Docusate Sodium (Colace) 100 mg TID ORAL 10/31/18 13:00 11/29/18 08:59 10/31/18 13:56 Enalapril Maleate (Vasotec) 2.5 mg EVERY 12 HOURS ORAL 10/30/18 21:00 11/29/18 20:59 10/31/18 09:14 Fish Oil (Fish Oil) 1,000 mg DAILY ORAL 10/30/18 09:00 11/28/18 08:59 10/31/18 09:14 Heparin Sodium (Porcine) (Heparin 5000 units/ml) 5,000 units EVERY 12 HOURS SUBQ 10/29/18 21:00 11/26/18 20:59 Insulin Aspart (NovoLOG) BEFORE MEALS AND HS SUBQ 10/29/18 21:00 11/26/18 16:29 10/30/18 21:29 Insulin Detemir (Levemir) 18 units BEDTIME SUBQ 10/31/18 21:00 11/26/18 20:59 Isosorbide Dinitrate (Isordil) 20 mg Q8HR ORAL 10/30/18 22:00 11/28/18 14:14 10/31/18 13:56 Magnesium Hydroxide (Mom) 30 ml DAILYPRN PRN ORAL Constipation 10/29/18 21:45 11/28/18 21:44 Pantoprazole (Protonix) 40 mg EVERY 12 HOURS ORAL 10/29/18 21:00 11/28/18 20:59 10/31/18 09:14 Polyethylene Glycol (Miralax) 17 gm DAILY ORAL 10/30/18 09:00 11/29/18 08:59 10/31/18 09:14 Sennosides (Senokot) 8.6 mg DAILY ORAL 10/30/18 09:00 11/29/18 08:59 10/31/18 09:14 Vancomycin HCl (Vanco rx to dose) 1 ea DAILY PRN MISC Per rx protocol 10/30/18 08:00 11/29/18 07:59 Vancomycin HCl 1 gm/Dextrose 275 ml @ 183.708 mls/hr Q24H IVPB 10/30/18 08:00 11/04/18 07:59 10/31/18 08:44 Anant Maloney MD Oct 31, 2018 18:04
[2018-10-31 20:00] VITALS: BP 152/73
[2018-10-31] MEDS ORDERED: Levemir Flexpen SUBQ SCH (21:00)
[2018-10-31] MEDS: Atorvastatin 20mg tab ORAL SCH (21:16)
[2018-11-01] VITALS: BP 154/68
[2018-11-01] MEDS: Albuterol/Ipratropium 3ml neb HHN SCH ×3 (01:18→11:40)
--- NOTE | 2018-11-01 03:15 | Progress Note ---
DATE: 10/30/2018 CARDIOLOGY PROGRESS NOTE Late entry for October 30, 2018. SUBJECTIVE: Covered for Dr. Wilde. The patient has been agitated, confused, and has required a sitter for safety as he is trying to get out of bed. He is being treated with IV antibiotics in view of recent positive blood cultures. Final results pending. He has not had any apparent shortness of breath or chest pain. OBJECTIVE: VITAL SIGNS: Blood pressure 123/61 to 161/101, heart rate 75, respiratory rate 18, afebrile, room air oxygen saturation 94% to 99%. LUNGS: Bilateral breath sounds with few rales. CARDIAC: Regular rhythm and rate. Normal S1, S2 with a 1/6 systolic murmur at the apex. ABDOMEN: Soft. EXTREMITIES: Reveal no edema. IMPRESSION: 1. Positive blood cultures. Possible bacteremia. We will need to readdress possibility of endocarditis once cultures are available. Transthoracic echocardiogram will be reviewed. 2. Ischemic and hypertensive cardiomyopathy, labile blood pressures, likely due to mood. Therapy will be adjusted and p.r.n. dosing given for these blood pressure spikes. 3. Elevated troponin levels, chronic likely due to chronic ischemic heart disease. We will continue to follow clinical parameters. We will maximize antianginal therapy and continue anti-lipid and anti-platelet drugs. Anant Her M.D. DR: ALBERTO JOB#: [id number] CC:
--- NOTE | 2018-11-01 03:30 | Progress Note ---
DATE: 10/31/2018 CARDIOLOGY PROGRESS NOTE SUBJECTIVE: The patient has no chest pain. No shortness of breath. Blood pressure parameters have improved. Monitored rhythm, sinus. Echocardiogram noted, left ventricular dysfunction is seen with ejection fraction in 35% range and wall motion abnormalities noted. OBJECTIVE: VITAL SIGNS: Blood pressure 122/61, pulse 77, respirations 18. LUNGS: Bilateral breath sounds. Few rales. HEART: Regular rhythm and rate. Normal S1, S2. 1/6 systolic murmur at apex. ABDOMEN: Soft, no edema. Troponin 0.075. IMPRESSION: 1. Ischemic cardiomyopathy. 2. Permanent pacemaker. 3. History of CABG. 4. Acute on chronic diastolic and systolic congestive heart failure. 5. Chronic myocardial ischemia. 6. Bacteremia. PLAN: 1. Maximize anti-failure and antianginal regimen. 2. Continue antiplatelet therapy and statin drug. 3. Myocardial perfusion scan to follow for assessment of coronary flow reserve. 4. Await final blood culture results and consider further evaluation for endocarditis based on these findings. Anant Her M.D. DR: ALBERTO JOB#: [id number] CC:
[2018-11-01 04:00] VITALS: BP 142/65
--- NOTE | 2018-11-01 06:29 | General Progress Note ---
Assessment/Plan Problem List: (1) Diabetes mellitus ICD Codes: E11.9 - Type 2 diabetes mellitus without complications SNOMED: 65067988 (2) Hyperglycemia ICD Codes: R73.9 - Hyperglycemia, unspecified SNOMED: 44079702 (3) CKD (chronic kidney disease) ICD Codes: N18.9 - Chronic kidney disease, unspecified SNOMED: 964439543 (4) Cardiomyopathy ICD Codes: I42.9 - Cardiomyopathy, unspecified SNOMED: 49186823 Assessment: reduce Levemir to 14 units qhs continue NISS Subjective ROS Limited/Unobtainable: Yes Allergies: Coded Allergies: No Known Allergies (Unverified , 09/30/17) Subjective events noted Item Value Date Time Bedside Blood Glucose 96 mg/dl 10/31/18 2126 Bedside Blood Glucose 110 mg/dl 10/31/18 1630 Bedside Blood Glucose 80 mg/dl 10/31/18 1125 Bedside Blood Glucose 118 mg/dl 10/31/18 0712 Bedside Blood Glucose 137 mg/dl H 10/31/18 0638 Objective Last 24 Hour Vital Signs Date Time Temp Pulse Resp B/P (MAP) Pulse Ox O2 Delivery O2 Flow Rate FiO2 11/01/18 04:52 78 16 99 Facial 28 11/01/18 04:00 28 11/01/18 04:00 98.7 75 16 142/65 (90) 100 11/01/18 04:00 75 11/01/18 02:33 75 16 98 Facial 28 11/01/18 01:26 76 18 98 Bi-pap 28 11/01/18 01:18 76 18 96 Facial 28 11/01/18 01:18 76 18 96 Bi-pap 28 11/01/18 00:00 76 11/01/18 00:00 28 11/01/18 00:00 98.9 76 15 154/68 (96) 94 10/31/18 23:19 154/68 10/31/18 23:08 78 16 92 Facial 28 10/31/18 21:16 152/73 10/31/18 21:00 Room Air 10/31/18 20:00 79 10/31/18 20:00 99.4 79 18 152/73 (99) 94 10/31/18 19:33 80 16 99 Room Air 21 10/31/18 19:24 78 16 93 Room Air 21 10/31/18 16:00 98.1 77 20 134/74 (94) 97 10/31/18 16:00 2.0 10/31/18 15:08 75 10/31/18 13:56 126/61 10/31/18 13:14 79 18 99 Room Air 21 10/31/18 13:05 78 16 95 Room Air 21 10/31/18 12:00 98.5 77 18 126/61 (82) 94 10/31/18 12:00 2.0 10/31/18 11:38 75 10/31/18 09:14 122/61 10/31/18 09:00 Room Air 10/31/18 08:41 75 18 99 Room Air 21 10/31/18 08:33 75 18 91 Room Air 21 10/31/18 08:00 98.1 77 18 122/61 (81) 94 10/31/18 08:00 2.0 10/31/18 07:51 75 Intake and Output 10/31/18 11/01/18 19:00 07:00 Intake Total 240 ml Output Total 200 ml 900 ml Balance 40 ml -900 ml Intake Oral 240 ml Output Urine Total 200 ml 900 ml # Voids 1 # Bowel Movements 3 Height (Feet): 6 Height (Inches): 1.00 Weight (Pounds): 170 General Appearance: no apparent distress Neck: normal alignment Cardiovascular: normal rate Respiratory/Chest: decreased breath sounds Abdomen: normal bowel sounds Objective Current Medications Medications (Trade) Dose Ordered Sig/Olga Lidia Route PRN Reason Start Time Stop Time Status Last Admin Dose Admin Albuterol/ Ipratropium (Albuterol/ Ipratropium) 3 ml Q6HRT HHN 10/29/18 19:00 11/01/18 18:59 11/01/18 01:18 Allopurinol (Zyloprim) 100 mg DAILY ORAL 10/30/18 09:00 11/28/18 08:59 10/31/18 09:14 Aspirin (ASA) 81 mg DAILY ORAL 10/30/18 09:00 11/27/18 08:59 10/31/18 09:14 Atorvastatin Calcium (Lipitor) 40 mg BEDTIME ORAL 10/29/18 21:00 11/26/18 20:59 10/31/18 21:16 Bisacodyl (Dulcolax) 10 mg DAILY ORAL 10/30/18 09:00 11/29/18 08:59 10/31/18 09:14 Carvedilol (Coreg) 6.25 mg EVERY 12 HOURS ORAL 11/01/18 09:00 12/01/18 08:59 Dextrose (Dextrose 50%) 25 ml Q30M PRN IV Hypoglycemia 10/29/18 18:30 11/26/18 14:59 Dextrose (Dextrose 50%) 50 ml Q30M PRN IV Hypoglycemia 10/29/18 18:30 11/26/18 14:59 10/31/18 06:18 Docusate Sodium (Colace) 100 mg TID ORAL 10/31/18 13:00 11/29/18 08:59 10/31/18 13:56 Enalapril Maleate (Vasotec) 5 mg EVERY 12 HOURS ORAL 11/01/18 09:00 12/01/18 08:59 Fish Oil (Fish Oil) 1,000 mg DAILY ORAL 10/30/18 09:00 11/28/18 08:59 10/31/18 09:14 Heparin Sodium (Porcine) (Heparin 5000 units/ml) 5,000 units EVERY 12 HOURS SUBQ 10/29/18 21:00 11/26/18 20:59 Insulin Aspart (NovoLOG) BEFORE MEALS AND HS SUBQ 10/29/18 21:00 11/26/18 16:29 10/30/18 21:29 Insulin Detemir (Levemir) 18 units BEDTIME SUBQ 10/31/18 21:00 11/26/18 20:59 10/31/18 21:26 Isosorbide Dinitrate (Isordil) 20 mg Q8HR ORAL 10/30/18 22:00 11/28/18 14:14 10/31/18 23:19 Magnesium Hydroxide (Mom) 30 ml DAILYPRN PRN ORAL Constipation 10/29/18 21:45 11/28/18 21:44 Pantoprazole (Protonix) 40 mg EVERY 12 HOURS ORAL 10/29/18 21:00 11/28/18 20:59 10/31/18 21:16 Polyethylene Glycol (Miralax) 17 gm DAILY ORAL 10/30/18 09:00 11/29/18 08:59 10/31/18 09:14 Sennosides (Senokot) 8.6 mg DAILY ORAL 10/30/18 09:00 11/29/18 08:59 10/31/18 09:14 Vancomycin HCl (Vanco rx to dose) 1 ea DAILY PRN MISC Per rx protocol 10/30/18 08:00 11/29/18 07:59 Vancomycin HCl 1 gm/Dextrose 275 ml @ 183.708 mls/hr Q24H IVPB 10/30/18 08:00 11/04/18 07:59 10/31/18 08:44 Niko Amaya MD Nov 01, 2018 06:29
[2018-11-01] MEDS: NovoLOG Insulin Flexpen SUBQ SCH ×2 (06:30→11:30)
[2018-11-01 08:02] VITALS: BP 110/60
[2018-11-01] MEDS: Docusate 100mg/10ml Liq ORAL SCH ×2 (08:10→12:20)
[2018-11-01] MEDS: Allopurinol 100mg Tab ORAL SCH (08:10)
[2018-11-01] MEDS: Aspirin Baby 81mg ORAL SCH (08:10)
[2018-11-01 08:19] LABS: CKMB 2.4 NG/ML (0.0-3.6)
[2018-11-01] MEDS: Miralax 17gm pkt ORAL SCH (09:00)
[2018-11-01] MEDS: Bisacodyl EC 5mg tab ORAL SCH (09:00)
[2018-11-01] MEDS: Heparin 5000 units/ml inj SUBQ SCH (09:00)
[2018-11-01] MEDS ORDERED: Enalapril 5mg tab ORAL SCH (09:00)
[2018-11-01] MEDS: Sennosides 8.6mg tab ORAL SCH (09:00)
[2018-11-01] MEDS ORDERED: Carvedilol 6.25mg Tab ORAL SCH (09:00)
[2018-11-01] MEDS ORDERED: Vancomycin 1.25gm Premix IVPB SCH (10:00)
--- NOTE | 2018-11-01 12:01 | Infectious Diseases Prog Note ---
Assessment/Plan Assessment/Plan IMPRESSION: 1. Positive blood culture with Micrococcus likely contamination 2. Uncontrolled diabetes mellitus. 3. Anemia. 4. Coronary artery disease. 5. Combined systolic and diastolic heart failure. 6. Chronic kidney disease. RECOMMENDATION: Discontinue IV vancomycin Agree with discharge without antibiotic Subjective ROS Limited/Unobtainable: Yes Constitutional: Reports: no symptoms Allergies: Coded Allergies: No Known Allergies (Unverified , 09/30/17) Objective Vital Signs Last 24 Hour Vital Signs Date Time Temp Pulse Resp B/P (MAP) Pulse Ox O2 Delivery O2 Flow Rate FiO2 11/01/18 11:52 76 18 Room Air 21 11/01/18 11:35 72 19 99 Room Air 21 11/01/18 11:30 76 18 94 Room Air 21 11/01/18 09:00 Room Air 11/01/18 08:10 75 110/60 11/01/18 08:10 110/60 11/01/18 08:02 97.9 75 20 110/60 (77) 98 11/01/18 08:00 2.0 11/01/18 07:38 75 11/01/18 06:45 75 16 99 Nasal Cannula 3.0 32 11/01/18 06:36 150/76 11/01/18 06:35 87 16 95 Nasal Cannula 3.0 32 11/01/18 04:52 78 16 99 Facial 28 11/01/18 04:00 28 11/01/18 04:00 98.7 75 16 142/65 (90) 100 11/01/18 04:00 75 11/01/18 02:33 75 16 98 Facial 28 11/01/18 01:26 76 18 98 Bi-pap 28 11/01/18 01:18 76 18 96 Facial 28 11/01/18 01:18 76 18 96 Bi-pap 28 11/01/18 00:00 76 11/01/18 00:00 28 11/01/18 00:00 98.9 76 15 154/68 (96) 94 10/31/18 23:19 154/68 10/31/18 23:08 78 16 92 Facial 28 10/31/18 21:16 152/73 10/31/18 21:00 Room Air 10/31/18 20:00 79 10/31/18 20:00 99.4 79 18 152/73 (99) 94 10/31/18 19:33 80 16 99 Room Air 21 10/31/18 19:24 78 16 93 Room Air 21 10/31/18 16:00 98.1 77 20 134/74 (94) 97 10/31/18 16:00 2.0 10/31/18 15:08 75 10/31/18 13:56 126/61 10/31/18 13:14 79 18 99 Room Air 21 10/31/18 13:05 78 16 95 Room Air 21 10/31/18 12:00 98.5 77 18 126/61 (82) 94 10/31/18 12:00 2.0 Height (Feet): 6 Height (Inches): 1.00 Weight (Pounds): 170 General Appearance: no acute distress HEENT: mucous membranes moist Respiratory/Chest: lungs clear Cardiovascular: normal rate Abdomen: soft, non tender Extremities: no edema Neurologic/Psychiatric: other - sleeping Laboratory Tests Test 11/01/18 07:06 Total Creatine Kinase 125 U/L (26-308) Creatine Kinase MB 2.4 NG/ML (0.0-3.6) Creatine Kinase MB Relative Index 1.9 Troponin I 0.070 ng/mL (0.000-0.056) Vancomycin Level Trough 9.5 ug/mL (5.0-12.0) Current Medications Medications (Trade) Dose Ordered Sig/Olga Lidia Route PRN Reason Start Time Stop Time Status Last Admin Dose Admin Albuterol/ Ipratropium (Albuterol/ Ipratropium) 3 ml Q6HRT HHN 10/29/18 19:00 11/01/18 18:59 11/01/18 11:40 Allopurinol (Zyloprim) 100 mg DAILY ORAL 10/30/18 09:00 11/28/18 08:59 11/01/18 08:10 Aspirin (ASA) 81 mg DAILY ORAL 10/30/18 09:00 11/27/18 08:59 11/01/18 08:10 Atorvastatin Calcium (Lipitor) 40 mg BEDTIME ORAL 10/29/18 21:00 11/26/18 20:59 10/31/18 21:16 Bisacodyl (Dulcolax) 10 mg DAILY ORAL 10/30/18 09:00 11/29/18 08:59 10/31/18 09:14 Carvedilol (Coreg) 6.25 mg EVERY 12 HOURS ORAL 11/01/18 09:00 12/01/18 08:59 11/01/18 08:10 Dextrose (Dextrose 50%) 25 ml Q30M PRN IV Hypoglycemia 10/29/18 18:30 11/26/18 14:59 Dextrose (Dextrose 50%) 50 ml Q30M PRN IV Hypoglycemia 10/29/18 18:30 11/26/18 14:59 10/31/18 06:18 Docusate Sodium (Colace) 100 mg TID ORAL 10/31/18 13:00 11/29/18 08:59 11/01/18 08:10 Enalapril Maleate (Vasotec) 5 mg EVERY 12 HOURS ORAL 11/01/18 09:00 12/01/18 08:59 11/01/18 08:10 Fish Oil (Fish Oil) 1,000 mg DAILY ORAL 10/30/18 09:00 11/28/18 08:59 11/01/18 08:10 Heparin Sodium (Porcine) (Heparin 5000 units/ml) 5,000 units EVERY 12 HOURS SUBQ 10/29/18 21:00 11/26/18 20:59 Insulin Aspart (NovoLOG) BEFORE MEALS AND HS SUBQ 10/29/18 21:00 11/26/18 16:29 10/30/18 21:29 Insulin Detemir (Levemir) 14 units BEDTIME SUBQ 11/01/18 21:00 11/26/18 20:59 Isosorbide Dinitrate (Isordil) 20 mg Q8HR ORAL 10/30/18 22:00 11/28/18 14:14 11/01/18 06:36 Magnesium Hydroxide (Mom) 30 ml DAILYPRN PRN ORAL Constipation 10/29/18 21:45 11/28/18 21:44 Pantoprazole (Protonix) 40 mg EVERY 12 HOURS ORAL 10/29/18 21:00 11/28/18 20:59 11/01/18 08:10 Polyethylene Glycol (Miralax) 17 gm DAILY ORAL 10/30/18 09:00 11/29/18 08:59 10/31/18 09:14 Sennosides (Senokot) 8.6 mg DAILY ORAL 10/30/18 09:00 11/29/18 08:59 10/31/18 09:14 Raz Paulson MD Nov 01, 2018 12:01
--- NOTE | 2018-11-01 12:02 | Nephrology Progress Note ---
Assessment/Plan Problem List: (1) Diabetic nephropathy (2) CKD (chronic kidney disease) (3) Pacemaker (4) Hyperlipidemia (5) Cardiomyopathy Assessment Renal failure ? Acute on Chronic Respiratory failure anemia DM OOC High lactic level HypoAlbuminemia and Proteinuria s/p Cardiac surgery - Pace maker Cardiomyopathy Plan optimize cardiac and pulmonary status hydralazine- Isordil urine studies med surg if Ok with Cardio kidney MARY * No hydronephrosis or sonographically appreciable renal stone. * Renal echogenicity appears within normal limits. * Bilateral renal cysts. 2D echo Global left ventricular hypokinesis with distal anterior wall and apical akinesis. Mild left ventricular enlargement . Left ventricular ejection fraction estimated to be 30-35%. Subjective ROS Limited/Unobtainable: No Constitutional: Reports: malaise Objective Objective Last 24 Hour Vital Signs Date Time Temp Pulse Resp B/P (MAP) Pulse Ox O2 Delivery O2 Flow Rate FiO2 11/01/18 11:52 76 18 Room Air 21 11/01/18 11:35 72 19 99 Room Air 21 11/01/18 11:30 76 18 94 Room Air 21 11/01/18 09:00 Room Air 11/01/18 08:10 75 110/60 11/01/18 08:10 110/60 11/01/18 08:02 97.9 75 20 110/60 (77) 98 11/01/18 08:00 2.0 11/01/18 07:38 75 11/01/18 06:45 75 16 99 Nasal Cannula 3.0 32 11/01/18 06:36 150/76 11/01/18 06:35 87 16 95 Nasal Cannula 3.0 32 11/01/18 04:52 78 16 99 Facial 28 11/01/18 04:00 28 11/01/18 04:00 98.7 75 16 142/65 (90) 100 11/01/18 04:00 75 11/01/18 02:33 75 16 98 Facial 28 11/01/18 01:26 76 18 98 Bi-pap 28 11/01/18 01:18 76 18 96 Facial 28 11/01/18 01:18 76 18 96 Bi-pap 28 11/01/18 00:00 76 11/01/18 00:00 28 11/01/18 00:00 98.9 76 15 154/68 (96) 94 10/31/18 23:19 154/68 10/31/18 23:08 78 16 92 Facial 28 10/31/18 21:16 152/73 10/31/18 21:00 Room Air 10/31/18 20:00 79 10/31/18 20:00 99.4 79 18 152/73 (99) 94 10/31/18 19:33 80 16 99 Room Air 21 10/31/18 19:24 78 16 93 Room Air 21 10/31/18 16:00 98.1 77 20 134/74 (94) 97 10/31/18 16:00 2.0 10/31/18 15:08 75 10/31/18 13:56 126/61 10/31/18 13:14 79 18 99 Room Air 21 10/31/18 13:05 78 16 95 Room Air 21 Intake and Output 10/31/18 11/01/18 18:59 06:59 Intake Total 240 ml Output Total 200 ml 900 ml Balance 40 ml -900 ml Intake Oral 240 ml Output Urine Total 200 ml 900 ml # Voids 1 # Bowel Movements 3 Laboratory Tests 11/01/18 07:06: Total Creatine Kinase 125, Creatine Kinase MB 2.4, Creatine Kinase MB Relative Index 1.9, Troponin I 0.070H, Vancomycin Level Trough 9.5 Height (Feet): 6 Height (Inches): 1.00 Weight (Pounds): 170 General Appearance: no apparent distress Objective PE no change Bonifacio Ackerman MD Nov 01, 2018 12:02
[2018-11-01 12:03] VITALS: BP 105/53
--- NOTE | 2018-11-01 12:08 | Cardiology Report ---
APPROVED REPORT EKG Measurement Heart [id number] AV sequential pacing Abnormal ECG
[2018-11-01] MEDS ORDERED: Sterile Water Irrig 1000ml IRRIG ONE (13:39)
[2018-11-01] MEDS ORDERED: Levemir Flexpen SUBQ SCH (21:00)
--- NOTE | 2018-11-02 03:15 | Progress Note ---
DATE: 11/01/2018 CARDIOLOGY PROGRESS NOTE SUBJECTIVE: The patient has no chest pain or shortness of breath. Blood culture results are negative. Antibiotics have been discontinued. It was felt that the initial abnormal blood culture was a contaminant. OBJECTIVE: VITAL SIGNS: Blood pressure 105/53, pulse 74, respirations 18. LUNGS: Clear. CARDIAC: Regular, normal S1, S2 with a 1/6 systolic apical murmur. ABDOMEN: Soft, no edema. Troponin is remaining in the range of 0.07. CK is negative. IMPRESSION: 1. Chronic ischemic heart disease. 2. Severe cardiomyopathy. 3. Chronic systolic and diastolic congestive heart failure. 4. Permanent pacemaker. 5. History of CABG. 6. No bacteremia or risk of endocarditis at this time. PLAN: 1. Stable for outpatient management. 2. Continue current cardiovascular regimen. 3. Outpatient myocardial perfusion scan can be considered if symptomatic with regard to chest pain or heart failure as in such a setting it would be useful to assess ischemic burden. Anant Her M.D. DR: ALBERTO JOB#: [id number] CC:
--- NOTE | 2018-11-02 10:07 | Discharge Summary ---
Discharge Summary Discharge Summary _ DATE OF ADMISSION: 10/27/2018 DATE OF DISCHARGE: 11/01/2018 DISCHARGED BY: Dr Mcmullen REASON FOR ADMISSION: 73 years old male, resident of [facility] facility, with past medical history of cerebrovascular accident, congestive heart failure, CAD, s/p CABG and OR, , hypertension, AICD , COPD/asthma, BiPAP use , diabetes mellitus, depression, was sent for evaluation due to elevated blood sugar over 400. No recent illness. No reported fever or chills. No reported nausea and vomiting. Upon evaluation vital signs were stable. Laboratory workup revealed no leukocytosis, hemoglobin 9.8, hematocrit 30.4, MCV 87. BUN 27, creatinine 1.9, stable electrolytes. Glucose 315. Lactic acid 2.2. Phosphorus 2.9 9. Troponin -0.05. Urinalysis revealed +1 blood, +2 glucose, +3 protein, no evidence of UTI. EKG revealed paced rhythm in 70s. No acute ischemic changes. Chest x-ray demonstrated prominence of the central pulmonary vasculature and mild haziness of the pulmonary vasculature , suggesting mild congestive changes. Patient was admitted to monitored floor for further management. CONSULTANTS: senior health consultant Dr. Wilde pulmonary Dr. Maloney ID specialist Dr. Weinberg broadloom weaver Dr. Ackerman linen aide/oncologist Dr. Tony daily release and dupe printer Dr. Amaya [facility] COURSE: Patient admitted and started on IV hydration. Blood sugar was managed as per daily release and dupe printer recommendations with long- acting Levemir, short acting NovoLog pre-meal and sliding scale of insulin as needed. Further adjustments were made according to the blood glucose levels. Hemoglobin A1c 9.2 not at goal. Patient will need further optimization of anti-glycemic regimen as outpatient to bring blood sugar under control. Blood sugar stabilized while in the hospital Security Systems Administrator followed. Echocardiogram revealed global left ventricular hypokinesis with distal anterior wall and apical akinesis. No evidence of left ventricular hypertrophy. Left ventricular ejection fraction estimated to be 30-35%. Right ventricular systolic pressure of 43 consistent with a mild pulmonary hypertension. Mild to moderate mitral regurgitation. Lipid panel was stable. Second troponin was minimally elevated 0.063 and the two consecutive troponin were also minimally elevated. Security Systems Administrator closely followed. Patient was continued on guideline directed medical therapy. Volumes and cardiorenal parameters were closely monitored. Pro BNP from initial 5343 down to 4720. Anti-failure and antianginal regimen were maximized. Myocardial perfusion scan to be done as outpatient to follow-up with assessment of coronary flow reserve. Patient had minimally elevated troponin. Troponin elevation pattern was not consistent with acute myocardial infarction. Minimal troponin elevation was possibly due to chronic kidney disease. Patient had no chest pain . Patient was continued on antiplatelet therapy and statin. DVT prophylaxis provided Supplemental oxygen provided as needed to keep pulse oximetry above 92%. Pulmonary toilet provided as needed BiPAP was provided at nighttime and as needed. Respiratory status remained stable Prior to discharge pulse oximetry was stable on room air. Match Up Person followed. Patient with evidence of diabetic nephropathy. Renal ultrasound revealed no evidence of hydronephrosis, no sonographically appreciable renal stone. Renal echogenicity appeared to be within normal limits. Bilateral renal cysts noted. Electrolytes corrected as needed. Nephrotoxins were avoided. Prior to discharge BUN from 27 down to 14, creatinine remained at the same range. Match Up Person, patient likely had chronic kidney disease due to diabetic nephropathy. 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 Patient remained afebrile, no leukocytosis. Initially started antibiotic was discontinued. Infectious disease specialist recommended to keep patient off antibiotic and observe closely. Artificial Limb Fitter followed. Anemia workup revealed evidence of anemia of chronic disease. Per linen aide, anemia of chronic disease was due to underlying chronic medical issues, multifactorial, with poorly controlled medical issues. No evidence of hemolysis. Hemoglobin hematocrit were closely monitored with goal to keep hemoglobin above 7. Prior to discharge hemoglobin 8.5, hematocrit 26.2. Hepatitis panel was negative. HIV test was nonreactive. Patient noted to have thrombocytopenia. On the second day platelet count 117. Platelet count was closely monitored , improved to 135. Per linen aide , thrombocytopenia had multifactorial potential causes, at this time improved , closely monitor platelet count as outpatient. Supportive care provided. Bowel regimen instituted. Pain management was addressed. GI prophylaxis provided. Patient clinically stabilized and was ready for [facility] to [facility] for continuation of care FINAL DIAGNOSES: Diabetes mellitus out of control with hyperglycemia Lactic acidosis Diabetic nephropathy Chronic kidney disease, likely due to diabetic nephropathy Severe ischemic cardiomyopathy Acute on chronic systolic and diastolic congestive heart failure Status post cardiac resynchronization therapy with placement of AICD Coronary artery disease, status post CABG, history of OR Chronic ischemic heart disease Hyperlipidemia History of CVA History of hypertension Anemia anemia of chronic disease Thrombocytopenia Dementia DISCHARGE MEDICATIONS: See Medication Reconciliation list. DISCHARGE INSTRUCTIONS: [facility] to the [facility] facility. Follow up with medical doctor at the facility. I have been assigned to dictate discharge summary for this account. I was not involved in the patient's management. Steff Beavers NP Nov 02, 2018 10:07
== END 2018-11-01 13:40 | DRG 637 ==
LOC: EDBD 10:17 → EMR 12:10 → EDBEDREQ 12:33 → 2E 12:48 → EDBEDREQ 13:20 → 2W 14:30 → 2E 10-29 17:54
PROC: 5A09457 Assistance with Respiratory Ventilation, 24-96 Consecutive Hours, Continuous Positive Airway Pressure (ICD-10-PCS; principal; 2018-10-27)
DX: E11.65 Type 2 diabetes mellitus with hyperglycemia (principal); J96.90 Respiratory failure, unspecified, unspecified whether with hypoxia or hypercapnia; I50.43 Acute on chronic combined systolic (congestive) and diastolic (congestive) heart failure; E87.2 Acidosis; N17.9 Acute kidney failure, unspecified; I13.0 Hypertensive heart and chronic kidney disease with heart failure and stage 1 through stage 4 chronic kidney disease, or unspecified chronic kidney disease; D69.6 Thrombocytopenia, unspecified; Z86.73 Personal history of transient ischemic attack (TIA), and cerebral infarction without residual deficits; I25.10 Atherosclerotic heart disease of native coronary artery without angina pectoris; Z95.1 Presence of aortocoronary bypass graft; I25.2 Old myocardial infarction; J44.9 Chronic obstructive pulmonary disease, unspecified; Z95.810 Presence of automatic (implantable) cardiac defibrillator; E11.22 Type 2 diabetes mellitus with diabetic chronic kidney disease; N18.9 Chronic kidney disease, unspecified; I25.5 Ischemic cardiomyopathy; E78.5 Hyperlipidemia, unspecified; D63.8 Anemia in other chronic diseases classified elsewhere; F03.90 Unspecified dementia, unspecified severity, without behavioral disturbance, psychotic disturbance, mood disturbance, and anxiety; K21.9 Gastro-esophageal reflux disease without esophagitis; Z79.82 Long term (current) use of aspirin; Z79.4 Long term (current) use of insulin
CPT/HCPCS: 36415; 36600; 71045; 76770; 80053; 80061; 80202; 81003; 82550; 82553; 82607; 82728; 82746; 82803; 82962; 82977; 83036; 83540; 83550; 83605; 83735; 83880; 84100; 84443; 84484; 84550; 85025; 86140; 86703; 86705; 86709; 86803; 87040; 87081; 87340; 93005; 93306; 94640; 94660; 94664; 96361; 96374; 99285; J1815; J7620; S5561